=== PATIENT | female | born 1930 | race Caucasian/White ===

== ENCOUNTER 2016-04-01 13:58 | Emergency (ER) | payer MEDICARE, BC ==
--- NOTE | 2016-04-01 15:17 | ER Document Report ---
ED General - General Mode of Arrival: Ambulatory Information source: Patient TRAVEL OUTSIDE OF THE [place] IN LAST 30 DAYS: No - HPI Patient complains to provider of: Possible UTI Onset: Last week Associated symptoms: Other - see above <SHON MALIK - Last Filed: 04/02/16 00:00> <ARTEMIO GARCIA - Last Filed: 04/07/16 14:17> - General Stated Complaint: URINARY ISSUES Notes: 86 year old female with history of UTIs, pneumonia, and dementia presents to the ED via EMS accompanied by family who complain tht the patient has had a UTI for the past week. Family reports that they only have 1 dose of Macrobid left which was prescribed by her primary care provider. Patient is denying any relief from her UTI even after antibiotic use. Patient is still having burning with urination, frequency, dark urine, and dysuria. Patient appears to be "more confused", but family denies any slurred speech or unilateral weakness. Patient has had rhinorrhea and a non-productive cough for the past week. Patient denies fever or chills. Patient was last admitted here with pneumonia. Patient's primary care provider is Dr. George in [place], [place]. (SHON MALIK) - Related Data Allergies/Adverse Reactions: No Known Allergies Allergy (Verified 02/12/14 08:24) Past Medical History - General Information source: Patient - Social History Smoking Status: Unknown if Ever Smoked Family History: None Pulmonary Medical History: Reports: Hx Pneumonia Denies: Hx Tuberculosis Renal/ Medical History: Reports: Other - UTIs. Denies: Hx End Stage Renal Disease, Hx Kidney Stones, Hx Peritoneal Dialysis Musculoskeltal Medical History: Denies Hx Arthritis, Denies Hx Fibromyalgia, Denies Hx Muscular Dystrophy Traumatic Medical History: Denies: Hx Fractures Past Surgical History: Reports: Hx Appendectomy, Hx Hysterectomy. Denies: Hx Bowel Surgery, Hx Section, Hx Cholecystectomy, Hx Coronary Artery Bypass Graft, Hx Gastric Bypass Surgery, Hx Herniorrhaphy, Hx Mastectomy, Hx Pacemaker, Hx Tonsillectomy, Hx Tubal Ligation - Immunizations Hx Diphtheria, Pertussis, Tetanus Vaccination: Yes Hx Pneumococcal Vaccination: 02/08/06 <SHON MALIK - Last Filed: 04/02/16 00:00> Review of Systems - Review of Systems Constitutional: No symptoms reported EENT: See HPI, Nose discharge Cardiovascular: No symptoms reported Respiratory: See HPI, Cough - non-productive Gastrointestinal: No symptoms reported Genitourinary: See HPI, Burning, Dysuria, Frequency, Other - "dark urine" Female Genitourinary: No symptoms reported Musculoskeletal: No symptoms reported Skin: No symptoms reported Hematologic/Lymphatic: No symptoms reported Neurological/Psychological: See HPI, Confusion -: Yes All other systems reviewed and negative <SHON MALIK - Last Filed: 04/02/16 00:00> Physical Exam - General General appearance: Alert In distress: None - HEENT Head: Normocephalic, Atraumatic Eyes: Normal Extraocular movements intact: Yes Pupils: PERRL - Respiratory Respiratory status: No respiratory distress Breath sounds: Normal - Cardiovascular Rhythm: Regular Heart sounds: Normal auscultation - Abdominal Inspection: Normal - Back Back: Normal - Extremities General upper extremity: Normal inspection, Normal ROM General lower extremity: Normal inspection, Normal ROM - Neurological Neuro grossly intact: Yes Cognition: Normal Orientation: AAOx4 Blandon Coma Scale Eye Opening: Spontaneous Blandon Coma Scale Verbal: Oriented Gwen Coma Scale Motor: Obeys Commands Gwen Coma Scale Total: 15 Speech: Normal - Psychological Associated symptoms: Normal affect, Normal mood - Skin Skin Temperature: Warm Skin Moisture: Dry Skin Color: Normal <SHON MALIK - Last Filed: 04/02/16 00:00> <ARTEMIO GARCIA - Last Filed: 04/07/16 14:17> - Vital signs Vitals: Temp Pulse Resp BP Pulse Ox 98.2 F 83 16 132/59 H 92 04/01/16 14:20 04/01/16 14:20 04/01/16 14:20 04/01/16 14:20 04/01/16 14:20 Temp Pulse Resp BP Pulse Ox 98.2 F 83 16 132/59 H 92 04/01/16 14:20 04/01/16 14:20 04/01/16 14:20 04/01/16 14:20 04/01/16 14:20 (SHON MALIK) Course - Laboratory Result Diagrams: 04/01/16 15:50 04/01/16 15:50 <SHON MALIK - Last Filed: 04/02/16 00:00> - Laboratory Result Diagrams: 04/01/16 15:50 04/01/16 15:50 <ARTEMIO GARCIA - Last Filed: 04/07/16 14:17> - Re-evaluation Re-evalutation: 04/01/16 18:15 I personally performed the services described in the documentation, reviewed and edited the documentation which was dictated to my scribe in my presence, and it accurately records my words and actions. Patient presents to the emergency department with her family with a history of dementia recent urinary tract infection. Family states that she's been having intermittent urinary tract infections was placed on antibiotics is on day 2 of her Macrobid. She denies any fevers chills vomiting diarrhea they do notice a darker urine odor that all she really drinks is soda coffee and tea. They've tried to get her to drink other things that she's like the taste of it. On examination she is normotensive not tachycardic no acute confusion or neurological deficits family does not feel there is any been strokelike symptoms. She is well-appearing and nontoxic afebrile. Chest x-ray shows an acute on chronic spot which is not consistent with pneumonia clinically. I discussed this with the family she has always had an abnormal chest x-ray from rheumatoid arthritis. It does not clinically or historically appear to be pneumonia. They agree with that do not want antibiotics for that. Facial Macrobid. She not actively vomiting or belly is soft. At this point she is stable for discharge for primary care physician in 2-3 days and discussed reasons for ED return sooner (ARTEMIO GARCIA) - Vital Signs Vital signs: Temp Pulse Resp BP Pulse Ox 97.6 F 88 16 156/69 H 96 04/01/16 18:45 04/01/16 18:45 04/01/16 18:45 04/01/16 18:45 04/01/16 18:45 - Laboratory Laboratory results interpreted by me: 04/01/16 04/01/16 04/01/16 15:50 15:50 16:51 Lymphocytes % 11.5 L Est GFR (Non-Af Amer) 53 L Urine Ketones TRACE H Urine Urobilinogen 2.0 H Ur Leukocyte Esterase TRACE H Discharge <SHON MALIK - Last Filed: 04/02/16 00:00> <ARTEMIO GARCIA - Last Filed: 04/07/16 14:17> - Discharge Clinical Impression: UTI (urinary tract infection), Weakness Condition: Stable Disposition: HOME, SELF-CARE Additional Instructions: Urinary Tract Infection Your evaluation indicates that you have a urinary tract infection. This is due to germs growing in the bladder. This is a common problem. This infection usually responds quickly to antibiotics. Your antibiotic should be taken exactly as prescribed. Drink plenty of fluids -- three to four quarts a day. Occasionally, a bladder anesthetic will be prescribed to help stop the feeling of urgency until the antibiotic has a chance to clear the infection. This may cause your urine to be dark orange. Certain urine infections require a culture. If the doctor obtained a culture, the results will be back in two days. You should call to see if a change in treatment is needed. A repeat urinalysis after you finish treatment is often recommended. The physician will let you know if further testing is required. Call the doctor if you develop fever, chills, flank pain, inability to urinate, or blood in the urine. Referrals: LUIS GEORGE MD [Primary Care Provider] - Follow up in 3-5 days (2-3 days return for increasing worsening or new symptoms) Scribe Documentation - Scribe Written by Suleiman:: Suleiman Christie, 04/01/2016 1833 acting as scribe for :: Hemant <SHON MALIK - Last Filed: 04/02/16 00:00>
[2016-04-01] MEDS ORDERED: NORMAL SALINE 1000 ML 1,000 ML IV ONE (15:19)
[2016-04-01 16:05] LABS: ABSOLUTE BASOPHILS # (AUTO) 0.1 10^3/uL (0.0-0.2); ABSOLUTE EOSINOPHILS # (AUTO) 0.1 10^3/uL (0.0-0.6); ABSOLUTE LYMPHOCYTES (AUTO) 1.2 10^3/uL (0.5-4.7); BASOPHILS % (AUTO) 0.7 % (0-2); EOSINOPHILS % (AUTO) 1.2 % (0-6); HEMOGLOBIN 13.1 g/dL (12.0-15.5); HGB HCT DIFFERENCE 0.3; LYMPHOCYTES % (AUTO) 11.5 % (13-45); MEAN CORPUSCULAR HEMOGLOBIN 29.6 pg (27.0-33.4); MEAN CORPUSCULAR HGB CONC 33.6 g/dL (32.0-36.0); MEAN CORPUSCULAR VOLUME 88 fl (80-97); MONOCYTES % (AUTO) 9.3 % (3-13); RED BLOOD COUNT 4.42 10^6/uL (3.72-5.28); SEGMENTED NEUTROPHILS % (AUTO) 77.3 % (42-78); WHITE BLOOD COUNT 10.3 10^3/uL (4.0-10.5)
[2016-04-01 16:21] LABS: ANION GAP 12 (5-19); BLOOD UREA NITROGEN 19 mg/dL (7-20); CALCIUM 9.7 mg/dL (8.4-10.2); CARBON DIOXIDE 25 mmol/L (22-30); CHLORIDE 103 mmol/L (98-107); GLUCOSE 87 mg/dL (75-110); POTASSIUM 4.3 mmol/L (3.6-5.0); SODIUM 139.6 mmol/L (137-145)
[2016-04-01 17:27] LABS: APPEARANCE,URINE SLIGHTLY-CLOUDY; BILIRUBIN,URINE NEGATIVE (NEGATIVE); GLUCOSE, URINE NEGATIVE (NEGATIVE); KETONES,URINE TRACE mg/dL (NEGATIVE); LEUKOCYTE ESTERASE,URINE TRACE (NEGATIVE); NITRITE,URINE NEGATIVE (NEGATIVE); PROTEIN,URINE NEGATIVE (NEGATIVE); URINE SPECIFIC GRAVITY 1.021
[2016-04-01 19:25] VITALS: BP 156/69
== END 2016-04-01 18:45 | disposition home or self-care (01) ==
LOC: ER 13:58
DX: N39.0 Urinary tract infection, site not specified (principal); R53.1 Weakness; J34.89 Other specified disorders of nose and nasal sinuses; R05 Cough; F03.90 Unspecified dementia, unspecified severity, without behavioral disturbance, psychotic disturbance, mood disturbance, and anxiety; Z87.440 Personal history of urinary (tract) infections; Z90.49 Acquired absence of other specified parts of digestive tract
CPT/HCPCS: 99284; 96360; 36415; 87086; 85025; 80048; 81001; 87804; 71020; J7030

== ENCOUNTER 2017-04-23 14:13 | Inpatient (IN) | payer MEDICARE, BC ==
[2017-04-23] MEDS ORDERED: 1/2 NORMAL SALINE 1,000 ML IV PRN (17:17)
--- NOTE | 2017-04-23 17:37 | RADIOLOGY REPORT (SQ) ---
EXAM DESCRIPTION: CT CHEST WITHOUT COMPLETED DATE/TIME: 04/23/2017 4:29 pm REASON FOR STUDY: Pneumonia COMPARISON: Radiograph 04/01/2016 TECHNIQUE: CT scan performed of the chest without intravenous contrast. Images reviewed with lung, soft tissue and bone windows. Reconstructed coronal and sagittal MPR images reviewed. All images st ored on PACS. All CT scanners at this facility use dose modulation, iterative reconstruction, and/or weight based d osing when appropriate to reduce radiation dose to as low as reasonably achievable (ALARA). [facility]: Dose Right [facility]: CareDose [facility]: Dose Right [facility]: Teradose 4D [facility]: [employer] RADIATION DOSE: CT Rad equipment meets quality standard of care and radiation dose reduction techniq ues were employed. CTDIvol: 8.7 mGy. DLP: 286 mGy-cm. mGy. LIMITATIONS: No technical limitations. FINDINGS: LUNGS AND PLEURA: There is pleural/parenchymal scarring in the right apex. 2 small pulmon virgilio nodules are seen in the right upper lobe on image 9 series 4. The larger measures about 4 mm. T here is an area of slight haziness or scarring in the right lung on image 17 series 4. This correlat es with the appearance of the chest radiograph from 2017. An ill-defined infiltrate is suggested in the middle lobe on images 33 through 38 HILAR AND MEDIASTINAL STRUCTURES: No hilar or mediastinal masses are present. There is a prominent h iatal hernia. HEART AND VASCULAR STRUCTURES: No aneurysm. No pericardial effusion. UPPER ABDOMEN: No significant findings. Limited exam. THYROID AND OTHER SOFT TISSUES: No masses. No adenopathy. BONES: Osteoporosis with compression changes in multiple thoracolumbar vertebrae. Vertebroplasty roderick nges are present at 2 levels. HARDWARE: None in the chest. OTHER: No other significant findings. IMPRESSION: 1. A limited infiltrate cannot be excluded in the anterior aspect of the right middle l obe. 2. There is scarring in the right upper lobe. 3. There are 2 small nonspecific pulmonary nodules in the right upper lobe. 4. There is osteoporosis with compression changes in the spine. TECHNICAL DOCUMENTATION: JOB ID: [id number] Quality ID # [id number]: Final reports with documentation of one or more dose reduction techniques (e.g., Au tomated exposure control, adjustment of the mA and/or kV according to patient size, use of iterative reconstruction technique) 2010 [employer]- All Rights Reserved Reading location - IP/workstation name: [email or web address]
[2017-04-23 17:46] LABS: HEMOGLOBIN 13.6 g/dL (12.0-15.5); MEAN CORPUSCULAR HEMOGLOBIN 29.7 pg (27.0-33.4); MEAN CORPUSCULAR HGB CONC 33.2 g/dL (32.0-36.0); MEAN CORPUSCULAR VOLUME 89 fl (80-97); PLATELET COUNT 220 10^3/uL (150-450); RED BLOOD COUNT 4.59 10^6/uL (3.72-5.28); RED CELL DISTRIBUTION WIDTH 14.6 % (11.5-14.0); WHITE BLOOD COUNT 4.8 10^3/uL (4.0-10.5)
[2017-04-23] MEDS ORDERED: LEVOFLOXACIN 750 MG/D5W RTU 750 MG/150 ML RTUPB IV ONE (18:00)
[2017-04-23 18:15] LABS: ALANINE AMINOTRANSFERASE 21 U/L (9-52); ALKALINE PHOSPHATASE 101 U/L (38-126); ANION GAP 11 (5-19); ASPARTATE AMINO TRANSFERASE 27 U/L (14-36); BILIRUBIN,DIRECT 0.3 mg/dL (0.0-0.4); BILIRUBIN,TOTAL 0.3 mg/dL (0.2-1.3); BLOOD UREA NITROGEN 30 mg/dL (7-20); CALCIUM 9.8 mg/dL (8.4-10.2); CARBON DIOXIDE 26 mmol/L (22-30); CHLORIDE 105 mmol/L (98-107); GLUCOSE 96 mg/dL (75-110); SODIUM 141.6 mmol/L (137-145); TOTAL PROTEIN 7.6 g/dL (6.3-8.2)
[2017-04-23] MEDS ORDERED: (PENDING PHARMACY ID) (Donepezil Hcl [Aricept] 10 MG) PO SCH (18:15)
[2017-04-23 18:34] LABS: ARTERIAL BLOOD BASE EXCESS -0.5 mmol/L; ARTERIAL BLOOD FIO2 ROOM AIR; ARTERIAL BLOOD H2CO3 1.23 mmol/L (1.05-1.35); ARTERIAL BLOOD HCO3 24.4 mmol/L (20-26); ARTERIAL BLOOD O2 SATURATION 94.6 % (94-98); ARTERIAL BLOOD PCO2 40.7 mmHg (35-45); ARTERIAL BLOOD PO2 72.5 mmHg (80-100); ARTERIAL BLOOD TOTAL CO2 25.6 mmol/L (21-25)
[2017-04-23] MEDS ORDERED: DONEPEZIL HCL 5 MG TABLET PO ONE ×2 (19:00→23:45)
[2017-04-23] MEDS ORDERED: MEMANTINE HCL 10 MG TABLET PO ONE ×2 (19:00→23:45)
[2017-04-23] MEDS ORDERED: NORMAL SALINE 1000 ML 1,000 ML IV PRN (20:10)
--- NOTE | 2017-04-23 20:25 | PDOC H&P ---
History of Present Illness Admission Date/PCP: 04/23/17 14:13 LUIS GUTIERRES MD History of Present Illness: MARLYS TORRES is a 87 year old female, She came to the office today for the first time with family including spouse and daughter who is an RN, she complained of cough, shortness of breath, she has baseline dementia, rheumatoid arthritis, multiple osteoporotic compression fracture of the lumbar vertebre. In the office she was evaluated, on auscultation of her chest she has crackles that suggest pneumonia. 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 Because of concern for pneumonia because she is of advanced age and the fact that the family said she has not been active, she has been laying around the house it was felt that she needed to be admitted to the hospital for further evaluation and management. In the hospital CT chest without contrast was done he showed pleural/parenchymal scarring. Small pulmonary nodules are seen in the right upper lobe. There is area of dizziness in the right lung. Ill-defined infiltrates is suggested in the middle lobe. There is no hilar mass there are multiple osteoporosis with compression changes in multiple thoracolumbar vertebrae there is vertebroplasty changes at 2 levels. Past Medical History Pulmonary Medical History: Reports: Pneumonia Endocrine Medical History: Reports: Other - Osteoporosis Musculoskeltal Medical History: Reports: Arthritis - Rheumatoid arthritis Psychiatric Medical History: Reports: Dementia Past Surgical History Past Surgical History: Reports: Appendectomy, Hysterectomy Social History Information Source: Patient, Relative Lives with: Family Smoking Status: Never Smoker Frequency of Alcohol Use: None Hx Recreational Drug Use: No Drugs: None Hx Prescription Drug Abuse: Yes - 1 tab vicodin daily Family History Family History: None Parental Family History Reviewed: Yes Children Family History Reviewed: Yes Sibling(s) Family History Reviewed.: Yes Medication/Allergy Home Medications: Ciprofloxacin HCl [Cipro 250 mg Tablet] 250 mg PO BID 04/23/17 Donepezil HCl [Aricept] 10 mg PO DAILY 04/23/17 Memantine HCl [Namenda 10 mg Tablet] 10 mg PO BID 04/23/17 Tramadol HCl [Ultram 50 mg Tablet] 50 mg PO TIDP PRN 04/23/17 Allergies/Adverse Reactions: No Known Allergies Allergy (Verified 02/12/14 08:24) Review of Systems Constitutional: PRESENT: chills, other Eyes: ABSENT: visual disturbances Ears: ABSENT: hearing changes Cardiovascular: ABSENT: chest pain, dyspnea on exertion, edema, orthropnea, palpitations Respiratory: PRESENT: cough, dyspnea Gastrointestinal: ABSENT: abdominal pain, constipation, diarrhea, hematemesis, hematochezia, nausea, vomiting Genitourinary: ABSENT: dysuria, hematuria Musculoskeletal: ABSENT: joint swelling Integumentary: ABSENT: rash, wounds Neurological: ABSENT: abnormal gait, abnormal speech, confusion, dizziness, focal weakness, syncope Psychiatric: ABSENT: anxiety, depression, homidical ideation, suicidal ideation Endocrine: ABSENT: cold intolerance, heat intolerance, menstrual abnormalities, polydipsia, polyuria Hematologic/Lymphatic: ABSENT: easy bleeding, easy bruising, lymphadenopathy Physical Exam Vital Signs: Temp Pulse Resp BP Pulse Ox 97.8 F 76 18 141/55 H 97 04/23/17 16:56 04/23/17 16:56 04/23/17 16:56 04/23/17 16:56 04/23/17 16:56 Intake & Output 04/22/17 04/23/17 04/24/17 06:59 06:59 06:59 Intake Total 200 Balance 200 Weight 68.6 kg General appearance: PRESENT: mild distress Head exam: PRESENT: atraumatic, normocephalic Eye exam: PRESENT: conjunctiva pink, EOMI, PERRLA Ear exam: PRESENT: normal external ear exam Mouth exam: PRESENT: moist, tongue midline Neck exam: PRESENT: full ROM Respiratory exam: PRESENT: crackles Cardiovascular exam: PRESENT: RRR, +S1, +S2 Pulses: PRESENT: normal dorsalis pedis pul, +2 pedal pulses bilateral Vascular exam: PRESENT: normal capillary refill GI/Abdominal exam: PRESENT: normal bowel sounds, soft Rectal exam: PRESENT: deferred Neurological exam: PRESENT: alert Skin exam: PRESENT: dry, intact, warm Results Laboratory Results: 04/23/17 17:15 04/23/17 17:15 04/23/17 04/23/17 04/23/17 17:15 17:15 17:52 WBC 4.8 RBC 4.59 Hgb 13.6 Hct 41.0 MCV 89 MCH 29.7 MCHC 33.2 RDW 14.6 H Plt Count 220 Carbonic Acid 1.23 HCO3/H2CO3 Ratio 19:1 ABG pH 7.40 ABG pCO2 40.7 ABG pO2 72.5 L ABG HCO3 24.4 ABG O2 Saturation 94.6 ABG Base Excess -0.5 FiO2 ROOM AIR Sodium 141.6 Potassium 4.0 [place] 105 Carbon Dioxide 26 Anion Gap 11 BUN 30 H Creatinine 1.31 H Est GFR ( Amer) 47 L Est GFR (Non-Af Amer) 39 L Glucose 96 Calcium 9.8 Total Bilirubin 0.3 AST 27 ALT 21 Alkaline Phosphatase 101 Total Protein 7.6 Albumin 4.0 Impressions: Chest CT 04/23/17 15:55 IMPRESSION: 1. A limited infiltrate cannot be excluded in the anterior aspect of the right middle lobe. 2. There is scarring in the right upper lobe. 3. There are 2 small nonspecific pulmonary nodules in the right upper lobe. 4. There is osteoporosis with compression changes in the spine. Assessment & Plan - Diagnosis (1) Pneumonia Qualifiers: Pneumonia type: due to unspecified organism Laterality: right Lung location: middle lobe of lung Qualified Code(s): J18.1 - Lobar pneumonia, unspecified organism Is this a current diagnosis for this admission?: Yes Plan: She will be treated with IV antibiotic to cover community-acquired pathogens (2) Rheumatoid arthritis Qualifiers: Rheumatoid arthritis location: unspecified site Rheumatoid factor presence : unspecified presence Qualified Code(s): M06.9 - Rheumatoid arthritis, unspecified Is this a current diagnosis for this admission?: Yes (3) Dementia Qualifiers: Dementia type: Alzheimer's disease Alzheimer's disease onset: late-onset Dementia behavioral disturbance: without behavioral disturbance Qualified Code (s): G30.1 - Alzheimer's disease with late onset; F02.80 - Dementia in other diseases classified elsewhere without behavioral disturbance; F02.80 - Dementia in other diseases classified elsewhere without behavioral disturbance; F02.80 - Dementia in other diseases classified elsewhere without behavioral disturbance Is this a current diagnosis for this admission?: Yes (4) Osteoporotic compression fracture of spine Qualifiers: Encounter type: initial encounter Qualified Code(s): M80.88XA - Other osteoporosis with current pathological fracture, vertebra(e), initial encounter for fracture Is this a current diagnosis for this admission?: Yes
[2017-04-23 21:46] LABS: HEMATOCRIT 38.6 % (36.0-47.0); HEMOGLOBIN 12.8 g/dL (12.0-15.5); MEAN CORPUSCULAR HEMOGLOBIN 29.7 pg (27.0-33.4); MEAN CORPUSCULAR HGB CONC 33.2 g/dL (32.0-36.0); MEAN CORPUSCULAR VOLUME 90 fl (80-97); PLATELET COUNT 202 10^3/uL (150-450); RED BLOOD COUNT 4.31 10^6/uL (3.72-5.28); RED CELL DISTRIBUTION WIDTH 14.8 % (11.5-14.0); WHITE BLOOD COUNT 5.1 10^3/uL (4.0-10.5)
[2017-04-23 21:58] LABS: INTERNATIONAL RATION (INR) 0.91; PARTIAL THROMBOPLASTIN TIME 29.1 SEC (23.5-35.8); PROTHROMBIN TIME 12.9 SEC (11.4-15.4)
[2017-04-24] MEDS ORDERED: 1/2 NORMAL SALINE 1,000 ML IV PRN (07:11)
[2017-04-24] MEDS: DONEPEZIL HCL 5 MG TABLET PO SCH (09:50)
[2017-04-24] MEDS: TRAMADOL HCL 50 MG TABLET PO PRN ×2 (09:50→17:23)
[2017-04-24] MEDS: MEMANTINE HCL 10 MG TABLET PO SCH ×2 (09:51→17:23)
[2017-04-24] MEDS: LEVOFLOXACIN 750 MG/D5W RTU 750 MG/150 ML RTUPB IV SCH (09:51)
[2017-04-24] MEDS: ENOXAPARIN SODIUM INJ 40 MG/0.4 ML DISP.SYRIN SUBCUT SCH (09:52)
--- NOTE | 2017-04-24 09:54 | EKG REPORT ---
SEVERITY:- ABNORMAL ECG - SINUS RHYTHM PROBABLE LEFT ATRIAL ABNORMALITY LEFT VENTRICULAR HYPERTROPHY : Confirmed by: Manuel Casas MD 24-Apr-2017 09:53:30
--- NOTE | 2017-04-24 14:47 | PDOC PROGRESS REPORT ---
Subjective Progress Note for:: 04/24/17 Subjective:: No chest pain. There is persistent coughing with difficult expectoration. There is nausea but no vomiting or abdominal pain. Family at bedside reported poor appetite and P.O intake. She denied any constipation. No fever or chills. Remain on IV Levofloxacin coverage. Reason For Visit: PNEUMONIA,RHEUMATOID ARTHRITIS,DEMENTIA Physical Exam Vital Signs: Temp Pulse Resp BP Pulse Ox 97.5 F 66 17 158/61 H 98 04/24/17 12:13 04/24/17 12:13 04/24/17 12:13 04/24/17 12:13 04/24/17 12:13 Intake & Output 04/23/17 04/24/17 04/25/17 06:59 06:59 06:59 Intake Total 1140 0 Balance 1140 0 Weight 68.6 kg Results Laboratory Results: 04/23/17 21:40 04/23/17 21:40 04/23/17 04/23/17 04/23/17 17:15 17:15 17:52 WBC 4.8 RBC 4.59 Hgb 13.6 Hct 41.0 MCV 89 MCH 29.7 MCHC 33.2 RDW 14.6 H Plt Count 220 Carbonic Acid 1.23 HCO3/H2CO3 Ratio 19:1 ABG pH 7.40 ABG pCO2 40.7 ABG pO2 72.5 L ABG HCO3 24.4 ABG O2 Saturation 94.6 ABG Base Excess -0.5 FiO2 ROOM AIR Sodium 141.6 Potassium 4.0 [place] 105 Carbon Dioxide 26 Anion Gap 11 BUN 30 H Creatinine 1.31 H Est GFR ( Amer) 47 L Est GFR (Non-Af Amer) 39 L Glucose 96 Calcium 9.8 Total Bilirubin 0.3 AST 27 ALT 21 Alkaline Phosphatase 101 Total Protein 7.6 Albumin 4.0 04/23/17 04/23/17 21:40 21:40 WBC 5.1 RBC 4.31 Hgb 12.8 Hct 38.6 MCV 90 MCH 29.7 MCHC 33.2 RDW 14.8 H Plt Count 202 Carbonic Acid HCO3/H2CO3 Ratio ABG pH ABG pCO2 ABG pO2 ABG HCO3 ABG O2 Saturation ABG Base Excess FiO2 Sodium Potassium [place] Carbon Dioxide Anion Gap BUN Creatinine 1.13 Est GFR ( Amer) 55 L Est GFR (Non-Af Amer) 46 L Glucose Calcium Total Bilirubin AST ALT Alkaline Phosphatase Total Protein Albumin Impressions: Chest CT 04/23/17 15:55 IMPRESSION: 1. A limited infiltrate cannot be excluded in the anterior aspect of the right middle lobe. 2. There is scarring in the right upper lobe. 3. There are 2 small nonspecific pulmonary nodules in the right upper lobe. 4. There is osteoporosis with compression changes in the spine. Assessment & Plan - Diagnosis (1) Right middle lobe pneumonia Qualifiers: Pneumonia type: due to unspecified organism Qualified Code(s): J18.1 - Lobar pneumonia, unspecified organism Is this a current diagnosis for this admission?: Yes Plan: Continue IV Levofloxacin coverage. Follow up on blood culture findings. (2) Adult failure to thrive Is this a current diagnosis for this admission?: Yes Plan: Encourage adequate oral intake. Add oral nourishment supplementation to tray. (3) Nausea alone Plan: Probably due to ongoing acute infection. Manage with Zofran on prn basis. (4) Senile dementia of Alzheimer's type Is this a current diagnosis for this admission?: Yes Plan: Continue current medication management. (5) Osteoporotic compression fracture of spine Qualifiers: Encounter type: initial encounter Qualified Code(s): M80.88XA - Other osteoporosis with current pathological fracture, vertebra(e), initial encounter for fracture Is this a current diagnosis for this admission?: Yes Plan: Continue current management. Monitor for any new onset back pain for possible fragility fracture. (6) Lab findings of hypoxemia Is this a current diagnosis for this admission?: Yes Plan: Monitor oxygenation status on room air and consider starting on supplementation if necessary. - Time Time Spent with patient: 25-34 minutes Medications reviewed and adjusted accordingly: Yes Anticipated discharge: Home with Homehealth Within: Other - Inpatient Certification Based on my medical assessment, after consideration of the patient's comorbidities, presenting symptoms, or acuity I expect that the services needed warrant INPATIENT care.: Yes I certify that my determination is in accordance with my understanding of Medicare's requirements for reasonable and necessary INPATIENT services [42 CFR 412.3e].: Yes Medical Necessity: Need Close Monitoring Due to Risk of Patient Decompensation, Need For IV Fluids, Need For Continuous Telemetry Monitoring, Need for IV Antibiotics, Risk of Complication if Not Cared For in Hospital Post Hospital Care: D/C Kosher Inspector Documentation - Plan Summary Plan Summary: See covering attending physician orders.
[2017-04-24 21:18] LABS: APPEARANCE,URINE CLEAR; BILIRUBIN,URINE NEGATIVE (NEGATIVE); COLOR,URINE STRAW; GLUCOSE, URINE NEGATIVE (NEGATIVE); KETONES,URINE NEGATIVE (NEGATIVE); LEUKOCYTE ESTERASE,URINE NEGATIVE (NEGATIVE); NITRITE,URINE NEGATIVE (NEGATIVE); PROTEIN,URINE NEGATIVE (NEGATIVE); URINE SPECIFIC GRAVITY 1.009; UROBILINOGEN,URINE NEGATIVE mg/dL (<2.0)
[2017-04-25 05:55] LABS: ABSOLUTE MONOCYTES (AUTO) 0.5 10^3/uL (0.1-1.4); ABSOLUTE NEUT (AUTO) 3.3 10^3/uL (1.7-8.2); BASOPHILS % (AUTO) 0.5 % (0-2); EOSINOPHILS % (AUTO) 0.3 % (0-6); HEMATOCRIT 40.7 % (36.0-47.0); HEMOGLOBIN 13.8 g/dL (12.0-15.5); LYMPHOCYTES % (AUTO) 20.5 % (13-45); MEAN CORPUSCULAR HEMOGLOBIN 29.8 pg (27.0-33.4); MEAN CORPUSCULAR HGB CONC 33.9 g/dL (32.0-36.0); MEAN CORPUSCULAR VOLUME 88 fl (80-97); MONOCYTES % (AUTO) 11.3 % (3-13); PLATELET COUNT 208 10^3/uL (150-450); RED BLOOD COUNT 4.62 10^6/uL (3.72-5.28); RED CELL DISTRIBUTION WIDTH 14.6 % (11.5-14.0); SEGMENTED NEUTROPHILS % (AUTO) 67.4 % (42-78); TOTAL CELLS COUNTED % (AUTO) 100 %; WHITE BLOOD COUNT 4.9 10^3/uL (4.0-10.5)
[2017-04-25 06:33] LABS: ALANINE AMINOTRANSFERASE 16 U/L (9-52); ALBUMIN 3.2 g/dL (3.5-5.0); ALKALINE PHOSPHATASE 84 U/L (38-126); ANION GAP 9 (5-19); ASPARTATE AMINO TRANSFERASE 25 U/L (14-36); BILIRUBIN,DIRECT 0.2 mg/dL (0.0-0.4); BILIRUBIN,TOTAL 0.4 mg/dL (0.2-1.3); BLOOD UREA NITROGEN 19 mg/dL (7-20); CALCIUM 9.1 mg/dL (8.4-10.2); CARBON DIOXIDE 24 mmol/L (22-30); CHLORIDE 100 mmol/L (98-107); GLUCOSE 87 mg/dL (75-110); POTASSIUM 4.3 mmol/L (3.6-5.0); TOTAL PROTEIN 6.1 g/dL (6.3-8.2)
[2017-04-25] MEDS: LEVOFLOXACIN 750 MG/D5W RTU 750 MG/150 ML RTUPB IV SCH (11:02)
[2017-04-25] MEDS: DONEPEZIL HCL 5 MG TABLET PO SCH (11:03)
[2017-04-25] MEDS: MEMANTINE HCL 10 MG TABLET PO SCH ×2 (11:03→18:43)
[2017-04-25] MEDS: ENOXAPARIN SODIUM INJ 40 MG/0.4 ML DISP.SYRIN SUBCUT SCH (11:04)
[2017-04-25] MEDS: TRAMADOL HCL 50 MG TABLET PO PRN (12:33)
[2017-04-25] MEDS ORDERED: NORMAL SALINE 1000 ML 1,000 ML IV PRN (12:55)
--- NOTE | 2017-04-25 13:02 | PDOC PROGRESS REPORT ---
Subjective Progress Note for:: 04/25/17 Subjective:: Nursing staff reported low grade fever, episode of tachycardia and lower back pain. No chest pain. Family reported episodes of coughing after swallowing at home and worried about possible aspiration. Expectoration with coughing remain a challenge. There is nausea, vomiting or abdominal pain. Remain on IV fluid support and IV Levofloxacin coverage. Reason For Visit: PNEUMONIA,RHEUMATOID ARTHRITIS,DEMENTIA Physical Exam Vital Signs: Temp Pulse Resp BP Pulse Ox 99.4 F 86 14 142/69 H 96 04/25/17 11:15 04/25/17 11:15 04/25/17 11:15 04/25/17 11:15 04/25/17 11:15 Intake & Output 04/24/17 04/25/17 04/26/17 06:59 06:59 06:59 Intake Total 1140 2079 0 Output Total 675 Balance 1140 1404 0 Weight 68.6 kg 68.9 kg General appearance: PRESENT: no acute distress Head exam: PRESENT: atraumatic, normocephalic Eye exam: PRESENT: conjunctiva pink, EOMI, PERRLA. ABSENT: scleral icterus Mouth exam: PRESENT: moist - fairly Throat exam: PRESENT: other - oropharyngeal reflex intact Respiratory exam: PRESENT: clear to auscultation [place], decreased breath sounds - at lung bases Cardiovascular exam: PRESENT: RRR. ABSENT: diastolic murmur, rubs, systolic murmur GI/Abdominal exam: PRESENT: normal bowel sounds, soft. ABSENT: distended, guarding, mass, organolmegaly, rebound, tenderness Extremities exam: ABSENT: pedal edema Musculoskeletal exam: PRESENT: deformity - related to multiple jpoints involvement with arthritis Neurological exam: PRESENT: alert - and appropriate in simple responses, awake, CN II-XII grossly intact. ABSENT: motor sensory deficit Psychiatric exam: PRESENT: appropriate affect, normal mood. ABSENT: homicidal ideation, suicidal ideation Skin exam: PRESENT: dry, intact, warm. ABSENT: cyanosis, rash Results Laboratory Results: 04/25/17 05:33 04/25/17 05:33 04/24/17 04/25/17 04/25/17 20:40 05:33 05:33 WBC 4.9 RBC 4.62 Hgb 13.8 Hct 40.7 MCV 88 MCH 29.8 MCHC 33.9 RDW 14.6 H Plt Count 208 Seg Neutrophils % 67.4 Lymphocytes % 20.5 Monocytes % 11.3 Eosinophils % 0.3 Basophils % 0.5 Absolute Neutrophils 3.3 Absolute Lymphocytes 1.0 Absolute Monocytes 0.5 Absolute Eosinophils 0.0 Absolute Basophils 0.0 Sodium 133.0 L Potassium 4.3 Chloride 100 Carbon Dioxide 24 Anion Gap 9 BUN 19 Creatinine 0.98 Est GFR ( Amer) > 60 Est GFR (Non-Af Amer) 54 L Glucose 87 Calcium 9.1 Total Bilirubin 0.4 AST 25 ALT 16 Alkaline Phosphatase 84 Total Protein 6.1 L Albumin 3.2 L Urine Color STRAW Urine Appearance CLEAR Urine pH 6.0 Ur Specific [place] 1.009 Urine Protein NEGATIVE Urine Glucose (UA) NEGATIVE Urine Ketones NEGATIVE Urine Blood NEGATIVE Urine Nitrite NEGATIVE Ur Leukocyte Esterase NEGATIVE Urine WBC (Auto) 1 Urine RBC (Auto) 2 Impressions: Chest CT 04/23/17 15:55 IMPRESSION: 1. A limited infiltrate cannot be excluded in the anterior aspect of the right middle lobe. 2. There is scarring in the right upper lobe. 3. There are 2 small nonspecific pulmonary nodules in the right upper lobe. 4. There is osteoporosis with compression changes in the spine. Assessment & Plan - Diagnosis (1) Right middle lobe pneumonia Qualifiers: Pneumonia type: due to unspecified organism Qualified Code(s): J18.1 - Lobar pneumonia, unspecified organism Is this a current diagnosis for this admission?: Yes (2) Adult failure to thrive Is this a current diagnosis for this admission?: Yes (4) Senile dementia of Alzheimer's type Is this a current diagnosis for this admission?: Yes (5) Osteoporotic compression fracture of spine Qualifiers: Encounter type: initial encounter Qualified Code(s): M80.88XA - Other osteoporosis with current pathological fracture, vertebra(e), initial encounter for fracture Is this a current diagnosis for this admission?: Yes (6) Lab findings of hypoxemia Is this a current diagnosis for this admission?: Yes - Time Time Spent with patient: 25-34 minutes Medications reviewed and adjusted accordingly: Yes Anticipated discharge: Home with Homehealth Within: Other - Inpatient Certification Based on my medical assessment, after consideration of the patient's comorbidities, presenting symptoms, or acuity I expect that the services needed warrant INPATIENT care.: Yes I certify that my determination is in accordance with my understanding of Medicare's requirements for reasonable and necessary INPATIENT services [42 CFR 412.3e].: Yes Medical Necessity: Need Close Monitoring Due to Risk of Patient Decompensation, Need For IV Fluids, Need For Continuous Telemetry Monitoring, Need for IV Antibiotics, Risk of Complication if Not Cared For in Hospital Post Hospital Care: D/C Tube Draw Helper Documentation - Plan Summary Plan Summary: Continue IV fluid support at 75mL/hr. Maintain on IV Levofloxacin therapy. Speech pathologist evaluation for possible swallowing difficulty.
--- NOTE | 2017-04-25 15:23 | EKG REPORT ---
SEVERITY:- ABNORMAL ECG - SINUS TACHYCARDIA WITH IRREGULAR RATE 86-130 LEFT AXIS DEVIATION PROBABLE LEFT VENTRICULAR HYPERTROPHY : Confirmed by: Manuel Casas MD 25-Apr-2017 15:23:34
[2017-04-25] MEDS ORDERED: ACETAMINOPHEN 650 MG SUPP.RECT PR ONE (20:32)
[2017-04-25] MEDS ORDERED: ACETAMINOPHEN 650 MG SUPP.RECT PR PRN (20:34)
[2017-04-25] MEDS ORDERED: CEFEPIME 1 GM/D5W RTU 1 GM/50 ML RTUPB IV ONE ×2 (20:45→21:29)
[2017-04-26] MEDS: MEMANTINE HCL 10 MG TABLET PO SCH ×2 (10:50→18:56)
[2017-04-26] MEDS: CEFEPIME 1 GM/D5W RTU 1 GM/50 ML RTUPB IV SCH ×2 (10:53→22:12)
[2017-04-26] MEDS: DONEPEZIL HCL 5 MG TABLET PO SCH (10:53)
[2017-04-26] MEDS: LEVOFLOXACIN 750 MG/D5W RTU 750 MG/150 ML RTUPB IV SCH (10:53)
[2017-04-26] MEDS: ENOXAPARIN SODIUM INJ 40 MG/0.4 ML DISP.SYRIN SUBCUT SCH (10:54)
[2017-04-26] MEDS: ACETAMINOPHEN 325 MG TABLET PO PRN (16:33)
[2017-04-26] MEDS: NORMAL SALINE 1000 ML 1,000 ML IV PRN ×2 (16:45→22:18)
[2017-04-26 18:06] LABS: ABSOLUTE LYMPHOCYTES (AUTO) 1.1 10^3/uL (0.5-4.7); ABSOLUTE MONOCYTES (AUTO) 0.7 10^3/uL (0.1-1.4); ABSOLUTE NEUT (AUTO) 5.7 10^3/uL (1.7-8.2); BASOPHILS % (AUTO) 0.4 % (0-2); EOSINOPHILS % (AUTO) 0.1 % (0-6); HEMATOCRIT 37.8 % (36.0-47.0); HEMOGLOBIN 12.6 g/dL (12.0-15.5); LYMPHOCYTES % (AUTO) 14.2 % (13-45); MEAN CORPUSCULAR HEMOGLOBIN 29.4 pg (27.0-33.4); MEAN CORPUSCULAR HGB CONC 33.4 g/dL (32.0-36.0); MEAN CORPUSCULAR VOLUME 88 fl (80-97); MONOCYTES % (AUTO) 9.8 % (3-13); PLATELET COUNT 163 10^3/uL (150-450); RED BLOOD COUNT 4.29 10^6/uL (3.72-5.28); RED CELL DISTRIBUTION WIDTH 14.4 % (11.5-14.0); SEGMENTED NEUTROPHILS % (AUTO) 75.5 % (42-78); TOTAL CELLS COUNTED % (AUTO) 100 %; WHITE BLOOD COUNT 7.6 10^3/uL (4.0-10.5)
[2017-04-26 18:25] LABS: ALANINE AMINOTRANSFERASE 24 U/L (9-52); ALBUMIN 2.8 g/dL (3.5-5.0); ALKALINE PHOSPHATASE 78 U/L (38-126); ANION GAP 9 (5-19); ASPARTATE AMINO TRANSFERASE 24 U/L (14-36); BILIRUBIN,DIRECT 0.2 mg/dL (0.0-0.4); BILIRUBIN,TOTAL 0.2 mg/dL (0.2-1.3); BLOOD UREA NITROGEN 19 mg/dL (7-20); CALCIUM 8.6 mg/dL (8.4-10.2); CARBON DIOXIDE 23 mmol/L (22-30); CHLORIDE 103 mmol/L (98-107); GLUCOSE 99 mg/dL (75-110); SODIUM 135.1 mmol/L (137-145); TOTAL PROTEIN 5.4 g/dL (6.3-8.2)
--- NOTE | 2017-04-26 18:26 | RADIOLOGY REPORT (SQ) ---
EXAM DESCRIPTION: CHEST SINGLE VIEW COMPLETED DATE/TIME: 04/26/2017 6:16 pm REASON FOR STUDY: pneumonia COMPARISON: CTA of the chest dated 04/23/2017 EXAM PARAMETERS: NUMBER OF VIEWS: One view. TECHNIQUE: Single frontal radiographic view of the chest acquired. RADIATION DOSE: NA LIMITATIONS: The patient has made a shallow inspiration. FINDINGS: LUNGS AND PLEURA: No opacities, masses or pneumothorax. No pleural effusion. Chronic appe aring changes are identified. MEDIASTINUM AND HILAR STRUCTURES: No masses. Contour normal. HEART AND VASCULAR STRUCTURES: Cardiac silhouette is enlarged. BONES: No acute findings. Patient is status post kyphoplasty at the level of the mid thoracic spine. HARDWARE: None in the chest. OTHER: No other significant finding. IMPRESSION: Limited study due to the patient's shallow inspiration. No acute consolidations or pleu ral effusions are identified. Other findings as noted above TECHNICAL DOCUMENTATION: JOB ID: [id number] [employer]- All Rights Reserved Reading location - IP/workstation name: [email or web address]
[2017-04-26 18:41] LABS: ERYTHROCYTE SEDIMENTATION RATE 32 mm/hr (0-30)
--- NOTE | 2017-04-26 20:26 | PDOC PROGRESS REPORT ---
Subjective Progress Note for:: 04/26/17 Subjective:: She was seen by the bedside, she continues to have high fever ranging from 101- 103 temperature, she is a full code presently on empiric antibiotic treatment for pneumonia. Family is concerned about aspiration she is scheduled for cookie swallow tomorrow Reason For Visit: PNEUMONIA,RHEUMATOID ARTHRITIS,DEMENTIA Physical Exam Vital Signs: Temp Pulse Resp BP Pulse Ox 100.4 F 98 20 129/64 H 97 04/26/17 19:37 04/26/17 19:37 04/26/17 19:37 04/26/17 19:37 04/26/17 19:37 Intake & Output 04/25/17 04/26/17 04/27/17 06:59 06:59 06:59 Intake Total 2079 2525 1340 Output Total 675 150 Balance 1404 2525 1190 Weight 68.9 kg 68.7 kg General appearance: PRESENT: mild distress Respiratory exam: PRESENT: rales Cardiovascular exam: PRESENT: +S1, +S2 GI/Abdominal exam: PRESENT: soft Neurological exam: PRESENT: alert Results Laboratory Results: 04/26/17 17:44 04/26/17 17:44 04/26/17 04/26/17 17:44 17:44 WBC 7.6 RBC 4.29 Hgb 12.6 Hct 37.8 MCV 88 MCH 29.4 MCHC 33.4 RDW 14.4 H Plt Count 163 Seg Neutrophils % 75.5 Lymphocytes % 14.2 Monocytes % 9.8 Eosinophils % 0.1 Basophils % 0.4 Absolute Neutrophils 5.7 Absolute Lymphocytes 1.1 Absolute Monocytes 0.7 Absolute Eosinophils 0.0 Absolute Basophils 0.0 Sodium 135.1 L Potassium 4.0 Chloride 103 Carbon Dioxide 23 Anion Gap 9 BUN 19 Creatinine 0.81 Est GFR ( Amer) > 60 Est GFR (Non-Af Amer) > 60 Glucose 99 Calcium 8.6 Total Bilirubin 0.2 AST 24 ALT 24 Alkaline Phosphatase 78 Total Protein 5.4 L Albumin 2.8 L 04/24/17 20:40 Clean Catch Midstream Urine Culture - Final NO GROWTH 2 DAYS Impressions: Chest CT 04/23/17 15:55 IMPRESSION: 1. A limited infiltrate cannot be excluded in the anterior aspect of the right middle lobe. 2. There is scarring in the right upper lobe. 3. There are 2 small nonspecific pulmonary nodules in the right upper lobe. 4. There is osteoporosis with compression changes in the spine. Chest X-Ray 04/26/17 00:00 IMPRESSION: Limited study due to the patient's shallow inspiration. No acute consolidations or pleural effusions are identified. Other findings as noted above Assessment & Plan - Diagnosis (1) Pneumonia Qualifiers: Pneumonia type: due to unspecified organism Laterality: right Lung location: middle lobe of lung Qualified Code(s): J18.1 - Lobar pneumonia, unspecified organism Is this a current diagnosis for this admission?: Yes (2) Rheumatoid arthritis Qualifiers: Rheumatoid arthritis location: unspecified site Rheumatoid factor presence : unspecified presence Qualified Code(s): M06.9 - Rheumatoid arthritis, unspecified Is this a current diagnosis for this admission?: Yes (3) Dementia Qualifiers: Dementia type: Alzheimer's disease Alzheimer's disease onset: late-onset Dementia behavioral disturbance: without behavioral disturbance Qualified Code (s): G30.1 - Alzheimer's disease with late onset; F02.80 - Dementia in other diseases classified elsewhere without behavioral disturbance; F02.80 - Dementia in other diseases classified elsewhere without behavioral disturbance; F02.80 - Dementia in other diseases classified elsewhere without behavioral disturbance Is this a current diagnosis for this admission?: Yes (4) Osteoporotic compression fracture of spine Qualifiers: Encounter type: initial encounter Qualified Code(s): M80.88XA - Other osteoporosis with current pathological fracture, vertebra(e), initial encounter for fracture Is this a current diagnosis for this admission?: Yes (5) Fever Qualifiers: Fever type: unspecified Qualified Code(s): R50.9 - Fever, unspecified Is this a current diagnosis for this admission?: Yes Plan: She will continue empiric treatment with antibiotic
[2017-04-27 05:34] LABS: ABSOLUTE LYMPHOCYTES (AUTO) 1.1 10^3/uL (0.5-4.7); ABSOLUTE MONOCYTES (AUTO) 0.7 10^3/uL (0.1-1.4); ABSOLUTE NEUT (AUTO) 6.1 10^3/uL (1.7-8.2); BASOPHILS % (AUTO) 0.2 % (0-2); EOSINOPHILS % (AUTO) 0.1 % (0-6); HEMATOCRIT 39.6 % (36.0-47.0); HEMOGLOBIN 13.6 g/dL (12.0-15.5); LYMPHOCYTES % (AUTO) 13.4 % (13-45); MEAN CORPUSCULAR HEMOGLOBIN 29.9 pg (27.0-33.4); MEAN CORPUSCULAR HGB CONC 34.3 g/dL (32.0-36.0); MEAN CORPUSCULAR VOLUME 87 fl (80-97); MONOCYTES % (AUTO) 8.8 % (3-13); PLATELET COUNT 142 10^3/uL (150-450); RED BLOOD COUNT 4.55 10^6/uL (3.72-5.28); RED CELL DISTRIBUTION WIDTH 14.3 % (11.5-14.0); SEGMENTED NEUTROPHILS % (AUTO) 77.5 % (42-78); TOTAL CELLS COUNTED % (AUTO) 100 %; WHITE BLOOD COUNT 7.8 10^3/uL (4.0-10.5)
[2017-04-27 05:59] LABS: ALANINE AMINOTRANSFERASE 26 U/L (9-52); ALBUMIN 2.9 g/dL (3.5-5.0); ALKALINE PHOSPHATASE 81 U/L (38-126); ANION GAP 10 (5-19); ASPARTATE AMINO TRANSFERASE 26 U/L (14-36); BILIRUBIN,DIRECT 0.5 mg/dL (0.0-0.4); BILIRUBIN,TOTAL 0.5 mg/dL (0.2-1.3); BLOOD UREA NITROGEN 16 mg/dL (7-20); CALCIUM 8.5 mg/dL (8.4-10.2); CARBON DIOXIDE 21 mmol/L (22-30); CHLORIDE 107 mmol/L (98-107); GLUCOSE 99 mg/dL (75-110); POTASSIUM 3.5 mmol/L (3.6-5.0); SODIUM 137.6 mmol/L (137-145)
[2017-04-27] MEDS: NORMAL SALINE 1000 ML 1,000 ML IV PRN (08:52)
[2017-04-27] MEDS: DONEPEZIL HCL 5 MG TABLET PO SCH (10:21)
[2017-04-27] MEDS: MEMANTINE HCL 10 MG TABLET PO SCH ×2 (10:21→17:55)
[2017-04-27] MEDS: ENOXAPARIN SODIUM INJ 40 MG/0.4 ML DISP.SYRIN SUBCUT SCH (10:22)
[2017-04-27] MEDS: CEFEPIME 1 GM/D5W RTU 1 GM/50 ML RTUPB IV SCH ×2 (10:25→22:54)
--- NOTE | 2017-04-27 11:57 | RADIOLOGY REPORT (SQ) ---
EXAM DESCRIPTION: SHADE SWALLOW COMPLETED DATE/TIME: 04/27/2017 11:34 am REASON FOR STUDY: ? aspiration COMPARISON: None. TECHNIQUE: Videofluoroscopic swallowing examination was performed in conjunction with speech patholo gy. Videofluoroscopic imaging was obtained and reviewed and these are the findings: RADIATION DOSE: Fluoro time 2.26 minutes 1 images saved to PACS. LIMITATIONS: None FINDINGS: The patient was brought into the fluoro room and placed upright on a modified barium swall ow chair. The patient was then given multiple consistencies mixed with barium to swallow under live fluoroscopic video guidance. According to the Speech Pathologist there was no penetration or aspirat ion. Please refer to the speech pathology report for further details. IMPRESSION: NO EVIDENCE OF PENETRATION OR ASPIRATION.PLEASE SEE SPEECH PATHOLOGIST REPORT FOR OTHER FINDINGS AND RECOMMENDATIONS. COMMENT: None Quality ID [id number]: Final reports for procedures using fluoroscopy that document radiation exposure beryl aj, or exposure time and number of fluorographic images (if radiation exposure indices are not avail able) TECHNICAL DOCUMENTATION: JOB ID: [id number] [employer]- All Rights Reserved Reading location - IP/workstation name: [email or web address]
--- NOTE | 2017-04-27 13:58 | ST Inp Modified Barium Swallow ---
Medical Diagnosis - Medical Diagnoses Medical Diagnosis Description & ICD-10 Code(s): pneumonia, right middle lobe ST Inpatient MBS - General Date: 04/27/17 - History History Obtained From: Other - EMR -: Medical - Per EMR: paatient admitted 04/23/17 with cough and shortness of breath. History includes dementia, RA, multiple osteoporotic compression frature of lumbar vertebre. Family reports coughing after swallowing at home. Patient seen at bedside by speech pathology yesterday, no overt signs or symptoms of dysphagia. Physician ordered MBSS to be performed this day. Medications: Medications Reviewed Allergies: No known allergies - Subjective Current Nutritional Means: PO Current PO Diet: Regular Pain: Patient reports, 0/5 - Objective Assessment: Upright, Left Lateral - Food Trials Food Trials Used: Thin liquids, Pureed, Regular The Patient: fed by ST - Assessment Labial Function: Within Normal Limits Lingual Function: Within Normal Limits Mandibular Function: Within Normal Limits Dentition: Partial Velo-Pharyngeal Function: Unremarkable Laryngeal Function: Volitional Cough - weak, Volitional Swallow - wnl - Pharyngeal Stage Initiation of Pharyngeal Stage: Normal Decreased Laryngeal Elevation: No Reduced Velo-Pharyngeal Closure: no Reduced Pressure Generation: No Reduced Tongue Base Retraction: No Pre-Swallowing Pooling in Valleculae: Mild - with liquid trials Pre-Swallowing Pooling in Pyriforms: None Reduced Thyro-Hyiod Approximation: No Reduced Epiglottic Excursion: No Reduced Pharyngeal Peristalsis: No Multiple Swallows With: Cleared w/ Liquid Assist Post Swallow Residuals in Valleculae: Mild - with solid trials Post Swallow Residuals in Pyriforms: None - Esophageal Stage Esophageal Stage Comments: Possible signs of reduced bolus movement through upper esophagus, could not fully assess during this procedure. - Impression/Summary Laryngeal Penetration: No Tracheal Aspiration: no Compensatory Strategies: small bites/sips, alternating bites and sips. Patient Presents With: Pharyngeal stage dysph., Mild-Moderate Risk of Aspiration: Minimal Risk of Nutritional Compromise: WNL - Recommendations Solid Diet Recommendations: Chopped Meat, Regular Liquid Diet Recommendations: Thin Strict Aspitarion Precautions: Yes Dysphagia Therapy with BEAUTICIAN APPRENTICE: No Recommended Techniques: Fully Upright During Meal, Alternate Bites/Sips Supervision: requires assistance - Time Total Time: 20 Total Timed Minutes: 20
[2017-04-27] MEDS: ACETAMINOPHEN 325 MG TABLET PO PRN (17:58)
--- NOTE | 2017-04-27 20:26 | PDOC PROGRESS REPORT ---
Subjective Progress Note for:: 04/27/17 Subjective:: Patient was seen by the bedside, she had modified barium swallow done today, there was no objective evidence of aspiration demonstrated from the study, though, family continues to believe she is aspirating Reason For Visit: PNEUMONIA,RHEUMATOID ARTHRITIS,DEMENTIA Physical Exam Vital Signs: Temp Pulse Resp BP Pulse Ox 98.0 F 83 14 157/73 H 98 04/27/17 15:41 04/27/17 15:41 04/27/17 15:41 04/27/17 15:41 04/27/17 15:41 Intake & Output 04/26/17 04/27/17 04/28/17 06:59 06:59 06:59 Intake Total 2525 1621 995 Output Total 1100 170 Balance 2525 521 825 Weight 68.7 kg 70.6 kg General appearance: PRESENT: no acute distress Eye exam: PRESENT: PERRLA Respiratory exam: PRESENT: decreased breath sounds Cardiovascular exam: PRESENT: +S1, +S2 GI/Abdominal exam: PRESENT: soft Neurological exam: PRESENT: alert Results Laboratory Results: 04/27/17 04:44 04/27/17 04:44 04/27/17 04/27/17 04:44 04:44 WBC 7.8 RBC 4.55 Hgb 13.6 Hct 39.6 MCV 87 MCH 29.9 MCHC 34.3 RDW 14.3 H Plt Count 142 L Seg Neutrophils % 77.5 Lymphocytes % 13.4 Monocytes % 8.8 Eosinophils % 0.1 Basophils % 0.2 Absolute Neutrophils 6.1 Absolute Lymphocytes 1.1 Absolute Monocytes 0.7 Absolute Eosinophils 0.0 Absolute Basophils 0.0 Sodium 137.6 Potassium 3.5 L Chloride 107 Carbon Dioxide 21 L Anion Gap 10 BUN 16 Creatinine 0.74 Est GFR ( Amer) > 60 Est GFR (Non-Af Amer) > 60 Glucose 99 Calcium 8.5 Total Bilirubin 0.5 AST 26 ALT 26 Alkaline Phosphatase 81 Total Protein 6.0 L Albumin 2.9 L Impressions: Chest CT 04/23/17 15:55 IMPRESSION: 1. A limited infiltrate cannot be excluded in the anterior aspect of the right middle lobe. 2. There is scarring in the right upper lobe. 3. There are 2 small nonspecific pulmonary nodules in the right upper lobe. 4. There is osteoporosis with compression changes in the spine. Chest X-Ray 04/26/17 00:00 IMPRESSION: Limited study due to the patient's shallow inspiration. No acute consolidations or pleural effusions are identified. Other findings as noted above Modified Barium Swallow 04/27/17 00:00 IMPRESSION: NO EVIDENCE OF PENETRATION OR ASPIRATION.PLEASE SEE SPEECH PATHOLOGIST REPORT FOR OTHER FINDINGS AND RECOMMENDATIONS. Assessment & Plan - Diagnosis (1) Pneumonia Qualifiers: Pneumonia type: due to unspecified organism Laterality: right Lung location: middle lobe of lung Qualified Code(s): J18.1 - Lobar pneumonia, unspecified organism Is this a current diagnosis for this admission?: Yes (2) Rheumatoid arthritis Qualifiers: Rheumatoid arthritis location: unspecified site Rheumatoid factor presence : unspecified presence Qualified Code(s): M06.9 - Rheumatoid arthritis, unspecified Is this a current diagnosis for this admission?: Yes (3) Dementia Qualifiers: Dementia type: Alzheimer's disease Alzheimer's disease onset: late-onset Dementia behavioral disturbance: without behavioral disturbance Qualified Code (s): G30.1 - Alzheimer's disease with late onset; F02.80 - Dementia in other diseases classified elsewhere without behavioral disturbance; F02.80 - Dementia in other diseases classified elsewhere without behavioral disturbance; F02.80 - Dementia in other diseases classified elsewhere without behavioral disturbance Is this a current diagnosis for this admission?: Yes (4) Osteoporotic compression fracture of spine Qualifiers: Encounter type: initial encounter Qualified Code(s): M80.88XA - Other osteoporosis with current pathological fracture, vertebra(e), initial encounter for fracture Is this a current diagnosis for this admission?: Yes (5) Fever Qualifiers: Fever type: unspecified Qualified Code(s): R50.9 - Fever, unspecified Is this a current diagnosis for this admission?: Yes
[2017-04-28] MEDS ORDERED: LEVOFLOXACIN 750 MG/D5W RTU 750 MG/150 ML RTUPB IV SCH (10:00)
[2017-04-28] MEDS: CEFEPIME 1 GM/D5W RTU 1 GM/50 ML RTUPB IV SCH (10:19)
[2017-04-28] MEDS: ENOXAPARIN SODIUM INJ 40 MG/0.4 ML DISP.SYRIN SUBCUT SCH (10:20)
[2017-04-28] MEDS: MEMANTINE HCL 10 MG TABLET PO SCH ×2 (10:20→17:18)
[2017-04-28] MEDS: DONEPEZIL HCL 5 MG TABLET PO SCH (10:35)
[2017-04-28 15:12] LABS: ABSOLUTE LYMPHOCYTES (AUTO) 1.3 10^3/uL (0.5-4.7); ABSOLUTE MONOCYTES (AUTO) 0.8 10^3/uL (0.1-1.4); ABSOLUTE NEUT (AUTO) 4.4 10^3/uL (1.7-8.2); BASOPHILS % (AUTO) 0.4 % (0-2); EOSINOPHILS % (AUTO) 0.7 % (0-6); HEMATOCRIT 38.5 % (36.0-47.0); HEMOGLOBIN 12.9 g/dL (12.0-15.5); LYMPHOCYTES % (AUTO) 19.7 % (13-45); MEAN CORPUSCULAR HEMOGLOBIN 29.2 pg (27.0-33.4); MEAN CORPUSCULAR HGB CONC 33.5 g/dL (32.0-36.0); MEAN CORPUSCULAR VOLUME 87 fl (80-97); MONOCYTES % (AUTO) 11.8 % (3-13); PLATELET COUNT 150 10^3/uL (150-450); RED BLOOD COUNT 4.43 10^6/uL (3.72-5.28); RED CELL DISTRIBUTION WIDTH 14.2 % (11.5-14.0); SEGMENTED NEUTROPHILS % (AUTO) 67.4 % (42-78); TOTAL CELLS COUNTED % (AUTO) 100 %; WHITE BLOOD COUNT 6.6 10^3/uL (4.0-10.5)
[2017-04-28 15:34] LABS: ALANINE AMINOTRANSFERASE 24 U/L (9-52); ALBUMIN 2.7 g/dL (3.5-5.0); ALKALINE PHOSPHATASE 79 U/L (38-126); ANION GAP 6 (5-19); ASPARTATE AMINO TRANSFERASE 25 U/L (14-36); BILIRUBIN,DIRECT 0.5 mg/dL (0.0-0.4); BILIRUBIN,TOTAL 0.5 mg/dL (0.2-1.3); BLOOD UREA NITROGEN 16 mg/dL (7-20); CALCIUM 8.4 mg/dL (8.4-10.2); CARBON DIOXIDE 23 mmol/L (22-30); CHLORIDE 109 mmol/L (98-107); GLUCOSE 78 mg/dL (75-110); POTASSIUM 3.6 mmol/L (3.6-5.0); TOTAL PROTEIN 5.8 g/dL (6.3-8.2)
--- NOTE | 2017-04-28 20:20 | PDOC PROGRESS REPORT ---
Subjective Progress Note for:: 04/28/17 Subjective:: Patient seen by the bedside, she seems to be doing well Reason For Visit: PNEUMONIA,RHEUMATOID ARTHRITIS,DEMENTIA Physical Exam Vital Signs: Temp Pulse Resp BP Pulse Ox 98.3 F 115 H 16 149/82 H 99 04/28/17 15:41 04/28/17 15:41 04/28/17 15:41 04/28/17 15:41 04/28/17 15:41 Intake & Output 04/27/17 04/28/17 04/29/17 06:59 06:59 06:59 Intake Total 1621 2990 1740 Output Total 1100 170 Balance 521 2820 1740 Weight 70.6 kg 71.1 kg General appearance: PRESENT: no acute distress Respiratory exam: PRESENT: decreased breath sounds Cardiovascular exam: PRESENT: +S1, +S2 GI/Abdominal exam: PRESENT: soft Neurological exam: PRESENT: alert Results Laboratory Results: 04/28/17 14:59 04/28/17 14:59 04/28/17 04/28/17 14:59 14:59 WBC 6.6 RBC 4.43 Hgb 12.9 Hct 38.5 MCV 87 MCH 29.2 MCHC 33.5 RDW 14.2 H Plt Count 150 Seg Neutrophils % 67.4 Lymphocytes % 19.7 Monocytes % 11.8 Eosinophils % 0.7 Basophils % 0.4 Absolute Neutrophils 4.4 Absolute Lymphocytes 1.3 Absolute Monocytes 0.8 Absolute Eosinophils 0.0 Absolute Basophils 0.0 Sodium 138.0 Potassium 3.6 Chloride 109 H Carbon Dioxide 23 Anion Gap 6 BUN 16 Creatinine 0.64 Est GFR ( Amer) > 60 Est GFR (Non-Af Amer) > 60 Glucose 78 Calcium 8.4 Total Bilirubin 0.5 AST 25 ALT 24 Alkaline Phosphatase 79 Total Protein 5.8 L Albumin 2.7 L 04/23/17 19:38 Blood Blood Culture - Final NO GROWTH IN 5 DAYS 04/23/17 17:15 Blood Blood Culture - Final NO GROWTH IN 5 DAYS Impressions: Chest CT 04/23/17 15:55 IMPRESSION: 1. A limited infiltrate cannot be excluded in the anterior aspect of the right middle lobe. 2. There is scarring in the right upper lobe. 3. There are 2 small nonspecific pulmonary nodules in the right upper lobe. 4. There is osteoporosis with compression changes in the spine. Chest X-Ray 04/26/17 00:00 IMPRESSION: Limited study due to the patient's shallow inspiration. No acute consolidations or pleural effusions are identified. Other findings as noted above Modified Barium Swallow 04/27/17 00:00 IMPRESSION: NO EVIDENCE OF PENETRATION OR ASPIRATION.PLEASE SEE SPEECH PATHOLOGIST REPORT FOR OTHER FINDINGS AND RECOMMENDATIONS. Assessment & Plan - Diagnosis (1) Pneumonia Qualifiers: Pneumonia type: due to unspecified organism Laterality: right Lung location: middle lobe of lung Qualified Code(s): J18.1 - Lobar pneumonia, unspecified organism Is this a current diagnosis for this admission?: Yes (2) Rheumatoid arthritis Qualifiers: Rheumatoid arthritis location: unspecified site Rheumatoid factor presence : unspecified presence Qualified Code(s): M06.9 - Rheumatoid arthritis, unspecified Is this a current diagnosis for this admission?: Yes (3) Dementia Qualifiers: Dementia type: Alzheimer's disease Alzheimer's disease onset: late-onset Dementia behavioral disturbance: without behavioral disturbance Qualified Code (s): G30.1 - Alzheimer's disease with late onset; F02.80 - Dementia in other diseases classified elsewhere without behavioral disturbance; F02.80 - Dementia in other diseases classified elsewhere without behavioral disturbance; F02.80 - Dementia in other diseases classified elsewhere without behavioral disturbance Is this a current diagnosis for this admission?: Yes (4) Osteoporotic compression fracture of spine Qualifiers: Encounter type: initial encounter Qualified Code(s): M80.88XA - Other osteoporosis with current pathological fracture, vertebra(e), initial encounter for fracture Is this a current diagnosis for this admission?: Yes (5) Fever Qualifiers: Fever type: unspecified Qualified Code(s): R50.9 - Fever, unspecified Is this a current diagnosis for this admission?: Yes
[2017-04-28] MEDS: LORAZEPAM 0.5 MG TABLET PO PRN (22:58)
[2017-04-29 05:46] LABS: ABSOLUTE LYMPHOCYTES (AUTO) 1.1 10^3/uL (0.5-4.7); ABSOLUTE MONOCYTES (AUTO) 0.9 10^3/uL (0.1-1.4); ABSOLUTE NEUT (AUTO) 4.2 10^3/uL (1.7-8.2); BASOPHILS % (AUTO) 0.5 % (0-2); EOSINOPHILS % (AUTO) 0.8 % (0-6); HEMATOCRIT 36.6 % (36.0-47.0); HEMOGLOBIN 12.4 g/dL (12.0-15.5); MEAN CORPUSCULAR HEMOGLOBIN 29.5 pg (27.0-33.4); MEAN CORPUSCULAR HGB CONC 33.8 g/dL (32.0-36.0); MEAN CORPUSCULAR VOLUME 87 fl (80-97); PLATELET COUNT 165 10^3/uL (150-450); RED BLOOD COUNT 4.19 10^6/uL (3.72-5.28); RED CELL DISTRIBUTION WIDTH 14.6 % (11.5-14.0); SEGMENTED NEUTROPHILS % (AUTO) 67.7 % (42-78); TOTAL CELLS COUNTED % (AUTO) 100 %; WHITE BLOOD COUNT 6.2 10^3/uL (4.0-10.5)
[2017-04-29 05:59] LABS: BLOOD UREA NITROGEN 16 mg/dL (7-20); CALCIUM 8.5 mg/dL (8.4-10.2); GLUCOSE 95 mg/dL (75-110)
[2017-04-29 06:00] LABS: ALANINE AMINOTRANSFERASE 24 U/L (9-52); ALBUMIN 2.6 g/dL (3.5-5.0); ALKALINE PHOSPHATASE 75 U/L (38-126); ANION GAP 10 (5-19); ASPARTATE AMINO TRANSFERASE 22 U/L (14-36); BILIRUBIN,DIRECT 0.2 mg/dL (0.0-0.4); BILIRUBIN,TOTAL 0.6 mg/dL (0.2-1.3); CARBON DIOXIDE 24 mmol/L (22-30); CHLORIDE 106 mmol/L (98-107); POTASSIUM 3.2 mmol/L (3.6-5.0); SODIUM 139.5 mmol/L (137-145); TOTAL PROTEIN 5.4 g/dL (6.3-8.2)
[2017-04-29] MEDS: MEMANTINE HCL 10 MG TABLET PO SCH ×2 (10:48→18:06)
[2017-04-29] MEDS: ENOXAPARIN SODIUM INJ 40 MG/0.4 ML DISP.SYRIN SUBCUT SCH (10:48)
[2017-04-29] MEDS: DONEPEZIL HCL 5 MG TABLET PO SCH (10:48)
--- NOTE | 2017-04-29 20:52 | PDOC PROGRESS REPORT ---
Subjective Progress Note for:: 04/29/17 Subjective:: She was seen by the bedside, family in the room, she continues to have fever intermittently with temperature as high as 101 Reason For Visit: PNEUMONIA,RHEUMATOID ARTHRITIS,DEMENTIA Physical Exam Vital Signs: Temp Pulse Resp BP Pulse Ox 97.8 F 83 16 153/66 H 100 04/29/17 20:09 04/29/17 20:09 04/29/17 20:09 04/29/17 20:09 04/29/17 20:09 Intake & Output 04/28/17 04/29/17 04/30/17 06:59 06:59 06:59 Intake Total 2990 1976 240 Output Total 170 Balance 2820 1976 240 Weight 71.1 kg 72 kg General appearance: PRESENT: no acute distress Eye exam: PRESENT: PERRLA Respiratory exam: PRESENT: decreased breath sounds Cardiovascular exam: PRESENT: +S1, +S2 GI/Abdominal exam: PRESENT: soft Results Laboratory Results: 04/29/17 04:52 04/29/17 04:52 04/29/17 04/29/17 04:52 04:52 WBC 6.2 RBC 4.19 Hgb 12.4 Hct 36.6 MCV 87 MCH 29.5 MCHC 33.8 RDW 14.6 H Plt Count 165 Seg Neutrophils % 67.7 Lymphocytes % 17.0 Monocytes % 14.0 H Eosinophils % 0.8 Basophils % 0.5 Absolute Neutrophils 4.2 Absolute Lymphocytes 1.1 Absolute Monocytes 0.9 Absolute Eosinophils 0.0 Absolute Basophils 0.0 Sodium 139.5 Potassium 3.2 L Chloride 106 Carbon Dioxide 24 Anion Gap 10 BUN 16 Creatinine 0.68 Est GFR ( Amer) > 60 Est GFR (Non-Af Amer) > 60 Glucose 95 Calcium 8.5 Total Bilirubin 0.6 AST 22 ALT 24 Alkaline Phosphatase 75 Total Protein 5.4 L Albumin 2.6 L 04/23/17 19:38 Blood Blood Culture - Final NO GROWTH IN 5 DAYS 04/23/17 17:15 Blood Blood Culture - Final NO GROWTH IN 5 DAYS Impressions: Chest CT 04/23/17 15:55 IMPRESSION: 1. A limited infiltrate cannot be excluded in the anterior aspect of the right middle lobe. 2. There is scarring in the right upper lobe. 3. There are 2 small nonspecific pulmonary nodules in the right upper lobe. 4. There is osteoporosis with compression changes in the spine. Chest X-Ray 04/26/17 00:00 IMPRESSION: Limited study due to the patient's shallow inspiration. No acute consolidations or pleural effusions are identified. Other findings as noted above Modified Barium Swallow 04/27/17 00:00 IMPRESSION: NO EVIDENCE OF PENETRATION OR ASPIRATION.PLEASE SEE SPEECH PATHOLOGIST REPORT FOR OTHER FINDINGS AND RECOMMENDATIONS. Assessment & Plan - Diagnosis (1) Pneumonia Qualifiers: Pneumonia type: due to unspecified organism Laterality: right Lung location: middle lobe of lung Qualified Code(s): J18.1 - Lobar pneumonia, unspecified organism Is this a current diagnosis for this admission?: Yes (2) Rheumatoid arthritis Qualifiers: Rheumatoid arthritis location: unspecified site Rheumatoid factor presence : unspecified presence Qualified Code(s): M06.9 - Rheumatoid arthritis, unspecified Is this a current diagnosis for this admission?: Yes (3) Dementia Qualifiers: Dementia type: Alzheimer's disease Alzheimer's disease onset: late-onset Dementia behavioral disturbance: without behavioral disturbance Qualified Code (s): G30.1 - Alzheimer's disease with late onset; F02.80 - Dementia in other diseases classified elsewhere without behavioral disturbance; F02.80 - Dementia in other diseases classified elsewhere without behavioral disturbance; F02.80 - Dementia in other diseases classified elsewhere without behavioral disturbance Is this a current diagnosis for this admission?: Yes (4) Osteoporotic compression fracture of spine Qualifiers: Encounter type: initial encounter Qualified Code(s): M80.88XA - Other osteoporosis with current pathological fracture, vertebra(e), initial encounter for fracture Is this a current diagnosis for this admission?: Yes (5) Fever Qualifiers: Fever type: unspecified Qualified Code(s): R50.9 - Fever, unspecified Is this a current diagnosis for this admission?: Yes - Plan Summary Plan Summary: Patient not ready for discharge, yesterday she was taken off intravenous cefepime, maintained on Levaquin, because she continues to have fever the cefepime is restarted intravenously, her p.o. intake is reduced, IV fluid is restarted. Patient remains a full code despite advanced age and dementia
[2017-04-29] MEDS ORDERED: POTASSIUM CHLORIDE 20 MEQ/15 ML UDCUP PO ONE (22:00)
[2017-04-29] MEDS: LORAZEPAM 0.5 MG TABLET PO PRN (23:00)
[2017-04-29] MEDS: CEFEPIME 1 GM/D5W RTU 1 GM/50 ML RTUPB IV SCH (23:01)
[2017-04-30] MEDS: ENOXAPARIN SODIUM INJ 40 MG/0.4 ML DISP.SYRIN SUBCUT SCH (09:36)
[2017-04-30] MEDS: LEVOFLOXACIN 750 MG TABLET PO SCH (09:36)
[2017-04-30] MEDS: DONEPEZIL HCL 5 MG TABLET PO SCH (09:37)
[2017-04-30] MEDS: CEFEPIME 1 GM/D5W RTU 1 GM/50 ML RTUPB IV SCH ×2 (09:37→21:46)
[2017-04-30] MEDS: MEMANTINE HCL 10 MG TABLET PO SCH ×2 (09:37→17:44)
[2017-04-30] MEDS: 1/2 NORMAL SALINE 1,000 ML IV PRN (16:33)
--- NOTE | 2017-04-30 20:45 | PDOC PROGRESS REPORT ---
Subjective Progress Note for:: 04/30/17 Subjective:: Patient seen by the bedside, she seems to be doing well Reason For Visit: PNEUMONIA,RHEUMATOID ARTHRITIS,DEMENTIA Physical Exam Vital Signs: Temp Pulse Resp BP Pulse Ox 98.5 F 86 20 151/76 H 96 04/30/17 16:35 04/30/17 19:00 04/30/17 16:35 04/30/17 16:35 04/30/17 16:35 Intake & Output 04/29/17 04/30/17 05/01/17 06:59 06:59 06:59 Intake Total 1976 985 808 Balance 1976 985 808 Weight 72 kg General appearance: PRESENT: no acute distress Eye exam: PRESENT: PERRLA Respiratory exam: PRESENT: clear to auscultation [place] Cardiovascular exam: PRESENT: +S1, +S2 GI/Abdominal exam: PRESENT: soft Neurological exam: PRESENT: alert Results Laboratory Results: 04/29/17 04:52 04/29/17 04:52 Impressions: Chest CT 04/23/17 15:55 IMPRESSION: 1. A limited infiltrate cannot be excluded in the anterior aspect of the right middle lobe. 2. There is scarring in the right upper lobe. 3. There are 2 small nonspecific pulmonary nodules in the right upper lobe. 4. There is osteoporosis with compression changes in the spine. Chest X-Ray 04/26/17 00:00 IMPRESSION: Limited study due to the patient's shallow inspiration. No acute consolidations or pleural effusions are identified. Other findings as noted above Modified Barium Swallow 04/27/17 00:00 IMPRESSION: NO EVIDENCE OF PENETRATION OR ASPIRATION.PLEASE SEE SPEECH PATHOLOGIST REPORT FOR OTHER FINDINGS AND RECOMMENDATIONS. Assessment & Plan - Diagnosis (1) Pneumonia Qualifiers: Pneumonia type: due to unspecified organism Laterality: right Lung location: middle lobe of lung Qualified Code(s): J18.1 - Lobar pneumonia, unspecified organism Is this a current diagnosis for this admission?: Yes (2) Rheumatoid arthritis Qualifiers: Rheumatoid arthritis location: unspecified site Rheumatoid factor presence : unspecified presence Qualified Code(s): M06.9 - Rheumatoid arthritis, unspecified Is this a current diagnosis for this admission?: Yes (3) Dementia Qualifiers: Dementia type: Alzheimer's disease Alzheimer's disease onset: late-onset Dementia behavioral disturbance: without behavioral disturbance Qualified Code (s): G30.1 - Alzheimer's disease with late onset; F02.80 - Dementia in other diseases classified elsewhere without behavioral disturbance; F02.80 - Dementia in other diseases classified elsewhere without behavioral disturbance; F02.80 - Dementia in other diseases classified elsewhere without behavioral disturbance Is this a current diagnosis for this admission?: Yes (4) Osteoporotic compression fracture of spine Qualifiers: Encounter type: initial encounter Qualified Code(s): M80.88XA - Other osteoporosis with current pathological fracture, vertebra(e), initial encounter for fracture Is this a current diagnosis for this admission?: Yes (5) Fever Qualifiers: Fever type: unspecified Qualified Code(s): R50.9 - Fever, unspecified Is this a current diagnosis for this admission?: Yes
[2017-04-30] MEDS: LORAZEPAM 0.5 MG TABLET PO PRN (20:55)
[2017-05-01] MEDS: DONEPEZIL HCL 5 MG TABLET PO SCH (09:26)
[2017-05-01] MEDS: CEFEPIME 1 GM/D5W RTU 1 GM/50 ML RTUPB IV SCH ×2 (09:26→21:32)
[2017-05-01] MEDS: MEMANTINE HCL 10 MG TABLET PO SCH ×2 (09:26→17:14)
[2017-05-01] MEDS: ENOXAPARIN SODIUM INJ 40 MG/0.4 ML DISP.SYRIN SUBCUT SCH (09:27)
--- NOTE | 2017-05-01 12:20 | PDOC PROGRESS REPORT ---
Subjective Progress Note for:: 05/01/17 Subjective:: Patient is currently doing fair Appetite is still poor She is otherwise denied any chest pain denied any shortness of the breath Since daughter is on the bedside no other concern Reason For Visit: PNEUMONIA,RHEUMATOID ARTHRITIS,DEMENTIA Physical Exam Vital Signs: Temp Pulse Resp BP Pulse Ox 97.7 F 76 16 151/74 H 96 05/01/17 08:28 05/01/17 08:28 05/01/17 08:28 05/01/17 08:28 05/01/17 08:28 Intake & Output 04/30/17 05/01/17 05/02/17 06:59 06:59 06:59 Intake Total 985 1676 Balance 985 1676 Weight 72.5 kg General appearance: PRESENT: no acute distress, well-developed, well-nourished Head exam: PRESENT: atraumatic, normocephalic Eye exam: PRESENT: conjunctiva pink, EOMI, PERRLA. ABSENT: scleral icterus Ear exam: PRESENT: normal external ear exam Mouth exam: PRESENT: moist, tongue midline Neck exam: PRESENT: full ROM. ABSENT: carotid bruit, JVD, lymphadenopathy, thyromegaly Respiratory exam: PRESENT: clear to auscultation [place] Cardiovascular exam: PRESENT: RRR. ABSENT: diastolic murmur, rubs, systolic murmur Pulses: PRESENT: normal dorsalis pedis pul, +2 pedal pulses bilateral Vascular exam: PRESENT: normal capillary refill GI/Abdominal exam: PRESENT: normal bowel sounds, soft. ABSENT: distended, guarding, mass, organolmegaly, rebound, tenderness Rectal exam: PRESENT: deferred Extremities exam: ABSENT: pedal edema Neurological exam: PRESENT: alert, awake, oriented to person, oriented to place , oriented to time, oriented to situation, CN II-XII grossly intact. ABSENT: motor sensory deficit Psychiatric exam: PRESENT: appropriate affect, normal mood. ABSENT: homicidal ideation, suicidal ideation Skin exam: PRESENT: dry, intact, warm. ABSENT: cyanosis, rash Results Laboratory Results: 04/29/17 04:52 04/29/17 04:52 Impressions: Chest CT 04/23/17 15:55 IMPRESSION: 1. A limited infiltrate cannot be excluded in the anterior aspect of the right middle lobe. 2. There is scarring in the right upper lobe. 3. There are 2 small nonspecific pulmonary nodules in the right upper lobe. 4. There is osteoporosis with compression changes in the spine. Chest X-Ray 04/26/17 00:00 IMPRESSION: Limited study due to the patient's shallow inspiration. No acute consolidations or pleural effusions are identified. Other findings as noted above Modified Barium Swallow 04/27/17 00:00 IMPRESSION: NO EVIDENCE OF PENETRATION OR ASPIRATION.PLEASE SEE SPEECH PATHOLOGIST REPORT FOR OTHER FINDINGS AND RECOMMENDATIONS. Assessment & Plan - Diagnosis (1) Adult failure to thrive Is this a current diagnosis for this admission?: Yes (2) Dementia Qualifiers: Dementia type: Alzheimer's disease Alzheimer's disease onset: late-onset Dementia behavioral disturbance: without behavioral disturbance Qualified Code (s): G30.1 - Alzheimer's disease with late onset; F02.80 - Dementia in other diseases classified elsewhere without behavioral disturbance; F02.80 - Dementia in other diseases classified elsewhere without behavioral disturbance; F02.80 - Dementia in other diseases classified elsewhere without behavioral disturbance Is this a current diagnosis for this admission?: Yes (3) Pneumonia Qualifiers: Pneumonia type: due to unspecified organism Laterality: right Lung location: middle lobe of lung Qualified Code(s): J18.1 - Lobar pneumonia, unspecified organism Is this a current diagnosis for this admission?: Yes (4) Rheumatoid arthritis Qualifiers: Rheumatoid arthritis location: unspecified site Rheumatoid factor presence : unspecified presence Qualified Code(s): M06.9 - Rheumatoid arthritis, unspecified Is this a current diagnosis for this admission?: Yes - Time Time Spent with patient: 15-24 minutes Medications reviewed and adjusted accordingly: Yes Anticipated discharge: Other Within: Other - Inpatient Certification Medical Necessity: Need Close Monitoring Due to Risk of Patient Decompensation, Need for IV Antibiotics Post Hospital 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
[2017-05-01] MEDS ORDERED: PANTOPRAZOLE SODIUM 40 MG VIAL IV ONE (14:00)
[2017-05-01] MEDS: LORAZEPAM 0.5 MG TABLET PO PRN (17:15)
[2017-05-02] MEDS: PANTOPRAZOLE SODIUM 40 MG VIAL IV SCH (05:30)
[2017-05-02 06:18] LABS: ABSOLUTE EOSINOPHILS # (AUTO) 0.1 10^3/uL (0.0-0.6); ABSOLUTE LYMPHOCYTES (AUTO) 1.2 10^3/uL (0.5-4.7); ABSOLUTE MONOCYTES (AUTO) 0.8 10^3/uL (0.1-1.4); ABSOLUTE NEUT (AUTO) 5.2 10^3/uL (1.7-8.2); BASOPHILS % (AUTO) 0.6 % (0-2); EOSINOPHILS % (AUTO) 1.7 % (0-6); HEMATOCRIT 38.6 % (36.0-47.0); HEMOGLOBIN 12.9 g/dL (12.0-15.5); LYMPHOCYTES % (AUTO) 16.5 % (13-45); MEAN CORPUSCULAR HEMOGLOBIN 29.1 pg (27.0-33.4); MEAN CORPUSCULAR HGB CONC 33.4 g/dL (32.0-36.0); MEAN CORPUSCULAR VOLUME 87 fl (80-97); MONOCYTES % (AUTO) 11.2 % (3-13); PLATELET COUNT 230 10^3/uL (150-450); RED BLOOD COUNT 4.43 10^6/uL (3.72-5.28); RED CELL DISTRIBUTION WIDTH 14.1 % (11.5-14.0); TOTAL CELLS COUNTED % (AUTO) 100 %; WHITE BLOOD COUNT 7.5 10^3/uL (4.0-10.5)
--- NOTE | 2017-05-02 06:27 | PDOC PROGRESS REPORT ---
Subjective Progress Note for:: 05/02/17 Subjective:: Patient is currently doing fair Appetite is still poor She is otherwise denied any chest pain denied any shortness of the breath Since daughter is on the bedside no other concern Reason For Visit: PNEUMONIA,RHEUMATOID ARTHRITIS,DEMENTIA Physical Exam Vital Signs: Temp Pulse Resp BP Pulse Ox 98.0 F 82 18 156/78 H 96 05/02/17 04:31 05/02/17 04:31 05/02/17 04:31 05/02/17 04:31 05/02/17 04:31 Intake & Output 04/30/17 05/01/17 05/02/17 06:59 06:59 06:59 Intake Total 985 1676 220 Balance 985 1676 220 Weight 72.5 kg General appearance: PRESENT: no acute distress, well-developed, well-nourished Head exam: PRESENT: atraumatic, normocephalic Eye exam: PRESENT: conjunctiva pink, EOMI, PERRLA. ABSENT: scleral icterus Ear exam: PRESENT: normal external ear exam Mouth exam: PRESENT: moist, tongue midline Neck exam: PRESENT: full ROM. ABSENT: carotid bruit, JVD, lymphadenopathy, thyromegaly Respiratory exam: PRESENT: clear to auscultation [place] Cardiovascular exam: PRESENT: RRR. ABSENT: diastolic murmur, rubs, systolic murmur Pulses: PRESENT: normal dorsalis pedis pul, +2 pedal pulses bilateral Vascular exam: PRESENT: normal capillary refill GI/Abdominal exam: PRESENT: normal bowel sounds, soft. ABSENT: distended, guarding, mass, organolmegaly, rebound, tenderness Rectal exam: PRESENT: deferred Extremities exam: ABSENT: pedal edema Neurological exam: PRESENT: alert, awake, oriented to person. ABSENT: motor sensory deficit Psychiatric exam: PRESENT: appropriate affect, normal mood. ABSENT: homicidal ideation, suicidal ideation Skin exam: PRESENT: dry, intact, warm. ABSENT: cyanosis, rash Results Laboratory Results: 05/02/17 05:37 05/02/17 05:37 WBC 7.5 RBC 4.43 Hgb 12.9 Hct 38.6 MCV 87 MCH 29.1 MCHC 33.4 RDW 14.1 H Plt Count 230 Seg Neutrophils % 70.0 Lymphocytes % 16.5 Monocytes % 11.2 Eosinophils % 1.7 Basophils % 0.6 Absolute Neutrophils 5.2 Absolute Lymphocytes 1.2 Absolute Monocytes 0.8 Absolute Eosinophils 0.1 Absolute Basophils 0.0 04/26/17 17:56 Blood Blood Culture - Final NO GROWTH IN 5 DAYS 04/26/17 17:44 Blood Blood Culture - Final NO GROWTH IN 5 DAYS Impressions: Chest CT 04/23/17 15:55 IMPRESSION: 1. A limited infiltrate cannot be excluded in the anterior aspect of the right middle lobe. 2. There is scarring in the right upper lobe. 3. There are 2 small nonspecific pulmonary nodules in the right upper lobe. 4. There is osteoporosis with compression changes in the spine. Chest X-Ray 04/26/17 00:00 IMPRESSION: Limited study due to the patient's shallow inspiration. No acute consolidations or pleural effusions are identified. Other findings as noted above Modified Barium Swallow 04/27/17 00:00 IMPRESSION: NO EVIDENCE OF PENETRATION OR ASPIRATION.PLEASE SEE SPEECH PATHOLOGIST REPORT FOR OTHER FINDINGS AND RECOMMENDATIONS. Assessment & Plan - Diagnosis (1) Adult failure to thrive Is this a current diagnosis for this admission?: Yes (2) Dementia Qualifiers: Dementia type: Alzheimer's disease Alzheimer's disease onset: late-onset Dementia behavioral disturbance: without behavioral disturbance Qualified Code (s): G30.1 - Alzheimer's disease with late onset; F02.80 - Dementia in other diseases classified elsewhere without behavioral disturbance; F02.80 - Dementia in other diseases classified elsewhere without behavioral disturbance; F02.80 - Dementia in other diseases classified elsewhere without behavioral disturbance Is this a current diagnosis for this admission?: Yes (3) Pneumonia Qualifiers: Pneumonia type: due to unspecified organism Laterality: right Lung location: middle lobe of lung Qualified Code(s): J18.1 - Lobar pneumonia, unspecified organism Is this a current diagnosis for this admission?: Yes (4) Rheumatoid arthritis Qualifiers: Rheumatoid arthritis location: unspecified site Rheumatoid factor presence : unspecified presence Qualified Code(s): M06.9 - Rheumatoid arthritis, unspecified Is this a current diagnosis for this admission?: Yes - Time Time Spent with patient: 15-24 minutes Medications reviewed and adjusted accordingly: Yes Anticipated discharge: Other Within: Other - Inpatient Certification Medical Necessity: Need Close Monitoring Due to Risk of Patient Decompensation 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
[2017-05-02 06:44] LABS: ANION GAP 6 (5-19); BLOOD UREA NITROGEN 14 mg/dL (7-20); CALCIUM 9.1 mg/dL (8.4-10.2); CARBON DIOXIDE 27 mmol/L (22-30); CHLORIDE 107 mmol/L (98-107); GLUCOSE 85 mg/dL (75-110); POTASSIUM 3.7 mmol/L (3.6-5.0); SODIUM 139.6 mmol/L (137-145)
[2017-05-02] MEDS: LEVOFLOXACIN 750 MG TABLET PO SCH (10:04)
[2017-05-02] MEDS: MEMANTINE HCL 10 MG TABLET PO SCH ×2 (10:04→17:13)
[2017-05-02] MEDS: DONEPEZIL HCL 5 MG TABLET PO SCH (10:04)
[2017-05-02] MEDS: CEFEPIME 1 GM/D5W RTU 1 GM/50 ML RTUPB IV SCH ×2 (10:05→21:26)
[2017-05-02] MEDS: ENOXAPARIN SODIUM INJ 40 MG/0.4 ML DISP.SYRIN SUBCUT SCH (10:05)
[2017-05-02] MEDS: ACETAMINOPHEN 325 MG TABLET PO PRN (17:13)
[2017-05-02] MEDS: LORAZEPAM 0.5 MG TABLET PO PRN (17:13)
[2017-05-03] MEDS: PANTOPRAZOLE SODIUM 40 MG VIAL IV SCH (05:09)
[2017-05-03 07:04] LABS: BLOOD UREA NITROGEN 16 mg/dL (7-20); CALCIUM 8.8 mg/dL (8.4-10.2); CARBON DIOXIDE 25 mmol/L (22-30); GLUCOSE 81 mg/dL (75-110); POTASSIUM 3.8 mmol/L (3.6-5.0)
[2017-05-03 07:10] LABS: CHLORIDE 110 mmol/L (98-107); SODIUM 139.1 mmol/L (137-145)
[2017-05-03 07:12] LABS: ANION GAP 4 (5-19)
[2017-05-03] MEDS: ENOXAPARIN SODIUM INJ 40 MG/0.4 ML DISP.SYRIN SUBCUT SCH (09:04)
[2017-05-03] MEDS: CEFEPIME 1 GM/D5W RTU 1 GM/50 ML RTUPB IV SCH ×2 (09:05→21:57)
[2017-05-03] MEDS: DONEPEZIL HCL 5 MG TABLET PO SCH (09:05)
[2017-05-03] MEDS: MEMANTINE HCL 10 MG TABLET PO SCH ×2 (09:06→17:23)
[2017-05-03] MEDS: 1/2 NORMAL SALINE 1,000 ML IV PRN (12:41)
[2017-05-03] MEDS: LORAZEPAM 0.5 MG TABLET PO PRN (18:40)
--- NOTE | 2017-05-03 18:40 | RADIOLOGY REPORT (SQ) ---
EXAM DESCRIPTION: CHEST SINGLE VIEW COMPLETED DATE/TIME: 05/03/2017 6:27 pm REASON FOR STUDY: follow up pneumonia COMPARISON: 04/26/2017 EXAM PARAMETERS: NUMBER OF VIEWS: One view. TECHNIQUE: Single frontal radiographic view of the chest acquired. RADIATION DOSE: NA LIMITATIONS: None. FINDINGS: LUNGS AND PLEURA: No acute pulmonary infiltrate is appreciated there is no interval change . MEDIASTINUM AND HILAR STRUCTURES: No masses. Contour normal. HEART AND VASCULAR STRUCTURES: Heart normal in size. Normal vasculature. BONES: Kyphoplasty changes are present in the dorsal spine. HARDWARE: None in the chest. OTHER: No other significant finding. IMPRESSION: There is no interval change from the prior study. TECHNICAL DOCUMENTATION: JOB ID: [id number] [employer]- All Rights Reserved Reading location - IP/workstation name: [email or web address]
[2017-05-03] MEDS: ACETAMINOPHEN 325 MG TABLET PO PRN (19:28)
--- NOTE | 2017-05-03 20:44 | PDOC PROGRESS REPORT ---
Subjective Progress Note for:: 05/03/17 Subjective:: She was seen by the bedside, family said whenever patient eats she coughs, there was a concern that she may be aspirating, she underwent video fluoroscopy and it was negative but family is very concerned because the symptoms persisted. GI consultation will be obtained for upper endoscopy to rule out esophageal dysphagia tough she does not complain of any dysphagia or odynophagia the likelihood of esophageal dysphagia is low but because she coughs every time she eats this raises the possibility of choking/aspiration. She was admitted for the management of pneumonia with the setting of rheumatoid lung disease, baseline dementia Reason For Visit: PNEUMONIA,RHEUMATOID ARTHRITIS,DEMENTIA Physical Exam Vital Signs: Temp Pulse Resp BP Pulse Ox 98.6 F 90 18 157/83 H 95 05/03/17 19:57 05/03/17 19:57 05/03/17 19:57 05/03/17 19:57 05/03/17 19:57 Intake & Output 05/02/17 05/03/17 05/04/17 06:59 06:59 06:59 Intake Total 820 1180 1050 Balance 820 1180 1050 General appearance: PRESENT: no acute distress Eye exam: PRESENT: PERRLA Respiratory exam: PRESENT: rhonchi Cardiovascular exam: PRESENT: +S1, +S2 GI/Abdominal exam: PRESENT: soft Neurological exam: PRESENT: alert Results Laboratory Results: 05/02/17 05:37 05/03/17 05:29 05/03/17 05:29 Sodium 139.1 Potassium 3.8 Chloride 110 H Carbon Dioxide 25 Anion Gap 4 L BUN 16 Creatinine 0.72 Est GFR ( Amer) > 60 Est GFR (Non-Af Amer) > 60 Glucose 81 Calcium 8.8 Impressions: Chest CT 04/23/17 15:55 IMPRESSION: 1. A limited infiltrate cannot be excluded in the anterior aspect of the right middle lobe. 2. There is scarring in the right upper lobe. 3. There are 2 small nonspecific pulmonary nodules in the right upper lobe. 4. There is osteoporosis with compression changes in the spine. Modified Barium Swallow 04/27/17 00:00 IMPRESSION: NO EVIDENCE OF PENETRATION OR ASPIRATION.PLEASE SEE SPEECH PATHOLOGIST REPORT FOR OTHER FINDINGS AND RECOMMENDATIONS. Chest X-Ray 05/03/17 00:00 IMPRESSION: There is no interval change from the prior study. Assessment & Plan - Diagnosis (1) Pneumonia Qualifiers: Pneumonia type: due to unspecified organism Laterality: right Lung location: middle lobe of lung Qualified Code(s): J18.1 - Lobar pneumonia, unspecified organism Is this a current diagnosis for this admission?: Yes (2) Rheumatoid arthritis Qualifiers: Rheumatoid arthritis location: unspecified site Rheumatoid factor presence : unspecified presence Qualified Code(s): M06.9 - Rheumatoid arthritis, unspecified Is this a current diagnosis for this admission?: Yes (3) Dementia Qualifiers: Dementia type: Alzheimer's disease Alzheimer's disease onset: late-onset Dementia behavioral disturbance: without behavioral disturbance Qualified Code (s): G30.1 - Alzheimer's disease with late onset; F02.80 - Dementia in other diseases classified elsewhere without behavioral disturbance; F02.80 - Dementia in other diseases classified elsewhere without behavioral disturbance; F02.80 - Dementia in other diseases classified elsewhere without behavioral disturbance Is this a current diagnosis for this admission?: Yes (4) Osteoporotic compression fracture of spine Qualifiers: Encounter type: initial encounter Qualified Code(s): M80.88XA - Other osteoporosis with current pathological fracture, vertebra(e), initial encounter for fracture Is this a current diagnosis for this admission?: Yes (5) Fever Qualifiers: Fever type: unspecified Qualified Code(s): R50.9 - Fever, unspecified Is this a current diagnosis for this admission?: Yes - Plan Summary Plan Summary: Get GI consultation 2 physical therapy consultation
[2017-05-04] MEDS: ACETAMINOPHEN 325 MG TABLET PO PRN (05:07)
[2017-05-04] MEDS: PANTOPRAZOLE SODIUM 40 MG VIAL IV SCH (05:08)
[2017-05-04 07:13] LABS: ANION GAP 5 (5-19); BLOOD UREA NITROGEN 14 mg/dL (7-20); CALCIUM 8.9 mg/dL (8.4-10.2); CARBON DIOXIDE 27 mmol/L (22-30); CHLORIDE 107 mmol/L (98-107); GLUCOSE 89 mg/dL (75-110); POTASSIUM 3.8 mmol/L (3.6-5.0); SODIUM 138.8 mmol/L (137-145)
[2017-05-04] MEDS: 1/2 NORMAL SALINE 1,000 ML IV PRN (08:38)
[2017-05-04] MEDS: CEFEPIME 1 GM/D5W RTU 1 GM/50 ML RTUPB IV SCH (09:51)
[2017-05-04] MEDS: ENOXAPARIN SODIUM INJ 40 MG/0.4 ML DISP.SYRIN SUBCUT SCH (09:53)
[2017-05-04] MEDS: MEMANTINE HCL 10 MG TABLET PO SCH ×2 (11:35→17:23)
[2017-05-04] MEDS: DONEPEZIL HCL 5 MG TABLET PO SCH (11:35)
[2017-05-04] MEDS: LEVOFLOXACIN 750 MG TABLET PO SCH (11:35)
[2017-05-04] MEDS ORDERED: ONDANSETRON HCL INJ/PF 4 MG/2 ML SDV ONE (11:56)
[2017-05-04] MEDS ORDERED: DIPHENHYDRAMINE HCL 50 MG/ML VIAL ONE (11:56)
[2017-05-04] MEDS ORDERED: MIDAZOLAM 2 MG/2 ML INJ ONE ×2 (11:56→11:57)
[2017-05-04] MEDS ORDERED: NALOXONE HCL INJ/PF 0.4 MG/1 ML SDV ONE (11:56)
[2017-05-04] MEDS ORDERED: EPINEPHRINE INJ 1 MG/10 ML DISP.SYRIN ONE (11:57)
[2017-05-04] MEDS ORDERED: FENTANYL CITRATE INJ/PF 100 MCG/2 ML AMPUL ONE (11:57)
[2017-05-04] MEDS ORDERED: GLUCAGON,HUMAN RECOMB 1 MG INJ ONE (11:57)
[2017-05-04] MEDS ORDERED: FLUMAZENIL INJ 0.5 MG/5 ML VIAL ONE (11:57)
--- NOTE | 2017-05-04 13:34 | Operative Report ---
Operative Report DATE OF SURGERY: 05/04/17 Operative Report: The risks benefits and alternatives of the procedure explained to the patient in detail and informed consent is obtained.A GIF Olympus video scope was inserted into the patient's mouth and hypopharynx, the esophagus is identified intubated and insufflated, the scope was then advanced through the esophagus stomach and duodenum, retroflexion maneuver is done, the esophagus stomach and first and second portions of the duodenum examined PREOPERATIVE DIAGNOSIS: Possible aspiration POSTOPERATIVE DIAGNOSIS: Normal upper esophageal sphincter. Hiatal hernia. Gastritis. Gastroesophageal reflux disease OPERATION: EGD with biopsy SURGEON: CAT AVENDANO ANESTHESIA: Moderate Sedation - 2 mg of Versed. Conscious sedation monitoring time 30 minutes. TISSUE REMOVED OR ALTERED: As noted above. COMPLICATIONS: None. ESTIMATED BLOOD LOSS: None. INTRAOPERATIVE FINDINGS: As noted above. PROCEDURE: Patient tolerated procedure well. No immediate postprocedure complications are noted. Patient discharged to her room in good condition. Resume regular diet Resume regular activity level Chronic coughing following meals due to gastroesophageal reflux disease, extra esophageal symptoms Low-dose PPI We will wait on biopsies She passed a swallowing study
--- NOTE | 2017-05-04 13:46 | PDOC CONSULTATION ---
Consultation Consult Date: 05/03/17 Attending physician:: CAT AVENDANO Consult reason:: ? aspiration. Main symptoms is coughing following meals History of Present Illness Admission Date/PCP: 04/23/17 14:13 LUIS GUTIERRES MD History of Present Illness: asked to see patient has been having coughing after her meals patient has GERD had swallowing study, normal results patient does have GERD denies any odynophagia there is no nausea or vomiting there is no melena Attending physician requesting EGD to be done Past Medical History Pulmonary Medical History: Reports: Pneumonia Endocrine Medical History: Reports: Other - Osteoporosis Musculoskeltal Medical History: Reports: Arthritis - Rheumatoid arthritis Denies: Fibromyalgia Psychiatric Medical History: Reports: Dementia Past Surgical History Past Surgical History: Reports: Appendectomy, Hysterectomy Denies: Amputation, Section, Cholecystectomy, Coronary Artery Bypass Graft, Gastric Bypass Surgery, Herniorrhaphy, Mastectomy, Pacemaker, Tonsillectomy, Tubal Ligation Social History Lives with: Family Smoking Status: Former Smoker Number of Years Smokin Frequency of Alcohol Use: None Hx Recreational Drug Use: No Drugs: None Hx Prescription Drug Abuse: No Family History Family History: None Parental Family History Reviewed: Yes Children Family History Reviewed: Unknown Sibling(s) Family History Reviewed.: Unknown Medication/Allergy Home Medications: Ciprofloxacin HCl [Cipro 250 mg Tablet] 250 mg PO BID 04/23/17 Donepezil HCl [Aricept] 10 mg PO DAILY 04/23/17 Memantine HCl [Namenda 10 mg Tablet] 10 mg PO BID 04/23/17 Tramadol HCl [Ultram 50 mg Tablet] 50 mg PO TIDP PRN 04/23/17 Allergies/Adverse Reactions: No Known Allergies Allergy (Verified 02/12/14 08:24) Review of Systems Constitutional: PRESENT: weakness. ABSENT: fever(s), headache(s), night sweats Eyes: ABSENT: visual disturbances Ears: ABSENT: hearing changes Nose, Mouth, and Throat: ABSENT: sore throat Cardiovascular: ABSENT: chest pain, edema, orthropnea Respiratory: ABSENT: dyspnea, hemoptysis Gastrointestinal: ABSENT: diarrhea, hematochezia, melena Genitourinary: ABSENT: dysuria, hematuria Musculoskeletal: ABSENT: deformity Integumentary: ABSENT: lesions Neurological: ABSENT: syncope, tingling, tremor(s), vertigo Endocrine: ABSENT: polydipsia, polyphagia, polyuria Hematologic/Lymphatic: ABSENT: easy bruising Physical Exam Vital Signs: Temp Pulse Resp BP Pulse Ox 98.4 F 88 22 H 146/60 H 94 05/04/17 12:39 05/04/17 13:20 05/04/17 13:20 05/04/17 13:20 05/04/17 13:20 Intake & Output 05/03/17 05/04/17 05/05/17 06:59 06:59 06:59 Intake Total 1180 1865 100 Balance 1180 1865 100 Weight 70.8 kg General appearance: PRESENT: no acute distress Head exam: PRESENT: atraumatic, normocephalic Eye exam: PRESENT: EOMI, PERRLA. ABSENT: periorbital swelling, scleral icterus Mouth exam: PRESENT: moist, neck supple Throat exam: ABSENT: tonsillar exudate, tonsillogmegaly Neck exam: ABSENT: meningismus, tenderness, thyromegaly Respiratory exam: PRESENT: symmetrical, unlabored. ABSENT: tachypnea, wheezes Cardiovascular exam: PRESENT: RRR, +S1, +S2 GI/Abdominal exam: PRESENT: soft. ABSENT: rebound, rigid, tenderness Extremities exam: ABSENT: joint swelling Musculoskeletal exam: PRESENT: full ROM Neurological exam: PRESENT: oriented to time, CN II-XII grossly intact Focused psych exam: ABSENT: restlessness Skin exam: PRESENT: normal color. ABSENT: mottled, pallor, petechiae, urticaria , vesicles Results Laboratory Results: 05/02/17 05:37 05/04/17 05:55 05/04/17 05:55 Sodium 138.8 Potassium 3.8 Chloride 107 Carbon Dioxide 27 Anion Gap 5 BUN 14 Creatinine 0.66 Est GFR ( Amer) > 60 Est GFR (Non-Af Amer) > 60 Glucose 89 Calcium 8.9 Impressions: Chest CT 04/23/17 15:55 IMPRESSION: 1. A limited infiltrate cannot be excluded in the anterior aspect of the right middle lobe. 2. There is scarring in the right upper lobe. 3. There are 2 small nonspecific pulmonary nodules in the right upper lobe. 4. There is osteoporosis with compression changes in the spine. Modified Barium Swallow 04/27/17 00:00 IMPRESSION: NO EVIDENCE OF PENETRATION OR ASPIRATION.PLEASE SEE SPEECH PATHOLOGIST REPORT FOR OTHER FINDINGS AND RECOMMENDATIONS. Chest X-Ray 05/03/17 00:00 IMPRESSION: There is no interval change from the prior study. Assessment & Plan - Diagnosis (1) GERD (gastroesophageal reflux disease) Plan: she passed a swallowing study patient likely has extraesophageal symptoms of GERD which is known to present as a chronic cough as well as pneumonia at times will need EGD to exclude any potential esophageal obstruction Risks, benefits and alternatives are discussed with the patient in detail family appears to want it done more than the patient start PPI/ H2 steve recommendations to be made following the EGD tomorrow
--- NOTE | 2017-05-04 14:57 | Progress Note ---
Provider Note Provider Note: ID Consult Note Asked by Pharmacy to review Ms Madden's chart. Per chart review, she is an 87 year old woman with pmh including RA, rheumatoid interstitial lung disease, and dementia. The patient's family was concerned about aspiration. She presented on 04/23 with SOB and cough. She had crackles on exam. Her CT chest showed small pulmonary nodules in the RUL and could not exclude an ill-defined infiltrate in the RML. She has some pulmonary scarring. Her BCx are negative x 5 days. Last fever was on 04/27. She has been treated with antibiotics since admission on 04/23- on Levaquin and cefepime. Impression/Recommendations Chronic pulmonary changes/scarring Reviewed CT scan images. Does not appear to be clearly consistent with pneumonia. She was treated for presumptive pneumonia with Levaquin and cefepime for 10 days now, which would be a sufficient duration for pneumonia. Recommend discontinuing Levaquin and cefepime. Vladimir Multani MD, pager [phone]
[2017-05-04] MEDS ORDERED: CETIRIZINE 10 MG TABLET PO PRN (17:52)
--- NOTE | 2017-05-04 20:58 | PDOC PROGRESS REPORT ---
Subjective Progress Note for:: 05/04/17 Subjective:: She was seen by the bedside, she had upper endoscopy today, there was no luminal disease.. She still have cough, probably from upper respiratory airway/ sinusitis, she will treated with antihistamine Reason For Visit: PNEUMONIA,RHEUMATOID ARTHRITIS,DEMENTIA Physical Exam Vital Signs: Temp Pulse Resp BP Pulse Ox 98.8 F 101 H 18 160/81 H 91 L 05/04/17 20:34 05/04/17 20:34 05/04/17 20:34 05/04/17 20:34 05/04/17 20:34 Intake & Output 05/03/17 05/04/17 05/05/17 06:59 06:59 06:59 Intake Total 1180 1865 850 Balance 1180 1865 850 Weight 70.8 kg General appearance: PRESENT: no acute distress Eye exam: PRESENT: PERRLA Respiratory exam: PRESENT: clear to auscultation [place]avan Cardiovascular exam: PRESENT: +S1, +S2 GI/Abdominal exam: PRESENT: soft Neurological exam: PRESENT: alert Results Laboratory Results: 05/02/17 05:37 05/04/17 05:55 05/04/17 05:55 Sodium 138.8 Potassium 3.8 Chloride 107 Carbon Dioxide 27 Anion Gap 5 BUN 14 Creatinine 0.66 Est GFR ( Amer) > 60 Est GFR (Non-Af Amer) > 60 Glucose 89 Calcium 8.9 Impressions: Chest CT 04/23/17 15:55 IMPRESSION: 1. A limited infiltrate cannot be excluded in the anterior aspect of the right middle lobe. 2. There is scarring in the right upper lobe. 3. There are 2 small nonspecific pulmonary nodules in the right upper lobe. 4. There is osteoporosis with compression changes in the spine. Modified Barium Swallow 04/27/17 00:00 IMPRESSION: NO EVIDENCE OF PENETRATION OR ASPIRATION.PLEASE SEE SPEECH PATHOLOGIST REPORT FOR OTHER FINDINGS AND RECOMMENDATIONS. Chest X-Ray 05/03/17 00:00 IMPRESSION: There is no interval change from the prior study. Assessment & Plan - Diagnosis (1) Pneumonia Qualifiers: Pneumonia type: due to unspecified organism Laterality: right Lung location: middle lobe of lung Qualified Code(s): J18.1 - Lobar pneumonia, unspecified organism Is this a current diagnosis for this admission?: Yes (2) Rheumatoid arthritis Qualifiers: Rheumatoid arthritis location: unspecified site Rheumatoid factor presence : unspecified presence Qualified Code(s): M06.9 - Rheumatoid arthritis, unspecified Is this a current diagnosis for this admission?: Yes (3) Dementia Qualifiers: Dementia type: Alzheimer's disease Alzheimer's disease onset: late-onset Dementia behavioral disturbance: without behavioral disturbance Qualified Code (s): G30.1 - Alzheimer's disease with late onset; F02.80 - Dementia in other diseases classified elsewhere without behavioral disturbance; F02.80 - Dementia in other diseases classified elsewhere without behavioral disturbance; F02.80 - Dementia in other diseases classified elsewhere without behavioral disturbance Is this a current diagnosis for this admission?: Yes (4) Osteoporotic compression fracture of spine Qualifiers: Encounter type: initial encounter Qualified Code(s): M80.88XA - Other osteoporosis with current pathological fracture, vertebra(e), initial encounter for fracture Is this a current diagnosis for this admission?: Yes (5) Fever Qualifiers: Fever type: unspecified Qualified Code(s): R50.9 - Fever, unspecified Is this a current diagnosis for this admission?: Yes
[2017-05-05] MEDS: LANSOPRAZOLE 30 MG TAB.RAP.DR PO SCH (05:09)
--- NOTE | 2017-05-05 07:52 | PDOC PROGRESS REPORT ---
Subjective Progress Note for:: 05/05/17 Subjective:: patient had EGD yesterday, negative ID has recommended stopping antibiotics patient has chronic cough likely extraesophageal symptoms of GERD her upper esophageal symptoms is competent no post procedure complications family has been updated Reason For Visit: PNEUMONIA,RHEUMATOID ARTHRITIS,DEMENTIA Physical Exam Vital Signs: Temp Pulse Resp BP Pulse Ox 98.1 F 94 16 140/61 H 93 05/05/17 03:26 05/05/17 03:26 05/05/17 03:26 05/05/17 03:26 05/05/17 03:26 Intake & Output 05/04/17 05/05/17 05/06/17 06:59 06:59 06:59 Intake Total 1865 2700 Balance 1865 2700 Weight 70.8 kg General appearance: PRESENT: no acute distress, well-developed, well-nourished Head exam: PRESENT: atraumatic, normocephalic Eye exam: PRESENT: EOMI, PERRLA. ABSENT: nystagmus, periorbital swelling, scleral icterus Mouth exam: PRESENT: neck supple Throat exam: ABSENT: post pharyngeal erythema, tonsillar exudate Neck exam: ABSENT: JVD, meningismus, thyromegaly Respiratory exam: PRESENT: symmetrical, unlabored. ABSENT: tachypnea, wheezes Cardiovascular exam: PRESENT: RRR, +S1, +S2 GI/Abdominal exam: PRESENT: soft. ABSENT: rebound, rigid, tenderness Extremities exam: ABSENT: joint swelling Neurological exam: PRESENT: CN II-XII grossly intact Psychiatric exam: PRESENT: flat affect. ABSENT: appropriate affect Focused psych exam: ABSENT: restlessness Skin exam: PRESENT: normal color. ABSENT: mottled, urticaria, vesicles Results Laboratory Results: 05/02/17 05:37 05/04/17 05:55 Impressions: Chest CT 04/23/17 15:55 IMPRESSION: 1. A limited infiltrate cannot be excluded in the anterior aspect of the right middle lobe. 2. There is scarring in the right upper lobe. 3. There are 2 small nonspecific pulmonary nodules in the right upper lobe. 4. There is osteoporosis with compression changes in the spine. Modified Barium Swallow 04/27/17 00:00 IMPRESSION: NO EVIDENCE OF PENETRATION OR ASPIRATION.PLEASE SEE SPEECH PATHOLOGIST REPORT FOR OTHER FINDINGS AND RECOMMENDATIONS. Chest X-Ray 05/03/17 00:00 IMPRESSION: There is no interval change from the prior study. Assessment & Plan - Diagnosis (1) GERD (gastroesophageal reflux disease) Plan: she has passed a swallowing study patient has chronic cough following meals likely extraesophageal symptoms of GERD can be discharged if no other problems follow up as outpatient as needed - Time Time Spent with patient: 15-24 minutes
[2017-05-05] MEDS: ENOXAPARIN SODIUM INJ 40 MG/0.4 ML DISP.SYRIN SUBCUT SCH (09:28)
[2017-05-05] MEDS: DONEPEZIL HCL 5 MG TABLET PO SCH (09:32)
[2017-05-05] MEDS: MEMANTINE HCL 10 MG TABLET PO SCH ×2 (09:32→17:14)
[2017-05-05] MEDS: 1/2 NORMAL SALINE 1,000 ML IV PRN (09:33)
--- NOTE | 2017-05-05 20:09 | PDOC PROGRESS REPORT ---
Subjective Progress Note for:: 05/05/17 Subjective:: Patient was seen by the bedside Reason For Visit: PNEUMONIA,RHEUMATOID ARTHRITIS,DEMENTIA Physical Exam Vital Signs: Temp Pulse Resp BP Pulse Ox 98.5 F 88 16 141/60 H 93 05/05/17 15:58 05/05/17 15:58 05/05/17 15:58 05/05/17 15:58 05/05/17 15:58 Intake & Output 05/04/17 05/05/17 05/06/17 06:59 06:59 06:59 Intake Total 1865 2700 800 Balance 1865 2700 800 Weight 70.8 kg General appearance: PRESENT: no acute distress, well-developed, well-nourished Head exam: PRESENT: atraumatic, normocephalic Eye exam: PRESENT: conjunctiva pink, EOMI, PERRLA Ear exam: PRESENT: normal external ear exam Mouth exam: PRESENT: moist, tongue midline Neck exam: PRESENT: full ROM Respiratory exam: PRESENT: clear to auscultation [place] Cardiovascular exam: PRESENT: RRR, +S1, +S2 Pulses: PRESENT: normal dorsalis pedis pul, +2 pedal pulses bilateral Vascular exam: PRESENT: normal capillary refill GI/Abdominal exam: PRESENT: normal bowel sounds, soft. ABSENT: distended, guarding, mass, organolmegaly, rebound, tenderness Rectal exam: PRESENT: deferred Neurological exam: PRESENT: alert, awake, oriented to person, oriented to place , oriented to time, oriented to situation, CN II-XII grossly intact Psychiatric exam: PRESENT: appropriate affect, normal mood Skin exam: PRESENT: dry, intact, warm. ABSENT: cyanosis, rash Results Laboratory Results: 05/02/17 05:37 05/04/17 05:55 Impressions: Chest CT 04/23/17 15:55 IMPRESSION: 1. A limited infiltrate cannot be excluded in the anterior aspect of the right middle lobe. 2. There is scarring in the right upper lobe. 3. There are 2 small nonspecific pulmonary nodules in the right upper lobe. 4. There is osteoporosis with compression changes in the spine. Modified Barium Swallow 04/27/17 00:00 IMPRESSION: NO EVIDENCE OF PENETRATION OR ASPIRATION.PLEASE SEE SPEECH PATHOLOGIST REPORT FOR OTHER FINDINGS AND RECOMMENDATIONS. Chest X-Ray 05/03/17 00:00 IMPRESSION: There is no interval change from the prior study. Assessment & Plan - Diagnosis (1) Pneumonia Qualifiers: Pneumonia type: due to unspecified organism Laterality: right Lung location: middle lobe of lung Qualified Code(s): J18.1 - Lobar pneumonia, unspecified organism Is this a current diagnosis for this admission?: Yes (2) Rheumatoid arthritis Qualifiers: Rheumatoid arthritis location: unspecified site Rheumatoid factor presence : unspecified presence Qualified Code(s): M06.9 - Rheumatoid arthritis, unspecified Is this a current diagnosis for this admission?: Yes (3) Dementia Qualifiers: Dementia type: Alzheimer's disease Alzheimer's disease onset: late-onset Dementia behavioral disturbance: without behavioral disturbance Qualified Code (s): G30.1 - Alzheimer's disease with late onset; F02.80 - Dementia in other diseases classified elsewhere without behavioral disturbance; F02.80 - Dementia in other diseases classified elsewhere without behavioral disturbance; F02.80 - Dementia in other diseases classified elsewhere without behavioral disturbance Is this a current diagnosis for this admission?: Yes (4) Osteoporotic compression fracture of spine Qualifiers: Encounter type: initial encounter Qualified Code(s): M80.88XA - Other osteoporosis with current pathological fracture, vertebra(e), initial encounter for fracture Is this a current diagnosis for this admission?: Yes (5) Fever Qualifiers: Fever type: unspecified Qualified Code(s): R50.9 - Fever, unspecified Is this a current diagnosis for this admission?: Yes
[2017-05-05] MEDS: ACETAMINOPHEN 325 MG TABLET PO PRN (22:38)
[2017-05-06] MEDS: LANSOPRAZOLE 30 MG TAB.RAP.DR PO SCH (06:11)
[2017-05-06] MEDS: ENOXAPARIN SODIUM INJ 40 MG/0.4 ML DISP.SYRIN SUBCUT SCH (10:19)
[2017-05-06] MEDS: MEMANTINE HCL 10 MG TABLET PO SCH ×2 (10:20→17:53)
[2017-05-06] MEDS: LORATADINE 10 MG TABLET PO SCH (10:20)
[2017-05-06] MEDS: DONEPEZIL HCL 5 MG TABLET PO SCH (10:20)
[2017-05-06 12:29] LABS: ABSOLUTE BASOPHILS # (AUTO) 0.1 10^3/uL (0.0-0.2); ABSOLUTE EOSINOPHILS # (AUTO) 0.1 10^3/uL (0.0-0.6); ABSOLUTE LYMPHOCYTES (AUTO) 1.2 10^3/uL (0.5-4.7); ABSOLUTE MONOCYTES (AUTO) 0.8 10^3/uL (0.1-1.4); ABSOLUTE NEUT (AUTO) 8.1 10^3/uL (1.7-8.2); BASOPHILS % (AUTO) 0.9 % (0-2); EOSINOPHILS % (AUTO) 0.9 % (0-6); HEMATOCRIT 39.2 % (36.0-47.0); HEMOGLOBIN 13.1 g/dL (12.0-15.5); LYMPHOCYTES % (AUTO) 11.4 % (13-45); MEAN CORPUSCULAR HEMOGLOBIN 29.1 pg (27.0-33.4); MEAN CORPUSCULAR HGB CONC 33.4 g/dL (32.0-36.0); MEAN CORPUSCULAR VOLUME 87 fl (80-97); PLATELET COUNT 296 10^3/uL (150-450); RED CELL DISTRIBUTION WIDTH 14.5 % (11.5-14.0); SEGMENTED NEUTROPHILS % (AUTO) 78.8 % (42-78); TOTAL CELLS COUNTED % (AUTO) 100 %; WHITE BLOOD COUNT 10.2 10^3/uL (4.0-10.5)
[2017-05-06 12:55] LABS: ALANINE AMINOTRANSFERASE 15 U/L (9-52); ALBUMIN 3.2 g/dL (3.5-5.0); ALKALINE PHOSPHATASE 88 U/L (38-126); ANION GAP 7 (5-19); ASPARTATE AMINO TRANSFERASE 17 U/L (14-36); BILIRUBIN,DIRECT 0.3 mg/dL (0.0-0.4); BILIRUBIN,TOTAL 0.6 mg/dL (0.2-1.3); BLOOD UREA NITROGEN 15 mg/dL (7-20); CALCIUM 9.4 mg/dL (8.4-10.2); CARBON DIOXIDE 29 mmol/L (22-30); CHLORIDE 105 mmol/L (98-107); GLUCOSE 101 mg/dL (75-110); POTASSIUM 4.2 mmol/L (3.6-5.0); SODIUM 141.4 mmol/L (137-145); TOTAL PROTEIN 6.5 g/dL (6.3-8.2)
[2017-05-06] MEDS: 1/2 NORMAL SALINE 1,000 ML IV PRN (17:59)
[2017-05-06] MEDS: ACETAMINOPHEN 325 MG TABLET PO PRN (19:31)
--- NOTE | 2017-05-06 21:22 | PDOC PROGRESS REPORT ---
Subjective Progress Note for:: 05/06/17 Subjective:: There is no new complaints Reason For Visit: PNEUMONIA,RHEUMATOID ARTHRITIS,DEMENTIA Physical Exam Vital Signs: Temp Pulse Resp BP Pulse Ox 97.1 F 91 15 152/66 H 93 05/06/17 15:31 05/06/17 19:00 05/06/17 15:31 05/06/17 15:31 05/06/17 15:31 Intake & Output 05/05/17 05/06/17 05/07/17 06:59 06:59 06:59 Intake Total 2700 1585 900 Balance 2700 1585 900 General appearance: PRESENT: no acute distress Eye exam: PRESENT: PERRLA Respiratory exam: PRESENT: clear to auscultation [place] Cardiovascular exam: PRESENT: +S1, +S2 GI/Abdominal exam: PRESENT: soft Neurological exam: PRESENT: alert Results Laboratory Results: 05/06/17 12:06 05/06/17 12:06 05/06/17 05/06/17 12:06 12:06 WBC 10.2 RBC 4.50 Hgb 13.1 Hct 39.2 MCV 87 MCH 29.1 MCHC 33.4 RDW 14.5 H Plt Count 296 Seg Neutrophils % 78.8 H Lymphocytes % 11.4 L Monocytes % 8.0 Eosinophils % 0.9 Basophils % 0.9 Absolute Neutrophils 8.1 Absolute Lymphocytes 1.2 Absolute Monocytes 0.8 Absolute Eosinophils 0.1 Absolute Basophils 0.1 Sodium 141.4 Potassium 4.2 Chloride 105 Carbon Dioxide 29 Anion Gap 7 BUN 15 Creatinine 0.65 Est GFR ( Amer) > 60 Est GFR (Non-Af Amer) > 60 Glucose 101 Calcium 9.4 Total Bilirubin 0.6 AST 17 ALT 15 Alkaline Phosphatase 88 Total Protein 6.5 Albumin 3.2 L Impressions: Chest CT 04/23/17 15:55 IMPRESSION: 1. A limited infiltrate cannot be excluded in the anterior aspect of the right middle lobe. 2. There is scarring in the right upper lobe. 3. There are 2 small nonspecific pulmonary nodules in the right upper lobe. 4. There is osteoporosis with compression changes in the spine. Modified Barium Swallow 04/27/17 00:00 IMPRESSION: NO EVIDENCE OF PENETRATION OR ASPIRATION.PLEASE SEE SPEECH PATHOLOGIST REPORT FOR OTHER FINDINGS AND RECOMMENDATIONS. Chest X-Ray 05/03/17 00:00 IMPRESSION: There is no interval change from the prior study. Assessment & Plan - Diagnosis (1) Pneumonia Qualifiers: Pneumonia type: due to unspecified organism Laterality: right Lung location: middle lobe of lung Qualified Code(s): J18.1 - Lobar pneumonia, unspecified organism Is this a current diagnosis for this admission?: Yes (2) Rheumatoid arthritis Qualifiers: Rheumatoid arthritis location: unspecified site Rheumatoid factor presence : unspecified presence Qualified Code(s): M06.9 - Rheumatoid arthritis, unspecified Is this a current diagnosis for this admission?: Yes (3) Dementia Qualifiers: Dementia type: Alzheimer's disease Alzheimer's disease onset: late-onset Dementia behavioral disturbance: without behavioral disturbance Qualified Code (s): G30.1 - Alzheimer's disease with late onset; F02.80 - Dementia in other diseases classified elsewhere without behavioral disturbance; F02.80 - Dementia in other diseases classified elsewhere without behavioral disturbance; F02.80 - Dementia in other diseases classified elsewhere without behavioral disturbance Is this a current diagnosis for this admission?: Yes (4) Osteoporotic compression fracture of spine Qualifiers: Encounter type: initial encounter Qualified Code(s): M80.88XA - Other osteoporosis with current pathological fracture, vertebra(e), initial encounter for fracture Is this a current diagnosis for this admission?: Yes (5) Fever Qualifiers: Fever type: unspecified Qualified Code(s): R50.9 - Fever, unspecified Is this a current diagnosis for this admission?: Yes
[2017-05-07] MEDS: LANSOPRAZOLE 30 MG TAB.RAP.DR PO SCH (05:57)
[2017-05-07] MEDS: ENOXAPARIN SODIUM INJ 40 MG/0.4 ML DISP.SYRIN SUBCUT SCH (10:07)
[2017-05-07] MEDS: DONEPEZIL HCL 5 MG TABLET PO SCH (10:07)
[2017-05-07] MEDS: LORATADINE 10 MG TABLET PO SCH (10:07)
[2017-05-07] MEDS: MEMANTINE HCL 10 MG TABLET PO SCH ×2 (10:08→17:18)
--- NOTE | 2017-05-07 20:14 | PDOC PROGRESS REPORT ---
Subjective Progress Note for:: 05/07/17 Subjective:: Patient is seen by the bedside, there is the issue of poor intake, on IV fluid therapy Reason For Visit: PNEUMONIA,RHEUMATOID ARTHRITIS,DEMENTIA Physical Exam Vital Signs: Temp Pulse Resp BP Pulse Ox 97.2 F 103 H 19 176/76 H 94 05/07/17 16:07 05/07/17 19:00 05/07/17 16:07 05/07/17 16:07 05/07/17 16:07 Intake & Output 05/06/17 05/07/17 05/08/17 06:59 06:59 06:59 Intake Total 1585 1255 0 Balance 1585 1255 0 General appearance: PRESENT: no acute distress Eye exam: PRESENT: PERRLA Respiratory exam: PRESENT: clear to auscultation [place] Cardiovascular exam: PRESENT: +S1, +S2 GI/Abdominal exam: PRESENT: soft Neurological exam: PRESENT: alert Results Laboratory Results: 05/06/17 12:06 05/06/17 12:06 Impressions: Chest CT 04/23/17 15:55 IMPRESSION: 1. A limited infiltrate cannot be excluded in the anterior aspect of the right middle lobe. 2. There is scarring in the right upper lobe. 3. There are 2 small nonspecific pulmonary nodules in the right upper lobe. 4. There is osteoporosis with compression changes in the spine. Modified Barium Swallow 04/27/17 00:00 IMPRESSION: NO EVIDENCE OF PENETRATION OR ASPIRATION.PLEASE SEE SPEECH PATHOLOGIST REPORT FOR OTHER FINDINGS AND RECOMMENDATIONS. Chest X-Ray 05/03/17 00:00 IMPRESSION: There is no interval change from the prior study. Assessment & Plan - Diagnosis (1) Pneumonia Qualifiers: Pneumonia type: due to unspecified organism Laterality: right Lung location: middle lobe of lung Qualified Code(s): J18.1 - Lobar pneumonia, unspecified organism Is this a current diagnosis for this admission?: Yes (2) Rheumatoid arthritis Qualifiers: Rheumatoid arthritis location: unspecified site Rheumatoid factor presence : unspecified presence Qualified Code(s): M06.9 - Rheumatoid arthritis, unspecified Is this a current diagnosis for this admission?: Yes (3) Dementia Qualifiers: Dementia type: Alzheimer's disease Alzheimer's disease onset: late-onset Dementia behavioral disturbance: without behavioral disturbance Qualified Code (s): G30.1 - Alzheimer's disease with late onset; F02.80 - Dementia in other diseases classified elsewhere without behavioral disturbance; F02.80 - Dementia in other diseases classified elsewhere without behavioral disturbance; F02.80 - Dementia in other diseases classified elsewhere without behavioral disturbance Is this a current diagnosis for this admission?: Yes (4) Osteoporotic compression fracture of spine Qualifiers: Encounter type: initial encounter Qualified Code(s): M80.88XA - Other osteoporosis with current pathological fracture, vertebra(e), initial encounter for fracture Is this a current diagnosis for this admission?: Yes (5) Fever Qualifiers: Fever type: unspecified Qualified Code(s): R50.9 - Fever, unspecified Is this a current diagnosis for this admission?: Yes (6) Adult failure to thrive Is this a current diagnosis for this admission?: Yes Plan: [facility] care was discussed with family, they prefer patient be discharged home with family, family is making arrangement to set up home for discharge
[2017-05-08] MEDS: 1/2 NORMAL SALINE 1,000 ML IV PRN (05:33)
[2017-05-08] MEDS: LANSOPRAZOLE 30 MG TAB.RAP.DR PO SCH (05:33)
[2017-05-08] MEDS: ENOXAPARIN SODIUM INJ 40 MG/0.4 ML DISP.SYRIN SUBCUT SCH (09:12)
[2017-05-08] MEDS: LORATADINE 10 MG TABLET PO SCH (09:12)
[2017-05-08] MEDS: DONEPEZIL HCL 5 MG TABLET PO SCH (09:12)
[2017-05-08] MEDS: MEMANTINE HCL 10 MG TABLET PO SCH ×2 (09:12→17:43)
--- NOTE | 2017-05-08 17:37 | PDOC PROGRESS REPORT ---
Subjective Progress Note for:: 05/08/17 Subjective:: Patient is seen by the bedside, there is the issue of poor intake, on IV fluid therapy Reason For Visit: PNEUMONIA,RHEUMATOID ARTHRITIS,DEMENTIA Physical Exam Vital Signs: Temp Pulse Resp BP Pulse Ox 97.2 F 87 20 136/58 H 96 05/08/17 15:05 05/08/17 15:05 05/08/17 15:05 05/08/17 15:05 05/08/17 15:05 Intake & Output 05/07/17 05/08/17 05/09/17 06:59 06:59 06:59 Intake Total 1255 1804 118 Balance 1255 1804 118 Weight 71.4 kg General appearance: PRESENT: no acute distress Eye exam: PRESENT: PERRLA Respiratory exam: PRESENT: clear to auscultation [place] Cardiovascular exam: PRESENT: +S1, +S2 GI/Abdominal exam: PRESENT: soft Neurological exam: PRESENT: alert Results Laboratory Results: 05/06/17 12:06 05/06/17 12:06 Impressions: Chest CT 04/23/17 15:55 IMPRESSION: 1. A limited infiltrate cannot be excluded in the anterior aspect of the right middle lobe. 2. There is scarring in the right upper lobe. 3. There are 2 small nonspecific pulmonary nodules in the right upper lobe. 4. There is osteoporosis with compression changes in the spine. Modified Barium Swallow 04/27/17 00:00 IMPRESSION: NO EVIDENCE OF PENETRATION OR ASPIRATION.PLEASE SEE SPEECH PATHOLOGIST REPORT FOR OTHER FINDINGS AND RECOMMENDATIONS. Chest X-Ray 05/03/17 00:00 IMPRESSION: There is no interval change from the prior study. Assessment & Plan - Diagnosis (1) Pneumonia Qualifiers: Pneumonia type: due to unspecified organism Laterality: right Lung location: middle lobe of lung Qualified Code(s): J18.1 - Lobar pneumonia, unspecified organism Is this a current diagnosis for this admission?: Yes (2) Rheumatoid arthritis Qualifiers: Rheumatoid arthritis location: unspecified site Rheumatoid factor presence : unspecified presence Qualified Code(s): M06.9 - Rheumatoid arthritis, unspecified Is this a current diagnosis for this admission?: Yes (3) Dementia Qualifiers: Dementia type: Alzheimer's disease Alzheimer's disease onset: late-onset Dementia behavioral disturbance: without behavioral disturbance Qualified Code (s): G30.1 - Alzheimer's disease with late onset; F02.80 - Dementia in other diseases classified elsewhere without behavioral disturbance; F02.80 - Dementia in other diseases classified elsewhere without behavioral disturbance; F02.80 - Dementia in other diseases classified elsewhere without behavioral disturbance Is this a current diagnosis for this admission?: Yes (4) Osteoporotic compression fracture of spine Qualifiers: Encounter type: initial encounter Qualified Code(s): M80.88XA - Other osteoporosis with current pathological fracture, vertebra(e), initial encounter for fracture Is this a current diagnosis for this admission?: Yes (5) Fever Qualifiers: Fever type: unspecified Qualified Code(s): R50.9 - Fever, unspecified Is this a current diagnosis for this admission?: Yes (6) Adult failure to thrive Is this a current diagnosis for this admission?: Yes
[2017-05-09] MEDS: LANSOPRAZOLE 30 MG TAB.RAP.DR PO SCH (06:19)
[2017-05-09] MEDS: LORATADINE 10 MG TABLET PO SCH (10:59)
[2017-05-09] MEDS: ENOXAPARIN SODIUM INJ 40 MG/0.4 ML DISP.SYRIN SUBCUT SCH (11:00)
[2017-05-09] MEDS: MEMANTINE HCL 10 MG TABLET PO SCH ×2 (11:00→18:31)
[2017-05-09] MEDS: DONEPEZIL HCL 5 MG TABLET PO SCH (11:00)
--- NOTE | 2017-05-09 15:10 | PDOC PROGRESS REPORT ---
Subjective Progress Note for:: 05/09/17 Subjective:: Patient is seen by the bedside, there is the issue of poor intake, on IV fluid therapy Reason For Visit: PNEUMONIA,RHEUMATOID ARTHRITIS,DEMENTIA Physical Exam Vital Signs: Temp Pulse Resp BP Pulse Ox 97.3 F 98 18 149/81 H 93 05/09/17 11:54 05/09/17 14:00 05/09/17 11:54 05/09/17 11:54 05/09/17 11:54 Intake & Output 05/08/17 05/09/17 05/10/17 06:59 06:59 06:59 Intake Total 1804 905 200 Balance 1804 905 200 Weight 71.4 kg General appearance: PRESENT: no acute distress Eye exam: PRESENT: PERRLA Respiratory exam: PRESENT: clear to auscultation [place] Cardiovascular exam: PRESENT: +S1, +S2 Neurological exam: PRESENT: alert Results Laboratory Results: 05/06/17 12:06 05/06/17 12:06 Impressions: Chest CT 04/23/17 15:55 IMPRESSION: 1. A limited infiltrate cannot be excluded in the anterior aspect of the right middle lobe. 2. There is scarring in the right upper lobe. 3. There are 2 small nonspecific pulmonary nodules in the right upper lobe. 4. There is osteoporosis with compression changes in the spine. Modified Barium Swallow 04/27/17 00:00 IMPRESSION: NO EVIDENCE OF PENETRATION OR ASPIRATION.PLEASE SEE SPEECH PATHOLOGIST REPORT FOR OTHER FINDINGS AND RECOMMENDATIONS. Chest X-Ray 05/03/17 00:00 IMPRESSION: There is no interval change from the prior study. Assessment & Plan - Diagnosis (1) Pneumonia Qualifiers: Pneumonia type: due to unspecified organism Laterality: right Lung location: middle lobe of lung Qualified Code(s): J18.1 - Lobar pneumonia, unspecified organism Is this a current diagnosis for this admission?: Yes (2) Rheumatoid arthritis Qualifiers: Rheumatoid arthritis location: unspecified site Rheumatoid factor presence : unspecified presence Qualified Code(s): M06.9 - Rheumatoid arthritis, unspecified Is this a current diagnosis for this admission?: Yes (3) Dementia Qualifiers: Dementia type: Alzheimer's disease Alzheimer's disease onset: late-onset Dementia behavioral disturbance: without behavioral disturbance Qualified Code (s): G30.1 - Alzheimer's disease with late onset; F02.80 - Dementia in other diseases classified elsewhere without behavioral disturbance; F02.80 - Dementia in other diseases classified elsewhere without behavioral disturbance; F02.80 - Dementia in other diseases classified elsewhere without behavioral disturbance Is this a current diagnosis for this admission?: Yes (4) Osteoporotic compression fracture of spine Qualifiers: Encounter type: initial encounter Qualified Code(s): M80.88XA - Other osteoporosis with current pathological fracture, vertebra(e), initial encounter for fracture Is this a current diagnosis for this admission?: Yes (5) Fever Qualifiers: Fever type: unspecified Qualified Code(s): R50.9 - Fever, unspecified Is this a current diagnosis for this admission?: Yes (6) Adult failure to thrive Is this a current diagnosis for this admission?: Yes
--- NOTE | 2017-05-09 15:14 | PDOC DISCHARGE SUMMARY ---
General - Admit/Disc Date/PCP Admission Date/Primary Care Provider: 04/23/17 14:13 LUIS GUTIERRES MD Discharge Date: 05/10/17 - Discharge Diagnosis (1) Pneumonia Is this a current diagnosis for this admission?: Yes (2) Rheumatoid arthritis Is this a current diagnosis for this admission?: Yes (3) Dementia Is this a current diagnosis for this admission?: Yes (4) Osteoporotic compression fracture of spine Is this a current diagnosis for this admission?: Yes (5) Fever Is this a current diagnosis for this admission?: Yes (6) Adult failure to thrive Is this a current diagnosis for this admission?: Yes - Additional Information Resuscitation Status: Full Code Discharge Diet: Regular Home Medications: Donepezil HCl [Aricept] 10 mg PO DAILY 04/23/17 Memantine HCl [Namenda 10 mg Tablet] 10 mg PO BID 04/23/17 Tramadol HCl [Ultram 50 mg Tablet] 50 mg PO TIDP PRN 04/23/17 History of Present Illness History of Present Illness: MARLYS TORRES is a 87 year old female, She came to the office today for the first time with family including spouse and daughter who is an RN, she complained of cough, shortness of breath, she has baseline dementia, rheumatoid arthritis, multiple osteoporotic compression fracture of the lumbar vertebre. In the office she was evaluated, on auscultation of her chest she has crackles that suggest pneumonia. 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 Because of concern for pneumonia because she is of advanced age and the fact that the family said she has not been active, she has been laying around the house it was felt that she needed to be admitted to the hospital for further evaluation and management. In the hospital CT chest without contrast was done he showed pleural/parenchymal scarring. Small pulmonary nodules are seen in the right upper lobe. There is area of dizziness in the right lung. Ill-defined infiltrates is suggested in the middle lobe. There is no hilar mass there are multiple osteoporosis with compression changes in multiple thoracolumbar vertebrae there is vertebroplasty changes at 2 levels. Hospital Course Hospital Course: Patient was admitted for the management of pneumonia, she has underlining dementia, rheumatoid arthritis, she was empirically treated with IV antibiotic, cefepime and Levaquin. Because of concern for aspiration, a video fluoroscopy was done it was negative for any active aspiration she also underwent upper endoscopy of the esophagus because of continued concern by the family that she was aspirating and esophageal dysphagia was consider as a potential etiology though unlikely from symptoms and signs. The EGD was negative for any mucosa pathology. She has poor intake consistent with adult failure to thrive, family does not want her placed in a prison the plan is to discharge home with family Physical Exam Vital Signs: Temp Pulse Resp BP Pulse Ox 97.3 F 98 18 149/81 H 93 05/09/17 11:54 05/09/17 14:00 05/09/17 11:54 05/09/17 11:54 05/09/17 11:54 Intake & Output 05/08/17 05/09/17 05/10/17 06:59 06:59 06:59 Intake Total 1804 905 200 Balance 1804 905 200 Weight 71.4 kg General appearance: PRESENT: no acute distress Eye exam: PRESENT: PERRLA Respiratory exam: PRESENT: clear to auscultation [place] Cardiovascular exam: PRESENT: +S1, +S2 GI/Abdominal exam: PRESENT: soft Neurological exam: PRESENT: alert Results Laboratory Results: 05/06/17 12:06 05/06/17 12:06 Impressions: Chest CT 04/23/17 15:55 IMPRESSION: 1. A limited infiltrate cannot be excluded in the anterior aspect of the right middle lobe. 2. There is scarring in the right upper lobe. 3. There are 2 small nonspecific pulmonary nodules in the right upper lobe. 4. There is osteoporosis with compression changes in the spine. Modified Barium Swallow 04/27/17 00:00 IMPRESSION: NO EVIDENCE OF PENETRATION OR ASPIRATION.PLEASE SEE SPEECH PATHOLOGIST REPORT FOR OTHER FINDINGS AND RECOMMENDATIONS. Chest X-Ray 05/03/17 00:00 IMPRESSION: There is no interval change from the prior study. Qualifiers - * PATEINT BEING DISCHARGED WITH ANY OF THE FOLLOWING DIAGNOSIS?: No
[2017-05-10] MEDS: 1/2 NORMAL SALINE 1,000 ML IV PRN (05:06)
[2017-05-10] MEDS: LANSOPRAZOLE 30 MG TAB.RAP.DR PO SCH (05:06)
[2017-05-10] MEDS: DONEPEZIL HCL 5 MG TABLET PO SCH (09:24)
[2017-05-10] MEDS: MEMANTINE HCL 10 MG TABLET PO SCH (09:25)
[2017-05-10] MEDS: LORATADINE 10 MG TABLET PO SCH (09:25)
[2017-05-10] MEDS: ENOXAPARIN SODIUM INJ 40 MG/0.4 ML DISP.SYRIN SUBCUT SCH (09:27)
[2017-05-10 13:49] VITALS: BP 152/80
== END 2017-05-10 15:20 | disposition home health service (06) | DRG 194 ==
LOC: EH 14:13 → 3W 16:14
PROVIDERS: ADMIT Internal Medicine; ATTEND Internal Medicine
PROC: 0DB68ZX Excision of Stomach, Via Natural or Artificial Opening Endoscopic, Diagnostic (ICD-10-PCS; principal; 2017-05-04 12:30)
DX: J18.1 Lobar pneumonia, unspecified organism (principal); M80.88XA Other osteoporosis with current pathological fracture, vertebra(e), initial encounter for fracture; M06.9 Rheumatoid arthritis, unspecified; F02.80 Dementia in other diseases classified elsewhere, unspecified severity, without behavioral disturbance, psychotic disturbance, mood disturbance, and anxiety; G30.1 Alzheimer's disease with late onset; R62.7 Adult failure to thrive; R91.8 Other nonspecific abnormal finding of lung field; K21.9 Gastro-esophageal reflux disease without esophagitis; K29.70 Gastritis, unspecified, without bleeding; K44.9 Diaphragmatic hernia without obstruction or gangrene; R11.0 Nausea; R09.02 Hypoxemia; J84.89 Other specified interstitial pulmonary diseases; Z79.899 Other long term (current) drug therapy; Z90.710 Acquired absence of both cervix and uterus; Z87.891 Personal history of nicotine dependence
CPT/HCPCS: 36415; 43239; 71045; 71250; 74230; 80048; 80053; 80076; 81001; 82565; 82803; 85025; 85027; 85610; 85652; 85730; 87040; 87086; 88305; 88342; 93005; 93010; G8978-GP; G8979-GP; G8996-GN; G8997-GN; G8998-GN; J0171; J0692; J1200; J1610; J1650; J1956; J2250; J2310; J2405; J3010; J3490; J7030; S0164

== ENCOUNTER 2017-05-25 15:57 | Inpatient (IN) | payer MEDICARE, BC ==
[2017-05-25 17:13] LABS: ABSOLUTE EOSINOPHILS # (AUTO) 0.1 10^3/uL (0.0-0.6); ABSOLUTE LYMPHOCYTES (AUTO) 0.9 10^3/uL (0.5-4.7); ABSOLUTE MONOCYTES (AUTO) 0.5 10^3/uL (0.1-1.4); ABSOLUTE NEUT (AUTO) 6.4 10^3/uL (1.7-8.2); BASOPHILS % (AUTO) 0.6 % (0-2); EOSINOPHILS % (AUTO) 1.3 % (0-6); HEMOGLOBIN 17.8 g/dL (12.0-15.5); LYMPHOCYTES % (AUTO) 11.4 % (13-45); MEAN CORPUSCULAR HEMOGLOBIN 29.4 pg (27.0-33.4); MEAN CORPUSCULAR HGB CONC 32.9 g/dL (32.0-36.0); MEAN CORPUSCULAR VOLUME 90 fl (80-97); MONOCYTES % (AUTO) 5.9 % (3-13); PLATELET COUNT 199 10^3/uL (150-450); RED BLOOD COUNT 6.03 10^6/uL (3.72-5.28); RED CELL DISTRIBUTION WIDTH 16.2 % (11.5-14.0); SEGMENTED NEUTROPHILS % (AUTO) 80.8 % (42-78); TOTAL CELLS COUNTED % (AUTO) 100 %
[2017-05-25 17:29] LABS: ALANINE AMINOTRANSFERASE 15 U/L (9-52); ALBUMIN 3.8 g/dL (3.5-5.0); ALKALINE PHOSPHATASE 105 U/L (38-126); ANION GAP 12 (5-19); ASPARTATE AMINO TRANSFERASE 20 U/L (14-36); BILIRUBIN,DIRECT 0.4 mg/dL (0.0-0.4); BILIRUBIN,TOTAL 0.4 mg/dL (0.2-1.3); BLOOD UREA NITROGEN 26 mg/dL (7-20); CALCIUM 10.1 mg/dL (8.4-10.2); CARBON DIOXIDE 25 mmol/L (22-30); CHLORIDE 107 mmol/L (98-107); GLUCOSE 124 mg/dL (75-110); POTASSIUM 4.8 mmol/L (3.6-5.0); SODIUM 144.3 mmol/L (137-145); TOTAL PROTEIN 7.4 g/dL (6.3-8.2)
--- NOTE | 2017-05-25 18:28 | RADIOLOGY REPORT (SQ) ---
EXAM DESCRIPTION: CHEST 2 VIEWS COMPLETED DATE/TIME: 05/25/2017 6:17 pm REASON FOR STUDY: sob COMPARISON: 05/03/2017. EXAM PARAMETERS: NUMBER OF VIEWS: two views TECHNIQUE: Digital Frontal and Lateral radiographic views of the chest acquired. RADIATION DOSE: NA LIMITATIONS: none FINDINGS: LUNGS AND PLEURA: Chronic pleural and parenchymal scarring. No focal infiltrates, masses or pneumothorax. No pleural effusion. MEDIASTINUM AND HILAR STRUCTURES: No masses or contour abnormalities. HEART AND VASCULAR STRUCTURES: Heart normal size. No evidence for failure. BONES: Chronic changes in the spine with old compression deformities and prior kyphoplasty. HARDWARE: None in the chest. OTHER: Large hiatal hernia. IMPRESSION: CHRONIC PLEURAL AND PARENCHYMAL SCARRING. OTHER CHRONIC FINDINGS ABOVE. NO DEFINITE ACUTE FINDINGS. TECHNICAL DOCUMENTATION: JOB ID: [id number] [employer]- All Rights Reserved Reading location - IP/workstation name: [email or web address]
[2017-05-25 22:11] LABS: FREE T4 (FREE THYROXINE) 1.35 ng/dL (0.78-2.19)
[2017-05-25 22:25] LABS: THYROID STIMULATING HORMONE 4.26 uIU/mL (0.47-4.68)
[2017-05-26] MEDS ORDERED: AMLODIPINE BESYLATE 5 MG TABLET PO STA (01:23)
[2017-05-26] MEDS: DEXTROSE 5%-NORMAL SALINE 1,000 ML IV PRN ×2 (06:18→21:13)
[2017-05-26 09:52] LABS: ABSOLUTE LYMPHOCYTES (AUTO) 0.9 10^3/uL (0.5-4.7); ABSOLUTE MONOCYTES (AUTO) 1.1 10^3/uL (0.1-1.4); ABSOLUTE NEUT (AUTO) 11.8 10^3/uL (1.7-8.2); BASOPHILS % (AUTO) 0.3 % (0-2); EOSINOPHILS % (AUTO) 0.2 % (0-6); HEMATOCRIT 37.1 % (36.0-47.0); LYMPHOCYTES % (AUTO) 6.5 % (13-45); MEAN CORPUSCULAR HEMOGLOBIN 30.1 pg (27.0-33.4); MEAN CORPUSCULAR HGB CONC 32.8 g/dL (32.0-36.0); MEAN CORPUSCULAR VOLUME 92 fl (80-97); MONOCYTES % (AUTO) 7.8 % (3-13); PLATELET COUNT 263 10^3/uL (150-450); RED BLOOD COUNT 4.05 10^6/uL (3.72-5.28); RED CELL DISTRIBUTION WIDTH 15.8 % (11.5-14.0); SEGMENTED NEUTROPHILS % (AUTO) 85.2 % (42-78); TOTAL CELLS COUNTED % (AUTO) 100 %; WHITE BLOOD COUNT 13.8 10^3/uL (4.0-10.5)
[2017-05-26 09:53] LABS: ALANINE AMINOTRANSFERASE 21 U/L (9-52); ALBUMIN 3.3 g/dL (3.5-5.0); ALKALINE PHOSPHATASE 88 U/L (38-126); ANION GAP 11 (5-19); ASPARTATE AMINO TRANSFERASE 16 U/L (14-36); BILIRUBIN,DIRECT 0.4 mg/dL (0.0-0.4); BILIRUBIN,TOTAL 0.5 mg/dL (0.2-1.3); BLOOD UREA NITROGEN 21 mg/dL (7-20); CALCIUM 9.3 mg/dL (8.4-10.2); CARBON DIOXIDE 24 mmol/L (22-30); CHLORIDE 109 mmol/L (98-107); GLUCOSE 126 mg/dL (75-110); HEMOGLOBIN 12.2 g/dL (12.0-15.5); POTASSIUM 4.3 mmol/L (3.6-5.0); SODIUM 143.5 mmol/L (137-145); TOTAL PROTEIN 7.1 g/dL (6.3-8.2)
[2017-05-26] MEDS: ACETAMINOPHEN 325 MG TABLET PO PRN ×2 (13:07→21:46)
[2017-05-26] MEDS ORDERED: LEVOFLOXACIN 750 MG/D5W RTU 750 MG/150 ML RTUPB IV ONE (14:00)
--- NOTE | 2017-05-26 16:07 | PDOC H&P ---
History of Present Illness Admission Date/PCP: 05/25/17 15:57 LUIS GUTIERRES MD History of Present Illness: MARLYS TORRES is a 87 year old female she has a history of dementia, Rheumatoid arthritis family brought her to the office for evaluation of anorexia , poor intake, low blood pressure, cough. She was recently admitted in this hospital on 04/23/2017 when she was diagnosed with pneumonia, , fever, adult failure to thrive. She was admitted for further evaluation of her low blood pressure and the other multiple symptoms.Family said she has weakness of the right side of her body history taking is quite challenging from this patient because of her dementia, she developed fever when she arrived in the hospital, the last time she was admitted she has had a fever but the last time it was associated with pneumonia, the chest x-ray that was done today did not show any pneumonia process urinalysis is abnormal suggesting the potential source for his sepsis/fever..She has a history of rheumatoid lung disease, family including the daughter who is an RN stated that she is not eating nor drinking, 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 They are concerned that she is not eating nor drinking. She has baseline dementia the poor intake is probably from the dementia.She was prescribed appetite stimulant the last time she was admitted into the hospital, despite taking the appetite stimulant patient's intake is very poor. Family is not particularly interested in feeding tube like a PEG tube or J-tube, the initial blood work suggest acute kidney injury most likely prerenal due to dehydration Past Medical History Pulmonary Medical History: Reports: Pneumonia, Other - Rheumatoid lung disease Musculoskeltal Medical History: Reports: Arthritis - Rheumatoid arthritis, Other - Rheumatoid arthritis,Osteoporotic compression fracture of the spine Psychiatric Medical History: Reports: Dementia Past Surgical History Past Surgical History: Reports: Appendectomy, Hysterectomy Social History Smoking Status: Never Smoker Frequency of Alcohol Use: None Hx Recreational Drug Use: No Drugs: None Hx Prescription Drug Abuse: No Family History Family History: None Parental Family History Reviewed: Yes Children Family History Reviewed: Yes Sibling(s) Family History Reviewed.: Yes Medication/Allergy Home Medications: Donepezil HCl [Aricept] 10 mg PO DAILY 04/23/17 Memantine HCl [Namenda 10 mg Tablet] 10 mg PO BID 04/23/17 Tramadol HCl [Ultram 50 mg Tablet] 50 mg PO TIDP PRN 04/23/17 Megestrol Acetate 1 ml PO DAILY 05/25/17 Nystatin [Mycostatin Cream 15 gm] 1 applic TOP BID 05/25/17 Allergies/Adverse Reactions: No Known Allergies Allergy (Verified 02/12/14 08:24) Review of Systems Constitutional: PRESENT: fever(s) Eyes: ABSENT: visual disturbances Ears: ABSENT: hearing changes Cardiovascular: ABSENT: chest pain, dyspnea on exertion, edema, orthropnea, palpitations Respiratory: PRESENT: cough Gastrointestinal: PRESENT: other - Anorexia Genitourinary: PRESENT: other - Frequency of micturition Musculoskeletal: ABSENT: joint swelling Integumentary: ABSENT: rash, wounds Neurological: PRESENT: memory loss Psychiatric: ABSENT: anxiety, depression, homidical ideation, suicidal ideation Endocrine: ABSENT: cold intolerance, heat intolerance, menstrual abnormalities, polydipsia, polyuria Hematologic/Lymphatic: ABSENT: easy bleeding, easy bruising, lymphadenopathy Physical Exam Vital Signs: Temp Pulse Resp BP Pulse Ox 102.8 F H 98 18 130/60 H 94 05/26/17 14:39 05/26/17 11:39 05/26/17 11:39 05/26/17 11:39 05/26/17 11:39 Intake & Output 05/25/17 05/26/17 05/27/17 06:59 06:59 06:59 Weight 62.777 kg General appearance: PRESENT: no acute distress Head exam: PRESENT: atraumatic, normocephalic Eye exam: PRESENT: PERRLA Ear exam: PRESENT: normal external ear exam Mouth exam: PRESENT: moist, tongue midline Neck exam: PRESENT: full ROM. ABSENT: carotid bruit, JVD, lymphadenopathy, thyromegaly Respiratory exam: PRESENT: clear to auscultation [place] Cardiovascular exam: PRESENT: +S1, +S2 Pulses: PRESENT: normal dorsalis pedis pul, +2 pedal pulses bilateral Vascular exam: PRESENT: normal capillary refill GI/Abdominal exam: PRESENT: soft Rectal exam: PRESENT: deferred Neurological exam: PRESENT: alert, CN II-XII grossly intact Psychiatric exam: PRESENT: appropriate affect, normal mood. ABSENT: homicidal ideation, suicidal ideation Skin exam: PRESENT: dry, intact, warm. ABSENT: cyanosis, rash Results Laboratory Results: 05/26/17 09:19 04/18/18 09:19 05/25/17 05/25/17 05/25/17 16:50 16:50 16:50 WBC 8.0 RBC 6.03 H Hgb 17.8 H Hct 54.0 H MCV 90 MCH 29.4 MCHC 32.9 RDW 16.2 H Plt Count 199 Seg Neutrophils % 80.8 H Lymphocytes % 11.4 L Monocytes % 5.9 Eosinophils % 1.3 Basophils % 0.6 Absolute Neutrophils 6.4 Absolute Lymphocytes 0.9 Absolute Monocytes 0.5 Absolute Eosinophils 0.1 Absolute Basophils 0.0 Sodium 144.3 Potassium 4.8 Chloride 107 Carbon Dioxide 25 Anion Gap 12 BUN 26 H Creatinine 1.63 H Est GFR ( Amer) 36 L Est GFR (Non-Af Amer) 30 L Glucose 124 H Calcium 10.1 Total Bilirubin 0.4 AST 20 ALT 15 Alkaline Phosphatase 105 Total Protein 7.4 Albumin 3.8 TSH 4.26 Free T4 1.35 05/26/17 05/26/17 05/26/17 07:39 07:39 09:19 WBC Cancelled 13.8 H RBC Cancelled 4.05 Hgb Cancelled 12.2 D Hct Cancelled 37.1 MCV Cancelled 92 MCH Cancelled 30.1 MCHC Cancelled 32.8 RDW Cancelled 15.8 H Plt Count Cancelled 263 Seg Neutrophils % Cancelled 85.2 H Lymphocytes % Cancelled 6.5 L Monocytes % Cancelled 7.8 Eosinophils % Cancelled 0.2 Basophils % Cancelled 0.3 Absolute Neutrophils Cancelled 11.8 H Absolute Lymphocytes Cancelled 0.9 Absolute Monocytes Cancelled 1.1 Absolute Eosinophils Cancelled 0.0 Absolute Basophils Cancelled 0.0 Sodium Cancelled Potassium Cancelled Chloride Cancelled Carbon Dioxide Cancelled Anion Gap Cancelled BUN Cancelled Creatinine Cancelled Est GFR ( Amer) Cancelled Est GFR (Non-Af Amer) Cancelled Glucose Cancelled Calcium Cancelled Total Bilirubin Cancelled AST Cancelled ALT Cancelled Alkaline Phosphatase Cancelled Total Protein Cancelled Albumin Cancelled TSH Free T4 05/26/17 09:19 WBC RBC Hgb Hct MCV MCH MCHC RDW Plt Count Seg Neutrophils % Lymphocytes % Monocytes % Eosinophils % Basophils % Absolute Neutrophils Absolute Lymphocytes Absolute Monocytes Absolute Eosinophils Absolute Basophils Sodium 143.5 Potassium 4.3 Chloride 109 H Carbon Dioxide 24 Anion Gap 11 BUN 21 H Creatinine 0.96 Est GFR ( Amer) > 60 Est GFR (Non-Af Amer) 55 L Glucose 126 H Calcium 9.3 Total Bilirubin 0.5 AST 16 ALT 21 Alkaline Phosphatase 88 Total Protein 7.1 Albumin 3.3 L TSH Free T4 Impressions: Chest X-Ray 05/25/17 00:00 IMPRESSION: CHRONIC PLEURAL AND PARENCHYMAL SCARRING. OTHER CHRONIC FINDINGS ABOVE. NO DEFINITE ACUTE FINDINGS. Assessment & Plan - Diagnosis (1) Acute kidney injury Is this a current diagnosis for this admission?: Yes Plan: This is most likely prerenal acute kidney injury (2) Dehydration Is this a current diagnosis for this admission?: Yes (3) Dementia Qualifiers: Dementia type: Alzheimer's disease Is this a current diagnosis for this admission?: Yes (4) Fever Qualifiers: Fever type: unspecified Qualified Code(s): R50.9 - Fever, unspecified Is this a current diagnosis for this admission?: Yes Plan: The differential diagnosis is long including UTI, pneumonia, non-infectious causes
--- NOTE | 2017-05-26 20:46 | PDOC PROGRESS REPORT ---
Subjective Progress Note for:: 05/26/17 Subjective:: Patient was seen by the bedside, the blood culture grew gram positive cocci, she was empirically started on Levaquin Reason For Visit: HYPOTENSION,DEHYDRATION, SHORTNESS OF BREATH, Physical Exam Vital Signs: Temp Pulse Resp BP Pulse Ox 97.6 F 88 16 125/58 L 96 05/26/17 16:11 05/26/17 16:11 05/26/17 16:11 05/26/17 16:11 05/26/17 16:11 Intake & Output 05/25/17 05/26/17 05/27/17 06:59 06:59 06:59 Intake Total 720 Balance 720 Weight 62.777 kg General appearance: PRESENT: no acute distress Eye exam: PRESENT: PERRLA Respiratory exam: PRESENT: crackles Cardiovascular exam: PRESENT: +S1, +S2 GI/Abdominal exam: PRESENT: soft Neurological exam: PRESENT: alert Results Laboratory Results: 05/26/17 09:19 05/26/17 09:19 05/25/17 05/26/17 05/26/17 16:50 07:39 07:39 WBC Cancelled RBC Cancelled Hgb Cancelled Hct Cancelled MCV Cancelled MCH Cancelled MCHC Cancelled RDW Cancelled Plt Count Cancelled Seg Neutrophils % Cancelled Lymphocytes % Cancelled Monocytes % Cancelled Eosinophils % Cancelled Basophils % Cancelled Absolute Neutrophils Cancelled Absolute Lymphocytes Cancelled Absolute Monocytes Cancelled Absolute Eosinophils Cancelled Absolute Basophils Cancelled Sodium Cancelled Potassium Cancelled Chloride Cancelled Carbon Dioxide Cancelled Anion Gap Cancelled BUN Cancelled Creatinine Cancelled Est GFR ( Amer) Cancelled Est GFR (Non-Af Amer) Cancelled Glucose Cancelled Calcium Cancelled Total Bilirubin Cancelled AST Cancelled ALT Cancelled Alkaline Phosphatase Cancelled Total Protein Cancelled Albumin Cancelled TSH 4.26 Free T4 1.35 05/26/17 05/26/17 09:19 09:19 WBC 13.8 H RBC 4.05 Hgb 12.2 D Hct 37.1 MCV 92 MCH 30.1 MCHC 32.8 RDW 15.8 H Plt Count 263 Seg Neutrophils % 85.2 H Lymphocytes % 6.5 L Monocytes % 7.8 Eosinophils % 0.2 Basophils % 0.3 Absolute Neutrophils 11.8 H Absolute Lymphocytes 0.9 Absolute Monocytes 1.1 Absolute Eosinophils 0.0 Absolute Basophils 0.0 Sodium 143.5 Potassium 4.3 Chloride 109 H Carbon Dioxide 24 Anion Gap 11 BUN 21 H Creatinine 0.96 Est GFR ( Amer) > 60 Est GFR (Non-Af Amer) 55 L Glucose 126 H Calcium 9.3 Total Bilirubin 0.5 AST 16 ALT 21 Alkaline Phosphatase 88 Total Protein 7.1 Albumin 3.3 L TSH Free T4 Impressions: Chest X-Ray 05/25/17 00:00 IMPRESSION: CHRONIC PLEURAL AND PARENCHYMAL SCARRING. OTHER CHRONIC FINDINGS ABOVE. NO DEFINITE ACUTE FINDINGS. Assessment & Plan - Diagnosis (1) Acute kidney injury Is this a current diagnosis for this admission?: Yes Plan: The acute kidney injury improve suggesting that this is most likely dehydration (2) Dehydration Is this a current diagnosis for this admission?: Yes (3) Dementia Qualifiers: Dementia type: Alzheimer's disease Is this a current diagnosis for this admission?: Yes (4) Fever Qualifiers: Fever type: unspecified Qualified Code(s): R50.9 - Fever, unspecified Is this a current diagnosis for this admission?: Yes
[2017-05-26] MEDS ORDERED: AMLODIPINE BESYLATE 10 MG TABLET PO ONE (23:00)
--- NOTE | 2017-05-26 23:33 | RADIOLOGY REPORT (SQ) ---
EXAM DESCRIPTION: MRI HEAD WITHOUT COMPLETED DATE/TIME: 05/26/2017 11:09 pm REASON FOR STUDY: suspect CVA COMPARISON: 08/19/2015 TECHNIQUE: Multiplanar imaging includes non-contrasted T1, T2, FLAIR, and diffusion with ADC map seq uences. Images stored on PACS. LIMITATIONS: Moderate motion artifact. FINDINGS: ANATOMY: No anomalies. Normal vascular flow voids. Pituitary fossa normal. CSF SPACES: Atrophy induced prominence of ventricles and CSF spaces. CEREBRUM: High signal intensity lesions scattered throughout the white matter on FLAIR imaging with d istribution suggesting micro-vascular ischemic changes. No evidence of hemorrhage, mass, or extraaxi al fluid collection. POSTERIOR FOSSA: No signal alteration. No hemorrhage. No edema, masses or mass effect. Internal danna tory canals, cerebello-pontine angles, mastoids normal. DIFFUSION IMAGING: No evidence for acute or sub-acute infarction. ORBITS: No masses. Globes normal. PARANASAL SINUSES: No fluid levels. Mucosa normal. OTHER: No other significant finding. IMPRESSION: No evidence for acute or sub-acute infarction. EVIDENCE OF ACUTE STROKE: NO. TECHNICAL DOCUMENTATION: JOB ID: [id number] 2010 [employer]- All Rights Reserved Reading location - IP/workstation name: [facility]
--- NOTE | 2017-05-27 02:35 | Physician Advisory Note ---
Physician Advisor ProgressNote .: [facility], I have reviewed the medical record for this patient. Physician Advisor Statement: Please consider documenting, if you agree: 1. "fever due to ____", with "possible sepsis, developing on admission, ruled out" OR: "possible sepsis, developing on admission, due to , [UTI?], evidenced by (+)BC, leukocytosis, fever, tachycardia, relative hypotension ..." - & state if there is any organ dysfunction that may be "due to sepsis " Thanks! CK
[2017-05-27] MEDS: ACETAMINOPHEN 325 MG TABLET PO PRN ×2 (03:01→09:46)
[2017-05-27] MEDS ORDERED: HEPARIN SOD (PORCINE) 1,000 UNIT/ML 1 ML VIAL ONE (07:10)
[2017-05-27] MEDS: AMLODIPINE BESYLATE 10 MG TABLET PO SCH (09:47)
[2017-05-27] MEDS: LEVOFLOXACIN 750 MG/D5W RTU 750 MG/150 ML RTUPB IV SCH (09:48)
[2017-05-27] MEDS: DEXTROSE 5%-NORMAL SALINE 1,000 ML IV PRN (16:06)
--- NOTE | 2017-05-27 16:26 | RADIOLOGY REPORT (SQ) ---
EXAM DESCRIPTION: NM TAGGED WBC WHOLE BODY COMPLETED DATE/TIME: 05/27/2017 4:06 pm REASON FOR STUDY: PERSISTENT FEVER COMPARISON: None. RADIONUCLIDE AND DOSE: 24.3 mCi technetium 99 Ceretec tagged white cells intravenous. ADDITIONAL DRUGS AND DOSES: None. TECHNIQUE: Whole-body planar images 3 hours after the administration of radiopharmaceutical. Images saved to PACs. LIMITATIONS: None. FINDINGS: There is normal distribution of radiotracer. IMPRESSION: Negative tagged white cell study. TECHNICAL DOCUMENTATION: JOB ID: [id number] [employer]- All Rights Reserved Reading location - IP/workstation name: [email or web address]
[2017-05-27] MEDS ORDERED: (PENDING PHARMACY ID) (Donepezil Hcl [Aricept] 10 MG) PO SCH (21:00)
[2017-05-27] MEDS ORDERED: MEGESTROL ACETATE PO SCH (21:00)
[2017-05-27] MEDS ORDERED: TRAMADOL HCL 50 MG TABLET PO PRN (21:15)
--- NOTE | 2017-05-27 21:59 | PDOC PROGRESS REPORT ---
Subjective Progress Note for:: 05/27/17 Subjective:: Urine culture grew E faecalis sensitive to Levaquin, MRI of the brain negative for any acute pathology Reason For Visit: HYPOTENSION,DEHYDRATION, SHORTNESS OF BREATH, Physical Exam Vital Signs: Temp Pulse Resp BP Pulse Ox 97.9 F 102 H 16 151/60 H 96 05/27/17 19:54 05/27/17 19:54 05/27/17 19:54 05/27/17 19:54 05/27/17 19:54 Intake & Output 05/26/17 05/27/17 05/28/17 06:59 06:59 06:59 Intake Total 720 1380 Output Total 300 Balance 720 1080 Weight 62.777 kg General appearance: PRESENT: no acute distress Eye exam: PRESENT: PERRLA Respiratory exam: PRESENT: clear to auscultation donavan Cardiovascular exam: PRESENT: +S1, +S2 GI/Abdominal exam: PRESENT: soft Neurological exam: PRESENT: alert Results Laboratory Results: 05/26/17 09:19 05/26/17 09:19 05/25/17 19:00 Clean Catch Midstream Urine Culture - Final Enterococcus Faecalis(Group D) Impressions: Chest X-Ray 05/25/17 00:00 IMPRESSION: CHRONIC PLEURAL AND PARENCHYMAL SCARRING. OTHER CHRONIC FINDINGS ABOVE. NO DEFINITE ACUTE FINDINGS. Head MRI 05/26/17 00:00 IMPRESSION: No evidence for acute or sub-acute infarction. EVIDENCE OF ACUTE STROKE: NO. WBC Scan Nuclear Medicine 05/27/17 00:00 IMPRESSION: Negative tagged white cell study. Assessment & Plan - Diagnosis (1) Acute kidney injury Is this a current diagnosis for this admission?: Yes (2) Dehydration Is this a current diagnosis for this admission?: Yes (3) Dementia Qualifiers: Dementia type: Alzheimer's disease Is this a current diagnosis for this admission?: Yes (4) Fever Qualifiers: Fever type: unspecified Qualified Code(s): R50.9 - Fever, unspecified Is this a current diagnosis for this admission?: Yes (5) Enterococcus UTI Is this a current diagnosis for this admission?: Yes Plan: Continue IV antibiotic)
[2017-05-27] MEDS ORDERED: NYSTATIN CREAM 15 GM TOP ONE (22:00)
[2017-05-27] MEDS ORDERED: MEMANTINE HCL 10 MG TABLET PO ONE (22:00)
[2017-05-27] MEDS ORDERED: MEGESTROL ACETATE SUSP 400 MG/10 ML UDCUP PO ONE (22:00)
[2017-05-28] MEDS: DEXTROSE 5%-NORMAL SALINE 1,000 ML IV PRN ×2 (05:27→19:49)
[2017-05-28] MEDS: NYSTATIN CREAM 15 GM TOP SCH ×2 (11:04→18:12)
[2017-05-28] MEDS: DONEPEZIL HCL 5 MG TABLET PO SCH (11:04)
[2017-05-28] MEDS: MEMANTINE HCL 10 MG TABLET PO SCH ×2 (11:04→18:11)
[2017-05-28] MEDS: AMLODIPINE BESYLATE 10 MG TABLET PO SCH (11:04)
[2017-05-28] MEDS: MEGESTROL ACETATE SUSP 400 MG/10 ML UDCUP PO SCH (11:04)
[2017-05-28] MEDS: LEVOFLOXACIN 750 MG/D5W RTU 750 MG/150 ML RTUPB IV SCH (11:05)
--- NOTE | 2017-05-28 20:48 | PDOC PROGRESS REPORT ---
Subjective Progress Note for:: 05/28/17 Subjective:: I had a long discussion with patient's family including the spouse and the children she is not eating at all, family does not want a PEG tube, the patient spouse is requesting if it is possible to have her transfer to a tertiary care for a second opinion ,if they could explain why she is not eating and why she is always congested. I explained to them that I am not customer relationship specialist this weekend but I will be glad to [facility] Wednesday when I returned back to the hospital. Regarding the poor intake and diminished fluid intake she will temporarily be treated with TPN over the weekend Reason For Visit: HYPOTENSION,DEHYDRATION, SHORTNESS OF BREATH, Physical Exam Vital Signs: Temp Pulse Resp BP Pulse Ox 97.5 F 84 20 136/61 H 97 05/28/17 15:45 05/28/17 15:45 05/28/17 15:45 05/28/17 15:45 05/28/17 15:45 Intake & Output 05/27/17 05/28/17 05/29/17 06:59 06:59 06:59 Intake Total 720 1480 375 Output Total 300 500 Balance 720 1180 -125 General appearance: PRESENT: no acute distress Eye exam: PRESENT: PERRLA Respiratory exam: PRESENT: clear to auscultation donavan Cardiovascular exam: PRESENT: +S1, +S2 GI/Abdominal exam: PRESENT: soft Neurological exam: PRESENT: alert Results Laboratory Results: 05/26/17 09:19 05/26/17 09:19 05/25/17 16:50 Blood Blood Culture - Final Staphylococcus Epidermidis Impressions: Chest X-Ray 05/25/17 00:00 IMPRESSION: CHRONIC PLEURAL AND PARENCHYMAL SCARRING. OTHER CHRONIC FINDINGS ABOVE. NO DEFINITE ACUTE FINDINGS. Head MRI 05/26/17 00:00 IMPRESSION: No evidence for acute or sub-acute infarction. EVIDENCE OF ACUTE STROKE: NO. WBC Scan Nuclear Medicine 05/27/17 00:00 IMPRESSION: Negative tagged white cell study. Assessment & Plan - Diagnosis (1) Acute kidney injury Is this a current diagnosis for this admission?: Yes (2) Dehydration Is this a current diagnosis for this admission?: Yes (3) Dementia Qualifiers: Dementia type: Alzheimer's disease Is this a current diagnosis for this admission?: Yes (4) Fever Qualifiers: Fever type: unspecified Qualified Code(s): R50.9 - Fever, unspecified Is this a current diagnosis for this admission?: Yes (5) Enterococcus UTI Is this a current diagnosis for this admission?: Yes (6) Adult failure to thrive Is this a current diagnosis for this admission?: Yes (7) Poor fluid intake Is this a current diagnosis for this admission?: Yes Plan: Start TPN temporarily
[2017-05-28 21:49] LABS: ABSOLUTE BASOPHILS # (AUTO) 0.1 10^3/uL (0.0-0.2); ABSOLUTE EOSINOPHILS # (AUTO) 0.2 10^3/uL (0.0-0.6); ABSOLUTE LYMPHOCYTES (AUTO) 1.6 10^3/uL (0.5-4.7); ABSOLUTE MONOCYTES (AUTO) 1.1 10^3/uL (0.1-1.4); ABSOLUTE NEUT (AUTO) 8.8 10^3/uL (1.7-8.2); BASOPHILS % (AUTO) 0.6 % (0-2); EOSINOPHILS % (AUTO) 1.8 % (0-6); HEMATOCRIT 33.7 % (36.0-47.0); HEMOGLOBIN 11.2 g/dL (12.0-15.5); LYMPHOCYTES % (AUTO) 13.8 % (13-45); MEAN CORPUSCULAR HEMOGLOBIN 29.4 pg (27.0-33.4); MEAN CORPUSCULAR HGB CONC 33.1 g/dL (32.0-36.0); MEAN CORPUSCULAR VOLUME 89 fl (80-97); MONOCYTES % (AUTO) 9.2 % (3-13); RED CELL DISTRIBUTION WIDTH 15.9 % (11.5-14.0); SEGMENTED NEUTROPHILS % (AUTO) 74.6 % (42-78); TOTAL CELLS COUNTED % (AUTO) 100 %; WHITE BLOOD COUNT 11.8 10^3/uL (4.0-10.5)
[2017-05-28 22:00] LABS: ALANINE AMINOTRANSFERASE 37 U/L (9-52); ALBUMIN 2.9 g/dL (3.5-5.0); ALKALINE PHOSPHATASE 82 U/L (38-126); ANION GAP 9 (5-19); ASPARTATE AMINO TRANSFERASE 40 U/L (14-36); BILIRUBIN,DIRECT 0.3 mg/dL (0.0-0.4); BILIRUBIN,TOTAL 0.3 mg/dL (0.2-1.3); BLOOD UREA NITROGEN 13 mg/dL (7-20); CALCIUM 9.2 mg/dL (8.4-10.2); CARBON DIOXIDE 22 mmol/L (22-30); CHLORIDE 111 mmol/L (98-107); GLUCOSE 104 mg/dL (75-110); POTASSIUM 3.5 mmol/L (3.6-5.0); TOTAL PROTEIN 6.1 g/dL (6.3-8.2)
[2017-05-28 22:17] LABS: PLATELET COUNT 224 10^3/uL (150-450)
[2017-05-29 07:13] LABS: ABSOLUTE EOSINOPHILS # (AUTO) 0.2 10^3/uL (0.0-0.6); ABSOLUTE LYMPHOCYTES (AUTO) 1.2 10^3/uL (0.5-4.7); ABSOLUTE MONOCYTES (AUTO) 0.9 10^3/uL (0.1-1.4); ABSOLUTE NEUT (AUTO) 7.3 10^3/uL (1.7-8.2); BASOPHILS % (AUTO) 0.5 % (0-2); EOSINOPHILS % (AUTO) 2.1 % (0-6); HEMATOCRIT 33.9 % (36.0-47.0); HEMOGLOBIN 11.3 g/dL (12.0-15.5); LYMPHOCYTES % (AUTO) 12.7 % (13-45); MEAN CORPUSCULAR HEMOGLOBIN 29.4 pg (27.0-33.4); MEAN CORPUSCULAR HGB CONC 33.4 g/dL (32.0-36.0); MEAN CORPUSCULAR VOLUME 88 fl (80-97); MONOCYTES % (AUTO) 9.5 % (3-13); PLATELET COUNT 231 10^3/uL (150-450); RED BLOOD COUNT 3.86 10^6/uL (3.72-5.28); RED CELL DISTRIBUTION WIDTH 15.5 % (11.5-14.0); SEGMENTED NEUTROPHILS % (AUTO) 75.2 % (42-78); TOTAL CELLS COUNTED % (AUTO) 100 %; WHITE BLOOD COUNT 9.7 10^3/uL (4.0-10.5)
[2017-05-29 07:29] LABS: ALANINE AMINOTRANSFERASE 34 U/L (9-52); ALBUMIN 2.8 g/dL (3.5-5.0); ALKALINE PHOSPHATASE 84 U/L (38-126); ANION GAP 11 (5-19); ASPARTATE AMINO TRANSFERASE 32 U/L (14-36); BILIRUBIN,DIRECT 0.3 mg/dL (0.0-0.4); BILIRUBIN,TOTAL 0.3 mg/dL (0.2-1.3); BLOOD UREA NITROGEN 10 mg/dL (7-20); CARBON DIOXIDE 21 mmol/L (22-30); CHLORIDE 112 mmol/L (98-107); GLUCOSE 101 mg/dL (75-110); PHOSPHORUS 2.7 mg/dL (2.5-4.5); POTASSIUM 3.5 mmol/L (3.6-5.0); TOTAL PROTEIN 6.1 g/dL (6.3-8.2)
[2017-05-29 07:37] LABS: PREALBUMIN 6.5 mg/dL (17.6-36.0)
[2017-05-29] MEDS: MEGESTROL ACETATE SUSP 400 MG/10 ML UDCUP PO SCH (09:11)
[2017-05-29] MEDS: AMLODIPINE BESYLATE 10 MG TABLET PO SCH (09:11)
[2017-05-29] MEDS: DONEPEZIL HCL 5 MG TABLET PO SCH (09:11)
[2017-05-29] MEDS: MEMANTINE HCL 10 MG TABLET PO SCH ×2 (09:11→18:09)
[2017-05-29] MEDS: NYSTATIN CREAM 15 GM TOP SCH ×2 (09:11→18:10)
[2017-05-29] MEDS: DEXTROSE 5%-NORMAL SALINE 1,000 ML IV PRN ×2 (09:12→23:36)
--- NOTE | 2017-05-29 10:52 | PDOC PROGRESS REPORT ---
Subjective Progress Note for:: 05/29/17 Subjective:: Patient is currently doing same Patient still have a very poor appetite Patient have underlying significant dementia and currently admitted for enterococcus urinary tract infections As per discussed with the patient's and the daughter currently hold the TPN because required a central line and family not willing to put the central line at this point will increase the Megace and discuss on a Wednesday by Dr. Barroso about option of the feeding Reason For Visit: HYPOTENSION,DEHYDRATION, SHORTNESS OF BREATH, Physical Exam Vital Signs: Temp Pulse Resp BP Pulse Ox 97.4 F 86 16 150/68 H 100 05/29/17 07:38 05/29/17 07:38 05/29/17 07:38 05/29/17 07:38 05/29/17 07:38 Intake & Output 05/28/17 05/29/17 05/30/17 06:59 06:59 06:59 Intake Total 1480 465 Output Total 300 1450 Balance 1180 -985 Weight 62.5 kg General appearance: PRESENT: no acute distress Eye exam: PRESENT: PERRLA Mouth exam: PRESENT: neck supple Respiratory exam: PRESENT: clear to auscultation donavan Cardiovascular exam: PRESENT: +S1, +S2 GI/Abdominal exam: PRESENT: normal bowel sounds, soft Extremities exam: ABSENT: pedal edema Neurological exam: PRESENT: alert, awake Skin exam: PRESENT: dry Results Laboratory Results: 05/29/17 06:28 05/29/17 06:28 05/28/17 05/28/17 05/28/17 20:52 20:52 21:34 WBC Cancelled RBC Cancelled Hgb Cancelled Hct Cancelled MCV Cancelled MCH Cancelled MCHC Cancelled RDW Cancelled Plt Count Cancelled Seg Neutrophils % Cancelled Lymphocytes % Cancelled Monocytes % Cancelled Eosinophils % Cancelled Basophils % Cancelled Absolute Neutrophils Cancelled Absolute Lymphocytes Cancelled Absolute Monocytes Cancelled Absolute Eosinophils Cancelled Absolute Basophils Cancelled Sodium Cancelled 142.0 Potassium Cancelled 3.5 L Chloride Cancelled 111 H Carbon Dioxide Cancelled 22 Anion Gap Cancelled 9 BUN Cancelled 13 Creatinine Cancelled 0.73 Est GFR ( Amer) Cancelled > 60 Est GFR (Non-Af Amer) Cancelled > 60 Glucose Cancelled 104 Calcium Cancelled 9.2 Phosphorus Total Bilirubin Cancelled 0.3 AST Cancelled 40 H ALT Cancelled 37 Alkaline Phosphatase Cancelled 82 Total Protein Cancelled 6.1 L Albumin Cancelled 2.9 L Prealbumin 05/28/17 05/29/17 05/29/17 21:34 06:28 06:28 WBC 11.8 H 9.7 RBC 3.80 3.86 Hgb 11.2 L 11.3 L Hct 33.7 L 33.9 L MCV 89 88 MCH 29.4 29.4 MCHC 33.1 33.4 RDW 15.9 H 15.5 H Plt Count 224 231 Seg Neutrophils % 74.6 75.2 Lymphocytes % 13.8 12.7 L Monocytes % 9.2 9.5 Eosinophils % 1.8 2.1 Basophils % 0.6 0.5 Absolute Neutrophils 8.8 H 7.3 Absolute Lymphocytes 1.6 1.2 Absolute Monocytes 1.1 0.9 Absolute Eosinophils 0.2 0.2 Absolute Basophils 0.1 0.0 Sodium 144.0 Potassium 3.5 L Chloride 112 H Carbon Dioxide 21 L Anion Gap 11 BUN 10 Creatinine 0.68 Est GFR ( Amer) > 60 Est GFR (Non-Af Amer) > 60 Glucose 101 Calcium 9.0 Phosphorus 2.7 Total Bilirubin 0.3 AST 32 ALT 34 Alkaline Phosphatase 84 Total Protein 6.1 L Albumin 2.8 L Prealbumin 6.5 L 05/25/17 16:50 Blood Blood Culture - Final Staphylococcus Epidermidis Impressions: Chest X-Ray 05/25/17 00:00 IMPRESSION: CHRONIC PLEURAL AND PARENCHYMAL SCARRING. OTHER CHRONIC FINDINGS ABOVE. NO DEFINITE ACUTE FINDINGS. Head MRI 05/26/17 00:00 IMPRESSION: No evidence for acute or sub-acute infarction. EVIDENCE OF ACUTE STROKE: NO. WBC Scan Nuclear Medicine 05/27/17 00:00 IMPRESSION: Negative tagged white cell study. Assessment & Plan - Diagnosis (1) Adult failure to thrive Is this a current diagnosis for this admission?: Yes Plan: Continues to D5 one half normal saline and increase the Megace increase the p.o. intake and aspirations precautions and discussed on a Wednesday about the other options as per the family will discuss each other (2) Dehydration Is this a current diagnosis for this admission?: Yes Plan: continu IV fluid (3) Dementia Qualifiers: Dementia type: Alzheimer's disease Is this a current diagnosis for this admission?: Yes (4) Enterococcus UTI Is this a current diagnosis for this admission?: Yes Plan: Continues to IV antibiotic - Time Time Spent with patient: 15-24 minutes Medications reviewed and adjusted accordingly: Yes Anticipated discharge: Other Within: Other - Inpatient Certification Medical Necessity: Need Close Monitoring Due to Risk of Patient Decompensation, Need For IV Fluids, Need for IV Antibiotics Post Hospital Care: D/C Developer Advisor Documentation - Plan Summary Plan Summary: The extensive discussions with the patient and the daughter with all options about the TPN versus p.o. intake versus the tube feeding and all the test reports
[2017-05-29] MEDS ORDERED: MEGESTROL ACETATE SUSP 400 MG/10 ML UDCUP PO ONE (11:00)
[2017-05-29] MEDS ORDERED: IPRATROPIUM/ALBUTEROL 0.5-2.5 MG/3 ML AMPUL NEB PRN (17:15)
--- NOTE | 2017-05-29 17:58 | RADIOLOGY REPORT (SQ) ---
EXAM DESCRIPTION: CHEST SINGLE VIEW COMPLETED DATE/TIME: 05/29/2017 5:47 pm REASON FOR STUDY: cough COMPARISON: 05/25/2017 EXAM PARAMETERS: NUMBER OF VIEWS: One view. TECHNIQUE: Single frontal radiographic view of the chest acquired. RADIATION DOSE: NA LIMITATIONS: Portable technique and patient positioning FINDINGS: LUNGS AND PLEURA: The pleural and parenchymal scarring, unchanged from prior exam. No new airspace consolidation. MEDIASTINUM AND HILAR STRUCTURES: Unchanged from prior exam HEART AND VASCULAR STRUCTURES: Heart is normal in size. The aorta is markedly tortuous, not signific antly changed when compared to prior studies. BONES: Stable chronic findings. HARDWARE: None in the chest. OTHER: No other significant finding. IMPRESSION: Chronic changes in the lungs. No evidence of an acute process. TECHNICAL DOCUMENTATION: JOB ID: [id number] [employer]- All Rights Reserved Reading location - IP/workstation name: [email or web address]
[2017-05-29] MEDS: ACETAMINOPHEN 325 MG TABLET PO PRN (19:40)
[2017-05-29] MEDS ORDERED: LORAZEPAM INJ 2 MG/1 ML VIAL IV PRN (20:56)
[2017-05-29] MEDS: GUAIFENESIN 600 MG TABLET.SA PO SCH (21:20)
[2017-05-30 06:04] LABS: ABSOLUTE BASOPHILS # (AUTO) 0.1 10^3/uL (0.0-0.2); ABSOLUTE EOSINOPHILS # (AUTO) 0.2 10^3/uL (0.0-0.6); ABSOLUTE LYMPHOCYTES (AUTO) 1.5 10^3/uL (0.5-4.7); ABSOLUTE MONOCYTES (AUTO) 0.7 10^3/uL (0.1-1.4); ABSOLUTE NEUT (AUTO) 7.2 10^3/uL (1.7-8.2); BASOPHILS % (AUTO) 0.7 % (0-2); EOSINOPHILS % (AUTO) 2.3 % (0-6); HEMATOCRIT 38.4 % (36.0-47.0); HEMOGLOBIN 12.9 g/dL (12.0-15.5); LYMPHOCYTES % (AUTO) 15.7 % (13-45); MEAN CORPUSCULAR HEMOGLOBIN 29.6 pg (27.0-33.4); MEAN CORPUSCULAR HGB CONC 33.7 g/dL (32.0-36.0); MEAN CORPUSCULAR VOLUME 88 fl (80-97); MONOCYTES % (AUTO) 7.5 % (3-13); PLATELET COUNT 249 10^3/uL (150-450); RED BLOOD COUNT 4.36 10^6/uL (3.72-5.28); RED CELL DISTRIBUTION WIDTH 15.9 % (11.5-14.0); SEGMENTED NEUTROPHILS % (AUTO) 73.8 % (42-78); TOTAL CELLS COUNTED % (AUTO) 100 %; WHITE BLOOD COUNT 9.7 10^3/uL (4.0-10.5)
[2017-05-30 06:13] LABS: ANION GAP 10 (5-19); BLOOD UREA NITROGEN 11 mg/dL (7-20); CALCIUM 9.4 mg/dL (8.4-10.2); CARBON DIOXIDE 24 mmol/L (22-30); CHLORIDE 114 mmol/L (98-107); GLUCOSE 105 mg/dL (75-110); POTASSIUM 3.5 mmol/L (3.6-5.0); SODIUM 147.5 mmol/L (137-145)
[2017-05-30] MEDS: DONEPEZIL HCL 5 MG TABLET PO SCH (09:24)
[2017-05-30] MEDS: AMLODIPINE BESYLATE 10 MG TABLET PO SCH (09:24)
[2017-05-30] MEDS: NYSTATIN CREAM 15 GM TOP SCH ×2 (09:25→17:07)
[2017-05-30] MEDS: MEMANTINE HCL 10 MG TABLET PO SCH ×2 (09:25→17:11)
[2017-05-30] MEDS: LEVOFLOXACIN 750 MG/D5W RTU 750 MG/150 ML RTUPB IV SCH (09:25)
[2017-05-30] MEDS: GUAIFENESIN 600 MG TABLET.SA PO SCH ×2 (09:25→21:28)
--- NOTE | 2017-05-30 10:30 | PDOC PROGRESS REPORT ---
Subjective Progress Note for:: 05/30/17 Subjective:: She is more alert awake and answering the questions but still underlying dementia No other events happens overnight Since appetite is still challenge Reason For Visit: HYPOTENSION,DEHYDRATION, SHORTNESS OF BREATH, Physical Exam Vital Signs: Temp Pulse Resp BP Pulse Ox 97.4 F 75 16 143/60 H 96 05/30/17 07:55 05/30/17 07:55 05/30/17 07:55 05/30/17 07:55 05/30/17 07:55 Intake & Output 05/29/17 05/30/17 05/31/17 06:59 06:59 06:59 Intake Total 465 760 Output Total 1450 0 Balance -985 760 Weight 62.5 kg 63.9 kg General appearance: PRESENT: no acute distress, thin Head exam: PRESENT: atraumatic, normocephalic Eye exam: PRESENT: conjunctiva pink, EOMI, PERRLA. ABSENT: scleral icterus Ear exam: PRESENT: normal external ear exam Mouth exam: PRESENT: moist, tongue midline Neck exam: PRESENT: full ROM. ABSENT: carotid bruit, JVD, lymphadenopathy, thyromegaly Respiratory exam: PRESENT: clear to auscultation donavan Cardiovascular exam: PRESENT: RRR. ABSENT: diastolic murmur, rubs, systolic murmur Pulses: PRESENT: normal dorsalis pedis pul, +2 pedal pulses bilateral Vascular exam: PRESENT: normal capillary refill GI/Abdominal exam: PRESENT: normal bowel sounds, soft. ABSENT: distended, guarding, mass, organolmegaly, rebound, tenderness Rectal exam: PRESENT: deferred Extremities exam: ABSENT: pedal edema Neurological exam: PRESENT: alert, awake. ABSENT: motor sensory deficit Psychiatric exam: PRESENT: appropriate affect, normal mood. ABSENT: homicidal ideation, suicidal ideation Skin exam: PRESENT: dry, intact, warm. ABSENT: cyanosis, rash Results Laboratory Results: 05/30/17 05:24 05/30/17 05:24 05/30/17 05/30/17 05:24 05:24 WBC 9.7 RBC 4.36 Hgb 12.9 Hct 38.4 MCV 88 MCH 29.6 MCHC 33.7 RDW 15.9 H Plt Count 249 Seg Neutrophils % 73.8 Lymphocytes % 15.7 Monocytes % 7.5 Eosinophils % 2.3 Basophils % 0.7 Absolute Neutrophils 7.2 Absolute Lymphocytes 1.5 Absolute Monocytes 0.7 Absolute Eosinophils 0.2 Absolute Basophils 0.1 Sodium 147.5 H Potassium 3.5 L Chloride 114 H Carbon Dioxide 24 Anion Gap 10 BUN 11 Creatinine 0.70 Est GFR ( Amer) > 60 Est GFR (Non-Af Amer) > 60 Glucose 105 Calcium 9.4 Impressions: Head MRI 05/26/17 00:00 IMPRESSION: No evidence for acute or sub-acute infarction. EVIDENCE OF ACUTE STROKE: NO. WBC Scan Nuclear Medicine 05/27/17 00:00 IMPRESSION: Negative tagged white cell study. Chest X-Ray 05/29/17 00:00 IMPRESSION: Chronic changes in the lungs. No evidence of an acute process. Assessment & Plan - Diagnosis (1) Adult failure to thrive Is this a current diagnosis for this admission?: Yes Plan: Continues to IV fluid increase the Megace solutions (2) Dehydration Is this a current diagnosis for this admission?: Yes Plan: continu IV fluid (3) Dementia Qualifiers: Dementia type: Alzheimer's disease Is this a current diagnosis for this admission?: Yes (4) Enterococcus UTI Is this a current diagnosis for this admission?: Yes Plan: Continues to IV antibiotic - Time Time Spent with patient: 15-24 minutes Medications reviewed and adjusted accordingly: Yes Anticipated discharge: Other Within: Other - Inpatient Certification Medical Necessity: Need Close Monitoring Due to Risk of Patient Decompensation, Need For IV Fluids, Need for IV Antibiotics Post Hospital Care: D/C Tenant Coordinator Documentation - Plan Summary Plan Summary: Continues to current medication
[2017-05-30] MEDS: MEGESTROL ACETATE SUSP 400 MG/10 ML UDCUP PO SCH (11:33)
[2017-05-30] MEDS: DEXTROSE 5%-NORMAL SALINE 1,000 ML IV PRN (17:10)
[2017-05-31 07:16] LABS: ABSOLUTE BASOPHILS # (AUTO) 0.1 10^3/uL (0.0-0.2); ABSOLUTE EOSINOPHILS # (AUTO) 0.1 10^3/uL (0.0-0.6); ABSOLUTE LYMPHOCYTES (AUTO) 1.5 10^3/uL (0.5-4.7); ABSOLUTE MONOCYTES (AUTO) 0.8 10^3/uL (0.1-1.4); ABSOLUTE NEUT (AUTO) 8.4 10^3/uL (1.7-8.2); BASOPHILS % (AUTO) 1.2 % (0-2); EOSINOPHILS % (AUTO) 1.3 % (0-6); HEMATOCRIT 34.2 % (36.0-47.0); HEMOGLOBIN 11.5 g/dL (12.0-15.5); LYMPHOCYTES % (AUTO) 13.5 % (13-45); MEAN CORPUSCULAR HEMOGLOBIN 29.3 pg (27.0-33.4); MEAN CORPUSCULAR HGB CONC 33.7 g/dL (32.0-36.0); MEAN CORPUSCULAR VOLUME 87 fl (80-97); MONOCYTES % (AUTO) 7.5 % (3-13); PLATELET COUNT 226 10^3/uL (150-450); RED BLOOD COUNT 3.94 10^6/uL (3.72-5.28); RED CELL DISTRIBUTION WIDTH 15.7 % (11.5-14.0); SEGMENTED NEUTROPHILS % (AUTO) 76.5 % (42-78); TOTAL CELLS COUNTED % (AUTO) 100 %
[2017-05-31 07:51] LABS: ANION GAP 14 (5-19); BLOOD UREA NITROGEN 14 mg/dL (7-20); CARBON DIOXIDE 21 mmol/L (22-30); CHLORIDE 112 mmol/L (98-107); GLUCOSE 98 mg/dL (75-110); POTASSIUM 3.8 mmol/L (3.6-5.0); SODIUM 146.8 mmol/L (137-145)
[2017-05-31] MEDS: DEXTROSE 5%-NORMAL SALINE 1,000 ML IV PRN ×2 (08:23→22:48)
[2017-05-31] MEDS: GUAIFENESIN 600 MG TABLET.SA PO SCH ×2 (10:11→21:03)
[2017-05-31] MEDS: AMLODIPINE BESYLATE 10 MG TABLET PO SCH (10:11)
[2017-05-31] MEDS: DONEPEZIL HCL 5 MG TABLET PO SCH (10:11)
[2017-05-31] MEDS: MEMANTINE HCL 10 MG TABLET PO SCH ×2 (10:12→17:56)
[2017-05-31] MEDS: MEGESTROL ACETATE SUSP 400 MG/10 ML UDCUP PO SCH (10:13)
[2017-05-31] MEDS: NYSTATIN CREAM 15 GM TOP SCH ×2 (10:19→17:57)
[2017-05-31] MEDS: ACETAMINOPHEN 325 MG TABLET PO PRN (16:09)
--- NOTE | 2017-05-31 21:43 | PDOC PROGRESS REPORT ---
Subjective Progress Note for:: 05/31/17 Subjective:: On Wednesday patient's family requested for a transfer to tertiary care for a second opinion regarding her care I was off this weekend return back to the hospital today and I called [facility], they was kind enough to accept in transfer and she was given a bed but family change their mind. She has progressive dementia I explained to patient has daughter that her condition is going worse and they have to prepare for this Reason For Visit: HYPOTENSION,DEHYDRATION, SHORTNESS OF BREATH, Physical Exam Vital Signs: Temp Pulse Resp BP Pulse Ox 98.7 F 86 24 H 121/55 L 98 05/31/17 19:51 05/31/17 19:51 05/31/17 19:51 05/31/17 19:51 05/31/17 19:51 Intake & Output 05/30/17 05/31/17 06/01/17 06:59 06:59 06:59 Intake Total 760 1976 840 Output Total 0 Balance 760 1976 840 Weight 63.9 kg 64.7 kg General appearance: PRESENT: no acute distress Eye exam: PRESENT: PERRLA Respiratory exam: PRESENT: clear to auscultation donavan Cardiovascular exam: PRESENT: +S1, +S2 GI/Abdominal exam: PRESENT: soft Neurological exam: PRESENT: alert Results Laboratory Results: 05/31/17 06:30 05/31/17 06:30 05/31/17 05/31/17 06:30 06:30 WBC 11.0 H RBC 3.94 Hgb 11.5 L Hct 34.2 L MCV 87 MCH 29.3 MCHC 33.7 RDW 15.7 H Plt Count 226 Seg Neutrophils % 76.5 Lymphocytes % 13.5 Monocytes % 7.5 Eosinophils % 1.3 Basophils % 1.2 Absolute Neutrophils 8.4 H Absolute Lymphocytes 1.5 Absolute Monocytes 0.8 Absolute Eosinophils 0.1 Absolute Basophils 0.1 Sodium 146.8 H Potassium 3.8 Chloride 112 H Carbon Dioxide 21 L Anion Gap 14 BUN 14 Creatinine 0.71 Est GFR ( Amer) > 60 Est GFR (Non-Af Amer) > 60 Glucose 98 Calcium 9.0 05/26/17 14:07 Blood Blood Culture - Final NO GROWTH IN 5 DAYS 05/26/17 14:00 Blood Blood Culture - Final NO GROWTH IN 5 DAYS 05/25/17 17:43 Blood Blood Culture - Final NO GROWTH IN 5 DAYS Impressions: Head MRI 05/26/17 00:00 IMPRESSION: No evidence for acute or sub-acute infarction. EVIDENCE OF ACUTE STROKE: NO. WBC Scan Nuclear Medicine 05/27/17 00:00 IMPRESSION: Negative tagged white cell study. Chest X-Ray 05/29/17 00:00 IMPRESSION: Chronic changes in the lungs. No evidence of an acute process. Assessment & Plan - Diagnosis (1) Acute kidney injury Is this a current diagnosis for this admission?: Yes (2) Dehydration Is this a current diagnosis for this admission?: Yes (3) Dementia Qualifiers: Dementia type: Alzheimer's disease Is this a current diagnosis for this admission?: Yes Plan: She has progressive dementia (4) Fever Qualifiers: Fever type: unspecified Qualified Code(s): R50.9 - Fever, unspecified Is this a current diagnosis for this admission?: Yes (5) Enterococcus UTI Is this a current diagnosis for this admission?: Yes (6) Adult failure to thrive Is this a current diagnosis for this admission?: Yes (7) Poor fluid intake Is this a current diagnosis for this admission?: Yes
[2017-06-01 06:32] LABS: ANION GAP 11 (5-19); BLOOD UREA NITROGEN 19 mg/dL (7-20); CALCIUM 8.7 mg/dL (8.4-10.2); CARBON DIOXIDE 22 mmol/L (22-30); CHLORIDE 116 mmol/L (98-107); GLUCOSE 99 mg/dL (75-110); POTASSIUM 3.7 mmol/L (3.6-5.0); SODIUM 148.6 mmol/L (137-145)
[2017-06-01 10:07] LABS: ABSOLUTE BASOPHILS # (AUTO) 0.1 10^3/uL (0.0-0.2); ABSOLUTE EOSINOPHILS # (AUTO) 0.2 10^3/uL (0.0-0.6); ABSOLUTE LYMPHOCYTES (AUTO) 1.9 10^3/uL (0.5-4.7); ABSOLUTE MONOCYTES (AUTO) 0.7 10^3/uL (0.1-1.4); ABSOLUTE NEUT (AUTO) 7.7 10^3/uL (1.7-8.2); BASOPHILS % (AUTO) 0.6 % (0-2); EOSINOPHILS % (AUTO) 1.7 % (0-6); HEMATOCRIT 33.4 % (36.0-47.0); HEMOGLOBIN 10.9 g/dL (12.0-15.5); LYMPHOCYTES % (AUTO) 17.8 % (13-45); MEAN CORPUSCULAR HEMOGLOBIN 29.1 pg (27.0-33.4); MEAN CORPUSCULAR HGB CONC 32.8 g/dL (32.0-36.0); MEAN CORPUSCULAR VOLUME 89 fl (80-97); MONOCYTES % (AUTO) 6.6 % (3-13); PLATELET COUNT 295 10^3/uL (150-450); RED BLOOD COUNT 3.76 10^6/uL (3.72-5.28); RED CELL DISTRIBUTION WIDTH 16.1 % (11.5-14.0); SEGMENTED NEUTROPHILS % (AUTO) 73.3 % (42-78); TOTAL CELLS COUNTED % (AUTO) 100 %; WHITE BLOOD COUNT 10.5 10^3/uL (4.0-10.5)
[2017-06-01 10:32] LABS: ALANINE AMINOTRANSFERASE 23 U/L (9-52); ALBUMIN 2.7 g/dL (3.5-5.0); ALKALINE PHOSPHATASE 92 U/L (38-126); ANION GAP 11 (5-19); ASPARTATE AMINO TRANSFERASE 17 U/L (14-36); BILIRUBIN,DIRECT 0.2 mg/dL (0.0-0.4); BILIRUBIN,TOTAL 0.2 mg/dL (0.2-1.3); BLOOD UREA NITROGEN 17 mg/dL (7-20); CALCIUM 8.7 mg/dL (8.4-10.2); CARBON DIOXIDE 23 mmol/L (22-30); CHLORIDE 114 mmol/L (98-107); GLUCOSE 90 mg/dL (75-110); POTASSIUM 3.5 mmol/L (3.6-5.0); SODIUM 147.7 mmol/L (137-145)
[2017-06-01] MEDS: GUAIFENESIN 600 MG TABLET.SA PO SCH ×2 (10:51→21:03)
[2017-06-01] MEDS: DONEPEZIL HCL 5 MG TABLET PO SCH (10:51)
[2017-06-01] MEDS: LEVOFLOXACIN 750 MG/D5W RTU 750 MG/150 ML RTUPB IV SCH (10:52)
[2017-06-01] MEDS: AMLODIPINE BESYLATE 10 MG TABLET PO SCH (10:52)
[2017-06-01] MEDS: MEMANTINE HCL 10 MG TABLET PO SCH ×2 (10:54→17:28)
[2017-06-01] MEDS: DEXTROSE 5%-NORMAL SALINE 1,000 ML IV PRN ×2 (10:54→17:27)
[2017-06-01] MEDS: MEGESTROL ACETATE SUSP 400 MG/10 ML UDCUP PO SCH (10:54)
[2017-06-01] MEDS: NYSTATIN CREAM 15 GM TOP SCH ×2 (10:55→17:57)
[2017-06-01] MEDS: ACETAMINOPHEN 325 MG TABLET PO PRN (14:29)
[2017-06-01] MEDS ORDERED: POTASSIUM CHLORIDE 10 MEQ TABLET.SA PO ONE (19:00)
--- NOTE | 2017-06-01 20:48 | PDOC PROGRESS REPORT ---
Subjective Progress Note for:: 06/01/17 Subjective:: She was seen by the bedsideThe biggest challenge for this patient still remains nutrition, she continues to have inadequate intake Reason For Visit: HYPOTENSION,DEHYDRATION, SHORTNESS OF BREATH, Physical Exam Vital Signs: Temp Pulse Resp BP Pulse Ox 97.8 F 99 16 132/55 H 100 06/01/17 19:48 06/01/17 19:48 06/01/17 19:48 06/01/17 19:48 06/01/17 19:48 Intake & Output 05/31/17 06/01/17 06/02/17 06:59 06:59 06:59 Intake Total 1976 1680 940 Output Total 0 Balance 1976 1680 940 Weight 64.7 kg 67.9 kg General appearance: PRESENT: no acute distress Eye exam: PRESENT: PERRLA Respiratory exam: PRESENT: clear to auscultation donavan Cardiovascular exam: PRESENT: +S1, +S2 GI/Abdominal exam: PRESENT: soft Neurological exam: PRESENT: alert Results Laboratory Results: 06/01/17 09:28 06/01/17 09:28 06/01/17 06/01/17 06/01/17 05:52 09:28 09:28 WBC 10.5 RBC 3.76 Hgb 10.9 L Hct 33.4 L MCV 89 MCH 29.1 MCHC 32.8 RDW 16.1 H Plt Count 295 Seg Neutrophils % 73.3 Lymphocytes % 17.8 Monocytes % 6.6 Eosinophils % 1.7 Basophils % 0.6 Absolute Neutrophils 7.7 Absolute Lymphocytes 1.9 Absolute Monocytes 0.7 Absolute Eosinophils 0.2 Absolute Basophils 0.1 Sodium 148.6 H 147.7 H Potassium 3.7 3.5 L Chloride 116 H 114 H Carbon Dioxide 22 23 Anion Gap 11 11 BUN 19 17 Creatinine 0.74 0.68 Est GFR ( Amer) > 60 > 60 Est GFR (Non-Af Amer) > 60 > 60 Glucose 99 90 Calcium 8.7 8.7 Total Bilirubin 0.2 AST 17 ALT 23 Alkaline Phosphatase 92 Total Protein 6.0 L Albumin 2.7 L Impressions: Head MRI 05/26/17 00:00 IMPRESSION: No evidence for acute or sub-acute infarction. EVIDENCE OF ACUTE STROKE: NO. WBC Scan Nuclear Medicine 05/27/17 00:00 IMPRESSION: Negative tagged white cell study. Chest X-Ray 05/29/17 00:00 IMPRESSION: Chronic changes in the lungs. No evidence of an acute process. Assessment & Plan - Diagnosis (1) Acute kidney injury Is this a current diagnosis for this admission?: Yes (2) Dehydration Is this a current diagnosis for this admission?: Yes (3) Dementia Qualifiers: Dementia type: Alzheimer's disease Is this a current diagnosis for this admission?: Yes (4) Fever Qualifiers: Fever type: unspecified Qualified Code(s): R50.9 - Fever, unspecified Is this a current diagnosis for this admission?: Yes (5) Enterococcus UTI Is this a current diagnosis for this admission?: Yes (6) Adult failure to thrive Is this a current diagnosis for this admission?: Yes (7) Poor fluid intake Is this a current diagnosis for this admission?: Yes
[2017-06-02] MEDS: GUAIFENESIN 600 MG TABLET.SA PO SCH ×2 (10:11→21:02)
[2017-06-02] MEDS: MEMANTINE HCL 10 MG TABLET PO SCH ×2 (10:11→17:18)
[2017-06-02] MEDS: MEGESTROL ACETATE SUSP 400 MG/10 ML UDCUP PO SCH (10:11)
[2017-06-02] MEDS: AMLODIPINE BESYLATE 10 MG TABLET PO SCH (10:11)
[2017-06-02] MEDS: POTASSIUM CHLORIDE 10 MEQ TABLET.SA PO SCH (10:13)
[2017-06-02] MEDS: DONEPEZIL HCL 5 MG TABLET PO SCH (10:13)
[2017-06-02] MEDS: NYSTATIN CREAM 15 GM TOP SCH ×2 (10:14→17:19)
--- NOTE | 2017-06-02 18:19 | PDOC PROGRESS REPORT ---
Subjective Progress Note for:: 06/02/17 Subjective:: Patient was seen by the bedside, I had a long discussion with the family regarding her condition I suggested a PICC line to be inserted because it seems that she will be required intercurrent IV fluid therapy this could be administered also by home health because she has minimal fluid intake and also food intake this increases risk of dehydration. There is likelihood of recurrent hospital admission but we can reduce this likelihood if on discharge she goes home with home health that have the capacity to administer IV fluids at home Reason For Visit: HYPOTENSION,DEHYDRATION, SHORTNESS OF BREATH, Physical Exam Vital Signs: Temp Pulse Resp BP Pulse Ox 97.7 F 95 18 127/63 H 98 06/02/17 15:52 06/02/17 15:52 06/02/17 15:52 06/02/17 15:52 06/02/17 15:52 Intake & Output 06/01/17 06/02/17 06/03/17 06:59 06:59 06:59 Intake Total 1680 1979 100 Output Total 0 Balance 1680 1979 100 Weight 67.9 kg 67 kg General appearance: PRESENT: no acute distress Eye exam: PRESENT: PERRLA Respiratory exam: PRESENT: clear to auscultation donavan Cardiovascular exam: PRESENT: +S1, +S2 Neurological exam: PRESENT: alert Results Laboratory Results: 06/01/17 09:28 06/01/17 09:28 Impressions: Head MRI 05/26/17 00:00 IMPRESSION: No evidence for acute or sub-acute infarction. EVIDENCE OF ACUTE STROKE: NO. WBC Scan Nuclear Medicine 05/27/17 00:00 IMPRESSION: Negative tagged white cell study. Chest X-Ray 05/29/17 00:00 IMPRESSION: Chronic changes in the lungs. No evidence of an acute process. Assessment & Plan - Diagnosis (1) Acute kidney injury Is this a current diagnosis for this admission?: Yes (2) Dehydration Is this a current diagnosis for this admission?: Yes (3) Dementia Qualifiers: Dementia type: Alzheimer's disease Is this a current diagnosis for this admission?: Yes (4) Fever Qualifiers: Fever type: unspecified Qualified Code(s): R50.9 - Fever, unspecified Is this a current diagnosis for this admission?: Yes (5) Enterococcus UTI Is this a current diagnosis for this admission?: Yes (6) Adult failure to thrive Is this a current diagnosis for this admission?: Yes (7) Poor fluid intake Is this a current diagnosis for this admission?: Yes - Plan Summary Plan Summary: Consultation for PICC line, consultation for discharge planning to arrange home meds with capacity to administer home IV
[2017-06-02 18:41] LABS: ABSOLUTE BASOPHILS # (AUTO) 0.1 10^3/uL (0.0-0.2); ABSOLUTE EOSINOPHILS # (AUTO) 0.3 10^3/uL (0.0-0.6); ABSOLUTE LYMPHOCYTES (AUTO) 1.5 10^3/uL (0.5-4.7); ABSOLUTE MONOCYTES (AUTO) 0.6 10^3/uL (0.1-1.4); ABSOLUTE NEUT (AUTO) 9.4 10^3/uL (1.7-8.2); EOSINOPHILS % (AUTO) 2.1 % (0-6); HEMOGLOBIN 10.9 g/dL (12.0-15.5); LYMPHOCYTES % (AUTO) 12.7 % (13-45); MEAN CORPUSCULAR HEMOGLOBIN 28.8 pg (27.0-33.4); MEAN CORPUSCULAR HGB CONC 32.9 g/dL (32.0-36.0); MEAN CORPUSCULAR VOLUME 88 fl (80-97); MONOCYTES % (AUTO) 5.2 % (3-13); PLATELET COUNT 337 10^3/uL (150-450); RED BLOOD COUNT 3.77 10^6/uL (3.72-5.28); RED CELL DISTRIBUTION WIDTH 16.1 % (11.5-14.0); TOTAL CELLS COUNTED % (AUTO) 100 %; WHITE BLOOD COUNT 11.9 10^3/uL (4.0-10.5)
[2017-06-02 18:51] LABS: INTERNATIONAL RATION (INR) 1.01; PROTHROMBIN TIME 13.8 SEC (11.4-15.4)
[2017-06-02 18:52] LABS: PARTIAL THROMBOPLASTIN TIME 22.1 SEC (23.5-35.8)
[2017-06-02 19:00] LABS: ALANINE AMINOTRANSFERASE 27 U/L (9-52); ALBUMIN 2.9 g/dL (3.5-5.0); ALKALINE PHOSPHATASE 93 U/L (38-126); ANION GAP 10 (5-19); ASPARTATE AMINO TRANSFERASE 21 U/L (14-36); BILIRUBIN,DIRECT 0.2 mg/dL (0.0-0.4); BILIRUBIN,TOTAL 0.2 mg/dL (0.2-1.3); BLOOD UREA NITROGEN 14 mg/dL (7-20); CALCIUM 8.8 mg/dL (8.4-10.2); CARBON DIOXIDE 23 mmol/L (22-30); CHLORIDE 109 mmol/L (98-107); GLUCOSE 113 mg/dL (75-110); POTASSIUM 4.6 mmol/L (3.6-5.0); SODIUM 142.3 mmol/L (137-145)
[2017-06-02] MEDS: DEXTROSE 5%-NORMAL SALINE 1,000 ML IV PRN (21:16)
[2017-06-03] MEDS: POTASSIUM CHLORIDE 10 MEQ TABLET.SA PO SCH (11:24)
[2017-06-03] MEDS: AMLODIPINE BESYLATE 10 MG TABLET PO SCH (11:25)
[2017-06-03] MEDS: ACETAMINOPHEN 325 MG TABLET PO PRN (11:25)
[2017-06-03] MEDS: MEMANTINE HCL 10 MG TABLET PO SCH ×2 (11:25→18:05)
[2017-06-03] MEDS: DONEPEZIL HCL 5 MG TABLET PO SCH (11:26)
[2017-06-03] MEDS: GUAIFENESIN 600 MG TABLET.SA PO SCH (11:26)
[2017-06-03] MEDS: NYSTATIN CREAM 15 GM TOP SCH (11:27)
[2017-06-03] MEDS: MEGESTROL ACETATE SUSP 400 MG/10 ML UDCUP PO SCH (11:28)
--- NOTE | 2017-06-03 14:07 | RADIOLOGY REPORT (SQ) ---
EXAM DESCRIPTION: PICC INSERTION; FLUORO/CV PLACEMENT; U/S GUIDE FOR VASCULAR ACCESS COMPLETED DATE/TIME: 06/03/2017 1:47 pm REASON FOR STUDY: for IV access; IV ACCESS COMPARISON: None. FLUOROSCOPY TIME: 47 seconds. 1 images saved to PACS. TECHNIQUE: Fluoroscopic and ultrasound guided PICC placement. LIMITATIONS: None. PROCEDURE: After written consent and assessment were obtained, the patient was brought into the fluo roscopy room and place supine on the table. Ultrasound was used on the patient's left arm for PICC a ccess. The left arm was prepped and draped in a sterile fashion along with the ultrasound probe. The entry site was anesthetized with 1% lidocaine. A 21 gauge 7 cm needle was advanced through the skin a nd into the basilic vein under live ultrasound guidance. An ultrasound image was saved to PACS confi ing access site. A .018 guide wire was then inserted through the needle and into the venous system . The needle was the removed and an 11 blade scalpel was used to make a 1cm skin incision. A 5 fr pe el-away sheath was advanced over the wire and into the venous system. A measurement was then made usi ng the existing wire and live fluoroscopic guidance. The wire was then removed and the trimmed. The P ICC was advanced through the peel-away sheath and into the venous system. The peel-away sheath was re moved and the catheter was adhered to the patients arm with a stat lock. The catheter was then aspira greta and flushed and a sterile bandage was placed over the access site. A fluoroscopic spot image was saved to PACS confirming the catheter tip within the superior vena cava. IMPRESSION: SUCCESSFUL PLACEMENT OF A 5 FR DUAL LUMEN 47 CM PICC IN THE LEFT BASILIC VEIN. COMMENT: Patient medication list reviewed: Yes- Quality ID# [id number]:Eligible professional attests to doc umenting in the medical record they obtained, updated, or reviewed the patient's current medications. . Quality ID 145: Final reports for procedures using fluoroscopy that document radiation exposure beryl aj, or exposure time and number of fluorographic images (if radiation exposure indices are not avail able) Quality ID #76: The patient was prepped and draped using maximum sterile barrier technique including cap, mask, sterile gown, sterile gloves, a large sterile sheet, hand hygiene, and 2% Chlorhexidine fo r cutaneous antisepsis. When ultrasound is used, sterile ultrasound techniques are followed requiring sterile gel and sterile probes. TECHNICAL DOCUMENTATION: JOB ID: [id number] [employer]- All Rights Reserved Reading location - IP/workstation name: [facility]
[2017-06-03 18:32] VITALS: BP 135/53
--- NOTE | 2017-06-03 20:31 | PDOC DISCHARGE SUMMARY ---
General - Admit/Disc Date/PCP Admission Date/Primary Care Provider: 05/25/17 15:57 LUIS GUTIERRES MD Discharge Date: 06/03/17 - Discharge Diagnosis (1) Enterococcus UTI Is this a current diagnosis for this admission?: Yes (2) Acute kidney injury Is this a current diagnosis for this admission?: Yes (3) Dehydration Is this a current diagnosis for this admission?: Yes (4) Dementia Is this a current diagnosis for this admission?: Yes (5) Fever Is this a current diagnosis for this admission?: Yes (6) Adult failure to thrive Is this a current diagnosis for this admission?: Yes (7) Poor fluid intake Is this a current diagnosis for this admission?: Yes - Additional Information Resuscitation Status: Full Code Discharge Diet: As Tolerated Home Medications: Donepezil HCl [Aricept] 10 mg PO DAILY 04/23/17 Memantine HCl [Namenda 10 mg Tablet] 10 mg PO BID 04/23/17 Tramadol HCl [Ultram 50 mg Tablet] 50 mg PO Q8HP PRN 04/23/17 Megestrol Acetate 1 ml PO DAILY 05/25/17 Nystatin [Mycostatin Cream 15 gm] 1 applic TOP BID 05/25/17 History of Present Illness History of Present Illness: MARLYS TORRES is a 87 year old female she has a history of dementia, Rheumatoid arthritis family brought her to the office for evaluation of anorexia , poor intake, low blood pressure, cough. She was recently admitted in this hospital on 04/23/2017 when she was diagnosed with pneumonia, , fever, adult failure to thrive. She was admitted for further evaluation of her low blood pressure and the other multiple symptoms.Family said she has weakness of the right side of her body history taking is quite challenging from this patient because of her dementia, she developed fever when she arrived in the hospital, the last time she was admitted she has had a fever but the last time it was associated with pneumonia, the chest x-ray that was done today did not show any pneumonia process urinalysis is abnormal suggesting the potential source for his sepsis/fever..She has a history of rheumatoid lung disease, family including the daughter who is an RN stated that she is not eating nor drinking, 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 They are concerned that she is not eating nor drinking. She has baseline dementia the poor intake is probably from the dementia.She was prescribed appetite stimulant the last time she was admitted into the hospital, despite taking the appetite stimulant patient's intake is very poor. Family is not particularly interested in feeding tube like a PEG tube or J-tube, the initial blood work suggest acute kidney injury most likely prerenal due to dehydration Hospital Course Hospital Course: She has underlining dementia, she was admitted for the management of acute kidney injury, dehydration, Enterococcus faecalis UTI. Fluid intake was a challenge, she has anorexia most likely due to dementia process. Patient would not eat or drink, it takes a lot of effort to make her eat, family does not want a feeding tube.The family contemplated at one point to initiate TPN but they changed their mind because to have a TPN a central line is needed, family does not want central line inserted. The acute kidney injury is most likely prerenal with IV fluid therapy there was normalization of the kidney function. During the course of hospital stay patient spouse felt that patient needed to be referred to a tertiary care for a second opinion regarding the poor intake, I explained to the family that the poor intake is from the dementia, the intake improved and family decided not to follow through with the transfer, actually I called [facility] regarding the case and she was accepted in transfer.The consensus is for her to have a PICC line because we anticipate that she will develop dehydration from poor intake , she may need IV fluid outpatient at home on a as needed basis to be administered by the home health nurse Physical Exam Vital Signs: Temp Pulse Resp BP Pulse Ox 97.8 F 92 18 135/53 H 98 06/03/17 18:30 06/03/17 18:30 06/03/17 18:30 06/03/17 18:30 06/03/17 18:30 Intake & Output 06/02/17 06/03/17 06/04/17 06:59 06:59 06:59 Intake Total 1979 2380 350 Output Total 0 Balance 19790 350 Weight 67 kg 67.9 kg General appearance: PRESENT: no acute distress, well-developed, well-nourished Head exam: PRESENT: atraumatic, normocephalic Eye exam: PRESENT: conjunctiva pink, EOMI, PERRLA Ear exam: PRESENT: normal external ear exam Mouth exam: PRESENT: moist, tongue midline Neck exam: PRESENT: full ROM Respiratory exam: PRESENT: clear to auscultation [place] Cardiovascular exam: PRESENT: RRR, +S1, +S2 Pulses: PRESENT: normal dorsalis pedis pul, +2 pedal pulses bilateral Vascular exam: PRESENT: normal capillary refill GI/Abdominal exam: PRESENT: normal bowel sounds, soft Rectal exam: PRESENT: deferred Neurological exam: PRESENT: alert, CN II-XII grossly intact Psychiatric exam: PRESENT: appropriate affect, normal mood Skin exam: PRESENT: dry, intact, warm Results Laboratory Results: 06/02/17 18:30 06/02/17 18:30 Impressions: Head MRI 05/26/17 00:00 IMPRESSION: No evidence for acute or sub-acute infarction. EVIDENCE OF ACUTE STROKE: NO. WBC Scan Nuclear Medicine 05/27/17 00:00 IMPRESSION: Negative tagged white cell study. Chest X-Ray 05/29/17 00:00 IMPRESSION: Chronic changes in the lungs. No evidence of an acute process. Guidance Fluoroscopy 06/03/17 00:00 IMPRESSION: SUCCESSFUL PLACEMENT OF A 5 FR DUAL LUMEN 47 CM PICC IN THE LEFT BASILIC VEIN. Interventional Vascular Procedure 06/03/17 00:00 IMPRESSION: SUCCESSFUL PLACEMENT OF A 5 FR DUAL LUMEN 47 CM PICC IN THE LEFT BASILIC VEIN. PICC Line Insertion 06/03/17 00:00 IMPRESSION: SUCCESSFUL PLACEMENT OF A 5 FR DUAL LUMEN 47 CM PICC IN THE LEFT BASILIC VEIN. Qualifiers - * PATIENT BEING DISCHARGED WITH ANY OF THE FOLLOWING DIAGNOSIS: No
== END 2017-06-03 18:56 | disposition home or self-care (01) | DRG 690 ==
LOC: 2N 15:57 → UNDOADMIN 15:57 → 2S 18:15 → 3S 05-29 19:50
PROVIDERS: ADMIT Internal Medicine; ATTEND Internal Medicine
PROC: 02HV33Z Insertion of Infusion Device into Superior Vena Cava, Percutaneous Approach (ICD-10-PCS; principal; 2017-06-03)
PROC: B518ZZA Fluoroscopy of Superior Vena Cava, Guidance (ICD-10-PCS; 2017-06-03)
PROC: B548ZZA Ultrasonography of Superior Vena Cava, Guidance (ICD-10-PCS; 2017-06-03)
DX: N39.0 Urinary tract infection, site not specified (principal); N17.9 Acute kidney failure, unspecified; B95.2 Enterococcus as the cause of diseases classified elsewhere; E86.0 Dehydration; R62.7 Adult failure to thrive; M05.10 Rheumatoid lung disease with rheumatoid arthritis of unspecified site; G30.9 Alzheimer's disease, unspecified; F02.80 Dementia in other diseases classified elsewhere, unspecified severity, without behavioral disturbance, psychotic disturbance, mood disturbance, and anxiety
CPT/HCPCS: 36415; 36569; 70551; 71045; 71046; 76937; 77001; 78806; 80048; 80053; 80076; 82962; 84100; 84134; 84439; 84443; 85025; 85610; 85730; 87040; 87077; 87086; 87088; 87186; A9521; G8978-GP; G8979-GP; G8996-GN; G8997-GN; G8998-GN; J1642; J1644; J1956; J2060; J3490

== ENCOUNTER 2017-06-09 12:43 | Observation (INO) | payer MEDICARE, BC ==
[2017-06-09 15:54] LABS: ABSOLUTE BASOPHILS # (AUTO) 0.1 10^3/uL (0.0-0.2); ABSOLUTE EOSINOPHILS # (AUTO) 0.2 10^3/uL (0.0-0.6); ABSOLUTE LYMPHOCYTES (AUTO) 1.8 10^3/uL (0.5-4.7); ABSOLUTE NEUT (AUTO) 10.7 10^3/uL (1.7-8.2); BASOPHILS % (AUTO) 0.9 % (0-2); EOSINOPHILS % (AUTO) 1.2 % (0-6); LYMPHOCYTES % (AUTO) 13.2 % (13-45); MEAN CORPUSCULAR HEMOGLOBIN 29.1 pg (27.0-33.4); MEAN CORPUSCULAR HGB CONC 33.2 g/dL (32.0-36.0); MEAN CORPUSCULAR VOLUME 87 fl (80-97); PLATELET COUNT 312 10^3/uL (150-450); RED BLOOD COUNT 4.12 10^6/uL (3.72-5.28); RED CELL DISTRIBUTION WIDTH 16.6 % (11.5-14.0); SEGMENTED NEUTROPHILS % (AUTO) 77.7 % (42-78); TOTAL CELLS COUNTED % (AUTO) 100 %; WHITE BLOOD COUNT 13.8 10^3/uL (4.0-10.5)
[2017-06-09 16:15] LABS: ALANINE AMINOTRANSFERASE 19 U/L (9-52); ALBUMIN 3.4 g/dL (3.5-5.0); ALKALINE PHOSPHATASE 88 U/L (38-126); ANION GAP 15 (5-19); ASPARTATE AMINO TRANSFERASE 18 U/L (14-36); BILIRUBIN,DIRECT 0.2 mg/dL (0.0-0.4); BILIRUBIN,TOTAL 0.2 mg/dL (0.2-1.3); BLOOD UREA NITROGEN 33 mg/dL (7-20); CALCIUM 9.5 mg/dL (8.4-10.2); CARBON DIOXIDE 23 mmol/L (22-30); CHLORIDE 107 mmol/L (98-107); GLUCOSE 96 mg/dL (75-110); POTASSIUM 4.9 mmol/L (3.6-5.0)
[2017-06-09] MEDS ORDERED: TRAMADOL HCL 50 MG TABLET PO PRN (17:50)
[2017-06-09] MEDS ORDERED: (PENDING PHARMACY ID) (Megestrol Acetate [Megestrol Acetate] 40 MG) PO SCH (18:00)
[2017-06-09] MEDS ORDERED: ALTEPLASE INJ 2 MG VIAL (CATH CLEARANCE) IV ONE (18:00)
[2017-06-09] MEDS ORDERED: (PENDING PHARMACY ID) (Donepezil Hcl [Aricept] 10 MG) PO SCH (18:00)
[2017-06-09] MEDS ORDERED: DONEPEZIL HCL 5 MG TABLET PO ONE (18:45)
[2017-06-09] MEDS: MEMANTINE HCL 10 MG TABLET PO SCH (18:55)
[2017-06-09] MEDS ORDERED: MEGESTROL ACETATE 20 MG TABLET PO ONE (19:30)
[2017-06-09] MEDS: NYSTATIN CREAM 15 GM TP SCH (20:46)
[2017-06-10] MEDS: 1/2 NORMAL SALINE 1,000 ML IV PRN ×2 (05:42→23:17)
[2017-06-10] MEDS: NORMAL SALINE 10 ML SDV (AFTER EACH USE) IV PRN (05:42)
[2017-06-10] MEDS: DONEPEZIL HCL 5 MG TABLET PO SCH (11:02)
[2017-06-10] MEDS: MEGESTROL ACETATE 20 MG TABLET PO SCH (11:03)
[2017-06-10] MEDS: NYSTATIN CREAM 15 GM TP SCH ×2 (11:04→17:34)
[2017-06-10] MEDS: NORMAL SALINE 10 ML SDV (SCHEDULED) IV SCH ×2 (11:04→23:20)
[2017-06-10] MEDS: MEMANTINE HCL 10 MG TABLET PO SCH ×2 (11:04→17:34)
[2017-06-10 17:54] LABS: ABSOLUTE BASOPHILS # (AUTO) 0.1 10^3/uL (0.0-0.2); ABSOLUTE EOSINOPHILS # (AUTO) 0.2 10^3/uL (0.0-0.6); ABSOLUTE LYMPHOCYTES (AUTO) 2.2 10^3/uL (0.5-4.7); ABSOLUTE MONOCYTES (AUTO) 0.9 10^3/uL (0.1-1.4); ABSOLUTE NEUT (AUTO) 8.7 10^3/uL (1.7-8.2); EOSINOPHILS % (AUTO) 1.4 % (0-6); HEMATOCRIT 35.2 % (36.0-47.0); HEMOGLOBIN 11.7 g/dL (12.0-15.5); LYMPHOCYTES % (AUTO) 18.1 % (13-45); MEAN CORPUSCULAR HEMOGLOBIN 28.9 pg (27.0-33.4); MEAN CORPUSCULAR HGB CONC 33.1 g/dL (32.0-36.0); MEAN CORPUSCULAR VOLUME 87 fl (80-97); MONOCYTES % (AUTO) 7.6 % (3-13); PLATELET COUNT 326 10^3/uL (150-450); RED BLOOD COUNT 4.04 10^6/uL (3.72-5.28); RED CELL DISTRIBUTION WIDTH 16.6 % (11.5-14.0); SEGMENTED NEUTROPHILS % (AUTO) 71.9 % (42-78); TOTAL CELLS COUNTED % (AUTO) 100 %; WHITE BLOOD COUNT 12.2 10^3/uL (4.0-10.5)
[2017-06-10 18:13] LABS: ALANINE AMINOTRANSFERASE 19 U/L (9-52); ALBUMIN 3.4 g/dL (3.5-5.0); ALKALINE PHOSPHATASE 99 U/L (38-126); ANION GAP 14 (5-19); ASPARTATE AMINO TRANSFERASE 18 U/L (14-36); BILIRUBIN,DIRECT 0.2 mg/dL (0.0-0.4); BILIRUBIN,TOTAL 0.2 mg/dL (0.2-1.3); BLOOD UREA NITROGEN 25 mg/dL (7-20); CALCIUM 9.5 mg/dL (8.4-10.2); CARBON DIOXIDE 23 mmol/L (22-30); CHLORIDE 108 mmol/L (98-107); GLUCOSE 83 mg/dL (75-110); POTASSIUM 4.6 mmol/L (3.6-5.0); SODIUM 144.6 mmol/L (137-145); TOTAL PROTEIN 7.1 g/dL (6.3-8.2)
--- NOTE | 2017-06-10 20:47 | XCELERA REPORT ---
[address] [address] Transthoracic Echocardiogram Report Name: MARLYS TORRES Age: 87 yrs Gender: Female : 1930 Patient Status: Inpatient Patient Location: [address] [place] [address] Study Date: 06/10/2017 09:39 AM Height: 66 in Weight: 139 lb BSA: 1.7 m2 Procedure: A complete two-dimensional transthoracic echocardiogram was performed (2D, M-mode, spectral and color flow Doppler). The study was technically adequate with some images being suboptimal in quality. Reason For Study: PULMONARY HTN Ordering Physician: MALIK RAYMUNDO Performed By: Rylie Reddy Interpretation Summary Left ventricular systolic function is low normal. There is borderline concentric left ventricular hypertrophy. The left ventricle is grossly normal size. Doppler measurements suggest pseudonormalized left ventricular relaxation, which is associated with grade II/IV or mild to moderate diastolic dysfunction Wall motion cannot be accurately commented on, but no definite regional wall motion abnormalities noted. The right ventricular systolic function is normal. The left atrial size is normal. The right atrium is normal in size There is a trace amount of mitral regurgitation There is no mitral valve stenosis. There is a mild amount of aortic regurgitation There is no aortic valve stenosis There is a trace to mild amount of tricuspid regurgitation There is mild pulmonary hypertension by echo Right ventricular systolic pressure is estimated to be elevated at 30- 40mmHg. The aortic root is not well visualized but is probably normal size. The inferior vena cava was not well visualized There is no pericardial effusion. MMode/2D Measurements & Calculations RVDd: 2.6 cm LVIDd: 3.3 cm FS: 27.7 % Ao root diam: 2.4 cm IVSd: 0.98 cm LVIDs: 2.4 cm EDV(Teich): 45.4 ml LVPWd: 0.99 cm ESV(Teich): 20.4 ml Ao root area: 4.4 cm2 EF(Teich): 55.0 % LA dimension: 2.4 cm Doppler Measurements & Calculations MV E max zayra: MV P1/2t max zayra: Ao V2 max: AI max zayra: 64.7 cm/sec 63.7 cm/sec 149.3 cm/sec 338.8 cm/sec MV A max zayra: MV P1/2t: 76.5 msec Ao max PG: AI max P.6 cm/sec 8.9 mmHg 45.9 mmHg MV E/A: 0.62 MVA(P1/2t): 2.9 cm2 AI dec slope: MV dec slope: 243.9 cm/sec2 155.4 cm/sec2 MV dec time: AI P1/2t: 0.26 sec 638.4 msec LV V1 max PG: PA V2 max: PI end-d zayra: TR max zayra: 4.3 mmHg 73.5 cm/sec 116.2 cm/sec 272.6 cm/sec LV V1 max: PA max P.2 mmHg TR max P.7 cm/sec 29.7 mmHg Left Ventricle The left ventricle is grossly normal size. There is borderline concentric left ventricular hypertrophy. Left ventricular systolic function is low normal. Doppler measurements suggest pseudonormalized left ventricular relaxation, which is associated with grade II/IV or mild to moderate diastolic dysfunction. Wall motion cannot be accurately commented on, but no definite regional wall motion abnormalities noted. Right Ventricle The right ventricle is grossly normal size. There is normal right ventricular wall thickness. The right ventricular systolic function is normal. Atria The right atrium is normal in size. The left atrial size is normal. Interarterial septum not well visualized and not well dopplered. Cannot comment on ASD/PFO presence. Mitral Valve The mitral valve is not well visualized. There is no mitral valve stenosis. There is a trace amount of mitral regurgitation. Aortic Valve The aortic valve is grossly normal. There is no aortic valve stenosis. There is a mild amount of aortic regurgitation. Tricuspid Valve The tricuspid valve is not well visualized secondary to technical limitations. There is no tricuspid stenosis. There is a trace to mild amount of tricuspid regurgitation. There is mild pulmonary hypertension by echo. Right ventricular systolic pressure is estimated to be elevated at 30-40mmHg. Pulmonic Valve The pulmonic valve is not well visualized. Great Vessels The aortic root is not well visualized but is probably normal size. The inferior vena cava was not well visualized. Effusions There is no pericardial effusion. : MALIK RAYMUNDO > Albino Herrmann
[2017-06-10] MEDS ORDERED: DOCUSATE SODIUM 100 MG CAPSULE PO PRN (21:12)
[2017-06-10] MEDS ORDERED: ALTEPLASE INJ 2 MG VIAL (CATH CLEARANCE) IV ONE (21:30)
--- NOTE | 2017-06-10 22:17 | PDOC H&P ---
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 There was a concern she may have pulmonary hypertension ,a 2D echo was done, it confirmed increased pulmonary pressure secondary to interstitial lung disease she has a low normal ejection fraction of left ventricle. She has dementia,The poor intake and dehydration is partly from dementia Past Medical History Cardiac Medical History: Reports: Hypertension Pulmonary Medical History: Reports: Chronic Obstructive Pulmonary Disease (COPD) , Pneumonia GI Medical History: Reports: Gastroesophageal Reflux Disease Musculoskeltal Medical History: Reports: Arthritis - Rheumatoid arthritis Psychiatric Medical History: Reports: Dementia Past Surgical History Past Surgical History: Reports: Appendectomy, Hysterectomy Social History Smoking Status: Former Smoker Frequency of Alcohol Use: None Hx Recreational Drug Use: No Drugs: None Hx Prescription Drug Abuse: No Family History Family History: None Parental Family History Reviewed: Yes Children Family History Reviewed: Yes Sibling(s) Family History Reviewed.: Yes Medication/Allergy Home Medications: Donepezil HCl [Aricept] 10 mg PO DAILY 06/09/17 Megestrol Acetate 40 mg PO DAILY 06/09/17 Memantine HCl [Namenda] 10 mg PO BID 06/09/17 Nystatin [Mycostatin Cream 15 gm] 1 applic TP BID 06/09/17 Tramadol HCl [Ultram] 50 mg PO TIDP PRN 06/09/17 Allergies/Adverse Reactions: No Known Allergies Allergy (Verified 02/12/14 08:24) Review of Systems Constitutional: ABSENT: chills, fever(s), headache(s), weight gain, weight loss Eyes: ABSENT: visual disturbances Ears: ABSENT: hearing changes Cardiovascular: ABSENT: chest pain, dyspnea on exertion, edema, orthropnea, palpitations Respiratory: PRESENT: cough, dyspnea. ABSENT: hemoptysis Gastrointestinal: ABSENT: abdominal pain, constipation, diarrhea, hematemesis, hematochezia, nausea, vomiting Genitourinary: ABSENT: dysuria, hematuria Musculoskeletal: ABSENT: joint swelling Integumentary: ABSENT: rash, wounds Neurological: ABSENT: abnormal gait, abnormal speech, confusion, dizziness, focal weakness, syncope Psychiatric: ABSENT: anxiety, depression, homidical ideation, suicidal ideation Endocrine: ABSENT: cold intolerance, heat intolerance, menstrual abnormalities, polydipsia, polyuria Hematologic/Lymphatic: ABSENT: easy bleeding, easy bruising, lymphadenopathy Physical Exam Vital Signs: Temp Pulse Resp BP Pulse Ox 97.7 F 90 16 146/80 H 99 06/10/17 19:56 06/10/17 19:56 06/10/17 19:56 06/10/17 19:56 06/10/17 19:56 Intake & Output 06/09/17 06/10/17 06/11/17 06:59 06:59 06:59 Intake Total 200 1091 Balance 200 1091 Weight 63.8 kg General appearance: PRESENT: mild distress Head exam: PRESENT: atraumatic, normocephalic Eye exam: PRESENT: conjunctiva pink, EOMI, PERRLA Ear exam: PRESENT: normal external ear exam Mouth exam: PRESENT: moist, tongue midline Neck exam: PRESENT: full ROM Respiratory exam: PRESENT: decreased breath sounds Cardiovascular exam: PRESENT: RRR, +S1, +S2 Pulses: PRESENT: normal dorsalis pedis pul, +2 pedal pulses bilateral Vascular exam: PRESENT: normal capillary refill GI/Abdominal exam: PRESENT: normal bowel sounds, soft Rectal exam: PRESENT: deferred Neurological exam: PRESENT: alert. ABSENT: motor sensory deficit Psychiatric exam: PRESENT: appropriate affect, normal mood. ABSENT: homicidal ideation, suicidal ideation Skin exam: PRESENT: dry, intact, warm. ABSENT: cyanosis, rash Results Laboratory Results: 06/10/17 17:45 06/10/17 17:45 06/10/17 06/10/17 17:45 17:45 WBC 12.2 H RBC 4.04 Hgb 11.7 L Hct 35.2 L MCV 87 MCH 28.9 MCHC 33.1 RDW 16.6 H Plt Count 326 Seg Neutrophils % 71.9 Lymphocytes % 18.1 Monocytes % 7.6 Eosinophils % 1.4 Basophils % 1.0 Absolute Neutrophils 8.7 H Absolute Lymphocytes 2.2 Absolute Monocytes 0.9 Absolute Eosinophils 0.2 Absolute Basophils 0.1 Sodium 144.6 Potassium 4.6 Chloride 108 H Carbon Dioxide 23 Anion Gap 14 BUN 25 H Creatinine 1.10 Est GFR ( Amer) 57 L Est GFR (Non-Af Amer) 47 L Glucose 83 Calcium 9.5 Total Bilirubin 0.2 AST 18 ALT 19 Alkaline Phosphatase 99 Total Protein 7.1 Albumin 3.4 L Assessment & Plan - Diagnosis (1) Dehydration Is this a current diagnosis for this admission?: Yes Plan: She was admitted for intra-venous fluid hydration (2) Acute kidney injury Is this a current diagnosis for this admission?: Yes (3) Dementia Qualifiers: Dementia type: Alzheimer's disease Alzheimer's disease onset: late-onset Dementia behavioral disturbance: without behavioral disturbance Qualified Code (s): G30.1 - Alzheimer's disease with late onset; F02.80 - Dementia in other diseases classified elsewhere without behavioral disturbance; F02.80 - Dementia in other diseases classified elsewhere without behavioral disturbance; F02.80 - Dementia in other diseases classified elsewhere without behavioral disturbance Is this a current diagnosis for this admission?: Yes
[2017-06-10 23:32] LABS: AMORPHOUS SEDIMENT,URINE TRACE /HPF; APPEARANCE,URINE CLEAR; BILIRUBIN,URINE NEGATIVE (NEGATIVE); COLOR,URINE STRAW; GLUCOSE, URINE NEGATIVE (NEGATIVE); KETONES,URINE NEGATIVE (NEGATIVE); LEUKOCYTE ESTERASE,URINE MODERATE (NEGATIVE); NITRITE,URINE NEGATIVE (NEGATIVE); PROTEIN,URINE NEGATIVE (NEGATIVE); URINE SPECIFIC GRAVITY 1.008; UROBILINOGEN,URINE NEGATIVE mg/dL (<2.0)
[2017-06-11] MEDS: NORMAL SALINE 10 ML SDV (AFTER EACH USE) IV PRN (06:32)
[2017-06-11] MEDS: MEGESTROL ACETATE 20 MG TABLET PO SCH (10:30)
[2017-06-11] MEDS: DONEPEZIL HCL 5 MG TABLET PO SCH (10:31)
[2017-06-11] MEDS: MEMANTINE HCL 10 MG TABLET PO SCH ×2 (10:31→17:35)
[2017-06-11] MEDS: NORMAL SALINE 10 ML SDV (SCHEDULED) IV SCH (10:32)
[2017-06-11] MEDS: NYSTATIN CREAM 15 GM TP SCH ×2 (10:33→17:35)
[2017-06-11 17:40] VITALS: BP 112/70
--- NOTE | 2017-06-11 20:37 | PDOC DISCHARGE SUMMARY ---
General - Admit/Disc Date/PCP Admission Date/Primary Care Provider: 06/09/17 13:00 MALIK RAYMUNDO MD Discharge Date: 06/11/17 - Discharge Diagnosis (1) Dehydration Is this a current diagnosis for this admission?: Yes (2) Acute kidney injury Is this a current diagnosis for this admission?: Yes (3) Dementia Is this a current diagnosis for this admission?: Yes (4) Pulmonary hypertension Is this a current diagnosis for this admission?: Yes (5) Osteoporotic compression fracture of spine Is this a current diagnosis for this admission?: Yes - Additional Information Discharge Diet: Regular Discharge Activity: Activity As Tolerated Home Medications: Donepezil HCl [Aricept] 10 mg PO DAILY 06/09/17 Megestrol Acetate 40 mg PO DAILY 06/09/17 Memantine HCl [Namenda] 10 mg PO BID 06/09/17 Nystatin [Mycostatin Cream 15 gm] 1 applic TP BID 06/09/17 Tramadol HCl [Ultram] 50 mg PO TIDP PRN 06/09/17 History of Present Illness History of Present Illness: MARLYS TORRES is a 87 year old female.She has a history of baseline dementia 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 There was a concern she may have pulmonary hypertension ,a 2D echo was done, it confirmed increased pulmonary pressure secondary to interstitial lung disease she has a low normal ejection fraction of left ventricle. She has dementia,The poor intake and dehydration is partly from dementia Hospital Course Hospital Course: Patient was admitted for the management of dehydration, arrangement was made for outpatient intra-venous therapy with fluid twice a week.Patient improved with IV fluid therapy, a 2D echo was done, showed preserved ejection fraction of left ventricle there was mild pulmonary hypertension Physical Exam Vital Signs: Temp Pulse Resp BP Pulse Ox 97.2 F 95 22 H 112/70 100 06/11/17 17:27 06/11/17 17:27 06/11/17 17:27 06/11/17 17:27 06/11/17 17:27 Intake & Output 06/10/17 06/11/17 06/12/17 06:59 06:59 06:59 Intake Total 200 1653 70 Balance 200 1653 70 Weight 63.8 kg 63 kg General appearance: PRESENT: no acute distress, well-developed, well-nourished Head exam: PRESENT: atraumatic, normocephalic Eye exam: PRESENT: conjunctiva pink, EOMI, PERRLA Ear exam: PRESENT: normal external ear exam Mouth exam: PRESENT: moist, tongue midline Neck exam: PRESENT: full ROM Cardiovascular exam: PRESENT: RRR, +S1, +S2 Pulses: PRESENT: normal dorsalis pedis pul, +2 pedal pulses bilateral Vascular exam: PRESENT: normal capillary refill GI/Abdominal exam: PRESENT: normal bowel sounds, soft. ABSENT: distended, guarding, mass, organolmegaly, rebound, tenderness Rectal exam: PRESENT: deferred Neurological exam: PRESENT: alert Psychiatric exam: PRESENT: appropriate affect, normal mood Skin exam: PRESENT: dry, intact, warm Results Laboratory Results: 06/10/17 17:45 06/10/17 17:45 06/10/17 22:45 Urine Color STRAW Urine Appearance CLEAR Urine pH 6.0 Ur Specific [place] 1.008 Urine Protein NEGATIVE Urine Glucose (UA) NEGATIVE Urine Ketones NEGATIVE Urine Blood NEGATIVE Urine Nitrite NEGATIVE Ur Leukocyte Esterase MODERATE H Urine WBC (Auto) 24 Urine RBC (Auto) 1 Qualifiers - * PATIENT BEING DISCHARGED WITH ANY OF THE FOLLOWING DIAGNOSIS: No
== END 2017-06-11 18:22 | disposition home health service (06) ==
LOC: ER 12:43 → EH 13:00 → 5 14:23
PROVIDERS: ADMIT Internal Medicine; ATTEND Internal Medicine
DX: E86.0 Dehydration (principal); N17.9 Acute kidney failure, unspecified; G30.1 Alzheimer's disease with late onset; F02.80 Dementia in other diseases classified elsewhere, unspecified severity, without behavioral disturbance, psychotic disturbance, mood disturbance, and anxiety; M05.1 Rheumatoid lung disease with rheumatoid arthritis; I27.23 Pulmonary hypertension due to lung diseases and hypoxia; J84.9 Interstitial pulmonary disease, unspecified; M80.88XA Other osteoporosis with current pathological fracture, vertebra(e), initial encounter for fracture; R63.0 Anorexia; Z79.899 Other long term (current) drug therapy; Z90.49 Acquired absence of other specified parts of digestive tract; Z87.891 Personal history of nicotine dependence; Z90.710 Acquired absence of both cervix and uterus; Z87.01 Personal history of pneumonia (recurrent); Z79.818 Long term (current) use of other agents affecting estrogen receptors and estrogen levels; Z87.440 Personal history of urinary (tract) infections; Z68.22 Body mass index [BMI] 22.0-22.9, adult
CPT/HCPCS: 36415 ×2; 87086; 85025 ×2; 87088; 80076; 80048; 80053; 81001; 93306; 97116; 97163; J2997 ×2; A9270 ×9; J3490 ×3; J1642 ×2; G8978; G8979; G0378; G0379

== ENCOUNTER 2017-06-22 17:24 | Inpatient (IN) | payer MEDICARE, BC ==
[2017-06-22 21:03] LABS: ARTERIAL BLOOD BASE EXCESS -1.3 mmol/L; ARTERIAL BLOOD H2CO3 0.85 mmol/L (1.05-1.35); ARTERIAL BLOOD HCO3 21.1 mmol/L (20-26); ARTERIAL BLOOD O2 SATURATION 96.2 % (94-98); ARTERIAL BLOOD PCO2 28.1 mmHg (35-45); ARTERIAL BLOOD PH 7.49 (7.35-7.45); ARTERIAL BLOOD PO2 74.8 mmHg (80-100)
[2017-06-22 21:14] LABS: ARTERIAL BLOOD FIO2 ROOM AIR
--- NOTE | 2017-06-22 21:16 | EKG REPORT ---
SEVERITY:- ABNORMAL ECG - SINUS TACHYCARDIA PROBABLE LEFT ATRIAL ABNORMALITY LEFT VENTRICULAR HYPERTROPHY : Confirmed by: Albino Herrmann 22-Jun-2017 21:15:30
[2017-06-22] MEDS: NORMAL SALINE 1000 ML 1,000 ML IV PRN (21:30)
[2017-06-22] MEDS: LEVOFLOXACIN 750 MG/D5W RTU 750 MG/150 ML RTUPB IV SCH (21:30)
--- NOTE | 2017-06-22 21:33 | RADIOLOGY REPORT (SQ) ---
EXAM DESCRIPTION: CT CHEST WITHOUT COMPLETED DATE/TIME: 06/22/2017 8:01 pm REASON FOR STUDY: possible PNA COMPARISON: 04/23/2017 TECHNIQUE: CT scan performed of the chest without intravenous contrast. Images reviewed with lung, soft tissue and bone windows. Reconstructed coronal and sagittal MPR images reviewed. All images st ored on PACS. All CT scanners at this facility use dose modulation, iterative reconstruction, and/or weight based d osing when appropriate to reduce radiation dose to as low as reasonably achievable (ALARA). [facility]: Dose Right [facility]: CareDose [facility]: Dose Right [facility]: Teradose 4D [facility]: [employer] RADIATION DOSE: mGy. LIMITATIONS: No technical limitations. FINDINGS: LUNGS AND PLEURA: Small area of patchy airspace disease is present in the posterior aspect of the left lower lobe. Otherwise similar scattered nodules and parenchymal scarring -atelectasis. HILAR AND MEDIASTINAL STRUCTURES: Stable large hiatus hernia. HEART AND VASCULAR STRUCTURES: No aneurysm. No pericardial effusion. UPPER ABDOMEN: No significant findings. Limited exam. THYROID AND OTHER SOFT TISSUES: No masses. No adenopathy. BONES: No acute finding. HARDWARE: None in the chest. OTHER: No other significant findings. IMPRESSION: Small area of patchy airspace disease is present in the posterior aspect of the left low er lobe. TECHNICAL DOCUMENTATION: JOB ID: [id number] [place]-72 Quality ID # [id number]: Final reports with documentation of one or more dose reduction techniques (e.g., Au tomated exposure control, adjustment of the mA and/or kV according to patient size, use of iterative reconstruction technique) 2010 [employer]- All Rights Reserved Reading location - IP/workstation name: [email or web address]
[2017-06-22] MEDS ORDERED: TRAMADOL HCL 50 MG TABLET PO PRN (22:01)
[2017-06-22 22:07] LABS: HEMATOCRIT 32.8 % (36.0-47.0); HEMOGLOBIN 10.6 g/dL (12.0-15.5); MEAN CORPUSCULAR HEMOGLOBIN 28.5 pg (27.0-33.4); MEAN CORPUSCULAR HGB CONC 32.3 g/dL (32.0-36.0); MEAN CORPUSCULAR VOLUME 88 fl (80-97); PLATELET COUNT 361 10^3/uL (150-450); RED BLOOD COUNT 3.73 10^6/uL (3.72-5.28); RED CELL DISTRIBUTION WIDTH 17.1 % (11.5-14.0); WHITE BLOOD COUNT 21.5 10^3/uL (4.0-10.5)
[2017-06-22] MEDS ORDERED: DONEPEZIL HCL 5 MG TABLET PO ONE (22:15)
[2017-06-22] MEDS ORDERED: MEMANTINE HCL 10 MG TABLET PO ONE (22:15)
[2017-06-22] MEDS ORDERED: MEGESTROL ACETATE SUSP 400 MG/10 ML UDCUP PO ONE (22:15)
[2017-06-22 22:26] LABS: ABSOLUTE LYMPHOCYTES# (MANUAL) 2.2 10^3/uL (0.5-4.7); ABSOLUTE MONOCYTES # (MANUAL) 2.4 10^3/uL (0.1-1.4); ANISOCYTOSIS 1+; BASOPHILS % (MANUAL) 0 % (0-2); EOSINOPHILS % (MANUAL) 0 % (0-6); LYMPHOCYTES % (MANUAL) 10 % (13-45); MONOCYTES % (MANUAL) 11 % (3-13); SEGMENTED NEUTROPHILS % (MAN) 79 % (42-78); TOTAL CELLS COUNTED 100; TOXIC GRANULATION SLIGHT
[2017-06-22 22:27] LABS: PLATELET COMMENT ADEQUATE; POIKILOCYTOSIS SLIGHT
[2017-06-22 22:30] LABS: ALANINE AMINOTRANSFERASE 23 U/L (9-52); ALBUMIN 3.2 g/dL (3.5-5.0); ALKALINE PHOSPHATASE 114 U/L (38-126); ANION GAP 14 (5-19); ASPARTATE AMINO TRANSFERASE 20 U/L (14-36); BILIRUBIN,DIRECT 0.2 mg/dL (0.0-0.4); BILIRUBIN,TOTAL 0.2 mg/dL (0.2-1.3); BLOOD UREA NITROGEN 29 mg/dL (7-20); CALCIUM 9.8 mg/dL (8.4-10.2); CARBON DIOXIDE 23 mmol/L (22-30); CHLORIDE 107 mmol/L (98-107); GLUCOSE 124 mg/dL (75-110); POTASSIUM 5.3 mmol/L (3.6-5.0); SODIUM 143.8 mmol/L (137-145); TOTAL PROTEIN 6.9 g/dL (6.3-8.2)
[2017-06-22] MEDS ORDERED: DOCUSATE SODIUM 100 MG CAPSULE PO ONE (23:00)
[2017-06-22] MEDS ORDERED: MEGESTROL ACETATE SUSP 400 MG/10 ML UDCUP ONE (23:17)
[2017-06-23 09:43] LABS: ABSOLUTE BASOPHILS # (AUTO) 0.1 10^3/uL (0.0-0.2); ABSOLUTE EOSINOPHILS # (AUTO) 0.2 10^3/uL (0.0-0.6); ABSOLUTE LYMPHOCYTES (AUTO) 1.7 10^3/uL (0.5-4.7); ABSOLUTE MONOCYTES (AUTO) 1.4 10^3/uL (0.1-1.4); ABSOLUTE NEUT (AUTO) 15.8 10^3/uL (1.7-8.2); BASOPHILS % (AUTO) 0.3 % (0-2); EOSINOPHILS % (AUTO) 1.1 % (0-6); HEMATOCRIT 30.7 % (36.0-47.0); LYMPHOCYTES % (AUTO) 8.9 % (13-45); MEAN CORPUSCULAR HEMOGLOBIN 28.5 pg (27.0-33.4); MEAN CORPUSCULAR HGB CONC 32.6 g/dL (32.0-36.0); MEAN CORPUSCULAR VOLUME 87 fl (80-97); MONOCYTES % (AUTO) 7.2 % (3-13); PLATELET COUNT 343 10^3/uL (150-450); RED BLOOD COUNT 3.52 10^6/uL (3.72-5.28); RED CELL DISTRIBUTION WIDTH 17.4 % (11.5-14.0); SEGMENTED NEUTROPHILS % (AUTO) 82.5 % (42-78); TOTAL CELLS COUNTED % (AUTO) 100 %; WHITE BLOOD COUNT 19.1 10^3/uL (4.0-10.5)
[2017-06-23 09:51] LABS: ANION GAP 10 (5-19); BLOOD UREA NITROGEN 23 mg/dL (7-20); CALCIUM 9.5 mg/dL (8.4-10.2); CARBON DIOXIDE 24 mmol/L (22-30); CHLORIDE 108 mmol/L (98-107); GLUCOSE 96 mg/dL (75-110); POTASSIUM 4.9 mmol/L (3.6-5.0); SODIUM 141.8 mmol/L (137-145)
[2017-06-23 10:20] LABS: ARTERIAL BLOOD H2CO3 0.95 mmol/L (1.05-1.35); ARTERIAL BLOOD PCO2 31.4 mmHg (35-45); ARTERIAL BLOOD PH 7.46 (7.35-7.45); ARTERIAL BLOOD PO2 75.5 mmHg (80-100); ARTERIAL BLOOD TOTAL CO2 22.9 mmol/L (21-25)
--- NOTE | 2017-06-23 10:21 | PDOC CONSULTATION ---
Consultation Consult Date: 06/23/17 Attending physician:: MALIK RAYMUNDO Consult reason:: Pneumonia History of Present Illness Admission Date/PCP: 06/22/17 17:24 MALIK RAYMUNDO MD History of Present Illness: MARLYS TORRES is a 87 year old female,Presented with fever and shortness of breath was found to have a leukocytosis and a multifocal pneumonia she is very confused and answers questions inappropriately I think this is her baseline Past Medical History Cardiac Medical History: Reports: Hypertension Pulmonary Medical History: Reports: Chronic Obstructive Pulmonary Disease (COPD) , Pneumonia Denies: Tuberculosis Neurological Medical History: Denies: Seizures Renal/ Medical History: Denies: End Stage Renal Disease GI Medical History: Reports: Gastroesophageal Reflux Disease Musculoskeltal Medical History: Reports: Arthritis - Rheumatoid arthritis Denies: Fibromyalgia Psychiatric Medical History: Reports: Dementia Past Surgical History Past Surgical History: Reports: Appendectomy, Hysterectomy Denies: Amputation, Section, Cholecystectomy, Coronary Artery Bypass Graft, Gastric Bypass Surgery, Herniorrhaphy, Mastectomy, Pacemaker, Tonsillectomy, Tubal Ligation Social History Information Source: [facility] Records Smoking Status: Former Smoker Frequency of Alcohol Use: None Hx Recreational Drug Use: No Drugs: None Hx Prescription Drug Abuse: No Family History Parental Family History Reviewed: No Children Family History Reviewed: No Sibling(s) Family History Reviewed.: No Medication/Allergy Home Medications: Docusate Sodium [Colace 100 mg Capsule] 100 mg PO DAILY 06/22/17 Donepezil HCl [Aricept] 10 mg PO DAILY 06/22/17 Megestrol Acetate 400 mg PO BID 06/22/17 Memantine HCl [Namenda 10 mg Tablet] 10 mg PO BID 06/22/17 Tramadol HCl [Ultram 50 mg Tablet] 50 mg PO TIDP PRN 06/22/17 Allergies/Adverse Reactions: No Known Allergies Allergy (Verified 02/12/14 08:24) Review of Systems ROS unobtainable: Due to mental status Physical Exam Vital Signs: Temp Pulse Resp BP Pulse Ox 98.9 F 83 16 135/54 H 95 06/23/17 07:41 06/23/17 07:41 06/23/17 07:41 06/23/17 07:41 06/23/17 07:41 Intake & Output 06/22/17 06/23/17 06/24/17 06:59 06:59 06:59 Intake Total 0 Balance 0 Weight 66.8 kg General appearance: PRESENT: no acute distress, cooperative, disheveled, well- developed Head exam: PRESENT: atraumatic, normocephalic Eye exam: PRESENT: conjunctiva pale, EOMI. ABSENT: nystagmus, periorbital swelling Mouth exam: PRESENT: dry mucosa, neck supple, tongue midline Neck exam: ABSENT: carotid bruit, JVD, lymphadenopathy, thyromegaly, tracheal deviation, tracheostomy Respiratory exam: PRESENT: decreased breath sounds, prolonged expiratory phas, rales, rhonchi, unlabored. ABSENT: retraction, stridor, tachypnea Cardiovascular exam: PRESENT: RRR, +S1, +S2 Pulses: PRESENT: normal radial pulses GI/Abdominal exam: PRESENT: normal bowel sounds, soft Extremities exam: ABSENT: calf tenderness, clubbing, joint swelling Musculoskeletal exam: ABSENT: deformity Neurological exam: PRESENT: altered, awake Psychiatric exam: PRESENT: normal mood Skin exam: PRESENT: dry, warm Results Laboratory Results: 06/23/17 09:14 06/23/17 09:14 06/22/17 06/22/17 06/22/17 20:50 21:25 21:25 WBC 21.5 H RBC 3.73 Hgb 10.6 L Hct 32.8 L MCV 88 MCH 28.5 MCHC 32.3 RDW 17.1 H Plt Count 361 Seg Neutrophils % Not Reportable Lymphocytes % Not Reportable Monocytes % Not Reportable Eosinophils % Not Reportable Basophils % Not Reportable Absolute Neutrophils Not Reportable Absolute Lymphocytes Not Reportable Absolute Monocytes Not Reportable Absolute Eosinophils Not Reportable Absolute Basophils Not Reportable Carbonic Acid 0.85 L HCO3/H2CO3 Ratio 24:1 ABG pH 7.49 H ABG pCO2 28.1 L ABG pO2 74.8 L ABG HCO3 21.1 ABG O2 Saturation 96.2 ABG Base Excess -1.3 FiO2 ROOM AIR Sodium 143.8 Potassium 5.3 H Chloride 107 Carbon Dioxide 23 Anion Gap 14 BUN 29 H Creatinine 1.32 H Est GFR ( Amer) 46 L Est GFR (Non-Af Amer) 38 L Glucose 124 H Calcium 9.8 Magnesium Total Bilirubin 0.2 AST 20 ALT 23 Alkaline Phosphatase 114 Total Protein 6.9 Albumin 3.2 L 06/23/17 06/23/17 09:14 09:14 WBC 19.1 H RBC 3.52 L Hgb 10.0 L Hct 30.7 L MCV 87 MCH 28.5 MCHC 32.6 RDW 17.4 H Plt Count 343 Seg Neutrophils % 82.5 H Lymphocytes % 8.9 L Monocytes % 7.2 Eosinophils % 1.1 Basophils % 0.3 Absolute Neutrophils 15.8 H Absolute Lymphocytes 1.7 Absolute Monocytes 1.4 Absolute Eosinophils 0.2 Absolute Basophils 0.1 Carbonic Acid HCO3/H2CO3 Ratio ABG pH ABG pCO2 ABG pO2 ABG HCO3 ABG O2 Saturation ABG Base Excess FiO2 Sodium 141.8 Potassium 4.9 Chloride 108 H Carbon Dioxide 24 Anion Gap 10 BUN 23 H Creatinine 1.06 Est GFR ( Amer) > 60 Est GFR (Non-Af Amer) 49 L Glucose 96 Calcium 9.5 Magnesium 2.1 Total Bilirubin AST ALT Alkaline Phosphatase Total Protein Albumin Impressions: Chest CT 06/22/17 00:00 IMPRESSION: Small area of patchy airspace disease is present in the posterior aspect of the left lower lobe. Assessment & Plan - Diagnosis (1) GERD (gastroesophageal reflux disease) Is this a current diagnosis for this admission?: Yes Plan: Massive hiatal hernia seen on CT scan suggest keeping 60 or higher to the diminished risk of aspiration (2) Pneumonia Qualifiers: Is this a current diagnosis for this admission?: Yes Plan: Diffuse patchy infiltrates, leukocytosis (3) Dementia Qualifiers: Dementia type: Alzheimer's disease Alzheimer's disease onset: late-onset Dementia behavioral disturbance: without behavioral disturbance Qualified Code (s): G30.1 - Alzheimer's disease with late onset; F02.80 - Dementia in other diseases classified elsewhere without behavioral disturbance; F02.80 - Dementia in other diseases classified elsewhere without behavioral disturbance; F02.80 - Dementia in other diseases classified elsewhere without behavioral disturbance Is this a current diagnosis for this admission?: Yes Plan: Not well oriented to place time or event
[2017-06-23 10:24] LABS: ARTERIAL BLOOD FIO2 ROOM AIR
[2017-06-23] MEDS: DONEPEZIL HCL 5 MG TABLET PO SCH (10:49)
[2017-06-23] MEDS: DOCUSATE SODIUM 100 MG CAPSULE PO SCH (10:49)
[2017-06-23] MEDS: MEMANTINE HCL 10 MG TABLET PO SCH ×2 (10:49→17:25)
[2017-06-23] MEDS: MEGESTROL ACETATE SUSP 400 MG/10 ML UDCUP PO SCH ×2 (10:49→17:25)
[2017-06-23] MEDS: NORMAL SALINE 1000 ML 1,000 ML IV PRN (10:50)
--- NOTE | 2017-06-23 18:11 | PDOC H&P ---
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 She has a history of pneumonia, she was admitted directly from the office to the hospital for further management and evaluation.The CT chest that was done showed new pneumonia process, she has multiple hospitalization for infection related condition including pneumonia, UTI. The last time she was in the office, she had cognitive evaluation with Mini-Mental state examination protocol, she scored 9 out of 30 consistent with moderate to severe dementia. She has a very loving family, the daughter knows that this is a progressive disease and most likely she would not get better patient's spouse is yet to be convinced but hopefully I will discuss with him again to make him understand that she probably will from infection related condition, pneumonia, UTI sepsis Past Medical History Cardiac Medical History: Reports: Hypertension Pulmonary Medical History: Reports: Chronic Obstructive Pulmonary Disease (COPD) , Pneumonia GI Medical History: Reports: Gastroesophageal Reflux Disease Musculoskeltal Medical History: Reports: Arthritis - Rheumatoid arthritis, Other - Rheumatoid arthritis Psychiatric Medical History: Reports: Dementia Past Surgical History Past Surgical History: Reports: Appendectomy, Hysterectomy Social History Smoking Status: Former Smoker Frequency of Alcohol Use: None Hx Recreational Drug Use: No Drugs: None Hx Prescription Drug Abuse: No Family History Parental Family History Reviewed: Yes Children Family History Reviewed: Yes Sibling(s) Family History Reviewed.: Yes Medication/Allergy Home Medications: Docusate Sodium [Colace 100 mg Capsule] 100 mg PO DAILY 06/22/17 Donepezil HCl [Aricept] 10 mg PO DAILY 06/22/17 Megestrol Acetate 400 mg PO BID 06/22/17 Memantine HCl [Namenda 10 mg Tablet] 10 mg PO BID 06/22/17 Tramadol HCl [Ultram 50 mg Tablet] 50 mg PO TIDP PRN 06/22/17 Allergies/Adverse Reactions: No Known Allergies Allergy (Verified 02/12/14 08:24) Review of Systems ROS unobtainable: Due to mental status Ears: ABSENT: hearing changes Cardiovascular: ABSENT: as per HPI, chest pain, dyspnea on exertion, edema, orthropnea, palpitations, other Respiratory: ABSENT: cough, hemoptysis Gastrointestinal: ABSENT: abdominal pain, constipation, diarrhea, hematemesis, hematochezia, nausea, vomiting Genitourinary: ABSENT: dysuria, hematuria Musculoskeletal: ABSENT: joint swelling Integumentary: ABSENT: rash, wounds Neurological: ABSENT: abnormal gait, abnormal speech, confusion, dizziness, focal weakness, syncope Psychiatric: ABSENT: anxiety, depression, homidical ideation, suicidal ideation Endocrine: ABSENT: cold intolerance, heat intolerance, menstrual abnormalities, polydipsia, polyuria Hematologic/Lymphatic: ABSENT: easy bleeding, easy bruising, lymphadenopathy Physical Exam Vital Signs: Temp Pulse Resp BP Pulse Ox 97.6 F 101 H 17 145/66 H 99 06/23/17 15:29 06/23/17 15:29 06/23/17 15:29 06/23/17 15:29 06/23/17 15:29 Intake & Output 06/22/17 06/23/17 06/24/17 06:59 06:59 06:59 Intake Total 0 Balance 0 Weight 66.8 kg General appearance: PRESENT: severe distress Head exam: PRESENT: atraumatic, normocephalic Ear exam: PRESENT: normal external ear exam Neck exam: PRESENT: full ROM Respiratory exam: PRESENT: crackles, rhonchi Cardiovascular exam: PRESENT: RRR, +S1, +S2 Vascular exam: PRESENT: normal capillary refill GI/Abdominal exam: PRESENT: normal bowel sounds, soft Rectal exam: PRESENT: deferred Neurological exam: PRESENT: alert Skin exam: PRESENT: dry, intact, warm Results Laboratory Results: 06/23/17 09:14 06/23/17 09:14 06/22/17 06/22/17 06/22/17 20:50 21:25 21:25 WBC 21.5 H RBC 3.73 Hgb 10.6 L Hct 32.8 L MCV 88 MCH 28.5 MCHC 32.3 RDW 17.1 H Plt Count 361 Seg Neutrophils % Not Reportable Lymphocytes % Not Reportable Monocytes % Not Reportable Eosinophils % Not Reportable Basophils % Not Reportable Absolute Neutrophils Not Reportable Absolute Lymphocytes Not Reportable Absolute Monocytes Not Reportable Absolute Eosinophils Not Reportable Absolute Basophils Not Reportable Carbonic Acid 0.85 L HCO3/H2CO3 Ratio 24:1 ABG pH 7.49 H ABG pCO2 28.1 L ABG pO2 74.8 L ABG HCO3 21.1 ABG O2 Saturation 96.2 ABG Base Excess -1.3 FiO2 ROOM AIR Sodium 143.8 Potassium 5.3 H Chloride 107 Carbon Dioxide 23 Anion Gap 14 BUN 29 H Creatinine 1.32 H Est GFR ( Amer) 46 L Est GFR (Non-Af Amer) 38 L Glucose 124 H Calcium 9.8 Magnesium Total Bilirubin 0.2 AST 20 ALT 23 Alkaline Phosphatase 114 Total Protein 6.9 Albumin 3.2 L 06/23/17 06/23/17 06/23/17 09:14 09:14 09:52 WBC 19.1 H RBC 3.52 L Hgb 10.0 L Hct 30.7 L MCV 87 MCH 28.5 MCHC 32.6 RDW 17.4 H Plt Count 343 Seg Neutrophils % 82.5 H Lymphocytes % 8.9 L Monocytes % 7.2 Eosinophils % 1.1 Basophils % 0.3 Absolute Neutrophils 15.8 H Absolute Lymphocytes 1.7 Absolute Monocytes 1.4 Absolute Eosinophils 0.2 Absolute Basophils 0.1 Carbonic Acid 0.95 L HCO3/H2CO3 Ratio 23:1 ABG pH 7.46 H ABG pCO2 31.4 L ABG pO2 75.5 L ABG HCO3 22.0 ABG O2 Saturation 96.0 ABG Base Excess -1.0 FiO2 ROOM AIR Sodium 141.8 Potassium 4.9 Chloride 108 H Carbon Dioxide 24 Anion Gap 10 BUN 23 H Creatinine 1.06 Est GFR ( Amer) > 60 Est GFR (Non-Af Amer) 49 L Glucose 96 Calcium 9.5 Magnesium 2.1 Total Bilirubin AST ALT Alkaline Phosphatase Total Protein Albumin Impressions: Chest CT 06/22/17 00:00 IMPRESSION: Small area of patchy airspace disease is present in the posterior aspect of the left lower lobe. Assessment & Plan - Diagnosis (1) Pneumonia Qualifiers: Pneumonia type: due to unspecified organism Laterality: unspecified laterality Lung location: unspecified part of lung Qualified Code(s): J18.9 - Pneumonia, unspecified organism Is this a current diagnosis for this admission?: Yes Plan: Start IV antibiotic and hydration (2) Acute kidney injury Is this a current diagnosis for this admission?: Yes (3) Adult failure to thrive Is this a current diagnosis for this admission?: Yes (4) Dehydration Is this a current diagnosis for this admission?: Yes (5) Dementia Qualifiers: Dementia type: Alzheimer's disease Alzheimer's disease onset: late-onset Dementia behavioral disturbance: without behavioral disturbance Qualified Code (s): G30.1 - Alzheimer's disease with late onset; F02.80 - Dementia in other diseases classified elsewhere without behavioral disturbance; F02.80 - Dementia in other diseases classified elsewhere without behavioral disturbance; F02.80 - Dementia in other diseases classified elsewhere without behavioral disturbance Is this a current diagnosis for this admission?: Yes (6) Pulmonary hypertension Is this a current diagnosis for this admission?: Yes (7) Rheumatoid arthritis Qualifiers: Rheumatoid arthritis location: unspecified site Rheumatoid factor presence : unspecified presence Qualified Code(s): M06.9 - Rheumatoid arthritis, unspecified Is this a current diagnosis for this admission?: Yes (8) Senile dementia of Alzheimer's type Is this a current diagnosis for this admission?: Yes
[2017-06-23] MEDS ORDERED: CEFTRIAXONE 1 GM/D5W RTU 50 ML IV SCH (19:00)
[2017-06-23] MEDS ORDERED: CEFTRIAXONE SODIUM 1,000 MG in DEXTROSE 5%-WATER 50 ML IV ONE (19:00)
--- NOTE | 2017-06-23 22:47 | Progress Note ---
Provider Note Provider Note: Palliative Care Consult visit 06/23/17 2:20 pm Mrs. Madden is an 87 year old woman with advanced dementia who is admitted with pneumonia at present. SHe lives at home with her who is very protective of her and directs her care very closely. Attempted Palliative Care consult visit but nurse said daughter wanted to talk with me first. SHe came into hallway and said ehr father did not want her mother to "have palliative care", that she is not that bad yet. I explained that my role in palliaitve care is only to address symptoms, provide support for patients with life limiting illnesses, and discuss advance directives and other options for care as needed. I did speak with patients daughter for some time about hospice care at home , home health care and the difference between the two, transition time for home health to hospice as they have [facility] home [facility] and this company also offers hospice services. We discussed at length the options of CPR, intubation for ventilation, artificial feedings, IV fluids and aggressive IV antibiotics, agressive oxygen administration etc, vs. comfort care and gentle treatment of infections etc in the home setting without repeated hospitalizations. I did review the MOST form with daughter but she did not want me to discuss it with her father. I met Mr. Madden but did not discuss my role, we talked about patietns care and need and I allowed time for him to become acquainted with me so we can further discuss care options and advance directives at another time. This pleased the daughter who said she would review the MOST form with siblings and her father. Will follow during course of admission. I gave daughter my cell phone number in case of questions or concerns.
[2017-06-24] MEDS: NORMAL SALINE 1000 ML 1,000 ML IV PRN ×2 (01:21→16:14)
[2017-06-24] MEDS: DONEPEZIL HCL 5 MG TABLET PO SCH (10:17)
[2017-06-24] MEDS: MEGESTROL ACETATE SUSP 400 MG/10 ML UDCUP PO SCH ×2 (10:17→18:06)
[2017-06-24] MEDS: DOCUSATE SODIUM 100 MG CAPSULE PO SCH (10:17)
[2017-06-24] MEDS: MEMANTINE HCL 10 MG TABLET PO SCH ×2 (10:17→18:06)
--- NOTE | 2017-06-24 11:25 | PDOC PROGRESS REPORT ---
Subjective Progress Note for:: 06/24/17 Subjective:: Confused but without complaints Reason For Visit: ACUTE HYPOXEMIA, RESPIRATORY FAILURE Physical Exam Vital Signs: Temp Pulse Resp BP Pulse Ox 98.1 F 83 16 147/58 H 94 06/24/17 07:29 06/24/17 07:29 06/24/17 07:29 06/24/17 07:29 06/24/17 07:29 Intake & Output 06/23/17 06/24/17 06/25/17 06:59 06:59 06:59 Intake Total 0 1250 Balance 0 1250 Weight 66.8 kg 58.2 kg General appearance: PRESENT: no acute distress, cooperative, disheveled, thin Head exam: PRESENT: atraumatic, normocephalic Eye exam: PRESENT: conjunctiva pale, EOMI. ABSENT: nystagmus, periorbital swelling, scleral icterus Mouth exam: PRESENT: dry mucosa, neck supple, tongue midline Neck exam: ABSENT: carotid bruit, JVD, lymphadenopathy, thyromegaly, tracheal deviation, tracheostomy Respiratory exam: PRESENT: decreased breath sounds, prolonged expiratory phas, rales, rhonchi, unlabored. ABSENT: retraction, stridor, tachypnea Cardiovascular exam: PRESENT: RRR, +S1, +S2. ABSENT: tachycardia Pulses: PRESENT: normal radial pulses GI/Abdominal exam: PRESENT: normal bowel sounds, soft Extremities exam: ABSENT: calf tenderness, clubbing, joint swelling Musculoskeletal exam: ABSENT: deformity, dislocation Neurological exam: PRESENT: awake, oriented to person, oriented to place. ABSENT: oriented to time, oriented to situation Psychiatric exam: PRESENT: normal mood Skin exam: PRESENT: dry, warm Results Laboratory Results: 06/23/17 09:14 06/23/17 09:14 06/23/17 06/23/17 06/23/17 09:14 09:14 09:52 WBC 19.1 H RBC 3.52 L Hgb 10.0 L Hct 30.7 L MCV 87 MCH 28.5 MCHC 32.6 RDW 17.4 H Plt Count 343 Seg Neutrophils % 82.5 H Lymphocytes % 8.9 L Monocytes % 7.2 Eosinophils % 1.1 Basophils % 0.3 Absolute Neutrophils 15.8 H Absolute Lymphocytes 1.7 Absolute Monocytes 1.4 Absolute Eosinophils 0.2 Absolute Basophils 0.1 Carbonic Acid 0.95 L HCO3/H2CO3 Ratio 23:1 ABG pH 7.46 H ABG pCO2 31.4 L ABG pO2 75.5 L ABG HCO3 22.0 ABG O2 Saturation 96.0 ABG Base Excess -1.0 FiO2 ROOM AIR Sodium 141.8 Potassium 4.9 Chloride 108 H Carbon Dioxide 24 Anion Gap 10 BUN 23 H Creatinine 1.06 Est GFR ( Amer) > 60 Est GFR (Non-Af Amer) 49 L Glucose 96 Calcium 9.5 Magnesium 2.1 Impressions: Chest CT 06/22/17 00:00 IMPRESSION: Small area of patchy airspace disease is present in the posterior aspect of the left lower lobe. Assessment & Plan - Diagnosis (1) GERD (gastroesophageal reflux disease) Is this a current diagnosis for this admission?: Yes Plan: Massive hiatal hernia seen on CT scan suggest keeping 60 or higher to the diminished risk of aspiration (2) Pneumonia Qualifiers: Is this a current diagnosis for this admission?: Yes Plan: Diffuse patchy infiltrates, leukocytosis (3) Dementia Qualifiers: Dementia type: Alzheimer's disease Alzheimer's disease onset: late-onset Dementia behavioral disturbance: without behavioral disturbance Qualified Code (s): G30.1 - Alzheimer's disease with late onset; F02.80 - Dementia in other diseases classified elsewhere without behavioral disturbance; F02.80 - Dementia in other diseases classified elsewhere without behavioral disturbance; F02.80 - Dementia in other diseases classified elsewhere without behavioral disturbance Is this a current diagnosis for this admission?: Yes Plan: Not well oriented to place time or event
[2017-06-24 12:46] LABS: APPEARANCE,URINE CLEAR; BILIRUBIN,URINE NEGATIVE (NEGATIVE); COLOR,URINE STRAW; GLUCOSE, URINE NEGATIVE (NEGATIVE); KETONES,URINE NEGATIVE (NEGATIVE); LEUKOCYTE ESTERASE,URINE NEGATIVE (NEGATIVE); NITRITE,URINE NEGATIVE (NEGATIVE); PROTEIN,URINE NEGATIVE (NEGATIVE); URINE SPECIFIC GRAVITY 1.008; UROBILINOGEN,URINE NEGATIVE mg/dL (<2.0)
[2017-06-24] MEDS: CEFTRIAXONE SODIUM 1,000 MG in DEXTROSE 5%-WATER 50 ML IV SCH (18:06)
--- NOTE | 2017-06-24 21:02 | PDOC PROGRESS REPORT ---
Subjective Progress Note for:: 06/24/17 Subjective:: She was seen by the bedside family questions answered Reason For Visit: ACUTE HYPOXEMIA, RESPIRATORY FAILURE Physical Exam Vital Signs: Temp Pulse Resp BP Pulse Ox 99.2 F 94 18 149/58 H 99 06/24/17 15:40 06/24/17 19:00 06/24/17 15:40 06/24/17 15:40 06/24/17 15:40 Intake & Output 06/23/17 06/24/17 06/25/17 06:59 06:59 06:59 Intake Total 0 1250 1350 Balance 0 1250 1350 Weight 66.8 kg 58.2 kg General appearance: PRESENT: no acute distress Eye exam: PRESENT: PERRLA Respiratory exam: PRESENT: rhonchi Cardiovascular exam: PRESENT: +S1, +S2 GI/Abdominal exam: PRESENT: soft Neurological exam: PRESENT: alert Results Laboratory Results: 06/23/17 09:14 06/23/17 09:14 06/24/17 12:27 Urine Color STRAW Urine Appearance CLEAR Urine pH 7.0 Ur Specific [place] 1.008 Urine Protein NEGATIVE Urine Glucose (UA) NEGATIVE Urine Ketones NEGATIVE Urine Blood NEGATIVE Urine Nitrite NEGATIVE Ur Leukocyte Esterase NEGATIVE Urine WBC (Auto) 1 Urine RBC (Auto) 0 Impressions: Chest CT 06/22/17 00:00 IMPRESSION: Small area of patchy airspace disease is present in the posterior aspect of the left lower lobe. Assessment & Plan - Diagnosis (1) Pneumonia Qualifiers: Pneumonia type: due to unspecified organism Laterality: unspecified laterality Lung location: unspecified part of lung Qualified Code(s): J18.9 - Pneumonia, unspecified organism Is this a current diagnosis for this admission?: Yes (2) Acute kidney injury Is this a current diagnosis for this admission?: Yes (3) Adult failure to thrive Is this a current diagnosis for this admission?: Yes (4) Dehydration Is this a current diagnosis for this admission?: Yes (5) Dementia Qualifiers: Dementia type: Alzheimer's disease Alzheimer's disease onset: late-onset Dementia behavioral disturbance: without behavioral disturbance Qualified Code (s): G30.1 - Alzheimer's disease with late onset; F02.80 - Dementia in other diseases classified elsewhere without behavioral disturbance; F02.80 - Dementia in other diseases classified elsewhere without behavioral disturbance; F02.80 - Dementia in other diseases classified elsewhere without behavioral disturbance Is this a current diagnosis for this admission?: Yes (6) Pulmonary hypertension Is this a current diagnosis for this admission?: Yes (7) Rheumatoid arthritis Qualifiers: Rheumatoid arthritis location: unspecified site Rheumatoid factor presence : unspecified presence Qualified Code(s): M06.9 - Rheumatoid arthritis, unspecified Is this a current diagnosis for this admission?: Yes (8) Senile dementia of Alzheimer's type Is this a current diagnosis for this admission?: Yes
[2017-06-24] MEDS: LEVOFLOXACIN 750 MG/D5W RTU 750 MG/150 ML RTUPB IV SCH (21:14)
[2017-06-25] MEDS: MEMANTINE HCL 10 MG TABLET PO SCH ×2 (10:57→17:29)
[2017-06-25] MEDS: DONEPEZIL HCL 5 MG TABLET PO SCH (10:58)
[2017-06-25] MEDS: DOCUSATE SODIUM 100 MG CAPSULE PO SCH (10:58)
[2017-06-25] MEDS: MEGESTROL ACETATE SUSP 400 MG/10 ML UDCUP PO SCH ×2 (11:00→17:30)
[2017-06-25] MEDS: CEFTRIAXONE SODIUM 1,000 MG in DEXTROSE 5%-WATER 50 ML IV SCH (17:30)
--- NOTE | 2017-06-25 21:06 | PDOC PROGRESS REPORT ---
Subjective Progress Note for:: 06/25/17 Subjective:: Patient seen by the bedside, admitted for pneumonia Reason For Visit: ACUTE HYPOXEMIA, RESPIRATORY FAILURE Physical Exam Vital Signs: Temp Pulse Resp BP Pulse Ox 97.8 F 98 18 143/46 H 99 06/25/17 15:51 06/25/17 15:51 06/25/17 15:51 06/25/17 15:51 06/25/17 15:51 Intake & Output 06/24/17 06/25/17 06/26/17 06:59 06:59 06:59 Intake Total 1250 1700 1470 Balance 1250 1700 1470 Weight 58.2 kg 65.7 kg General appearance: PRESENT: no acute distress Eye exam: PRESENT: PERRLA Respiratory exam: PRESENT: clear to auscultation [place] Cardiovascular exam: PRESENT: +S1, +S2 GI/Abdominal exam: PRESENT: soft Neurological exam: PRESENT: alert Results Laboratory Results: 06/23/17 09:14 06/23/17 09:14 Impressions: Chest CT 06/22/17 00:00 IMPRESSION: Small area of patchy airspace disease is present in the posterior aspect of the left lower lobe. Assessment & Plan - Diagnosis (1) Pneumonia Qualifiers: Pneumonia type: due to unspecified organism Laterality: unspecified laterality Lung location: unspecified part of lung Qualified Code(s): J18.9 - Pneumonia, unspecified organism Is this a current diagnosis for this admission?: Yes (2) Acute kidney injury Is this a current diagnosis for this admission?: Yes (3) Adult failure to thrive Is this a current diagnosis for this admission?: Yes (4) Dehydration Is this a current diagnosis for this admission?: Yes (5) Dementia Qualifiers: Dementia type: Alzheimer's disease Alzheimer's disease onset: late-onset Dementia behavioral disturbance: without behavioral disturbance Qualified Code (s): G30.1 - Alzheimer's disease with late onset; F02.80 - Dementia in other diseases classified elsewhere without behavioral disturbance; F02.80 - Dementia in other diseases classified elsewhere without behavioral disturbance; F02.80 - Dementia in other diseases classified elsewhere without behavioral disturbance Is this a current diagnosis for this admission?: Yes (6) Pulmonary hypertension Is this a current diagnosis for this admission?: Yes (7) Rheumatoid arthritis Qualifiers: Rheumatoid arthritis location: unspecified site Rheumatoid factor presence : unspecified presence Qualified Code(s): M06.9 - Rheumatoid arthritis, unspecified Is this a current diagnosis for this admission?: Yes (8) Senile dementia of Alzheimer's type Is this a current diagnosis for this admission?: Yes
[2017-06-25] MEDS: NORMAL SALINE 1000 ML 1,000 ML IV PRN (21:46)
--- NOTE | 2017-06-26 10:50 | PDOC PROGRESS REPORT ---
Subjective Progress Note for:: 06/26/17 Subjective:: Patient is currently doing well Patient was admitted because of the pneumonia Daughter is on a bedside Patient's p.o. intake is fair Patient was last night was agitated and daughter was asking to give her some medications tonight for agitations Patient's was tried the Ativan in the past but the making the worse and daughter wants to try something different medications Reason For Visit: ACUTE HYPOXEMIA, RESPIRATORY FAILURE Physical Exam Vital Signs: Temp Pulse Resp BP Pulse Ox 98.4 F 78 14 157/70 H 99 06/26/17 07:41 06/26/17 07:41 06/26/17 07:41 06/26/17 07:41 06/26/17 07:41 Intake & Output 06/25/17 06/26/17 06/27/17 06:59 06:59 06:59 Intake Total 1700 1822 Balance 1700 1822 Weight 65.7 kg 65.7 kg General appearance: PRESENT: no acute distress, well-developed, well-nourished Head exam: PRESENT: atraumatic, normocephalic Eye exam: PRESENT: conjunctiva pink, EOMI, PERRLA. ABSENT: scleral icterus Ear exam: PRESENT: normal external ear exam Mouth exam: PRESENT: moist, tongue midline Neck exam: PRESENT: full ROM. ABSENT: carotid bruit, JVD, lymphadenopathy, thyromegaly Cardiovascular exam: PRESENT: RRR. ABSENT: diastolic murmur, rubs, systolic murmur Pulses: PRESENT: normal dorsalis pedis pul, +2 pedal pulses bilateral Vascular exam: PRESENT: normal capillary refill GI/Abdominal exam: PRESENT: normal bowel sounds, soft. ABSENT: distended, guarding, mass, organolmegaly, rebound, tenderness Rectal exam: PRESENT: deferred Neurological exam: PRESENT: alert, awake, oriented to person, oriented to place. ABSENT: motor sensory deficit Psychiatric exam: PRESENT: appropriate affect, normal mood. ABSENT: homicidal ideation, suicidal ideation Skin exam: PRESENT: dry, intact, warm. ABSENT: cyanosis, rash Results Laboratory Results: 06/23/17 09:14 06/23/17 09:14 Impressions: Chest CT 06/22/17 00:00 IMPRESSION: Small area of patchy airspace disease is present in the posterior aspect of the left lower lobe. Assessment & Plan - Diagnosis (1) Pneumonia Qualifiers: Pneumonia type: due to unspecified organism Laterality: unspecified laterality Lung location: unspecified part of lung Qualified Code(s): J18.9 - Pneumonia, unspecified organism Is this a current diagnosis for this admission?: Yes (2) Adult failure to thrive Is this a current diagnosis for this admission?: Yes (3) Dementia Qualifiers: Dementia type: Alzheimer's disease Is this a current diagnosis for this admission?: Yes (4) GERD (gastroesophageal reflux disease) Is this a current diagnosis for this admission?: Yes - Time Time Spent with patient: 15-24 minutes Medications reviewed and adjusted accordingly: Yes Anticipated discharge: Other Within: Other - Inpatient Certification Medical Necessity: Need For IV Fluids, Need for IV Antibiotics - Plan Summary Plan Summary: Continues to IV antibiotic Discussed with the daughter will try the Haldol as needed for agitation and daughter agree
[2017-06-26] MEDS: DONEPEZIL HCL 5 MG TABLET PO SCH (11:36)
[2017-06-26] MEDS: MEMANTINE HCL 10 MG TABLET PO SCH ×2 (11:36→18:25)
[2017-06-26] MEDS: DOCUSATE SODIUM 100 MG CAPSULE PO SCH (11:36)
[2017-06-26] MEDS: MEGESTROL ACETATE SUSP 400 MG/10 ML UDCUP PO SCH ×2 (11:36→18:25)
[2017-06-26] MEDS: CEFTRIAXONE SODIUM 1,000 MG in DEXTROSE 5%-WATER 50 ML IV SCH (18:25)
[2017-06-26] MEDS: LEVOFLOXACIN 750 MG TABLET PO SCH (21:38)
[2017-06-26] MEDS: HALOPERIDOL LACTATE INJ 5 MG/1 ML VIAL IV PRN (21:38)
[2017-06-27] MEDS: NORMAL SALINE 1000 ML 1,000 ML IV PRN ×2 (10:11→21:01)
[2017-06-27] MEDS: DONEPEZIL HCL 5 MG TABLET PO SCH (10:15)
[2017-06-27] MEDS: MEMANTINE HCL 10 MG TABLET PO SCH ×2 (10:15→17:54)
[2017-06-27] MEDS: DOCUSATE SODIUM 100 MG CAPSULE PO SCH (10:16)
[2017-06-27] MEDS: MEGESTROL ACETATE SUSP 400 MG/10 ML UDCUP PO SCH ×2 (10:16→17:55)
--- NOTE | 2017-06-27 10:30 | PDOC PROGRESS REPORT ---
Subjective Progress Note for:: 06/27/17 Subjective:: Patient is currently doing well Since receiving the Haldol and according to the nursing staff patient slept very well and no agitations Family conern patients did not eat pretty good this morningOther than that no other complaints Still have a some mild cough and congestion's Reason For Visit: ACUTE HYPOXEMIA, RESPIRATORY FAILURE Physical Exam Vital Signs: Temp Pulse Resp BP Pulse Ox 98.0 F 77 16 157/81 H 98 06/27/17 03:41 06/27/17 07:00 06/27/17 03:41 06/27/17 03:41 06/27/17 03:41 Intake & Output 06/26/17 06/27/17 06/28/17 06:59 06:59 06:59 Intake Total 1822 2875 Balance 1822 2875 Weight 65.7 kg 65.3 kg General appearance: PRESENT: no acute distress, well-developed, well-nourished Head exam: PRESENT: atraumatic, normocephalic Eye exam: PRESENT: conjunctiva pink, EOMI, PERRLA. ABSENT: scleral icterus Ear exam: PRESENT: normal external ear exam Mouth exam: PRESENT: moist, tongue midline Neck exam: PRESENT: full ROM. ABSENT: carotid bruit, JVD, lymphadenopathy, thyromegaly Respiratory exam: PRESENT: clear to auscultation [place] Cardiovascular exam: PRESENT: RRR. ABSENT: diastolic murmur, rubs, systolic murmur Pulses: PRESENT: normal dorsalis pedis pul, +2 pedal pulses bilateral Vascular exam: PRESENT: normal capillary refill GI/Abdominal exam: PRESENT: normal bowel sounds, soft. ABSENT: distended, guarding, mass, organolmegaly, rebound, tenderness Rectal exam: PRESENT: deferred Extremities exam: ABSENT: pedal edema Neurological exam: PRESENT: alert, awake, oriented to person, oriented to place. ABSENT: motor sensory deficit Psychiatric exam: PRESENT: appropriate affect, normal mood. ABSENT: homicidal ideation, suicidal ideation Skin exam: PRESENT: dry, intact, warm. ABSENT: cyanosis, rash Results Laboratory Results: 06/23/17 09:14 06/23/17 09:14 Impressions: Chest CT 06/22/17 00:00 IMPRESSION: Small area of patchy airspace disease is present in the posterior aspect of the left lower lobe. Assessment & Plan - Diagnosis (1) Pneumonia Qualifiers: Pneumonia type: due to unspecified organism Laterality: unspecified laterality Lung location: unspecified part of lung Qualified Code(s): J18.9 - Pneumonia, unspecified organism Is this a current diagnosis for this admission?: Yes (2) Adult failure to thrive Is this a current diagnosis for this admission?: Yes (3) Dementia Qualifiers: Dementia type: Alzheimer's disease Is this a current diagnosis for this admission?: Yes (4) GERD (gastroesophageal reflux disease) Is this a current diagnosis for this admission?: Yes - Time Time Spent with patient: 15-24 minutes Medications reviewed and adjusted accordingly: Yes Anticipated discharge: Other Within: Other - Inpatient Certification Medical Necessity: Need Close Monitoring Due to Risk of Patient Decompensation, Need for IV Antibiotics Post Hospital Care: D/C [employer] Technician Documentation - Plan Summary Plan Summary: Discussed with the patient's family about the Haldol patient's had a super no side effect except patients did not eat in the morning and discussed with the patient's family if any concern may not use it Discussed with the patient's family and nurses to add a dietary consult Add the Mucinex twice a day
[2017-06-27] MEDS ORDERED: GUAIFENESIN 600 MG TABLET.SA PO ONE (11:00)
[2017-06-27] MEDS: CEFTRIAXONE SODIUM 1,000 MG in DEXTROSE 5%-WATER 50 ML IV SCH (17:53)
[2017-06-27] MEDS: GUAIFENESIN 600 MG TABLET.SA PO SCH (17:54)
[2017-06-27] MEDS: HALOPERIDOL LACTATE INJ 5 MG/1 ML VIAL IV PRN (21:01)
[2017-06-28 06:39] LABS: HEMOGLOBIN 10.4 g/dL (12.0-15.5); MEAN CORPUSCULAR HEMOGLOBIN 28.7 pg (27.0-33.4); MEAN CORPUSCULAR HGB CONC 33.4 g/dL (32.0-36.0); MEAN CORPUSCULAR VOLUME 86 fl (80-97); PLATELET COUNT 396 10^3/uL (150-450); RED BLOOD COUNT 3.61 10^6/uL (3.72-5.28); RED CELL DISTRIBUTION WIDTH 17.5 % (11.5-14.0); WHITE BLOOD COUNT 15.1 10^3/uL (4.0-10.5)
[2017-06-28 06:57] LABS: ANION GAP 13 (5-19); BLOOD UREA NITROGEN 20 mg/dL (7-20); CALCIUM 9.5 mg/dL (8.4-10.2); CARBON DIOXIDE 19 mmol/L (22-30); CHLORIDE 111 mmol/L (98-107); GLUCOSE 94 mg/dL (75-110); POTASSIUM 4.9 mmol/L (3.6-5.0); SODIUM 142.6 mmol/L (137-145)
[2017-06-28 07:37] LABS: ABSOLUTE LYMPHOCYTES# (MANUAL) 1.7 10^3/uL (0.5-4.7); ABSOLUTE MONOCYTES # (MANUAL) 0.9 10^3/uL (0.1-1.4); ABSOLUTE NEUTROPHILS# (MANUAL) 11.9 10^3/uL (1.7-8.2); BAND NEUTROPHILS % (MANUAL) 2 % (3-5); BASOPHILS % (MANUAL) 3 % (0-2); EOSINOPHILS % (MANUAL) 1 % (0-6); LYMPHOCYTES % (MANUAL) 11 % (13-45); METAMYELOCYTES % (MANUAL) 2 % (0); MONOCYTES % (MANUAL) 6 % (3-13); SEGMENTED NEUTROPHILS % (MAN) 75 % (42-78); TOTAL CELLS COUNTED 100
[2017-06-28 07:39] LABS: ANISOCYTOSIS 1+; OVALOCYTES SLIGHT; PLATELET COMMENT ADEQUATE; POIKILOCYTOSIS SLIGHT
[2017-06-28] MEDS: DONEPEZIL HCL 5 MG TABLET PO SCH (09:26)
[2017-06-28] MEDS: MEGESTROL ACETATE SUSP 400 MG/10 ML UDCUP PO SCH ×2 (09:26→17:54)
[2017-06-28] MEDS: GUAIFENESIN 600 MG TABLET.SA PO SCH ×2 (09:26→17:53)
[2017-06-28] MEDS: DOCUSATE SODIUM 100 MG CAPSULE PO SCH (09:26)
[2017-06-28] MEDS: MEMANTINE HCL 10 MG TABLET PO SCH ×2 (09:26→17:53)
--- NOTE | 2017-06-28 10:05 | Physician Advisory Note ---
Physician Advisor ProgressNote .: Pursuant to the plan for [facility], I have reviewed the medical record for this patient. Physician Advisor Statement: Nice documentation by primary attending of pulmonary HTN, WILLOW, ILD, type dementia. Please consider documentin. most likely type of PNA: "PNA, suspect gram-____ type" Thanks! cK
--- NOTE | 2017-06-28 11:51 | PDOC PROGRESS REPORT ---
Subjective Progress Note for:: 06/28/17 Subjective:: Confused Reason For Visit: ACUTE HYPOXEMIA, RESPIRATORY FAILURE Physical Exam Vital Signs: Temp Pulse Resp BP Pulse Ox 98.6 F 78 15 158/68 H 98 06/28/17 07:31 06/28/17 07:31 06/28/17 07:31 06/28/17 07:31 06/28/17 07:31 Intake & Output 06/27/17 06/28/17 06/29/17 06:59 06:59 06:59 Intake Total 2875 1690 Balance 2875 1690 Weight 65.3 kg 65.3 kg General appearance: PRESENT: no acute distress, cooperative, disheveled, thin Head exam: PRESENT: atraumatic, normocephalic Eye exam: PRESENT: conjunctiva pale, EOMI, PERRLA. ABSENT: nystagmus, periorbital swelling, scleral icterus Mouth exam: PRESENT: moist, neck supple, tongue midline Neck exam: ABSENT: carotid bruit, JVD, lymphadenopathy, thyromegaly, tracheal deviation, tracheostomy Respiratory exam: PRESENT: decreased breath sounds, prolonged expiratory phas, rales, rhonchi, unlabored. ABSENT: retraction, stridor, tachypnea Cardiovascular exam: PRESENT: RRR, +S1, +S2 Pulses: PRESENT: normal radial pulses GI/Abdominal exam: PRESENT: normal bowel sounds, soft Extremities exam: ABSENT: calf tenderness, clubbing, joint swelling Musculoskeletal exam: ABSENT: deformity, dislocation Psychiatric exam: PRESENT: flat affect Skin exam: PRESENT: dry, warm Results Laboratory Results: 06/28/17 05:32 06/28/17 05:36 06/28/17 06/28/17 05:32 05:36 WBC 15.1 H RBC 3.61 L Hgb 10.4 L Hct 31.0 L MCV 86 MCH 28.7 MCHC 33.4 RDW 17.5 H Plt Count 396 Seg Neutrophils % Not Reportable Lymphocytes % Not Reportable Monocytes % Not Reportable Eosinophils % Not Reportable Basophils % Not Reportable Absolute Neutrophils Not Reportable Absolute Lymphocytes Not Reportable Absolute Monocytes Not Reportable Absolute Eosinophils Not Reportable Absolute Basophils Not Reportable Sodium 142.6 Potassium 4.9 Chloride 111 H Carbon Dioxide 19 L Anion Gap 13 BUN 20 Creatinine 0.87 Est GFR ( Amer) > 60 Est GFR (Non-Af Amer) > 60 Glucose 94 Calcium 9.5 Impressions: Chest CT 06/22/17 00:00 IMPRESSION: Small area of patchy airspace disease is present in the posterior aspect of the left lower lobe. Assessment & Plan - Diagnosis (1) GERD (gastroesophageal reflux disease) Is this a current diagnosis for this admission?: Yes Plan: Massive hiatal hernia seen on CT scan suggest keeping 60 or higher to the diminished risk of aspiration (2) Pneumonia Qualifiers: Is this a current diagnosis for this admission?: Yes Plan: Diffuse patchy infiltrates, leukocytosis (3) Dementia Qualifiers: Dementia type: Alzheimer's disease Alzheimer's disease onset: late-onset Dementia behavioral disturbance: without behavioral disturbance Qualified Code (s): G30.1 - Alzheimer's disease with late onset; F02.80 - Dementia in other diseases classified elsewhere without behavioral disturbance; F02.80 - Dementia in other diseases classified elsewhere without behavioral disturbance; F02.80 - Dementia in other diseases classified elsewhere without behavioral disturbance Is this a current diagnosis for this admission?: Yes Plan: Not well oriented to place time or event
--- NOTE | 2017-06-28 16:44 | RADIOLOGY REPORT (SQ) ---
EXAM DESCRIPTION: CHEST 2 VIEWS COMPLETED DATE/TIME: 06/28/2017 4:24 pm REASON FOR STUDY: SOB COMPARISON: 06/22/2017 NUMBER OF VIEWS: Two view TECHNIQUE: Frontal and lateral radiographic images of the chest acquired. LIMITATIONS: Positioning. FINDINGS: LUNGS AND PLEURA: COPD. Perihilar airspace opacity. MEDIASTINUM AND HILAR STRUCTURES: Stable. HEART AND VASCULAR STRUCTURES: Stable appearance. SUPPORT DEVICES: Left-sided PICC line with tip overlying SVC. BONES: No acute findings. OTHER: No other significant finding. IMPRESSION: COPD. Question developing CHF. TECHNICAL DOCUMENTATION: JOB ID: [id number] [employer]- All Rights Reserved Reading location - IP/workstation name: [email or web address]
[2017-06-28] MEDS: CEFTRIAXONE SODIUM 1,000 MG in DEXTROSE 5%-WATER 50 ML IV SCH (17:51)
--- NOTE | 2017-06-28 19:34 | PDOC PROGRESS REPORT ---
Subjective Progress Note for:: 06/28/17 Subjective:: Patient sensorium is depressed, new, minimal response, MRI brain ordered, rule out stroke, increased shortness of breath, chest x-ray showed too much volume, DC IV fluid Reason For Visit: ACUTE HYPOXEMIA, RESPIRATORY FAILURE Physical Exam Vital Signs: Temp Pulse Resp BP Pulse Ox 98.3 F 94 16 134/57 H 98 06/28/17 16:40 06/28/17 16:40 06/28/17 16:40 06/28/17 16:40 06/28/17 16:40 Intake & Output 06/27/17 06/28/17 06/29/17 06:59 06:59 06:59 Intake Total 2875 1690 1760 Balance 2875 1690 1760 Weight 65.3 kg 65.3 kg General appearance: PRESENT: mild distress Eye exam: PRESENT: PERRLA Respiratory exam: PRESENT: rales Cardiovascular exam: PRESENT: +S1, +S2 GI/Abdominal exam: PRESENT: soft Neurological exam: PRESENT: altered Results Laboratory Results: 06/28/17 05:32 06/28/17 05:36 06/28/17 06/28/17 05:32 05:36 WBC 15.1 H RBC 3.61 L Hgb 10.4 L Hct 31.0 L MCV 86 MCH 28.7 MCHC 33.4 RDW 17.5 H Plt Count 396 Seg Neutrophils % Not Reportable Lymphocytes % Not Reportable Monocytes % Not Reportable Eosinophils % Not Reportable Basophils % Not Reportable Absolute Neutrophils Not Reportable Absolute Lymphocytes Not Reportable Absolute Monocytes Not Reportable Absolute Eosinophils Not Reportable Absolute Basophils Not Reportable Sodium 142.6 Potassium 4.9 Chloride 111 H Carbon Dioxide 19 L Anion Gap 13 BUN 20 Creatinine 0.87 Est GFR ( Amer) > 60 Est GFR (Non-Af Amer) > 60 Glucose 94 Calcium 9.5 Impressions: Chest CT 06/22/17 00:00 IMPRESSION: Small area of patchy airspace disease is present in the posterior aspect of the left lower lobe. Chest X-Ray 06/28/17 00:00 IMPRESSION: COPD. Question developing CHF. Assessment & Plan - Diagnosis (1) Pneumonia Qualifiers: Pneumonia type: due to unspecified organism Laterality: unspecified laterality Lung location: unspecified part of lung Qualified Code(s): J18.9 - Pneumonia, unspecified organism Is this a current diagnosis for this admission?: Yes (2) Acute kidney injury Is this a current diagnosis for this admission?: Yes (3) Adult failure to thrive Is this a current diagnosis for this admission?: Yes (4) Dehydration Is this a current diagnosis for this admission?: Yes (5) Dementia Qualifiers: Dementia type: Alzheimer's disease Alzheimer's disease onset: late-onset Dementia behavioral disturbance: without behavioral disturbance Qualified Code (s): G30.1 - Alzheimer's disease with late onset; F02.80 - Dementia in other diseases classified elsewhere without behavioral disturbance; F02.80 - Dementia in other diseases classified elsewhere without behavioral disturbance; F02.80 - Dementia in other diseases classified elsewhere without behavioral disturbance Is this a current diagnosis for this admission?: Yes (6) Pulmonary hypertension Is this a current diagnosis for this admission?: Yes (7) Rheumatoid arthritis Qualifiers: Rheumatoid arthritis location: unspecified site Rheumatoid factor presence : unspecified presence Qualified Code(s): M06.9 - Rheumatoid arthritis, unspecified Is this a current diagnosis for this admission?: Yes (8) Senile dementia of Alzheimer's type Is this a current diagnosis for this admission?: Yes - Plan Summary Plan Summary: Patient difficult to arouse, MRI brain showed no acute pathology, atrophy, dementia, progressive disease. chest x-ray showed volume overload, DC IV fluid , poor prognosis
--- NOTE | 2017-06-28 22:07 | RADIOLOGY REPORT (SQ) ---
EXAM DESCRIPTION: MRI HEAD WITHOUT COMPLETED DATE/TIME: 06/28/2017 9:15 pm REASON FOR STUDY: altered mental status COMPARISON: 05/26/2017 TECHNIQUE: Multiplanar imaging includes non-contrasted T1, T2, FLAIR, and diffusion with ADC map seq uences. Images stored on PACS. LIMITATIONS: None. FINDINGS: ANATOMY: No anomalies. Normal vascular flow voids. Pituitary fossa normal. CSF SPACES: Atrophy induced prominence of ventricles and CSF spaces. CEREBRUM: High signal intensity lesions scattered throughout the white matter on FLAIR imaging with d istribution suggesting micro-vascular ischemic changes. No evidence of hemorrhage, mass, or extraaxi al fluid collection. POSTERIOR FOSSA: No signal alteration. No hemorrhage. No edema, masses or mass effect. Internal danna tory canals, cerebello-pontine angles, mastoids normal. DIFFUSION IMAGING: Negative for acute or sub-acute infarction. ORBITS: No masses. Globes normal. PARANASAL SINUSES: No fluid levels. Mucosa normal. OTHER: No other significant finding. IMPRESSION: Negative for acute or sub-acute infarction. EVIDENCE OF ACUTE STROKE: NO. TECHNICAL DOCUMENTATION: JOB ID: [id number] [place]-[id number] 2010 [employer]- All Rights Reserved Reading location - IP/workstation name: [employer]
[2017-06-28] MEDS: LEVOFLOXACIN 750 MG TABLET PO SCH (22:18)
[2017-06-29 01:12] LABS: HEMATOCRIT 32.2 % (36.0-47.0); HEMOGLOBIN 10.5 g/dL (12.0-15.5); MEAN CORPUSCULAR HEMOGLOBIN 28.3 pg (27.0-33.4); MEAN CORPUSCULAR HGB CONC 32.8 g/dL (32.0-36.0); MEAN CORPUSCULAR VOLUME 86 fl (80-97); PLATELET COUNT 400 10^3/uL (150-450); RED BLOOD COUNT 3.73 10^6/uL (3.72-5.28); RED CELL DISTRIBUTION WIDTH 17.8 % (11.5-14.0); WHITE BLOOD COUNT 17.3 10^3/uL (4.0-10.5)
[2017-06-29 01:24] LABS: ALANINE AMINOTRANSFERASE 42 U/L (9-52); ALBUMIN 2.8 g/dL (3.5-5.0); ALKALINE PHOSPHATASE 133 U/L (38-126); ANION GAP 12 (5-19); ASPARTATE AMINO TRANSFERASE 27 U/L (14-36); BILIRUBIN,DIRECT 0.1 mg/dL (0.0-0.4); BILIRUBIN,TOTAL 0.1 mg/dL (0.2-1.3); BLOOD UREA NITROGEN 24 mg/dL (7-20); CALCIUM 9.2 mg/dL (8.4-10.2); CARBON DIOXIDE 21 mmol/L (22-30); CHLORIDE 112 mmol/L (98-107); GLUCOSE 110 mg/dL (75-110); POTASSIUM 4.8 mmol/L (3.6-5.0); SODIUM 145.4 mmol/L (137-145); TOTAL PROTEIN 6.4 g/dL (6.3-8.2)
[2017-06-29 01:40] LABS: ABSOLUTE LYMPHOCYTES# (MANUAL) 4.2 10^3/uL (0.5-4.7); ABSOLUTE MONOCYTES # (MANUAL) 0.5 10^3/uL (0.1-1.4); ABSOLUTE NEUTROPHILS# (MANUAL) 12.6 10^3/uL (1.7-8.2); BASOPHILS % (MANUAL) 0 % (0-2); EOSINOPHILS % (MANUAL) 0 % (0-6); LYMPHOCYTES % (MANUAL) 24 % (13-45); METAMYELOCYTES % (MANUAL) 1 % (0); MONOCYTES % (MANUAL) 3 % (3-13); SEGMENTED NEUTROPHILS % (MAN) 72 % (42-78); TOTAL CELLS COUNTED 100
[2017-06-29 01:42] LABS: ANISOCYTOSIS 1+; PLATELET COMMENT ADEQUATE; POLYCHROMASIA SLIGHT; TOXIC GRANULATION 1+
[2017-06-29 07:32] LABS: ANION GAP 14 (5-19); BLOOD UREA NITROGEN 23 mg/dL (7-20); CALCIUM 9.8 mg/dL (8.4-10.2); CARBON DIOXIDE 22 mmol/L (22-30); CHLORIDE 110 mmol/L (98-107); GLUCOSE 87 mg/dL (75-110); POTASSIUM 4.8 mmol/L (3.6-5.0); SODIUM 145.8 mmol/L (137-145)
[2017-06-29] MEDS: GUAIFENESIN 600 MG TABLET.SA PO SCH ×2 (09:48→18:19)
[2017-06-29] MEDS: DOCUSATE SODIUM 100 MG CAPSULE PO SCH (09:48)
[2017-06-29] MEDS: MEMANTINE HCL 10 MG TABLET PO SCH ×2 (09:48→18:19)
[2017-06-29] MEDS: DONEPEZIL HCL 5 MG TABLET PO SCH (09:48)
[2017-06-29] MEDS: MEGESTROL ACETATE SUSP 400 MG/10 ML UDCUP PO SCH ×2 (09:48→18:19)
--- NOTE | 2017-06-29 14:42 | PDOC PROGRESS REPORT ---
Subjective Progress Note for:: 06/25/17 Subjective:: Confused Reason For Visit: ACUTE HYPOXEMIA, RESPIRATORY FAILURE Physical Exam Vital Signs: Temp Pulse Resp BP Pulse Ox 98.7 F 99 13 152/87 H 100 06/27/17 16:00 06/27/17 16:00 06/27/17 16:00 06/27/17 16:00 06/27/17 16:00 Intake & Output 06/26/17 06/27/17 06/28/17 06:59 06:59 06:59 Intake Total 1822 2875 1335 Balance 1822 2875 1335 Weight 65.7 kg 65.3 kg General appearance: PRESENT: no acute distress, disheveled Head exam: PRESENT: atraumatic, normocephalic Eye exam: PRESENT: conjunctiva pale. ABSENT: nystagmus, periorbital swelling, scleral icterus Mouth exam: PRESENT: dry mucosa, neck supple, tongue midline Neck exam: ABSENT: carotid bruit, JVD, lymphadenopathy, thyromegaly, tracheal deviation, tracheostomy Respiratory exam: PRESENT: decreased breath sounds, prolonged expiratory phas, rales, rhonchi, unlabored. ABSENT: retraction, stridor Cardiovascular exam: PRESENT: RRR, +S1, +S2 Pulses: PRESENT: normal radial pulses GI/Abdominal exam: PRESENT: hypoactive bowel sounds, soft Extremities exam: ABSENT: calf tenderness, clubbing, joint swelling Musculoskeletal exam: ABSENT: deformity, dislocation Neurological exam: PRESENT: awake Skin exam: PRESENT: dry, warm Results Laboratory Results: 06/23/17 09:14 06/23/17 09:14 Impressions: Chest CT 06/22/17 00:00 IMPRESSION: Small area of patchy airspace disease is present in the posterior aspect of the left lower lobe. Assessment & Plan - Diagnosis (1) GERD (gastroesophageal reflux disease) Is this a current diagnosis for this admission?: Yes Plan: Massive hiatal hernia seen on CT scan suggest keeping 60 or higher to the diminished risk of aspiration (2) Pneumonia Qualifiers: Is this a current diagnosis for this admission?: Yes Plan: Diffuse patchy infiltrates, leukocytosis (3) Dementia Qualifiers: Dementia type: Alzheimer's disease Alzheimer's disease onset: late-onset Dementia behavioral disturbance: without behavioral disturbance Qualified Code (s): G30.1 - Alzheimer's disease with late onset; F02.80 - Dementia in other diseases classified elsewhere without behavioral disturbance; F02.80 - Dementia in other diseases classified elsewhere without behavioral disturbance; F02.80 - Dementia in other diseases classified elsewhere without behavioral disturbance Is this a current diagnosis for this admission?: Yes Plan: Not well oriented to place time or event
[2017-06-29] MEDS: CEFTRIAXONE SODIUM 1,000 MG in DEXTROSE 5%-WATER 50 ML IV SCH (18:19)
[2017-06-30 07:59] LABS: ANION GAP 12 (5-19); BLOOD UREA NITROGEN 30 mg/dL (7-20); CALCIUM 9.3 mg/dL (8.4-10.2); CARBON DIOXIDE 22 mmol/L (22-30); CHLORIDE 111 mmol/L (98-107); GLUCOSE 90 mg/dL (75-110); SODIUM 144.5 mmol/L (137-145)
[2017-06-30 08:02] LABS: POTASSIUM 4.8 mmol/L (3.6-5.0)
[2017-06-30] MEDS: DONEPEZIL HCL 5 MG TABLET PO SCH (11:38)
[2017-06-30] MEDS: DOCUSATE SODIUM 100 MG CAPSULE PO SCH (11:38)
[2017-06-30] MEDS: MEMANTINE HCL 10 MG TABLET PO SCH ×2 (11:39→18:22)
[2017-06-30] MEDS: GUAIFENESIN 600 MG TABLET.SA PO SCH ×2 (11:39→18:22)
[2017-06-30] MEDS: MEGESTROL ACETATE SUSP 400 MG/10 ML UDCUP PO SCH ×2 (11:40→18:23)
[2017-06-30] MEDS ORDERED: ACETAMINOPHEN 325 MG TABLET PO PRN (12:38)
--- NOTE | 2017-06-30 13:10 | PDOC PROGRESS REPORT ---
Subjective Progress Note for:: 06/29/17 Subjective:: Confused Reason For Visit: ACUTE HYPOXEMIA, RESPIRATORY FAILURE Physical Exam Vital Signs: Temp Pulse Resp BP Pulse Ox 98.7 F 75 13 151/68 H 97 06/30/17 08:06 06/30/17 08:06 06/30/17 08:06 06/30/17 08:06 06/30/17 08:06 Intake & Output 06/29/17 06/30/17 07/01/17 06:59 06:59 06:59 Intake Total 2522 591 Output Total 30 Balance 2522 561 Weight 71.9 kg 63.9 kg General appearance: PRESENT: no acute distress, cooperative, disheveled Head exam: PRESENT: atraumatic, normocephalic Eye exam: PRESENT: conjunctiva pale, EOMI, PERRLA. ABSENT: nystagmus, periorbital swelling, scleral icterus Mouth exam: PRESENT: dry mucosa, neck supple, tongue midline Neck exam: ABSENT: carotid bruit, JVD, lymphadenopathy, thyromegaly, tracheal deviation, tracheostomy Respiratory exam: PRESENT: decreased breath sounds, prolonged expiratory phas, rales, rhonchi, unlabored, wheezes. ABSENT: retraction, stridor Cardiovascular exam: PRESENT: RRR, +S1, +S2 Pulses: PRESENT: normal radial pulses GI/Abdominal exam: PRESENT: normal bowel sounds, soft Extremities exam: ABSENT: calf tenderness, clubbing, joint swelling Musculoskeletal exam: ABSENT: deformity, dislocation Neurological exam: PRESENT: alert, awake Psychiatric exam: PRESENT: flat affect Skin exam: PRESENT: dry, warm Results Laboratory Results: 06/29/17 00:57 06/30/17 05:54 06/30/17 05:54 Sodium 144.5 Potassium 4.8 Chloride 111 H Carbon Dioxide 22 Anion Gap 12 BUN 30 H Creatinine 1.00 Est GFR ( Amer) > 60 Est GFR (Non-Af Amer) 53 L Glucose 90 Calcium 9.3 Impressions: Chest CT 06/22/17 00:00 IMPRESSION: Small area of patchy airspace disease is present in the posterior aspect of the left lower lobe. Chest X-Ray 06/28/17 00:00 IMPRESSION: COPD. Question developing CHF. Head MRI 06/28/17 00:00 IMPRESSION: Negative for acute or sub-acute infarction. EVIDENCE OF ACUTE STROKE: NO. Assessment & Plan - Diagnosis (1) GERD (gastroesophageal reflux disease) Is this a current diagnosis for this admission?: Yes Plan: Massive hiatal hernia seen on CT scan suggest keeping 60 or higher to the diminished risk of aspiration (2) Pneumonia Qualifiers: Is this a current diagnosis for this admission?: Yes Plan: Diffuse patchy infiltrates, leukocytosis (3) Dementia Qualifiers: Dementia type: Alzheimer's disease Alzheimer's disease onset: late-onset Dementia behavioral disturbance: without behavioral disturbance Qualified Code (s): G30.1 - Alzheimer's disease with late onset; F02.80 - Dementia in other diseases classified elsewhere without behavioral disturbance; F02.80 - Dementia in other diseases classified elsewhere without behavioral disturbance; F02.80 - Dementia in other diseases classified elsewhere without behavioral disturbance Is this a current diagnosis for this admission?: Yes Plan: Wax and wanes
--- NOTE | 2017-06-30 13:11 | PDOC PROGRESS REPORT ---
Subjective Progress Note for:: 06/30/17 Subjective:: Slightly improved Reason For Visit: ACUTE HYPOXEMIA, RESPIRATORY FAILURE Physical Exam Vital Signs: Temp Pulse Resp BP Pulse Ox 98.7 F 75 13 151/68 H 97 06/30/17 08:06 06/30/17 08:06 06/30/17 08:06 06/30/17 08:06 06/30/17 08:06 Intake & Output 06/29/17 06/30/17 07/01/17 06:59 06:59 06:59 Intake Total 2522 591 Output Total 30 Balance 2522 561 Weight 71.9 kg 63.9 kg General appearance: PRESENT: no acute distress, cooperative, disheveled Eye exam: PRESENT: conjunctiva pale, EOMI, PERRLA. ABSENT: nystagmus, periorbital swelling, scleral icterus Mouth exam: PRESENT: dry mucosa, neck supple, tongue midline Neck exam: ABSENT: carotid bruit, JVD, lymphadenopathy, thyromegaly, tracheal deviation, tracheostomy Respiratory exam: PRESENT: decreased breath sounds, prolonged expiratory phas, rhonchi, unlabored, wheezes. ABSENT: rales, retraction, stridor Cardiovascular exam: PRESENT: RRR, +S1, +S2 Pulses: PRESENT: normal radial pulses GI/Abdominal exam: PRESENT: normal bowel sounds, soft Extremities exam: ABSENT: calf tenderness, clubbing, joint swelling Musculoskeletal exam: ABSENT: deformity, dislocation Neurological exam: PRESENT: awake Psychiatric exam: PRESENT: flat affect Skin exam: PRESENT: dry, warm Results Laboratory Results: 06/29/17 00:57 06/30/17 05:54 06/30/17 05:54 Sodium 144.5 Potassium 4.8 Chloride 111 H Carbon Dioxide 22 Anion Gap 12 BUN 30 H Creatinine 1.00 Est GFR ( Amer) > 60 Est GFR (Non-Af Amer) 53 L Glucose 90 Calcium 9.3 Impressions: Chest CT 06/22/17 00:00 IMPRESSION: Small area of patchy airspace disease is present in the posterior aspect of the left lower lobe. Chest X-Ray 06/28/17 00:00 IMPRESSION: COPD. Question developing CHF. Head MRI 06/28/17 00:00 IMPRESSION: Negative for acute or sub-acute infarction. EVIDENCE OF ACUTE STROKE: NO. Assessment & Plan - Diagnosis (1) GERD (gastroesophageal reflux disease) Is this a current diagnosis for this admission?: Yes Plan: Massive hiatal hernia seen on CT scan suggest keeping 60 or higher to the diminished risk of aspiration (2) Pneumonia Qualifiers: Is this a current diagnosis for this admission?: Yes Plan: Slightly better today (3) Dementia Qualifiers: Dementia type: Alzheimer's disease Alzheimer's disease onset: late-onset Dementia behavioral disturbance: without behavioral disturbance Qualified Code (s): G30.1 - Alzheimer's disease with late onset; F02.80 - Dementia in other diseases classified elsewhere without behavioral disturbance; F02.80 - Dementia in other diseases classified elsewhere without behavioral disturbance; F02.80 - Dementia in other diseases classified elsewhere without behavioral disturbance Is this a current diagnosis for this admission?: Yes Plan: Wax and wanes
[2017-06-30 16:26] LABS: HEMATOCRIT 35.4 % (36.0-47.0); HEMOGLOBIN 11.3 g/dL (12.0-15.5); MEAN CORPUSCULAR VOLUME 88 fl (80-97); PLATELET COUNT 436 10^3/uL (150-450); RED BLOOD COUNT 4.04 10^6/uL (3.72-5.28); RED CELL DISTRIBUTION WIDTH 17.9 % (11.5-14.0); WHITE BLOOD COUNT 20.5 10^3/uL (4.0-10.5)
[2017-06-30] MEDS ORDERED: DEXTROSE 5%-WATER 1000 ML 1,000 ML IV PRN (16:34)
[2017-06-30 16:47] LABS: ALANINE AMINOTRANSFERASE 27 U/L (9-52); ALBUMIN 3.3 g/dL (3.5-5.0); ALKALINE PHOSPHATASE 124 U/L (38-126); ANION GAP 16 (5-19); ASPARTATE AMINO TRANSFERASE 19 U/L (14-36); BILIRUBIN,DIRECT 0.2 mg/dL (0.0-0.4); BILIRUBIN,TOTAL 0.2 mg/dL (0.2-1.3); BLOOD UREA NITROGEN 27 mg/dL (7-20); CALCIUM 9.8 mg/dL (8.4-10.2); CARBON DIOXIDE 20 mmol/L (22-30); CHLORIDE 108 mmol/L (98-107); GLUCOSE 144 mg/dL (75-110); POTASSIUM 4.3 mmol/L (3.6-5.0); SODIUM 143.6 mmol/L (137-145); TOTAL PROTEIN 7.1 g/dL (6.3-8.2)
[2017-06-30 16:53] LABS: ABSOLUTE LYMPHOCYTES# (MANUAL) 2.7 10^3/uL (0.5-4.7); ABSOLUTE NEUTROPHILS# (MANUAL) 16.8 10^3/uL (1.7-8.2); BAND NEUTROPHILS % (MANUAL) 2 % (3-5); BASOPHILS % (MANUAL) 0 % (0-2); EOSINOPHILS % (MANUAL) 0 % (0-6); LYMPHOCYTES % (MANUAL) 13 % (13-45); MONOCYTES % (MANUAL) 5 % (3-13); SEGMENTED NEUTROPHILS % (MAN) 80 % (42-78); TOTAL CELLS COUNTED 100
[2017-06-30 16:54] LABS: ANISOCYTOSIS 1+; PLATELET COMMENT ADEQUATE; POIKILOCYTOSIS SLIGHT; TOXIC GRANULATION SLIGHT
--- NOTE | 2017-06-30 17:32 | PDOC PROGRESS REPORT ---
Subjective Progress Note for:: 06/30/17 Subjective:: Patient is more responsive today, reduced intake, drinking minimally, family concern about aspiration, , no mobility Reason For Visit: ACUTE HYPOXEMIA, RESPIRATORY FAILURE Physical Exam Vital Signs: Temp Pulse Resp BP Pulse Ox 98.2 F 100 12 138/76 H 97 06/30/17 12:26 06/30/17 12:26 06/30/17 12:26 06/30/17 12:26 06/30/17 12:26 Intake & Output 06/29/17 06/30/17 07/01/17 06:59 06:59 06:59 Intake Total 2522 591 Output Total 30 Balance 2522 561 Weight 71.9 kg 63.9 kg General appearance: PRESENT: no acute distress Eye exam: PRESENT: PERRLA Respiratory exam: PRESENT: rhonchi Cardiovascular exam: PRESENT: +S1, +S2 GI/Abdominal exam: PRESENT: soft Neurological exam: PRESENT: alert Results Laboratory Results: 06/30/17 16:18 06/30/17 16:18 06/30/17 06/30/17 06/30/17 05:54 16:18 16:18 WBC 20.5 H RBC 4.04 Hgb 11.3 L Hct 35.4 L MCV 88 MCH 28.0 MCHC 32.0 RDW 17.9 H Plt Count 436 Seg Neutrophils % Not Reportable Lymphocytes % Not Reportable Monocytes % Not Reportable Eosinophils % Not Reportable Basophils % Not Reportable Absolute Neutrophils Not Reportable Absolute Lymphocytes Not Reportable Absolute Monocytes Not Reportable Absolute Eosinophils Not Reportable Absolute Basophils Not Reportable Sodium 144.5 143.6 Potassium 4.8 4.3 Chloride 111 H 108 H Carbon Dioxide 22 20 L Anion Gap 12 16 BUN 30 H 27 H Creatinine 1.00 1.25 Est GFR ( Amer) > 60 49 L Est GFR (Non-Af Amer) 53 L 41 L Glucose 90 144 H Calcium 9.3 9.8 Total Bilirubin 0.2 AST 19 ALT 27 Alkaline Phosphatase 124 Total Protein 7.1 Albumin 3.3 L Impressions: Chest CT 06/22/17 00:00 IMPRESSION: Small area of patchy airspace disease is present in the posterior aspect of the left lower lobe. Chest X-Ray 06/28/17 00:00 IMPRESSION: COPD. Question developing CHF. Head MRI 06/28/17 00:00 IMPRESSION: Negative for acute or sub-acute infarction. EVIDENCE OF ACUTE STROKE: NO. Assessment & Plan - Diagnosis (1) Pneumonia Qualifiers: Pneumonia type: due to unspecified organism Laterality: unspecified laterality Lung location: unspecified part of lung Qualified Code(s): J18.9 - Pneumonia, unspecified organism Is this a current diagnosis for this admission?: Yes (2) Acute kidney injury Is this a current diagnosis for this admission?: Yes (3) Adult failure to thrive Is this a current diagnosis for this admission?: Yes (4) Dehydration Is this a current diagnosis for this admission?: Yes (5) Dementia Qualifiers: Dementia type: Alzheimer's disease Alzheimer's disease onset: late-onset Dementia behavioral disturbance: without behavioral disturbance Qualified Code (s): G30.1 - Alzheimer's disease with late onset; F02.80 - Dementia in other diseases classified elsewhere without behavioral disturbance; F02.80 - Dementia in other diseases classified elsewhere without behavioral disturbance; F02.80 - Dementia in other diseases classified elsewhere without behavioral disturbance Is this a current diagnosis for this admission?: Yes (6) Pulmonary hypertension Is this a current diagnosis for this admission?: Yes (7) Rheumatoid arthritis Qualifiers: Rheumatoid arthritis location: unspecified site Rheumatoid factor presence : unspecified presence Qualified Code(s): M06.9 - Rheumatoid arthritis, unspecified Is this a current diagnosis for this admission?: Yes (8) Senile dementia of Alzheimer's type Is this a current diagnosis for this admission?: Yes
[2017-06-30] MEDS: CEFTRIAXONE SODIUM 1,000 MG in DEXTROSE 5%-WATER 50 ML IV SCH (18:23)
[2017-07-01 07:19] LABS: HEMOGLOBIN 10.3 g/dL (12.0-15.5); MEAN CORPUSCULAR HEMOGLOBIN 28.2 pg (27.0-33.4); MEAN CORPUSCULAR HGB CONC 32.1 g/dL (32.0-36.0); MEAN CORPUSCULAR VOLUME 88 fl (80-97); PLATELET COUNT 395 10^3/uL (150-450); RED BLOOD COUNT 3.64 10^6/uL (3.72-5.28); WHITE BLOOD COUNT 19.5 10^3/uL (4.0-10.5)
[2017-07-01 07:22] LABS: ALANINE AMINOTRANSFERASE 27 U/L (9-52); ALBUMIN 2.9 g/dL (3.5-5.0); ALKALINE PHOSPHATASE 117 U/L (38-126); ANION GAP 10 (5-19); ASPARTATE AMINO TRANSFERASE 18 U/L (14-36); BILIRUBIN,DIRECT 0.1 mg/dL (0.0-0.4); BILIRUBIN,TOTAL 0.1 mg/dL (0.2-1.3); BLOOD UREA NITROGEN 26 mg/dL (7-20); CALCIUM 9.3 mg/dL (8.4-10.2); CARBON DIOXIDE 20 mmol/L (22-30); CHLORIDE 109 mmol/L (98-107); GLUCOSE 96 mg/dL (75-110); POTASSIUM 4.5 mmol/L (3.6-5.0); SODIUM 139.1 mmol/L (137-145); TOTAL PROTEIN 6.4 g/dL (6.3-8.2)
[2017-07-01 08:44] LABS: ABSOLUTE LYMPHOCYTES# (MANUAL) 1.6 10^3/uL (0.5-4.7); ABSOLUTE MONOCYTES # (MANUAL) 1.6 10^3/uL (0.1-1.4); ABSOLUTE NEUTROPHILS# (MANUAL) 16.4 10^3/uL (1.7-8.2); BASOPHILS % (MANUAL) 0 % (0-2); EOSINOPHILS % (MANUAL) 0 % (0-6); LYMPHOCYTES % (MANUAL) 8 % (13-45); METAMYELOCYTES % (MANUAL) 1 % (0); MONOCYTES % (MANUAL) 8 % (3-13); SEGMENTED NEUTROPHILS % (MAN) 83 % (42-78); TOTAL CELLS COUNTED 100
[2017-07-01 08:45] LABS: ANISOCYTOSIS 2+; HYPOCHROMASIA SLIGHT; PLATELET COMMENT ADEQUATE; POLYCHROMASIA 1+; ROULEAUX SLIGHT; TOXIC GRANULATION SLIGHT; TOXIC VACUOLATION PRESENT
[2017-07-01] MEDS: MEGESTROL ACETATE SUSP 400 MG/10 ML UDCUP PO SCH ×2 (09:42→18:03)
[2017-07-01] MEDS: DONEPEZIL HCL 5 MG TABLET PO SCH (09:42)
[2017-07-01] MEDS: GUAIFENESIN 600 MG TABLET.SA PO SCH ×2 (09:42→18:03)
[2017-07-01] MEDS: MEMANTINE HCL 10 MG TABLET PO SCH ×2 (09:42→18:02)
[2017-07-01] MEDS: DOCUSATE SODIUM 100 MG CAPSULE PO SCH (09:42)
--- NOTE | 2017-07-01 13:32 | PDOC PROGRESS REPORT ---
Subjective Progress Note for:: 07/01/17 Subjective:: Slightly improved Reason For Visit: ACUTE HYPOXEMIA, RESPIRATORY FAILURE Physical Exam Vital Signs: Temp Pulse Resp BP Pulse Ox 98.8 F 85 16 141/60 H 99 07/01/17 11:53 07/01/17 11:53 07/01/17 11:53 07/01/17 11:53 07/01/17 11:53 Intake & Output 06/30/17 07/01/17 07/02/17 06:59 06:59 06:59 Intake Total 591 791 Output Total 30 Balance 561 791 Weight 63.9 kg 63.9 kg General appearance: PRESENT: no acute distress, cooperative, disheveled, thin Head exam: PRESENT: atraumatic, normocephalic Eye exam: PRESENT: conjunctiva pale, EOMI. ABSENT: nystagmus, periorbital swelling, scleral icterus Mouth exam: PRESENT: dry mucosa, neck supple, tongue midline Neck exam: ABSENT: carotid bruit, JVD, lymphadenopathy, thyromegaly, tracheal deviation, tracheostomy Respiratory exam: PRESENT: decreased breath sounds, prolonged expiratory phas, rales, rhonchi, unlabored. ABSENT: retraction, stridor Cardiovascular exam: PRESENT: RRR, +S1, +S2 Pulses: PRESENT: normal radial pulses GI/Abdominal exam: PRESENT: normal bowel sounds, soft Extremities exam: ABSENT: calf tenderness, clubbing, joint swelling Musculoskeletal exam: ABSENT: deformity, dislocation Neurological exam: PRESENT: awake, oriented to person, oriented to place Skin exam: PRESENT: dry, warm Results Laboratory Results: 07/01/17 06:10 07/01/17 06:10 06/30/17 06/30/17 07/01/17 16:18 16:18 06:10 WBC 20.5 H 19.5 H RBC 4.04 3.64 L Hgb 11.3 L 10.3 L Hct 35.4 L 32.0 L MCV 88 88 MCH 28.0 28.2 MCHC 32.0 32.1 RDW 17.9 H 18.0 H Plt Count 436 395 Seg Neutrophils % Not Reportable Not Reportable Lymphocytes % Not Reportable Not Reportable Monocytes % Not Reportable Not Reportable Eosinophils % Not Reportable Not Reportable Basophils % Not Reportable Not Reportable Absolute Neutrophils Not Reportable Not Reportable Absolute Lymphocytes Not Reportable Not Reportable Absolute Monocytes Not Reportable Not Reportable Absolute Eosinophils Not Reportable Not Reportable Absolute Basophils Not Reportable Not Reportable Sodium 143.6 Potassium 4.3 Chloride 108 H Carbon Dioxide 20 L Anion Gap 16 BUN 27 H Creatinine 1.25 Est GFR ( Amer) 49 L Est GFR (Non-Af Amer) 41 L Glucose 144 H Calcium 9.8 Total Bilirubin 0.2 AST 19 ALT 27 Alkaline Phosphatase 124 Total Protein 7.1 Albumin 3.3 L 07/01/17 06:10 WBC RBC Hgb Hct MCV MCH MCHC RDW Plt Count Seg Neutrophils % Lymphocytes % Monocytes % Eosinophils % Basophils % Absolute Neutrophils Absolute Lymphocytes Absolute Monocytes Absolute Eosinophils Absolute Basophils Sodium 139.1 Potassium 4.5 Chloride 109 H Carbon Dioxide 20 L Anion Gap 10 BUN 26 H Creatinine 0.98 Est GFR ( Amer) > 60 Est GFR (Non-Af Amer) 54 L Glucose 96 Calcium 9.3 Total Bilirubin 0.1 L AST 18 ALT 27 Alkaline Phosphatase 117 Total Protein 6.4 Albumin 2.9 L Impressions: Chest CT 06/22/17 00:00 IMPRESSION: Small area of patchy airspace disease is present in the posterior aspect of the left lower lobe. Chest X-Ray 06/28/17 00:00 IMPRESSION: COPD. Question developing CHF. Head MRI 06/28/17 00:00 IMPRESSION: Negative for acute or sub-acute infarction. EVIDENCE OF ACUTE STROKE: NO. Assessment & Plan - Diagnosis (1) GERD (gastroesophageal reflux disease) Is this a current diagnosis for this admission?: Yes Plan: Massive hiatal hernia seen on CT scan suggest keeping 60 or higher to the diminished risk of aspiration (2) Pneumonia Qualifiers: Is this a current diagnosis for this admission?: Yes Plan: Slightly better today (3) Dementia Qualifiers: Dementia type: Alzheimer's disease Alzheimer's disease onset: late-onset Dementia behavioral disturbance: without behavioral disturbance Qualified Code (s): G30.1 - Alzheimer's disease with late onset; F02.80 - Dementia in other diseases classified elsewhere without behavioral disturbance; F02.80 - Dementia in other diseases classified elsewhere without behavioral disturbance; F02.80 - Dementia in other diseases classified elsewhere without behavioral disturbance Is this a current diagnosis for this admission?: Yes Plan: Wax and wanes
[2017-07-01] MEDS: LEVOFLOXACIN 750 MG/D5W RTU 750 MG/150 ML RTUPB IV SCH (18:03)
--- NOTE | 2017-07-01 18:19 | PDOC PROGRESS REPORT ---
Subjective Progress Note for:: 07/01/17 Subjective:: She was seen by the bedside, she has persistent leukocytosis Reason For Visit: ACUTE HYPOXEMIA, RESPIRATORY FAILURE Physical Exam Vital Signs: Temp Pulse Resp BP Pulse Ox 97.3 F 88 16 142/64 H 99 07/01/17 16:05 07/01/17 16:05 07/01/17 16:05 07/01/17 16:05 07/01/17 16:05 Intake & Output 06/30/17 07/01/17 07/02/17 06:59 06:59 06:59 Intake Total 591 791 620 Output Total 30 Balance 561 791 620 Weight 63.9 kg 63.9 kg General appearance: PRESENT: no acute distress Eye exam: PRESENT: PERRLA Respiratory exam: PRESENT: rhonchi Cardiovascular exam: PRESENT: +S1, +S2 GI/Abdominal exam: PRESENT: soft Neurological exam: PRESENT: alert Results Laboratory Results: 07/01/17 06:10 07/01/17 06:10 07/01/17 07/01/17 06:10 06:10 WBC 19.5 H RBC 3.64 L Hgb 10.3 L Hct 32.0 L MCV 88 MCH 28.2 MCHC 32.1 RDW 18.0 H Plt Count 395 Seg Neutrophils % Not Reportable Lymphocytes % Not Reportable Monocytes % Not Reportable Eosinophils % Not Reportable Basophils % Not Reportable Absolute Neutrophils Not Reportable Absolute Lymphocytes Not Reportable Absolute Monocytes Not Reportable Absolute Eosinophils Not Reportable Absolute Basophils Not Reportable Sodium 139.1 Potassium 4.5 Chloride 109 H Carbon Dioxide 20 L Anion Gap 10 BUN 26 H Creatinine 0.98 Est GFR ( Amer) > 60 Est GFR (Non-Af Amer) 54 L Glucose 96 Calcium 9.3 Total Bilirubin 0.1 L AST 18 ALT 27 Alkaline Phosphatase 117 Total Protein 6.4 Albumin 2.9 L Impressions: Chest CT 06/22/17 00:00 IMPRESSION: Small area of patchy airspace disease is present in the posterior aspect of the left lower lobe. Chest X-Ray 06/28/17 00:00 IMPRESSION: COPD. Question developing CHF. Head MRI 06/28/17 00:00 IMPRESSION: Negative for acute or sub-acute infarction. EVIDENCE OF ACUTE STROKE: NO. Assessment & Plan - Diagnosis (1) Pneumonia Qualifiers: Pneumonia type: due to unspecified organism Laterality: unspecified laterality Lung location: unspecified part of lung Qualified Code(s): J18.9 - Pneumonia, unspecified organism Is this a current diagnosis for this admission?: Yes (2) Acute kidney injury Is this a current diagnosis for this admission?: Yes (3) Adult failure to thrive Is this a current diagnosis for this admission?: Yes (4) Dehydration Is this a current diagnosis for this admission?: Yes (5) Dementia Qualifiers: Dementia type: Alzheimer's disease Alzheimer's disease onset: late-onset Dementia behavioral disturbance: without behavioral disturbance Qualified Code (s): G30.1 - Alzheimer's disease with late onset; F02.80 - Dementia in other diseases classified elsewhere without behavioral disturbance; F02.80 - Dementia in other diseases classified elsewhere without behavioral disturbance; F02.80 - Dementia in other diseases classified elsewhere without behavioral disturbance Is this a current diagnosis for this admission?: Yes (6) Pulmonary hypertension Is this a current diagnosis for this admission?: Yes (7) Rheumatoid arthritis Qualifiers: Rheumatoid arthritis location: unspecified site Rheumatoid factor presence : unspecified presence Qualified Code(s): M06.9 - Rheumatoid arthritis, unspecified Is this a current diagnosis for this admission?: Yes (8) Senile dementia of Alzheimer's type Is this a current diagnosis for this admission?: Yes
[2017-07-02 09:41] LABS: ALANINE AMINOTRANSFERASE 20 U/L (9-52); ALBUMIN 3.4 g/dL (3.5-5.0); ALKALINE PHOSPHATASE 107 U/L (38-126); ANION GAP 10 (5-19); ASPARTATE AMINO TRANSFERASE 21 U/L (14-36); BILIRUBIN,DIRECT 0.4 mg/dL (0.0-0.4); BILIRUBIN,TOTAL 0.4 mg/dL (0.2-1.3); BLOOD UREA NITROGEN 25 mg/dL (7-20); CALCIUM 9.9 mg/dL (8.4-10.2); CARBON DIOXIDE 26 mmol/L (22-30); CHLORIDE 107 mmol/L (98-107); GLUCOSE 91 mg/dL (75-110); POTASSIUM 5.1 mmol/L (3.6-5.0); TOTAL PROTEIN 7.7 g/dL (6.3-8.2)
[2017-07-02] MEDS: MEMANTINE HCL 10 MG TABLET PO SCH ×2 (09:44→17:43)
[2017-07-02] MEDS: DOCUSATE SODIUM 100 MG CAPSULE PO SCH (09:44)
[2017-07-02] MEDS: MEGESTROL ACETATE SUSP 400 MG/10 ML UDCUP PO SCH ×2 (09:44→17:38)
[2017-07-02] MEDS: DONEPEZIL HCL 5 MG TABLET PO SCH (09:44)
[2017-07-02] MEDS: GUAIFENESIN 600 MG TABLET.SA PO SCH ×2 (09:45→17:39)
[2017-07-02 09:54] LABS: HEMATOCRIT 37.6 % (36.0-47.0); HEMOGLOBIN 12.2 g/dL (12.0-15.5); MEAN CORPUSCULAR HEMOGLOBIN 28.3 pg (27.0-33.4); MEAN CORPUSCULAR HGB CONC 32.3 g/dL (32.0-36.0); MEAN CORPUSCULAR VOLUME 87 fl (80-97); PLATELET COUNT 349 10^3/uL (150-450); RED CELL DISTRIBUTION WIDTH 18.2 % (11.5-14.0)
--- NOTE | 2017-07-02 10:04 | PDOC PROGRESS REPORT ---
Subjective Progress Note for:: 07/02/17 Subjective:: Resting comfortably without complaints Reason For Visit: ACUTE HYPOXEMIA, RESPIRATORY FAILURE Physical Exam Vital Signs: Temp Pulse Resp BP Pulse Ox 98.1 F 72 12 145/67 H 100 07/02/17 03:39 07/02/17 07:40 07/02/17 07:40 07/02/17 07:40 07/02/17 07:40 Intake & Output 07/01/17 07/02/17 07/03/17 06:59 06:59 06:59 Intake Total 791 1780 Balance 791 1780 Weight 63.9 kg 63.9 kg General appearance: PRESENT: no acute distress, cooperative, disheveled, thin Head exam: PRESENT: atraumatic, normocephalic Eye exam: PRESENT: conjunctiva pale, EOMI. ABSENT: nystagmus, periorbital swelling, scleral icterus Mouth exam: PRESENT: moist, neck supple, tongue midline Neck exam: ABSENT: carotid bruit, JVD, lymphadenopathy, thyromegaly, tracheal deviation, tracheostomy Respiratory exam: PRESENT: decreased breath sounds, prolonged expiratory phas, rhonchi, unlabored. ABSENT: retraction, stridor, tachypnea Cardiovascular exam: PRESENT: irregular rhythm, +S1, +S2 Pulses: PRESENT: normal radial pulses GI/Abdominal exam: PRESENT: normal bowel sounds, soft Extremities exam: ABSENT: calf tenderness, clubbing, joint swelling, pedal edema Musculoskeletal exam: ABSENT: deformity, dislocation Neurological exam: PRESENT: awake, oriented to person, oriented to place Psychiatric exam: PRESENT: flat affect Skin exam: PRESENT: dry, warm Results Laboratory Results: 07/02/17 09:14 07/02/17 09:14 Sodium 143.0 Potassium 5.1 H Chloride 107 Carbon Dioxide 26 Anion Gap 10 BUN 25 H Creatinine 0.97 Est GFR ( Amer) > 60 Est GFR (Non-Af Amer) 55 L Glucose 91 Calcium 9.9 Total Bilirubin 0.4 AST 21 ALT 20 Alkaline Phosphatase 107 Total Protein 7.7 Albumin 3.4 L Impressions: Chest CT 06/22/17 00:00 IMPRESSION: Small area of patchy airspace disease is present in the posterior aspect of the left lower lobe. Chest X-Ray 06/28/17 00:00 IMPRESSION: COPD. Question developing CHF. Head MRI 05/21/18 00:00 IMPRESSION: Negative for acute or sub-acute infarction. EVIDENCE OF ACUTE STROKE: NO. Assessment & Plan - Diagnosis (1) GERD (gastroesophageal reflux disease) Is this a current diagnosis for this admission?: Yes Plan: Massive hiatal hernia seen on CT scan suggest keeping 60 or higher to the diminished risk of aspiration (2) Pneumonia Qualifiers: Is this a current diagnosis for this admission?: Yes Plan: Slightly better today (3) Dementia Qualifiers: Dementia type: Alzheimer's disease Alzheimer's disease onset: late-onset Dementia behavioral disturbance: without behavioral disturbance Qualified Code (s): G30.1 - Alzheimer's disease with late onset; F02.80 - Dementia in other diseases classified elsewhere without behavioral disturbance; F02.80 - Dementia in other diseases classified elsewhere without behavioral disturbance; F02.80 - Dementia in other diseases classified elsewhere without behavioral disturbance Is this a current diagnosis for this admission?: Yes
[2017-07-02 10:16] LABS: ABSOLUTE LYMPHOCYTES# (MANUAL) 3.4 10^3/uL (0.5-4.7); ABSOLUTE MONOCYTES # (MANUAL) 0.8 10^3/uL (0.1-1.4); ABSOLUTE NEUTROPHILS# (MANUAL) 15.8 10^3/uL (1.7-8.2); BASOPHILS % (MANUAL) 0 % (0-2); EOSINOPHILS % (MANUAL) 0 % (0-6); LYMPHOCYTES % (MANUAL) 17 % (13-45); MONOCYTES % (MANUAL) 4 % (3-13); SEGMENTED NEUTROPHILS % (MAN) 79 % (42-78); TOTAL CELLS COUNTED 100
[2017-07-02 10:18] LABS: ANISOCYTOSIS 2+; PLATELET COMMENT ADEQUATE; POLYCHROMASIA SLIGHT; TOXIC GRANULATION 1+
--- NOTE | 2017-07-02 19:34 | PDOC PROGRESS REPORT ---
Subjective Progress Note for:: 07/02/17 Subjective:: No new complaints Reason For Visit: ACUTE HYPOXEMIA, RESPIRATORY FAILURE Physical Exam Vital Signs: Temp Pulse Resp BP Pulse Ox 97.4 F 102 H 16 131/67 H 99 07/02/17 16:52 07/02/17 16:52 07/02/17 16:52 07/02/17 16:52 07/02/17 16:52 Intake & Output 07/01/17 07/02/17 07/03/17 06:59 06:59 06:59 Intake Total 791 1780 620 Balance 791 1780 620 Weight 63.9 kg 63.9 kg General appearance: PRESENT: no acute distress Eye exam: PRESENT: PERRLA Respiratory exam: PRESENT: rhonchi Cardiovascular exam: PRESENT: +S1, +S2 GI/Abdominal exam: PRESENT: soft Results Laboratory Results: 07/02/17 09:14 07/02/17 09:14 07/02/17 07/02/17 09:14 09:14 WBC 20.0 H RBC 4.30 Hgb 12.2 Hct 37.6 MCV 87 MCH 28.3 MCHC 32.3 RDW 18.2 H Plt Count 349 Seg Neutrophils % Not Reportable Lymphocytes % Not Reportable Monocytes % Not Reportable Eosinophils % Not Reportable Basophils % Not Reportable Absolute Neutrophils Not Reportable Absolute Lymphocytes Not Reportable Absolute Monocytes Not Reportable Absolute Eosinophils Not Reportable Absolute Basophils Not Reportable Sodium 143.0 Potassium 5.1 H Chloride 107 Carbon Dioxide 26 Anion Gap 10 BUN 25 H Creatinine 0.97 Est GFR ( Amer) > 60 Est GFR (Non-Af Amer) 55 L Glucose 91 Calcium 9.9 Total Bilirubin 0.4 AST 21 ALT 20 Alkaline Phosphatase 107 Total Protein 7.7 Albumin 3.4 L Impressions: Chest CT 06/22/17 00:00 IMPRESSION: Small area of patchy airspace disease is present in the posterior aspect of the left lower lobe. Chest X-Ray 06/28/17 00:00 IMPRESSION: COPD. Question developing CHF. Head MRI 06/28/17 00:00 IMPRESSION: Negative for acute or sub-acute infarction. EVIDENCE OF ACUTE STROKE: NO. Assessment & Plan - Diagnosis (1) Pneumonia Qualifiers: Pneumonia type: due to unspecified organism Laterality: unspecified laterality Lung location: unspecified part of lung Qualified Code(s): J18.9 - Pneumonia, unspecified organism Is this a current diagnosis for this admission?: Yes (2) Acute kidney injury Is this a current diagnosis for this admission?: Yes (3) Adult failure to thrive Is this a current diagnosis for this admission?: Yes (4) Dehydration Is this a current diagnosis for this admission?: Yes (5) Dementia Qualifiers: Dementia type: Alzheimer's disease Alzheimer's disease onset: late-onset Dementia behavioral disturbance: without behavioral disturbance Qualified Code (s): G30.1 - Alzheimer's disease with late onset; F02.80 - Dementia in other diseases classified elsewhere without behavioral disturbance; F02.80 - Dementia in other diseases classified elsewhere without behavioral disturbance; F02.80 - Dementia in other diseases classified elsewhere without behavioral disturbance Is this a current diagnosis for this admission?: Yes (6) Pulmonary hypertension Is this a current diagnosis for this admission?: Yes (7) Rheumatoid arthritis Qualifiers: Rheumatoid arthritis location: unspecified site Rheumatoid factor presence : unspecified presence Qualified Code(s): M06.9 - Rheumatoid arthritis, unspecified Is this a current diagnosis for this admission?: Yes (8) Senile dementia of Alzheimer's type Is this a current diagnosis for this admission?: Yes - Plan Summary Plan Summary: Continue treatment
[2017-07-03 06:20] LABS: HEMATOCRIT 33.5 % (36.0-47.0); HEMOGLOBIN 10.9 g/dL (12.0-15.5); MEAN CORPUSCULAR HEMOGLOBIN 28.6 pg (27.0-33.4); MEAN CORPUSCULAR HGB CONC 32.6 g/dL (32.0-36.0); MEAN CORPUSCULAR VOLUME 88 fl (80-97); PLATELET COUNT 362 10^3/uL (150-450); RED BLOOD COUNT 3.82 10^6/uL (3.72-5.28); RED CELL DISTRIBUTION WIDTH 18.5 % (11.5-14.0); WHITE BLOOD COUNT 18.1 10^3/uL (4.0-10.5)
[2017-07-03 06:46] LABS: ALANINE AMINOTRANSFERASE 22 U/L (9-52); ALKALINE PHOSPHATASE 99 U/L (38-126); ANION GAP 11 (5-19); ASPARTATE AMINO TRANSFERASE 17 U/L (14-36); BILIRUBIN,DIRECT 0.3 mg/dL (0.0-0.4); BILIRUBIN,TOTAL 0.3 mg/dL (0.2-1.3); BLOOD UREA NITROGEN 25 mg/dL (7-20); CALCIUM 9.5 mg/dL (8.4-10.2); CARBON DIOXIDE 24 mmol/L (22-30); CHLORIDE 107 mmol/L (98-107); GLUCOSE 96 mg/dL (75-110); POTASSIUM 4.8 mmol/L (3.6-5.0); TOTAL PROTEIN 6.4 g/dL (6.3-8.2)
[2017-07-03 07:25] LABS: ABSOLUTE LYMPHOCYTES# (MANUAL) 2.5 10^3/uL (0.5-4.7); ABSOLUTE MONOCYTES # (MANUAL) 1.4 10^3/uL (0.1-1.4); ABSOLUTE NEUTROPHILS# (MANUAL) 13.9 10^3/uL (1.7-8.2); BAND NEUTROPHILS % (MANUAL) 1 % (3-5); BASOPHILS % (MANUAL) 0 % (0-2); EOSINOPHILS % (MANUAL) 1 % (0-6); LYMPHOCYTES % (MANUAL) 14 % (13-45); METAMYELOCYTES % (MANUAL) 1 % (0); MONOCYTES % (MANUAL) 8 % (3-13); SEGMENTED NEUTROPHILS % (MAN) 75 % (42-78); TOTAL CELLS COUNTED 100
[2017-07-03 07:26] LABS: ANISOCYTOSIS 2+; PLATELET COMMENT ADEQUATE; TOXIC VACUOLATION PRESENT
[2017-07-03 07:27] LABS: OVALOCYTES SLIGHT; POIKILOCYTOSIS SLIGHT
[2017-07-03] MEDS: DOCUSATE SODIUM 100 MG CAPSULE PO SCH (10:32)
[2017-07-03] MEDS: DONEPEZIL HCL 5 MG TABLET PO SCH (10:32)
[2017-07-03] MEDS: MEMANTINE HCL 10 MG TABLET PO SCH ×2 (10:32→17:32)
[2017-07-03] MEDS: GUAIFENESIN 600 MG TABLET.SA PO SCH ×2 (10:32→17:33)
[2017-07-03] MEDS: MEGESTROL ACETATE SUSP 400 MG/10 ML UDCUP PO SCH ×2 (10:32→17:33)
[2017-07-03] MEDS: LEVOFLOXACIN 750 MG/D5W RTU 750 MG/150 ML RTUPB IV SCH (17:33)
--- NOTE | 2017-07-03 17:49 | PDOC PROGRESS REPORT ---
Subjective Progress Note for:: 07/03/17 Subjective:: Family at bedside reported more sleepiness so far today. Nursing staff confirmed poor sleep pattern overnight. Poor oral fluid intake. No observed difficult with breathing or chest pain. There is concern about constipation and hard stool. Reason For Visit: ACUTE HYPOXEMIA, RESPIRATORY FAILURE Physical Exam Vital Signs: Temp Pulse Resp BP Pulse Ox 98.5 F 85 24 H 141/51 H 100 07/03/17 15:53 07/03/17 15:53 07/03/17 15:53 07/03/17 15:53 07/03/17 15:53 Intake & Output 07/02/17 07/03/17 07/04/17 06:59 06:59 06:59 Intake Total 1780 1246 450 Balance 1780 1246 450 Weight 63.9 kg 66.6 kg General appearance: PRESENT: no acute distress Head exam: PRESENT: atraumatic, normocephalic Mouth exam: PRESENT: moist - fairly Respiratory exam: PRESENT: decreased breath sounds - at lung bases Cardiovascular exam: PRESENT: RRR, +S1, +S2. ABSENT: diastolic murmur, rubs, systolic murmur Vascular exam: PRESENT: normal capillary refill. ABSENT: pallor GI/Abdominal exam: PRESENT: normal bowel sounds, soft Extremities exam: ABSENT: pedal edema Musculoskeletal exam: PRESENT: deformity - related to multiple joints involvement with arthritis Neurological exam: PRESENT: alert - with baseline dementia, awake Psychiatric exam: PRESENT: appropriate affect, normal mood. ABSENT: homicidal ideation, suicidal ideation Skin exam: PRESENT: dry, warm Results Laboratory Results: 07/03/17 05:46 07/03/17 05:46 07/03/17 07/03/17 05:46 05:46 WBC 18.1 H RBC 3.82 Hgb 10.9 L Hct 33.5 L MCV 88 MCH 28.6 MCHC 32.6 RDW 18.5 H Plt Count 362 Seg Neutrophils % Not Reportable Lymphocytes % Not Reportable Monocytes % Not Reportable Eosinophils % Not Reportable Basophils % Not Reportable Absolute Neutrophils Not Reportable Absolute Lymphocytes Not Reportable Absolute Monocytes Not Reportable Absolute Eosinophils Not Reportable Absolute Basophils Not Reportable Sodium 142.0 Potassium 4.8 Chloride 107 Carbon Dioxide 24 Anion Gap 11 BUN 25 H Creatinine 1.04 Est GFR ( Amer) > 60 Est GFR (Non-Af Amer) 50 L Glucose 96 Calcium 9.5 Total Bilirubin 0.3 AST 17 ALT 22 Alkaline Phosphatase 99 Total Protein 6.4 Albumin 3.0 L Impressions: Chest CT 06/22/17 00:00 IMPRESSION: Small area of patchy airspace disease is present in the posterior aspect of the left lower lobe. Chest X-Ray 06/28/17 00:00 IMPRESSION: COPD. Question developing CHF. Head MRI 06/28/17 00:00 IMPRESSION: Negative for acute or sub-acute infarction. EVIDENCE OF ACUTE STROKE: NO. Assessment & Plan - Diagnosis (1) Lobar pneumonia, unspecified organism Is this a current diagnosis for this admission?: Yes Plan: See covering attending physician orders. (2) Constipation, unspecified Qualifiers: Constipation type: unspecified constipation type Qualified Code(s): K59.00 - Constipation, unspecified Is this a current diagnosis for this admission?: Yes Plan: See covering attending physician orders. (3) Senile dementia of Alzheimer's type Is this a current diagnosis for this admission?: Yes Plan: See covering attending physician orders. - Time Time Spent with patient: 25-34 minutes Medications reviewed and adjusted accordingly: Yes Anticipated discharge: Home with Homehealth Within: Other - Inpatient Certification Based on my medical assessment, after consideration of the patient's comorbidities, presenting symptoms, or acuity I expect that the services needed warrant INPATIENT care.: Yes I certify that my determination is in accordance with my understanding of Medicare's requirements for reasonable and necessary INPATIENT services [42 CFR 412.3e].: Yes Medical Necessity: Need Close Monitoring Due to Risk of Patient Decompensation, Need For IV Fluids, Need For Continuous Telemetry Monitoring, Need for IV Antibiotics, Risk of Complication if Not Cared For in Hospital Post Hospital Care: D/C [employer] Documentation - Plan Summary Plan Summary: See covering attending physician orders.
[2017-07-04] MEDS: MEMANTINE HCL 10 MG TABLET PO SCH ×2 (11:09→19:04)
[2017-07-04] MEDS: GUAIFENESIN 600 MG TABLET.SA PO SCH ×2 (11:09→19:03)
[2017-07-04] MEDS: DOCUSATE SODIUM 100 MG CAPSULE PO SCH (11:10)
[2017-07-04] MEDS: MEGESTROL ACETATE SUSP 400 MG/10 ML UDCUP PO SCH ×2 (11:10→19:03)
[2017-07-04] MEDS: DONEPEZIL HCL 5 MG TABLET PO SCH (11:10)
[2017-07-04] MEDS: DEXTROSE 5%-WATER 1000 ML 1,000 ML IV PRN (15:00)
--- NOTE | 2017-07-04 17:29 | PDOC PROGRESS REPORT ---
Subjective Progress Note for:: 07/04/17 Subjective:: Family at bedside reported continue poor oral food and fluid intake. Minimal intake of supplied Ensure. No observed difficult with breathing or chest pain. Reason For Visit: ACUTE HYPOXEMIA, RESPIRATORY FAILURE Physical Exam Vital Signs: Temp Pulse Resp BP Pulse Ox 97.7 F 92 22 H 139/67 H 100 07/04/17 16:08 07/04/17 16:08 07/04/17 16:08 07/04/17 16:08 07/04/17 16:08 Intake & Output 07/03/17 07/04/17 07/05/17 06:59 06:59 06:59 Intake Total 1246 1934 Balance 1246 1934 Weight 66.6 kg 66.5 kg Physical Exam: General appearance: PRESENT: no acute distress Head exam: PRESENT: atraumatic, normocephalic Mouth exam: PRESENT: moist - fairly Respiratory exam: PRESENT: decreased breath sounds - at lung bases Cardiovascular exam: PRESENT: RRR, +S1, +S2. ABSENT: diastolic murmur, rubs, systolic murmur Vascular exam: PRESENT: normal capillary refill. ABSENT: pallor GI/Abdominal exam: PRESENT: normal bowel sounds, soft Extremities exam: ABSENT: pedal edema Musculoskeletal exam: PRESENT: deformity - related to multiple joints involvement with arthritis Neurological exam: PRESENT: alert - with baseline dementia, awake Psychiatric exam: PRESENT: appropriate affect, normal mood. ABSENT: homicidal ideation, suicidal ideation Skin exam: PRESENT: dry, warm Results Laboratory Results: 07/03/17 05:46 07/03/17 05:46 Impressions: Chest CT 06/22/17 00:00 IMPRESSION: Small area of patchy airspace disease is present in the posterior aspect of the left lower lobe. Chest X-Ray 06/28/17 00:00 IMPRESSION: COPD. Question developing CHF. Head MRI 06/28/17 00:00 IMPRESSION: Negative for acute or sub-acute infarction. EVIDENCE OF ACUTE STROKE: NO. Assessment & Plan - Diagnosis (1) Lobar pneumonia, unspecified organism Is this a current diagnosis for this admission?: Yes (2) Constipation, unspecified Qualifiers: Constipation type: unspecified constipation type Qualified Code(s): K59.00 - Constipation, unspecified Is this a current diagnosis for this admission?: Yes Plan: See covering attending physician orders. Start on Dulcolax suppository therapy on prn bases. (3) Senile dementia of Alzheimer's type Is this a current diagnosis for this admission?: Yes - Time Time Spent with patient: 25-34 minutes Medications reviewed and adjusted accordingly: Yes Anticipated discharge: Home with Homehealth Within: Other - Inpatient Certification Based on my medical assessment, after consideration of the patient's comorbidities, presenting symptoms, or acuity I expect that the services needed warrant INPATIENT care.: Yes I certify that my determination is in accordance with my understanding of Medicare's requirements for reasonable and necessary INPATIENT services [42 CFR 412.3e].: Yes Medical Necessity: Need Close Monitoring Due to Risk of Patient Decompensation, Need For IV Fluids, Risk of Complication if Not Cared For in Hospital Post Hospital Care: D/C [employer] Documentation - Plan Summary Plan Summary: Start on Dulcolax suppository 10 mg ME x 1 dose.
[2017-07-04] MEDS: SENNOSIDES/DOCUSATE 8.6-50 MG 1 EACH TABLET PO PRN (19:03)
[2017-07-05] MEDS: MEGESTROL ACETATE SUSP 400 MG/10 ML UDCUP PO SCH ×2 (11:01→18:22)
[2017-07-05] MEDS: GUAIFENESIN 600 MG TABLET.SA PO SCH ×2 (11:02→18:22)
[2017-07-05] MEDS: MEMANTINE HCL 10 MG TABLET PO SCH ×2 (11:02→18:22)
[2017-07-05] MEDS: DONEPEZIL HCL 5 MG TABLET PO SCH (11:02)
[2017-07-05] MEDS: DOCUSATE SODIUM 100 MG CAPSULE PO SCH (11:03)
[2017-07-05] MEDS: SENNOSIDES/DOCUSATE 8.6-50 MG 1 EACH TABLET PO PRN (11:03)
[2017-07-05] MEDS: DEXTROSE 5%-WATER 1000 ML 1,000 ML IV PRN (14:45)
--- NOTE | 2017-07-05 16:27 | PDOC PROGRESS REPORT ---
Subjective Progress Note for:: 07/05/17 Subjective:: No difficulty with breathing or observed chest pain. Po intake remain poor. No fever or chills. Baseline dementia persist. Reason For Visit: ACUTE HYPOXEMIA, RESPIRATORY FAILURE Physical Exam Vital Signs: Temp Pulse Resp BP Pulse Ox 98.4 F 95 16 140/67 H 97 07/05/17 11:24 07/05/17 11:24 07/05/17 11:24 07/05/17 11:24 07/05/17 11:24 Intake & Output 07/04/17 07/05/17 07/06/17 06:59 06:59 06:59 Intake Total 1933 2115 Balance 1933 2115 Weight 66.5 kg 72.2 kg Physical Exam: General appearance: PRESENT: no acute distress Head exam: PRESENT: atraumatic, normocephalic Mouth exam: PRESENT: moist - fairly Respiratory exam: PRESENT: decreased breath sounds - at lung bases Cardiovascular exam: PRESENT: RRR, +S1, +S2. ABSENT: diastolic murmur, rubs, systolic murmur Vascular exam: ABSENT: pallor GI/Abdominal exam: PRESENT: normal bowel sounds, soft Extremities exam: ABSENT: pedal edema Musculoskeletal exam: PRESENT: deformity - related to multiple joints involvement with arthritis Neurological exam: PRESENT: alert - with baseline dementia, awake Psychiatric exam: PRESENT: appropriate affect, normal mood. ABSENT: homicidal ideation, suicidal ideation Skin exam: PRESENT: dry, warm Results Laboratory Results: 07/03/17 05:46 07/03/17 05:46 Impressions: Chest CT 06/22/17 00:00 IMPRESSION: Small area of patchy airspace disease is present in the posterior aspect of the left lower lobe. Chest X-Ray 06/28/17 00:00 IMPRESSION: COPD. Question developing CHF. Head MRI 06/28/17 00:00 IMPRESSION: Negative for acute or sub-acute infarction. EVIDENCE OF ACUTE STROKE: NO. Assessment & Plan - Diagnosis (1) Lobar pneumonia, unspecified organism Is this a current diagnosis for this admission?: Yes (2) Constipation, unspecified Qualifiers: Constipation type: unspecified constipation type Qualified Code(s): K59.00 - Constipation, unspecified Is this a current diagnosis for this admission?: Yes (3) Senile dementia of Alzheimer's type Is this a current diagnosis for this admission?: Yes - Time Time Spent with patient: 25-34 minutes Medications reviewed and adjusted accordingly: Yes Anticipated discharge: Home with Homehealth Within: Other - Inpatient Certification Based on my medical assessment, after consideration of the patient's comorbidities, presenting symptoms, or acuity I expect that the services needed warrant INPATIENT care.: Yes I certify that my determination is in accordance with my understanding of Medicare's requirements for reasonable and necessary INPATIENT services [42 CFR 412.3e].: Yes Medical Necessity: Need Close Monitoring Due to Risk of Patient Decompensation, Need For IV Fluids, Need For Continuous Telemetry Monitoring, Risk of Complication if Not Cared For in Hospital Post Hospital Care: D/C [employer] Documentation - Plan Summary Plan Summary: See covering attending physician orders.
[2017-07-05] MEDS: LEVOFLOXACIN 750 MG/D5W RTU 750 MG/150 ML RTUPB IV SCH (18:26)
[2017-07-06 05:27] LABS: ANION GAP 6 (5-19); BLOOD UREA NITROGEN 27 mg/dL (7-20); CALCIUM 9.3 mg/dL (8.4-10.2); CARBON DIOXIDE 27 mmol/L (22-30); CHLORIDE 108 mmol/L (98-107); GLUCOSE 104 mg/dL (75-110); POTASSIUM 4.5 mmol/L (3.6-5.0); SODIUM 141.2 mmol/L (137-145)
[2017-07-06 05:53] LABS: MEAN CORPUSCULAR HEMOGLOBIN 28.6 pg (27.0-33.4); MEAN CORPUSCULAR HGB CONC 32.4 g/dL (32.0-36.0); MEAN CORPUSCULAR VOLUME 88 fl (80-97); RED BLOOD COUNT 4.19 10^6/uL (3.72-5.28); WHITE BLOOD COUNT 16.8 10^3/uL (4.0-10.5)
[2017-07-06 06:14] LABS: ABSOLUTE MONOCYTES # (MANUAL) 0.2 10^3/uL (0.1-1.4); ABSOLUTE NEUTROPHILS# (MANUAL) 11.6 10^3/uL (1.7-8.2); BASOPHILS % (MANUAL) 0 % (0-2); EOSINOPHILS % (MANUAL) 0 % (0-6); LYMPHOCYTES % (MANUAL) 28 % (13-45); MONOCYTES % (MANUAL) 1 % (3-13); SEGMENTED NEUTROPHILS % (MAN) 69 % (42-78); TOTAL CELLS COUNTED 100
[2017-07-06 06:15] LABS: PLATELET COMMENT ADEQUATE
[2017-07-06 06:17] LABS: TOXIC GRANULATION 1+
[2017-07-06 06:18] LABS: ANISOCYTOSIS 2+; PLATELET CLUMPS PRESENT; PLATELET COUNT 309 10^3/uL (150-450)
[2017-07-06 10:20] LABS: ARTERIAL BLOOD H2CO3 0.96 mmol/L (1.05-1.35); ARTERIAL BLOOD HCO3 22.2 mmol/L (20-26); ARTERIAL BLOOD O2 SATURATION 96.2 % (94-98); ARTERIAL BLOOD PH 7.46 (7.35-7.45); ARTERIAL BLOOD PO2 77.8 mmHg (80-100); ARTERIAL BLOOD TOTAL CO2 23.2 mmol/L (21-25)
[2017-07-06 10:21] LABS: ARTERIAL BLOOD FIO2 21%
[2017-07-06] MEDS: MEGESTROL ACETATE SUSP 400 MG/10 ML UDCUP PO SCH ×2 (10:47→19:04)
[2017-07-06] MEDS: MEMANTINE HCL 10 MG TABLET PO SCH ×2 (10:47→19:04)
[2017-07-06] MEDS: DONEPEZIL HCL 5 MG TABLET PO SCH (10:47)
[2017-07-06] MEDS: DOCUSATE SODIUM 100 MG CAPSULE PO SCH (10:47)
[2017-07-06] MEDS: GUAIFENESIN 600 MG TABLET.SA PO SCH ×2 (10:47→19:03)
--- NOTE | 2017-07-06 13:10 | PDOC PROGRESS REPORT ---
Subjective Progress Note for:: 07/06/17 Subjective:: Extended talk with family spouse and daughter about DNR, comfort care and current medical status the understand the gravity of her situation her spouse wishes everything done was months possible his daughter is a nurse and will try to review the situation with him Reason For Visit: ACUTE HYPOXEMIA, RESPIRATORY FAILURE Physical Exam Vital Signs: Temp Pulse Resp BP Pulse Ox 98.1 F 94 22 H 133/62 H 94 07/06/17 12:00 07/06/17 12:00 07/06/17 12:00 07/06/17 12:00 07/06/17 12:00 Intake & Output 07/05/17 07/06/17 07/07/17 06:59 06:59 06:59 Intake Total 2116 1448 Balance 2116 1448 Weight 72.2 kg 70.6 kg General appearance: PRESENT: no acute distress, disheveled. ABSENT: cooperative Head exam: PRESENT: atraumatic, normocephalic Eye exam: PRESENT: conjunctiva pale. ABSENT: EOMI, nystagmus, periorbital swelling, scleral icterus Mouth exam: PRESENT: dry mucosa, neck supple Neck exam: ABSENT: carotid bruit, JVD, lymphadenopathy, thyromegaly, tracheal deviation, tracheostomy Respiratory exam: PRESENT: decreased breath sounds, prolonged expiratory phas, rales, rhonchi, unlabored. ABSENT: retraction, stridor, tachypnea Cardiovascular exam: PRESENT: RRR, +S1, +S2 Pulses: PRESENT: normal radial pulses GI/Abdominal exam: PRESENT: normal bowel sounds, soft Extremities exam: ABSENT: calf tenderness, clubbing, full ROM Musculoskeletal exam: ABSENT: ambulatory, deformity, dislocation, full ROM Neurological exam: ABSENT: awake, oriented to person Skin exam: PRESENT: dry, warm Results Laboratory Results: 07/06/17 04:42 07/06/17 04:42 07/06/17 07/06/17 07/06/17 04:42 04:42 10:00 WBC 16.8 H RBC 4.19 Hgb 12.0 Hct 37.0 MCV 88 MCH 28.6 MCHC 32.4 RDW 19.0 H Plt Count 309 Seg Neutrophils % Not Reportable Lymphocytes % Not Reportable Monocytes % Not Reportable Eosinophils % Not Reportable Basophils % Not Reportable Absolute Neutrophils Not Reportable Absolute Lymphocytes Not Reportable Absolute Monocytes Not Reportable Absolute Eosinophils Not Reportable Absolute Basophils Not Reportable Carbonic Acid 0.96 L HCO3/H2CO3 Ratio 23:1 ABG pH 7.46 H ABG pCO2 32.0 L ABG pO2 77.8 L ABG HCO3 22.2 ABG O2 Saturation 96.2 ABG Base Excess -1.0 FiO2 21% Sodium 141.2 Potassium 4.5 Chloride 108 H Carbon Dioxide 27 Anion Gap 6 BUN 27 H Creatinine 0.95 Est GFR ( Amer) > 60 Est GFR (Non-Af Amer) 56 L Glucose 104 Calcium 9.3 Impressions: Chest CT 06/22/17 00:00 IMPRESSION: Small area of patchy airspace disease is present in the posterior aspect of the left lower lobe. Chest X-Ray 06/28/17 00:00 IMPRESSION: COPD. Question developing CHF. Head MRI 06/28/17 00:00 IMPRESSION: Negative for acute or sub-acute infarction. EVIDENCE OF ACUTE STROKE: NO. Assessment & Plan - Diagnosis (1) GERD (gastroesophageal reflux disease) Is this a current diagnosis for this admission?: Yes Plan: Massive hiatal hernia seen on CT scan suggest keeping 60 or higher to the diminished risk of aspiration (2) Pneumonia Qualifiers: Is this a current diagnosis for this admission?: Yes Plan: wbc trending downward abg on ra ok (3) Dementia Qualifiers: Dementia type: Alzheimer's disease Alzheimer's disease onset: late-onset Dementia behavioral disturbance: without behavioral disturbance Qualified Code (s): G30.1 - Alzheimer's disease with late onset; F02.80 - Dementia in other diseases classified elsewhere without behavioral disturbance; F02.80 - Dementia in other diseases classified elsewhere without behavioral disturbance; F02.80 - Dementia in other diseases classified elsewhere without behavioral disturbance Is this a current diagnosis for this admission?: Yes Plan: Somnolent and nonresponsive today
[2017-07-06] MEDS: DEXTROSE 5%-WATER 1000 ML 1,000 ML IV PRN (16:40)
--- NOTE | 2017-07-06 18:52 | RADIOLOGY REPORT (SQ) ---
EXAM DESCRIPTION: CHEST 2 VIEWS COMPLETED DATE/TIME: 07/06/2017 6:40 pm REASON FOR STUDY: pneumonia COMPARISON: 04/01/2016 EXAM PARAMETERS: NUMBER OF VIEWS: two views TECHNIQUE: Digital Frontal and Lateral radiographic views of the chest acquired. RADIATION DOSE: NA LIMITATIONS: none FINDINGS: LUNGS AND PLEURA: There is ill-defined retrocardiac opacification on the left and opacific ation in posterior inferior aspect of the chest on the lateral view. MEDIASTINUM AND HILAR STRUCTURES: Possible hiatal hernia. HEART AND VASCULAR STRUCTURES: Heart normal size. No evidence for failure. BONES: Kyphoplasty changes. HARDWARE: None in the chest. OTHER: No other significant finding. IMPRESSION: Cannot exclude left lower lobe pneumonia. Hiatal hernia is suggested. TECHNICAL DOCUMENTATION: JOB ID: [id number] [employer]- All Rights Reserved Reading location - IP/workstation name: [email or web address]
--- NOTE | 2017-07-06 19:09 | PDOC PROGRESS REPORT ---
Subjective Progress Note for:: 07/06/17 Subjective:: She was seen by the bedside, she has persistent leukocytosis, flow cytometry will be requested. Chest x-ray, left lower lobe pneumonia cannot rule out, ABG showed respiratory alkalosis Reason For Visit: ACUTE HYPOXEMIA, RESPIRATORY FAILURE Physical Exam Vital Signs: Temp Pulse Resp BP Pulse Ox 98.3 F 81 20 132/66 H 100 07/06/17 16:00 07/06/17 16:00 07/06/17 16:00 07/06/17 16:00 07/06/17 16:00 Intake & Output 07/05/17 07/06/17 07/07/17 06:59 06:59 06:59 Intake Total 2116 1448 896 Balance 2116 1448 896 Weight 72.2 kg 70.6 kg General appearance: PRESENT: no acute distress Respiratory exam: PRESENT: rhonchi Cardiovascular exam: PRESENT: +S1, +S2 GI/Abdominal exam: PRESENT: soft Neurological exam: PRESENT: alert Results Laboratory Results: 07/06/17 04:42 07/06/17 04:42 07/06/17 07/06/17 07/06/17 04:42 04:42 10:00 WBC 16.8 H RBC 4.19 Hgb 12.0 Hct 37.0 MCV 88 MCH 28.6 MCHC 32.4 RDW 19.0 H Plt Count 309 Seg Neutrophils % Not Reportable Lymphocytes % Not Reportable Monocytes % Not Reportable Eosinophils % Not Reportable Basophils % Not Reportable Absolute Neutrophils Not Reportable Absolute Lymphocytes Not Reportable Absolute Monocytes Not Reportable Absolute Eosinophils Not Reportable Absolute Basophils Not Reportable Carbonic Acid 0.96 L HCO3/H2CO3 Ratio 23:1 ABG pH 7.46 H ABG pCO2 32.0 L ABG pO2 77.8 L ABG HCO3 22.2 ABG O2 Saturation 96.2 ABG Base Excess -1.0 FiO2 21% Sodium 141.2 Potassium 4.5 Chloride 108 H Carbon Dioxide 27 Anion Gap 6 BUN 27 H Creatinine 0.95 Est GFR ( Amer) > 60 Est GFR (Non-Af Amer) 56 L Glucose 104 Calcium 9.3 Impressions: Chest CT 06/22/17 00:00 IMPRESSION: Small area of patchy airspace disease is present in the posterior aspect of the left lower lobe. Head MRI 06/28/17 00:00 IMPRESSION: Negative for acute or sub-acute infarction. EVIDENCE OF ACUTE STROKE: NO. Chest X-Ray 07/06/17 00:00 IMPRESSION: Cannot exclude left lower lobe pneumonia. Hiatal hernia is suggested. Assessment & Plan - Diagnosis (1) Pneumonia Qualifiers: Pneumonia type: due to unspecified organism Laterality: unspecified laterality Lung location: unspecified part of lung Qualified Code(s): J18.9 - Pneumonia, unspecified organism Is this a current diagnosis for this admission?: Yes (2) Acute kidney injury Is this a current diagnosis for this admission?: Yes (3) Adult failure to thrive Is this a current diagnosis for this admission?: Yes (4) Dehydration Is this a current diagnosis for this admission?: Yes (5) Dementia Qualifiers: Dementia type: Alzheimer's disease Alzheimer's disease onset: late-onset Dementia behavioral disturbance: without behavioral disturbance Qualified Code (s): G30.1 - Alzheimer's disease with late onset; F02.80 - Dementia in other diseases classified elsewhere without behavioral disturbance; F02.80 - Dementia in other diseases classified elsewhere without behavioral disturbance; F02.80 - Dementia in other diseases classified elsewhere without behavioral disturbance Is this a current diagnosis for this admission?: Yes (6) Pulmonary hypertension Is this a current diagnosis for this admission?: Yes (7) Rheumatoid arthritis Qualifiers: Rheumatoid arthritis location: unspecified site Rheumatoid factor presence : unspecified presence Qualified Code(s): M06.9 - Rheumatoid arthritis, unspecified Is this a current diagnosis for this admission?: Yes (8) Senile dementia of Alzheimer's type Is this a current diagnosis for this admission?: Yes
[2017-07-07] MEDS: GUAIFENESIN 600 MG TABLET.SA PO SCH ×2 (10:01→18:22)
[2017-07-07] MEDS: MEGESTROL ACETATE SUSP 400 MG/10 ML UDCUP PO SCH ×2 (10:01→18:22)
[2017-07-07] MEDS: DONEPEZIL HCL 5 MG TABLET PO SCH (10:01)
[2017-07-07] MEDS: DOCUSATE SODIUM 100 MG CAPSULE PO SCH (10:02)
[2017-07-07] MEDS: MEMANTINE HCL 10 MG TABLET PO SCH ×2 (10:02→18:22)
--- NOTE | 2017-07-07 14:22 | PDOC PROGRESS REPORT ---
Subjective Progress Note for:: 07/07/17 Subjective:: Patient had normal arterial blood gas BMP and CBC today she is much more awake alert and interactive. Reason For Visit: ACUTE HYPOXEMIA, RESPIRATORY FAILURE Physical Exam Vital Signs: Temp Pulse Resp BP Pulse Ox 97.5 F 71 16 137/59 H 99 07/06/17 19:52 07/07/17 07:00 07/06/17 19:52 07/06/17 19:52 07/06/17 19:52 Intake & Output 07/06/17 07/07/17 07/08/17 06:59 06:59 06:59 Intake Total 1448 1356 Balance 1448 1356 Weight 70.6 kg 72.8 kg General appearance: PRESENT: no acute distress, cooperative, disheveled, thin Head exam: PRESENT: atraumatic, normocephalic Eye exam: PRESENT: conjunctiva pale, EOMI, PERRLA. ABSENT: nystagmus, periorbital swelling, scleral icterus Mouth exam: PRESENT: moist, neck supple, tongue midline Neck exam: ABSENT: carotid bruit, JVD, lymphadenopathy, thyromegaly, tracheal deviation, tracheostomy Respiratory exam: PRESENT: decreased breath sounds, prolonged expiratory phas, rhonchi, unlabored. ABSENT: rales, retraction, stridor, tachypnea Cardiovascular exam: PRESENT: RRR, +S1, +S2 Pulses: PRESENT: normal radial pulses GI/Abdominal exam: PRESENT: normal bowel sounds, soft Extremities exam: ABSENT: calf tenderness, clubbing, joint swelling Musculoskeletal exam: ABSENT: deformity, dislocation Neurological exam: PRESENT: awake, oriented to person, oriented to place, oriented to time Psychiatric exam: PRESENT: normal mood Skin exam: PRESENT: dry, warm Results Laboratory Results: 07/06/17 04:42 07/06/17 04:42 Impressions: Chest CT 06/22/17 00:00 IMPRESSION: Small area of patchy airspace disease is present in the posterior aspect of the left lower lobe. Head MRI 06/28/17 00:00 IMPRESSION: Negative for acute or sub-acute infarction. EVIDENCE OF ACUTE STROKE: NO. Chest X-Ray 07/06/17 00:00 IMPRESSION: Cannot exclude left lower lobe pneumonia. Hiatal hernia is suggested. Assessment & Plan - Diagnosis (1) GERD (gastroesophageal reflux disease) Is this a current diagnosis for this admission?: Yes Plan: Massive hiatal hernia seen on CT scan suggest keeping 60 or higher to the diminished risk of aspiration (2) Pneumonia Qualifiers: Is this a current diagnosis for this admission?: Yes Plan: wbc trending downward abg on ra ok (3) Dementia Qualifiers: Dementia type: Alzheimer's disease Alzheimer's disease onset: late-onset Dementia behavioral disturbance: without behavioral disturbance Qualified Code (s): G30.1 - Alzheimer's disease with late onset; F02.80 - Dementia in other diseases classified elsewhere without behavioral disturbance; F02.80 - Dementia in other diseases classified elsewhere without behavioral disturbance; F02.80 - Dementia in other diseases classified elsewhere without behavioral disturbance Is this a current diagnosis for this admission?: Yes Plan: Somnolent and nonresponsive 1 day: next day alert and awake
[2017-07-07] MEDS: DEXTROSE 5%-WATER 1000 ML 1,000 ML IV PRN (15:09)
[2017-07-07 16:20] LABS: ABSOLUTE BASOPHILS # (AUTO) 0.2 10^3/uL (0.0-0.2); ABSOLUTE EOSINOPHILS # (AUTO) 0.2 10^3/uL (0.0-0.6); ABSOLUTE LYMPHOCYTES (AUTO) 1.7 10^3/uL (0.5-4.7); ABSOLUTE MONOCYTES (AUTO) 1.3 10^3/uL (0.1-1.4); BASOPHILS % (AUTO) 1.1 % (0-2); HEMATOCRIT 35.4 % (36.0-47.0); HEMOGLOBIN 11.4 g/dL (12.0-15.5); LYMPHOCYTES % (AUTO) 9.2 % (13-45); MEAN CORPUSCULAR HEMOGLOBIN 28.3 pg (27.0-33.4); MEAN CORPUSCULAR HGB CONC 32.2 g/dL (32.0-36.0); MEAN CORPUSCULAR VOLUME 88 fl (80-97); MONOCYTES % (AUTO) 7.3 % (3-13); PLATELET COUNT 349 10^3/uL (150-450); RED BLOOD COUNT 4.03 10^6/uL (3.72-5.28); RED CELL DISTRIBUTION WIDTH 18.6 % (11.5-14.0); SEGMENTED NEUTROPHILS % (AUTO) 81.4 % (42-78); TOTAL CELLS COUNTED % (AUTO) 100 %; WHITE BLOOD COUNT 18.4 10^3/uL (4.0-10.5)
[2017-07-07 16:26] LABS: ALANINE AMINOTRANSFERASE 12 U/L (9-52); ALBUMIN 3.2 g/dL (3.5-5.0); ALKALINE PHOSPHATASE 105 U/L (38-126); ANION GAP 12 (5-19); ASPARTATE AMINO TRANSFERASE 35 U/L (14-36); BILIRUBIN,DIRECT 0.3 mg/dL (0.0-0.4); BILIRUBIN,TOTAL 0.3 mg/dL (0.2-1.3); BLOOD UREA NITROGEN 28 mg/dL (7-20); CALCIUM 9.2 mg/dL (8.4-10.2); CARBON DIOXIDE 22 mmol/L (22-30); CHLORIDE 108 mmol/L (98-107); GLUCOSE 144 mg/dL (75-110); POTASSIUM 4.1 mmol/L (3.6-5.0); SODIUM 141.5 mmol/L (137-145); TOTAL PROTEIN 7.1 g/dL (6.3-8.2)
--- NOTE | 2017-07-07 16:39 | PDOC PROGRESS REPORT ---
Subjective Progress Note for:: 07/07/17 Subjective:: She has persistent leukocytosis, flow cytometry ordered result pending, patient was better, hopefully discharge by the end of the week Reason For Visit: ACUTE HYPOXEMIA, RESPIRATORY FAILURE Physical Exam Vital Signs: Temp Pulse Resp BP Pulse Ox 97.5 F 79 16 137/59 H 99 07/06/17 19:52 07/07/17 14:00 07/06/17 19:52 07/06/17 19:52 07/06/17 19:52 Intake & Output 07/06/17 07/07/17 07/08/17 06:59 06:59 06:59 Intake Total 1448 1356 Balance 1448 1356 Weight 70.6 kg 72.8 kg General appearance: PRESENT: no acute distress Eye exam: PRESENT: PERRLA Cardiovascular exam: PRESENT: +S1, +S2 GI/Abdominal exam: PRESENT: soft Neurological exam: PRESENT: alert Results Laboratory Results: 07/07/17 16:00 07/07/17 16:00 07/07/17 07/07/17 16:00 16:00 WBC 18.4 H RBC 4.03 Hgb 11.4 L Hct 35.4 L MCV 88 MCH 28.3 MCHC 32.2 RDW 18.6 H Plt Count 349 Seg Neutrophils % 81.4 H Lymphocytes % 9.2 L Monocytes % 7.3 Eosinophils % 1.0 Basophils % 1.1 Absolute Neutrophils 15.0 H Absolute Lymphocytes 1.7 Absolute Monocytes 1.3 Absolute Eosinophils 0.2 Absolute Basophils 0.2 Sodium 141.5 Potassium 4.1 Chloride 108 H Carbon Dioxide 22 Anion Gap 12 BUN 28 H Creatinine 1.29 H Est GFR ( Amer) 48 L Est GFR (Non-Af Amer) 39 L Glucose 144 H Calcium 9.2 Total Bilirubin 0.3 AST 35 ALT 12 Alkaline Phosphatase 105 Total Protein 7.1 Albumin 3.2 L Impressions: Chest CT 06/22/17 00:00 IMPRESSION: Small area of patchy airspace disease is present in the posterior aspect of the left lower lobe. Head MRI 06/28/17 00:00 IMPRESSION: Negative for acute or sub-acute infarction. EVIDENCE OF ACUTE STROKE: NO. Chest X-Ray 07/06/17 00:00 IMPRESSION: Cannot exclude left lower lobe pneumonia. Hiatal hernia is suggested. Assessment & Plan - Diagnosis (1) Pneumonia Qualifiers: Pneumonia type: due to unspecified organism Laterality: unspecified laterality Lung location: unspecified part of lung Qualified Code(s): J18.9 - Pneumonia, unspecified organism Is this a current diagnosis for this admission?: Yes (2) Acute kidney injury Is this a current diagnosis for this admission?: Yes (3) Adult failure to thrive Is this a current diagnosis for this admission?: Yes (4) Dehydration Is this a current diagnosis for this admission?: Yes (5) Dementia Qualifiers: Dementia type: Alzheimer's disease Alzheimer's disease onset: late-onset Dementia behavioral disturbance: without behavioral disturbance Qualified Code (s): G30.1 - Alzheimer's disease with late onset; F02.80 - Dementia in other diseases classified elsewhere without behavioral disturbance; F02.80 - Dementia in other diseases classified elsewhere without behavioral disturbance; F02.80 - Dementia in other diseases classified elsewhere without behavioral disturbance Is this a current diagnosis for this admission?: Yes (6) Pulmonary hypertension Is this a current diagnosis for this admission?: Yes (7) Rheumatoid arthritis Qualifiers: Rheumatoid arthritis location: unspecified site Rheumatoid factor presence : unspecified presence Qualified Code(s): M06.9 - Rheumatoid arthritis, unspecified Is this a current diagnosis for this admission?: Yes (8) Senile dementia of Alzheimer's type Is this a current diagnosis for this admission?: Yes
[2017-07-07] MEDS: LEVOFLOXACIN 750 MG/D5W RTU 750 MG/150 ML RTUPB IV SCH (18:23)
[2017-07-08] MEDS: GUAIFENESIN 600 MG TABLET.SA PO SCH ×2 (10:30→21:29)
[2017-07-08] MEDS: DOCUSATE SODIUM 100 MG CAPSULE PO SCH (10:30)
[2017-07-08] MEDS: MEMANTINE HCL 10 MG TABLET PO SCH ×2 (10:30→17:23)
[2017-07-08] MEDS: MEGESTROL ACETATE SUSP 400 MG/10 ML UDCUP PO SCH ×2 (10:30→17:23)
[2017-07-08] MEDS: DONEPEZIL HCL 5 MG TABLET PO SCH (10:30)
--- NOTE | 2017-07-08 10:31 | PDOC PROGRESS REPORT ---
Subjective Progress Note for:: 07/08/17 Subjective:: ASLEEP Reason For Visit: ACUTE HYPOXEMIA, RESPIRATORY FAILURE Physical Exam Vital Signs: Temp Pulse Resp BP Pulse Ox 97.3 F 73 14 145/60 H 97 07/08/17 07:24 07/08/17 07:24 07/08/17 07:24 07/08/17 07:24 07/08/17 07:24 Intake & Output 07/07/17 07/08/17 07/09/17 06:59 06:59 06:59 Intake Total 1356 1960 Balance 1356 1960 Weight 72.8 kg 71.2 kg General appearance: PRESENT: no acute distress, disheveled, thin Head exam: PRESENT: atraumatic, normocephalic Eye exam: PRESENT: conjunctiva pale, EOMI. ABSENT: nystagmus, periorbital swelling, scleral icterus Mouth exam: PRESENT: dry mucosa, neck supple, tongue midline Neck exam: ABSENT: carotid bruit, JVD, lymphadenopathy, thyromegaly, tracheal deviation, tracheostomy Respiratory exam: PRESENT: decreased breath sounds, prolonged expiratory phas, rhonchi, unlabored. ABSENT: rales, retraction, stridor, tachypnea Cardiovascular exam: PRESENT: irregular rhythm, +S1, +S2 Pulses: PRESENT: normal radial pulses GI/Abdominal exam: PRESENT: normal bowel sounds, soft Extremities exam: ABSENT: calf tenderness, clubbing, joint swelling Musculoskeletal exam: ABSENT: deformity, dislocation Neurological exam: ABSENT: awake Skin exam: PRESENT: dry, warm Results Laboratory Results: 07/07/17 16:00 07/07/17 16:00 07/07/17 07/07/17 16:00 16:00 WBC 18.4 H RBC 4.03 Hgb 11.4 L Hct 35.4 L MCV 88 MCH 28.3 MCHC 32.2 RDW 18.6 H Plt Count 349 Seg Neutrophils % 81.4 H Lymphocytes % 9.2 L Monocytes % 7.3 Eosinophils % 1.0 Basophils % 1.1 Absolute Neutrophils 15.0 H Absolute Lymphocytes 1.7 Absolute Monocytes 1.3 Absolute Eosinophils 0.2 Absolute Basophils 0.2 Sodium 141.5 Potassium 4.1 Chloride 108 H Carbon Dioxide 22 Anion Gap 12 BUN 28 H Creatinine 1.29 H Est GFR ( Amer) 48 L Est GFR (Non-Af Amer) 39 L Glucose 144 H Calcium 9.2 Total Bilirubin 0.3 AST 35 ALT 12 Alkaline Phosphatase 105 Total Protein 7.1 Albumin 3.2 L Impressions: Chest CT 06/22/17 00:00 IMPRESSION: Small area of patchy airspace disease is present in the posterior aspect of the left lower lobe. Head MRI 06/28/17 00:00 IMPRESSION: Negative for acute or sub-acute infarction. EVIDENCE OF ACUTE STROKE: NO. Chest X-Ray 07/06/17 00:00 IMPRESSION: Cannot exclude left lower lobe pneumonia. Hiatal hernia is suggested. Assessment & Plan - Diagnosis (1) GERD (gastroesophageal reflux disease) Is this a current diagnosis for this admission?: Yes Plan: Massive hiatal hernia seen on CT scan suggest keeping 60 or higher to the diminished risk of aspiration (2) Pneumonia Qualifiers: Is this a current diagnosis for this admission?: Yes Plan: wbc trending downward abg on ra ok (3) Dementia Qualifiers: Dementia type: Alzheimer's disease Alzheimer's disease onset: late-onset Dementia behavioral disturbance: without behavioral disturbance Qualified Code (s): G30.1 - Alzheimer's disease with late onset; F02.80 - Dementia in other diseases classified elsewhere without behavioral disturbance; F02.80 - Dementia in other diseases classified elsewhere without behavioral disturbance; F02.80 - Dementia in other diseases classified elsewhere without behavioral disturbance Is this a current diagnosis for this admission?: Yes Plan: Somnolent and nonresponsive 1 day: next day alert and awake
--- NOTE | 2017-07-08 17:52 | PDOC PROGRESS REPORT ---
Subjective Progress Note for:: 07/08/17 Subjective:: Patient seen by the bedside, she has baseline dementia, persistent leukocytosis , blood work sent for flow cytometry to evaluate for leukemia/lymphoma result pending, intake still minimal Reason For Visit: ACUTE HYPOXEMIA, RESPIRATORY FAILURE Physical Exam Vital Signs: Temp Pulse Resp BP Pulse Ox 98.5 F 75 16 125/59 L 97 07/08/17 11:51 07/08/17 14:00 07/08/17 11:51 07/08/17 11:51 07/08/17 11:51 Intake & Output 07/07/17 07/08/17 07/09/17 06:59 06:59 06:59 Intake Total 1356 1960 400 Balance 1356 1960 400 Weight 72.8 kg 71.2 kg General appearance: PRESENT: no acute distress Eye exam: PRESENT: PERRLA Respiratory exam: PRESENT: clear to auscultation [place] Cardiovascular exam: PRESENT: +S1, +S2 GI/Abdominal exam: PRESENT: soft Neurological exam: PRESENT: alert Results Laboratory Results: 07/07/17 16:00 07/07/17 16:00 Impressions: Chest CT 06/22/17 00:00 IMPRESSION: Small area of patchy airspace disease is present in the posterior aspect of the left lower lobe. Head MRI 06/28/17 00:00 IMPRESSION: Negative for acute or sub-acute infarction. EVIDENCE OF ACUTE STROKE: NO. Chest X-Ray 07/06/17 00:00 IMPRESSION: Cannot exclude left lower lobe pneumonia. Hiatal hernia is suggested. Assessment & Plan - Diagnosis (1) Pneumonia Qualifiers: Pneumonia type: due to unspecified organism Laterality: unspecified laterality Lung location: unspecified part of lung Qualified Code(s): J18.9 - Pneumonia, unspecified organism Is this a current diagnosis for this admission?: Yes (2) Acute kidney injury Is this a current diagnosis for this admission?: Yes (3) Adult failure to thrive Is this a current diagnosis for this admission?: Yes (4) Dehydration Is this a current diagnosis for this admission?: Yes (5) Dementia Qualifiers: Dementia type: Alzheimer's disease Alzheimer's disease onset: late-onset Dementia behavioral disturbance: without behavioral disturbance Qualified Code (s): G30.1 - Alzheimer's disease with late onset; F02.80 - Dementia in other diseases classified elsewhere without behavioral disturbance; F02.80 - Dementia in other diseases classified elsewhere without behavioral disturbance; F02.80 - Dementia in other diseases classified elsewhere without behavioral disturbance Is this a current diagnosis for this admission?: Yes (6) Pulmonary hypertension Is this a current diagnosis for this admission?: Yes (7) Rheumatoid arthritis Qualifiers: Rheumatoid arthritis location: unspecified site Rheumatoid factor presence : unspecified presence Qualified Code(s): M06.9 - Rheumatoid arthritis, unspecified Is this a current diagnosis for this admission?: Yes (8) Senile dementia of Alzheimer's type Is this a current diagnosis for this admission?: Yes
[2017-07-08 18:37] LABS: ABSOLUTE BASOPHILS # (AUTO) 0.2 10^3/uL (0.0-0.2); ABSOLUTE EOSINOPHILS # (AUTO) 0.1 10^3/uL (0.0-0.6); ABSOLUTE MONOCYTES (AUTO) 1.3 10^3/uL (0.1-1.4); ABSOLUTE NEUT (AUTO) 12.3 10^3/uL (1.7-8.2); EOSINOPHILS % (AUTO) 0.9 % (0-6); HEMATOCRIT 32.3 % (36.0-47.0); HEMOGLOBIN 10.7 g/dL (12.0-15.5); LYMPHOCYTES % (AUTO) 12.3 % (13-45); MEAN CORPUSCULAR HEMOGLOBIN 28.9 pg (27.0-33.4); MEAN CORPUSCULAR HGB CONC 33.1 g/dL (32.0-36.0); MEAN CORPUSCULAR VOLUME 87 fl (80-97); MONOCYTES % (AUTO) 8.3 % (3-13); PLATELET COUNT 327 10^3/uL (150-450); RED CELL DISTRIBUTION WIDTH 18.6 % (11.5-14.0); SEGMENTED NEUTROPHILS % (AUTO) 77.5 % (42-78); TOTAL CELLS COUNTED % (AUTO) 100 %; WHITE BLOOD COUNT 15.9 10^3/uL (4.0-10.5)
[2017-07-08 18:57] LABS: ALANINE AMINOTRANSFERASE 21 U/L (9-52); ALBUMIN 2.8 g/dL (3.5-5.0); ALKALINE PHOSPHATASE 83 U/L (38-126); ANION GAP 11 (5-19); ASPARTATE AMINO TRANSFERASE 16 U/L (14-36); BILIRUBIN,DIRECT 0.3 mg/dL (0.0-0.4); BILIRUBIN,TOTAL 0.3 mg/dL (0.2-1.3); BLOOD UREA NITROGEN 29 mg/dL (7-20); CALCIUM 9.1 mg/dL (8.4-10.2); CARBON DIOXIDE 25 mmol/L (22-30); CHLORIDE 106 mmol/L (98-107); GLUCOSE 94 mg/dL (75-110); POTASSIUM 4.7 mmol/L (3.6-5.0); SODIUM 141.8 mmol/L (137-145); TOTAL PROTEIN 6.2 g/dL (6.3-8.2)
[2017-07-09 05:40] LABS: ABSOLUTE BASOPHILS # (AUTO) 0.1 10^3/uL (0.0-0.2); ABSOLUTE EOSINOPHILS # (AUTO) 0.2 10^3/uL (0.0-0.6); ABSOLUTE MONOCYTES (AUTO) 1.2 10^3/uL (0.1-1.4); ABSOLUTE NEUT (AUTO) 10.7 10^3/uL (1.7-8.2); BASOPHILS % (AUTO) 0.9 % (0-2); EOSINOPHILS % (AUTO) 1.1 % (0-6); HEMATOCRIT 32.3 % (36.0-47.0); HEMOGLOBIN 10.5 g/dL (12.0-15.5); MEAN CORPUSCULAR HEMOGLOBIN 28.5 pg (27.0-33.4); MEAN CORPUSCULAR HGB CONC 32.6 g/dL (32.0-36.0); MEAN CORPUSCULAR VOLUME 87 fl (80-97); MONOCYTES % (AUTO) 8.4 % (3-13); PLATELET COUNT 301 10^3/uL (150-450); RED CELL DISTRIBUTION WIDTH 18.5 % (11.5-14.0); SEGMENTED NEUTROPHILS % (AUTO) 75.6 % (42-78); TOTAL CELLS COUNTED % (AUTO) 100 %; WHITE BLOOD COUNT 14.1 10^3/uL (4.0-10.5)
[2017-07-09 05:52] LABS: ALANINE AMINOTRANSFERASE 21 U/L (9-52); ALBUMIN 2.8 g/dL (3.5-5.0); ALKALINE PHOSPHATASE 85 U/L (38-126); ANION GAP 9 (5-19); ASPARTATE AMINO TRANSFERASE 14 U/L (14-36); BILIRUBIN,DIRECT 0.3 mg/dL (0.0-0.4); BILIRUBIN,TOTAL 0.3 mg/dL (0.2-1.3); BLOOD UREA NITROGEN 26 mg/dL (7-20); CALCIUM 9.1 mg/dL (8.4-10.2); CARBON DIOXIDE 24 mmol/L (22-30); CHLORIDE 107 mmol/L (98-107); GLUCOSE 105 mg/dL (75-110); POTASSIUM 4.8 mmol/L (3.6-5.0); SODIUM 139.5 mmol/L (137-145); TOTAL PROTEIN 6.2 g/dL (6.3-8.2)
[2017-07-09] MEDS: GUAIFENESIN 600 MG TABLET.SA PO SCH (09:35)
[2017-07-09] MEDS: DONEPEZIL HCL 5 MG TABLET PO SCH (09:35)
[2017-07-09] MEDS: MEMANTINE HCL 10 MG TABLET PO SCH ×2 (09:35→18:05)
[2017-07-09] MEDS: DOCUSATE SODIUM 100 MG CAPSULE PO SCH (09:35)
[2017-07-09] MEDS: MEGESTROL ACETATE SUSP 400 MG/10 ML UDCUP PO SCH ×2 (09:36→18:05)
--- NOTE | 2017-07-09 20:18 | PDOC PROGRESS REPORT ---
Subjective Progress Note for:: 07/09/17 Subjective:: Patient seen by the bedside, she has baseline dementia, persistent leukocytosis , blood work sent for flow cytometry to evaluate for leukemia/lymphoma result pending, intake still minimal Reason For Visit: ACUTE HYPOXEMIA, RESPIRATORY FAILURE Physical Exam Vital Signs: Temp Pulse Resp BP Pulse Ox 97.6 F 97 16 139/60 H 97 07/09/17 07:47 07/09/17 14:00 07/09/17 07:47 07/09/17 07:47 07/09/17 07:47 Intake & Output 07/08/17 07/09/17 07/10/17 06:59 06:59 06:59 Intake Total 1959 1822 939 Balance 1959 1822 939 Weight 71.2 kg 71.2 kg General appearance: PRESENT: no acute distress Eye exam: PRESENT: PERRLA Respiratory exam: PRESENT: clear to auscultation [place] Cardiovascular exam: PRESENT: +S1, +S2 GI/Abdominal exam: PRESENT: soft Results Laboratory Results: 07/09/17 05:14 07/09/17 05:14 07/09/17 07/09/17 05:14 05:14 WBC 14.1 H RBC 3.70 L Hgb 10.5 L Hct 32.3 L MCV 87 MCH 28.5 MCHC 32.6 RDW 18.5 H Plt Count 301 Seg Neutrophils % 75.6 Lymphocytes % 14.0 Monocytes % 8.4 Eosinophils % 1.1 Basophils % 0.9 Absolute Neutrophils 10.7 H Absolute Lymphocytes 2.0 Absolute Monocytes 1.2 Absolute Eosinophils 0.2 Absolute Basophils 0.1 Sodium 139.5 Potassium 4.8 Chloride 107 Carbon Dioxide 24 Anion Gap 9 BUN 26 H Creatinine 0.91 Est GFR ( Amer) > 60 Est GFR (Non-Af Amer) 59 L Glucose 105 Calcium 9.1 Total Bilirubin 0.3 AST 14 ALT 21 Alkaline Phosphatase 85 Total Protein 6.2 L Albumin 2.8 L Impressions: Chest CT 06/22/17 00:00 IMPRESSION: Small area of patchy airspace disease is present in the posterior aspect of the left lower lobe. Head MRI 06/28/17 00:00 IMPRESSION: Negative for acute or sub-acute infarction. EVIDENCE OF ACUTE STROKE: NO. Chest X-Ray 07/06/17 00:00 IMPRESSION: Cannot exclude left lower lobe pneumonia. Hiatal hernia is suggested. Assessment & Plan - Diagnosis (1) Pneumonia Qualifiers: Pneumonia type: due to unspecified organism Laterality: unspecified laterality Lung location: unspecified part of lung Qualified Code(s): J18.9 - Pneumonia, unspecified organism Is this a current diagnosis for this admission?: Yes (2) Acute kidney injury Is this a current diagnosis for this admission?: Yes (3) Adult failure to thrive Is this a current diagnosis for this admission?: Yes (4) Dehydration Is this a current diagnosis for this admission?: Yes (5) Dementia Qualifiers: Dementia type: Alzheimer's disease Alzheimer's disease onset: late-onset Dementia behavioral disturbance: without behavioral disturbance Qualified Code (s): G30.1 - Alzheimer's disease with late onset; F02.80 - Dementia in other diseases classified elsewhere without behavioral disturbance; F02.80 - Dementia in other diseases classified elsewhere without behavioral disturbance; F02.80 - Dementia in other diseases classified elsewhere without behavioral disturbance Is this a current diagnosis for this admission?: Yes (6) Pulmonary hypertension Is this a current diagnosis for this admission?: Yes (7) Rheumatoid arthritis Qualifiers: Rheumatoid arthritis location: unspecified site Rheumatoid factor presence : unspecified presence Qualified Code(s): M06.9 - Rheumatoid arthritis, unspecified Is this a current diagnosis for this admission?: Yes (8) Senile dementia of Alzheimer's type Is this a current diagnosis for this admission?: Yes
[2017-07-10] MEDS: GUAIFENESIN 600 MG TABLET.SA PO SCH ×3 (02:28→21:54)
[2017-07-10 07:05] LABS: ABSOLUTE BASOPHILS # (AUTO) 0.1 10^3/uL (0.0-0.2); ABSOLUTE EOSINOPHILS # (AUTO) 0.1 10^3/uL (0.0-0.6); ABSOLUTE LYMPHOCYTES (AUTO) 1.9 10^3/uL (0.5-4.7); ABSOLUTE NEUT (AUTO) 10.1 10^3/uL (1.7-8.2); BASOPHILS % (AUTO) 0.9 % (0-2); EOSINOPHILS % (AUTO) 0.9 % (0-6); HEMATOCRIT 33.9 % (36.0-47.0); HEMOGLOBIN 11.1 g/dL (12.0-15.5); MEAN CORPUSCULAR HGB CONC 32.9 g/dL (32.0-36.0); MEAN CORPUSCULAR VOLUME 88 fl (80-97); MONOCYTES % (AUTO) 7.6 % (3-13); PLATELET COUNT 279 10^3/uL (150-450); RED BLOOD COUNT 3.85 10^6/uL (3.72-5.28); RED CELL DISTRIBUTION WIDTH 18.5 % (11.5-14.0); SEGMENTED NEUTROPHILS % (AUTO) 76.6 % (42-78); TOTAL CELLS COUNTED % (AUTO) 100 %; WHITE BLOOD COUNT 13.3 10^3/uL (4.0-10.5)
--- NOTE | 2017-07-10 08:09 | RADIOLOGY REPORT (SQ) ---
EXAM DESCRIPTION: CHEST SINGLE VIEW COMPLETED DATE/TIME: 07/10/2017 8:02 am REASON FOR STUDY: resp failure COMPARISON: None. EXAM PARAMETERS: NUMBER OF VIEWS: One view. TECHNIQUE: Single frontal radiographic view of the chest acquired. RADIATION DOSE: NA LIMITATIONS: None. FINDINGS: LUNGS AND PLEURA: Possible left lower lobe airspace disease and/ or pleural effusion. Zhang gs otherwise grossly clear. Underlying emphysema. MEDIASTINUM AND HILAR STRUCTURES: No masses. Contour normal. HEART AND VASCULAR STRUCTURES: Heart stable in size. Normal vasculature. BONES: No acute findings. HARDWARE: Stable. OTHER: No other significant finding. IMPRESSION: POSSIBLE LEFT LOWER LOBE AIRSPACE DISEASE AND/OR PLEURAL EFFUSION. OVERALL STABLE APPEA MORELIA OF THE CHEST. TECHNICAL DOCUMENTATION: JOB ID: [id number] [employer]- All Rights Reserved Reading location - IP/workstation name: [email or web address]
[2017-07-10] MEDS: DOCUSATE SODIUM 100 MG CAPSULE PO SCH (09:33)
[2017-07-10] MEDS: MEMANTINE HCL 10 MG TABLET PO SCH ×2 (09:36→16:53)
[2017-07-10] MEDS: DONEPEZIL HCL 5 MG TABLET PO SCH (09:36)
[2017-07-10] MEDS: MEGESTROL ACETATE SUSP 400 MG/10 ML UDCUP PO SCH ×2 (09:36→16:56)
--- NOTE | 2017-07-10 11:21 | PDOC PROGRESS REPORT ---
Subjective Progress Note for:: 07/10/17 Subjective:: Patient is currently doing fair Chest x-ray shows a persistent infiltrate No other events happened Reason For Visit: ACUTE HYPOXEMIA, RESPIRATORY FAILURE Physical Exam Vital Signs: Temp Pulse Resp BP Pulse Ox 97.2 F 69 14 131/48 H 97 07/10/17 04:53 07/10/17 07:33 07/10/17 07:33 07/10/17 07:33 07/10/17 07:33 Intake & Output 07/09/17 07/10/17 07/11/17 06:59 06:59 06:59 Intake Total 1822 1439 Balance 1822 1439 Weight 71.2 kg 71.2 kg General appearance: PRESENT: no acute distress, well-developed, well-nourished Head exam: PRESENT: atraumatic, normocephalic Eye exam: PRESENT: conjunctiva pink, EOMI, PERRLA. ABSENT: scleral icterus Ear exam: PRESENT: normal external ear exam Mouth exam: PRESENT: moist, tongue midline Neck exam: PRESENT: full ROM. ABSENT: carotid bruit, JVD, lymphadenopathy, thyromegaly Respiratory exam: PRESENT: clear to auscultation [place] Cardiovascular exam: PRESENT: RRR. ABSENT: diastolic murmur, rubs, systolic murmur Pulses: PRESENT: normal dorsalis pedis pul, +2 pedal pulses bilateral Vascular exam: PRESENT: normal capillary refill GI/Abdominal exam: PRESENT: normal bowel sounds, soft. ABSENT: distended, guarding, mass, organolmegaly, rebound, tenderness Rectal exam: PRESENT: deferred Neurological exam: PRESENT: alert, awake, oriented to person. ABSENT: motor sensory deficit Psychiatric exam: PRESENT: appropriate affect, normal mood. ABSENT: homicidal ideation, suicidal ideation Skin exam: PRESENT: dry, intact, warm. ABSENT: cyanosis, rash Results Laboratory Results: 07/10/17 05:39 07/09/17 05:14 07/10/17 05:39 WBC 13.3 H RBC 3.85 Hgb 11.1 L Hct 33.9 L MCV 88 MCH 29.0 MCHC 32.9 RDW 18.5 H Plt Count 279 Seg Neutrophils % 76.6 Lymphocytes % 14.0 Monocytes % 7.6 Eosinophils % 0.9 Basophils % 0.9 Absolute Neutrophils 10.1 H Absolute Lymphocytes 1.9 Absolute Monocytes 1.0 Absolute Eosinophils 0.1 Absolute Basophils 0.1 Impressions: Chest CT 06/22/17 00:00 IMPRESSION: Small area of patchy airspace disease is present in the posterior aspect of the left lower lobe. Head MRI 06/28/17 00:00 IMPRESSION: Negative for acute or sub-acute infarction. EVIDENCE OF ACUTE STROKE: NO. Chest X-Ray 07/10/17 06:00 IMPRESSION: POSSIBLE LEFT LOWER LOBE AIRSPACE DISEASE AND/OR PLEURAL EFFUSION. OVERALL STABLE APPEARANCE OF THE CHEST. Assessment & Plan - Diagnosis (1) Pneumonia Qualifiers: Pneumonia type: due to unspecified organism Laterality: unspecified laterality Lung location: unspecified part of lung Qualified Code(s): J18.9 - Pneumonia, unspecified organism Is this a current diagnosis for this admission?: Yes Plan: The patient on the cefepime (2) Adult failure to thrive Is this a current diagnosis for this admission?: Yes (3) Dementia Qualifiers: Dementia type: Alzheimer's disease Is this a current diagnosis for this admission?: Yes (4) GERD (gastroesophageal reflux disease) Is this a current diagnosis for this admission?: Yes - Time Time Spent with patient: 15-24 minutes Medications reviewed and adjusted accordingly: Yes Within: Other - Inpatient Certification Medical Necessity: Need Close Monitoring Due to Risk of Patient Decompensation Post Hospital Care: D/C Caddie Documentation - Plan Summary Plan Summary: continue to current medication
[2017-07-10] MEDS: DEXTROSE 5%-WATER 1000 ML 1,000 ML IV PRN (11:23)
[2017-07-10 11:24] LABS: APPEARANCE,URINE CLEAR; BILIRUBIN,URINE NEGATIVE (NEGATIVE); COLOR,URINE YELLOW; GLUCOSE, URINE NEGATIVE (NEGATIVE); KETONES,URINE NEGATIVE (NEGATIVE); LEUKOCYTE ESTERASE,URINE NEGATIVE (NEGATIVE); NITRITE,URINE NEGATIVE (NEGATIVE); PROTEIN,URINE NEGATIVE (NEGATIVE); URINE SPECIFIC GRAVITY 1.008; UROBILINOGEN,URINE NEGATIVE mg/dL (<2.0)
[2017-07-10] MEDS ORDERED: CEFEPIME 1 GM/D5W RTU 1 GM/50 ML RTUPB IV ONE (13:00)
[2017-07-10] MEDS ORDERED: CEFEPIME 1 GM/D5W RTU 1 GM/50 ML RTUPB IV SCH (22:00)
[2017-07-11 05:03] LABS: ABSOLUTE BASOPHILS # (AUTO) 0.1 10^3/uL (0.0-0.2); ABSOLUTE EOSINOPHILS # (AUTO) 0.1 10^3/uL (0.0-0.6); ABSOLUTE LYMPHOCYTES (AUTO) 1.9 10^3/uL (0.5-4.7); ABSOLUTE MONOCYTES (AUTO) 1.3 10^3/uL (0.1-1.4); ABSOLUTE NEUT (AUTO) 10.8 10^3/uL (1.7-8.2); BASOPHILS % (AUTO) 0.8 % (0-2); EOSINOPHILS % (AUTO) 0.9 % (0-6); HEMATOCRIT 31.9 % (36.0-47.0); HEMOGLOBIN 10.5 g/dL (12.0-15.5); LYMPHOCYTES % (AUTO) 13.2 % (13-45); MEAN CORPUSCULAR HEMOGLOBIN 28.6 pg (27.0-33.4); MEAN CORPUSCULAR VOLUME 87 fl (80-97); MONOCYTES % (AUTO) 9.1 % (3-13); PLATELET COUNT 266 10^3/uL (150-450); RED BLOOD COUNT 3.69 10^6/uL (3.72-5.28); RED CELL DISTRIBUTION WIDTH 18.7 % (11.5-14.0); TOTAL CELLS COUNTED % (AUTO) 100 %; WHITE BLOOD COUNT 14.3 10^3/uL (4.0-10.5)
[2017-07-11 05:27] LABS: ANION GAP 8 (5-19); BLOOD UREA NITROGEN 41 mg/dL (7-20); CARBON DIOXIDE 25 mmol/L (22-30); CHLORIDE 104 mmol/L (98-107); GLUCOSE 104 mg/dL (75-110); POTASSIUM 5.1 mmol/L (3.6-5.0)
[2017-07-11] MEDS: DONEPEZIL HCL 5 MG TABLET PO SCH (11:03)
[2017-07-11] MEDS: DOCUSATE SODIUM 100 MG CAPSULE PO SCH (11:03)
[2017-07-11] MEDS: MEMANTINE HCL 10 MG TABLET PO SCH ×2 (11:04→19:42)
[2017-07-11] MEDS: GUAIFENESIN 600 MG TABLET.SA PO SCH ×2 (11:04→21:30)
[2017-07-11] MEDS: MEGESTROL ACETATE SUSP 400 MG/10 ML UDCUP PO SCH ×2 (11:06→19:42)
--- NOTE | 2017-07-11 11:12 | PDOC PROGRESS REPORT ---
Subjective Progress Note for:: 07/11/17 Subjective:: She is currently doing fair According to the family doing pretty good No fever and no chills Patient's white count is persistently elevated Reason For Visit: ACUTE HYPOXEMIA, RESPIRATORY FAILURE Physical Exam Vital Signs: Temp Pulse Resp BP Pulse Ox 98.3 F 70 19 127/60 H 99 07/11/17 03:53 07/11/17 07:00 07/11/17 03:53 07/11/17 03:53 07/11/17 03:53 Intake & Output 07/10/17 07/11/17 07/12/17 06:59 06:59 06:59 Intake Total 1439 1312 Output Total 300 Balance 1439 1012 Weight 71.2 kg 73.1 kg General appearance: PRESENT: no acute distress, well-developed, well-nourished Head exam: PRESENT: atraumatic, normocephalic Eye exam: PRESENT: conjunctiva pink, EOMI, PERRLA. ABSENT: scleral icterus Ear exam: PRESENT: normal external ear exam Mouth exam: PRESENT: moist, tongue midline Neck exam: PRESENT: full ROM. ABSENT: carotid bruit, JVD, lymphadenopathy, thyromegaly Respiratory exam: PRESENT: clear to auscultation [place] Cardiovascular exam: PRESENT: RRR. ABSENT: diastolic murmur, rubs, systolic murmur Pulses: PRESENT: normal dorsalis pedis pul, +2 pedal pulses bilateral Vascular exam: PRESENT: normal capillary refill GI/Abdominal exam: PRESENT: normal bowel sounds, soft. ABSENT: distended, guarding, mass, organolmegaly, rebound, tenderness Rectal exam: PRESENT: deferred Neurological exam: PRESENT: alert, awake. ABSENT: motor sensory deficit Psychiatric exam: PRESENT: appropriate affect, normal mood. ABSENT: homicidal ideation, suicidal ideation Skin exam: PRESENT: dry, intact, warm. ABSENT: cyanosis, rash Results Laboratory Results: 07/11/17 04:09 07/11/17 04:09 07/10/17 07/11/17 07/11/17 10:50 04:09 04:09 WBC 14.3 H RBC 3.69 L Hgb 10.5 L Hct 31.9 L MCV 87 MCH 28.6 MCHC 33.0 RDW 18.7 H Plt Count 266 Seg Neutrophils % 76.0 Lymphocytes % 13.2 Monocytes % 9.1 Eosinophils % 0.9 Basophils % 0.8 Absolute Neutrophils 10.8 H Absolute Lymphocytes 1.9 Absolute Monocytes 1.3 Absolute Eosinophils 0.1 Absolute Basophils 0.1 Sodium 137.0 Potassium 5.1 H Chloride 104 Carbon Dioxide 25 Anion Gap 8 BUN 41 H Creatinine 0.91 Est GFR ( Amer) > 60 Est GFR (Non-Af Amer) 59 L Glucose 104 Calcium 9.0 Urine Color YELLOW Urine Appearance CLEAR Urine pH 5.0 Ur Specific [place] 1.008 Urine Protein NEGATIVE Urine Glucose (UA) NEGATIVE Urine Ketones NEGATIVE Urine Blood NEGATIVE Urine Nitrite NEGATIVE Ur Leukocyte Esterase NEGATIVE Urine WBC (Auto) 1 Urine RBC (Auto) 1 Impressions: Chest CT 06/22/17 00:00 IMPRESSION: Small area of patchy airspace disease is present in the posterior aspect of the left lower lobe. Head MRI 06/28/17 00:00 IMPRESSION: Negative for acute or sub-acute infarction. EVIDENCE OF ACUTE STROKE: NO. Chest X-Ray 07/10/17 06:00 IMPRESSION: POSSIBLE LEFT LOWER LOBE AIRSPACE DISEASE AND/OR PLEURAL EFFUSION. OVERALL STABLE APPEARANCE OF THE CHEST. Assessment & Plan - Diagnosis (1) Pneumonia Qualifiers: Pneumonia type: due to unspecified organism Laterality: unspecified laterality Lung location: unspecified part of lung Qualified Code(s): J18.9 - Pneumonia, unspecified organism Is this a current diagnosis for this admission?: Yes Plan: Start the patient on the p.o. Levaquin in the setting of the chest x-ray and a persistent elevated white count (2) Adult failure to thrive Is this a current diagnosis for this admission?: Yes (3) Dementia Qualifiers: Dementia type: Alzheimer's disease Is this a current diagnosis for this admission?: Yes (4) GERD (gastroesophageal reflux disease) Is this a current diagnosis for this admission?: Yes - Time Time Spent with patient: 15-24 minutes Medications reviewed and adjusted accordingly: Yes Anticipated discharge: Other Within: Other - Inpatient Certification Medical Necessity: Need Close Monitoring Due to Risk of Patient Decompensation Post Hospital Care: D/C Olive Packer Documentation - Plan Summary Plan Summary: Discussed with the family and the bedside about the all the test reports
[2017-07-11] MEDS: LEVOFLOXACIN 250 MG TABLET PO SCH (12:33)
[2017-07-11] MEDS ORDERED: FUROSEMIDE INJ/PF 20 MG/2 ML SDV IV ONE ×2 (16:00→16:45)
--- NOTE | 2017-07-11 16:23 | RADIOLOGY REPORT (SQ) ---
EXAM DESCRIPTION: CHEST SINGLE VIEW COMPLETED DATE/TIME: 07/11/2017 4:10 pm REASON FOR STUDY: SOB,TACHYCARDIA COMPARISON: 07/10/2017 EXAM PARAMETERS: NUMBER OF VIEWS: One view. TECHNIQUE: Single frontal radiographic view of the chest acquired. RADIATION DOSE: NA LIMITATIONS: None. FINDINGS: LUNGS AND PLEURA: Similar in appearance to previous. Possible left basilar airspace disea se. MEDIASTINUM AND HILAR STRUCTURES: No masses. Contour normal. HEART AND VASCULAR STRUCTURES: Heart normal in size. Normal vasculature. BONES: Formal kyphoplasty. HARDWARE: Venous access catheter unchanged. OTHER: No other significant finding. IMPRESSION: Stable appearance. TECHNICAL DOCUMENTATION: JOB ID: [id number] [employer]- All Rights Reserved Reading location - IP/workstation name: [email or web address]
--- NOTE | 2017-07-11 17:22 | RADIOLOGY REPORT (SQ) ---
EXAM DESCRIPTION: VENOUS UNILATERAL UPPER COMPLETED DATE/TIME: 07/11/2017 5:07 pm REASON FOR STUDY: SWELLING COMPARISON: None. TECHNIQUE: Dynamic and static renteria scale and color images acquired of the left arm venous system. Se lected spectral images acquired with additional compression and augmentation maneuvers. The contralat eral subclavian vein and internal jugular vein were also imaged. Images stored on PACS. LIMITATIONS: None. FINDINGS: INTERNAL JUGULAR VEIN: Normal phasicity, compression, augmentation. No visualized echogeni c material on renteria scale. No defects on color images. Comparison opposite side normal. SUBCLAVIAN VEIN: Normal compression, augmentation. No visualized echogenic material on renteria scale. No defects on color images. AXILLARY VEIN: Normal compression, augmentation. No visualized echogenic material on renteria scale. No d efects on color images. BRACHIAL VEIN: Normal compression, augmentation. No visualized echogenic material on renteria scale. No d efects on color images. BASILIC VEIN: Normal compression, augmentation. No visualized echogenic material on renteria scale. No de fects on color images. CEPHALIC VEIN: Normal compression, augmentation. No visualized echogenic material on renteria scale. No d efects on color images. OTHER: PICC line in the left basilic vein CONTRALATERAL SUBCLAVIAN VEIN AND INTERNAL JUGULAR VEIN: Not imaged IMPRESSION: NO EVIDENCE DVT OR SVT IN THE LEFT ARM. TECHNICAL DOCUMENTATION: JOB ID: [id number] [employer]- All Rights Reserved Reading location - IP/workstation name: [email or web address]
--- NOTE | 2017-07-11 23:15 | EKG REPORT ---
SEVERITY:- ABNORMAL ECG - SINUS TACHYCARDIA PROBABLE LEFT ATRIAL ABNORMALITY LEFT VENTRICULAR HYPERTROPHY BORDERLINE T ABNORMALITIES, INFERIOR LEADS : Confirmed by: Albino Herrmann 11-Jul-2017 23:14:01
[2017-07-12 05:28] LABS: ABSOLUTE BASOPHILS # (AUTO) 0.1 10^3/uL (0.0-0.2); ABSOLUTE EOSINOPHILS # (AUTO) 0.2 10^3/uL (0.0-0.6); ABSOLUTE LYMPHOCYTES (AUTO) 1.5 10^3/uL (0.5-4.7); ABSOLUTE MONOCYTES (AUTO) 1.2 10^3/uL (0.1-1.4); ABSOLUTE NEUT (AUTO) 10.1 10^3/uL (1.7-8.2); BASOPHILS % (AUTO) 0.6 % (0-2); EOSINOPHILS % (AUTO) 1.3 % (0-6); HEMATOCRIT 28.8 % (36.0-47.0); HEMOGLOBIN 9.5 g/dL (12.0-15.5); LYMPHOCYTES % (AUTO) 11.6 % (13-45); MEAN CORPUSCULAR HEMOGLOBIN 29.5 pg (27.0-33.4); MEAN CORPUSCULAR VOLUME 89 fl (80-97); MONOCYTES % (AUTO) 9.3 % (3-13); PLATELET COUNT 236 10^3/uL (150-450); RED BLOOD COUNT 3.23 10^6/uL (3.72-5.28); RED CELL DISTRIBUTION WIDTH 18.9 % (11.5-14.0); SEGMENTED NEUTROPHILS % (AUTO) 77.2 % (42-78); TOTAL CELLS COUNTED % (AUTO) 100 %; WHITE BLOOD COUNT 13.1 10^3/uL (4.0-10.5)
[2017-07-12 05:55] LABS: ANION GAP 5 (5-19); BLOOD UREA NITROGEN 42 mg/dL (7-20); CALCIUM 8.7 mg/dL (8.4-10.2); CARBON DIOXIDE 28 mmol/L (22-30); CHLORIDE 106 mmol/L (98-107); GLUCOSE 98 mg/dL (75-110); POTASSIUM 4.5 mmol/L (3.6-5.0); SODIUM 139.1 mmol/L (137-145)
[2017-07-12] MEDS: MEGESTROL ACETATE SUSP 400 MG/10 ML UDCUP PO SCH ×2 (10:42→17:05)
[2017-07-12] MEDS: MEMANTINE HCL 10 MG TABLET PO SCH ×2 (10:42→17:05)
[2017-07-12] MEDS: DONEPEZIL HCL 5 MG TABLET PO SCH (10:42)
[2017-07-12] MEDS: GUAIFENESIN 600 MG TABLET.SA PO SCH ×2 (10:42→21:42)
[2017-07-12] MEDS: DOCUSATE SODIUM 100 MG CAPSULE PO SCH (10:42)
[2017-07-12] MEDS: LEVOFLOXACIN 250 MG TABLET PO SCH (11:15)
--- NOTE | 2017-07-12 13:29 | PDOC PROGRESS REPORT ---
Subjective Progress Note for:: 07/09/17 Subjective:: ASLEEP Reason For Visit: ACUTE HYPOXEMIA, RESPIRATORY FAILURE Physical Exam Vital Signs: Temp Pulse Resp BP Pulse Ox 97.6 F 73 16 139/60 H 97 07/09/17 07:47 07/09/17 07:47 07/09/17 07:47 07/09/17 07:47 07/09/17 07:47 Intake & Output 07/08/17 07/09/17 07/10/17 06:59 06:59 06:59 Intake Total 1960 1822 Balance 1960 1822 Weight 71.2 kg 71.2 kg General appearance: PRESENT: no acute distress, disheveled, well-developed, well -nourished. ABSENT: cooperative Head exam: PRESENT: atraumatic, normocephalic Eye exam: PRESENT: conjunctiva pale, EOMI Mouth exam: PRESENT: dry mucosa, neck supple, tongue midline Neck exam: ABSENT: carotid bruit, JVD, lymphadenopathy, thyromegaly, tracheal deviation, tracheostomy Respiratory exam: PRESENT: decreased breath sounds, prolonged expiratory phas, rhonchi, unlabored. ABSENT: retraction, stridor Cardiovascular exam: PRESENT: RRR, +S1, +S2 Pulses: PRESENT: normal radial pulses GI/Abdominal exam: PRESENT: normal bowel sounds, soft Extremities exam: ABSENT: calf tenderness, clubbing Musculoskeletal exam: ABSENT: ambulatory, deformity, dislocation Neurological exam: PRESENT: oriented to person, oriented to place Skin exam: PRESENT: dry, warm Results Laboratory Results: 07/09/17 05:14 07/09/17 05:14 07/08/17 07/08/17 07/09/17 18:30 18:30 05:14 WBC 15.9 H 14.1 H RBC 3.70 L 3.70 L Hgb 10.7 L 10.5 L Hct 32.3 L 32.3 L MCV 87 87 MCH 28.9 28.5 MCHC 33.1 32.6 RDW 18.6 H 18.5 H Plt Count 327 301 Seg Neutrophils % 77.5 75.6 Lymphocytes % 12.3 L 14.0 Monocytes % 8.3 8.4 Eosinophils % 0.9 1.1 Basophils % 1.0 0.9 Absolute Neutrophils 12.3 H 10.7 H Absolute Lymphocytes 2.0 2.0 Absolute Monocytes 1.3 1.2 Absolute Eosinophils 0.1 0.2 Absolute Basophils 0.2 0.1 Sodium 141.8 Potassium 4.7 Chloride 106 Carbon Dioxide 25 Anion Gap 11 BUN 29 H Creatinine 1.05 Est GFR ( Amer) > 60 Est GFR (Non-Af Amer) 50 L Glucose 94 Calcium 9.1 Total Bilirubin 0.3 AST 16 ALT 21 Alkaline Phosphatase 83 Total Protein 6.2 L Albumin 2.8 L 07/09/17 05:14 WBC RBC Hgb Hct MCV MCH MCHC RDW Plt Count Seg Neutrophils % Lymphocytes % Monocytes % Eosinophils % Basophils % Absolute Neutrophils Absolute Lymphocytes Absolute Monocytes Absolute Eosinophils Absolute Basophils Sodium 139.5 Potassium 4.8 Chloride 107 Carbon Dioxide 24 Anion Gap 9 BUN 26 H Creatinine 0.91 Est GFR ( Amer) > 60 Est GFR (Non-Af Amer) 59 L Glucose 105 Calcium 9.1 Total Bilirubin 0.3 AST 14 ALT 21 Alkaline Phosphatase 85 Total Protein 6.2 L Albumin 2.8 L Impressions: Chest CT 06/22/17 00:00 IMPRESSION: Small area of patchy airspace disease is present in the posterior aspect of the left lower lobe. Head MRI 06/28/17 00:00 IMPRESSION: Negative for acute or sub-acute infarction. EVIDENCE OF ACUTE STROKE: NO. Chest X-Ray 07/06/17 00:00 IMPRESSION: Cannot exclude left lower lobe pneumonia. Hiatal hernia is suggested. Assessment & Plan - Diagnosis (1) GERD (gastroesophageal reflux disease) Is this a current diagnosis for this admission?: Yes Plan: Massive hiatal hernia seen on CT scan suggest keeping 60 or higher to the diminished risk of aspiration (2) Pneumonia Qualifiers: Is this a current diagnosis for this admission?: Yes Plan: wbc trending downward abg on ra ok (3) Dementia Qualifiers: Dementia type: Alzheimer's disease Alzheimer's disease onset: late-onset Dementia behavioral disturbance: without behavioral disturbance Qualified Code (s): G30.1 - Alzheimer's disease with late onset; F02.80 - Dementia in other diseases classified elsewhere without behavioral disturbance; F02.80 - Dementia in other diseases classified elsewhere without behavioral disturbance; F02.80 - Dementia in other diseases classified elsewhere without behavioral disturbance Is this a current diagnosis for this admission?: Yes Plan: Somnolent and nonresponsive 1 day: next day alert and awake
--- NOTE | 2017-07-12 13:34 | PDOC PROGRESS REPORT ---
Subjective Progress Note for:: 07/09/17 Subjective:: ASLEEP Reason For Visit: ACUTE HYPOXEMIA, RESPIRATORY FAILURE Physical Exam Vital Signs: Temp Pulse Resp BP Pulse Ox 97.9 F 70 20 146/56 H 98 07/12/17 08:00 07/12/17 08:00 07/12/17 08:00 07/12/17 08:00 07/12/17 08:00 Intake & Output 07/11/17 07/12/17 07/13/17 06:59 06:59 06:59 Intake Total 1312 1285 Output Total 300 Balance 1012 1285 Weight 73.1 kg 74.3 kg General appearance: PRESENT: no acute distress, cooperative, well-developed, well-nourished Head exam: PRESENT: atraumatic, normocephalic Eye exam: PRESENT: conjunctiva pale, EOMI. ABSENT: nystagmus, periorbital swelling, scleral icterus Mouth exam: PRESENT: dry mucosa, neck supple, tongue midline Neck exam: ABSENT: carotid bruit, JVD, lymphadenopathy, thyromegaly, tracheal deviation, tracheostomy Cardiovascular exam: PRESENT: RRR, +S1, +S2 Pulses: PRESENT: normal radial pulses GI/Abdominal exam: PRESENT: normal bowel sounds, soft Extremities exam: ABSENT: calf tenderness, clubbing Musculoskeletal exam: ABSENT: ambulatory, deformity, dislocation Neurological exam: PRESENT: oriented to person Skin exam: PRESENT: dry, warm Results Laboratory Results: 07/12/17 04:14 07/12/17 04:14 07/12/17 07/12/17 04:14 04:14 WBC 13.1 H RBC 3.23 L Hgb 9.5 L Hct 28.8 L MCV 89 MCH 29.5 MCHC 33.0 RDW 18.9 H Plt Count 236 Seg Neutrophils % 77.2 Lymphocytes % 11.6 L Monocytes % 9.3 Eosinophils % 1.3 Basophils % 0.6 Absolute Neutrophils 10.1 H Absolute Lymphocytes 1.5 Absolute Monocytes 1.2 Absolute Eosinophils 0.2 Absolute Basophils 0.1 Sodium 139.1 Potassium 4.5 Chloride 106 Carbon Dioxide 28 Anion Gap 5 BUN 42 H Creatinine 0.96 Est GFR ( Amer) > 60 Est GFR (Non-Af Amer) 55 L Glucose 98 Calcium 8.7 Impressions: Chest CT 06/22/17 00:00 IMPRESSION: Small area of patchy airspace disease is present in the posterior aspect of the left lower lobe. Head MRI 06/28/17 00:00 IMPRESSION: Negative for acute or sub-acute infarction. EVIDENCE OF ACUTE STROKE: NO. Chest X-Ray 07/11/17 00:00 IMPRESSION: Stable appearance. Venous Doppler Study 07/11/17 00:00 IMPRESSION: NO EVIDENCE DVT OR SVT IN THE LEFT ARM. Assessment & Plan - Diagnosis (1) GERD (gastroesophageal reflux disease) Is this a current diagnosis for this admission?: Yes Plan: Massive hiatal hernia seen on CT scan suggest keeping 60 or higher to the diminished risk of aspiration (2) Pneumonia Qualifiers: Is this a current diagnosis for this admission?: Yes Plan: wbc trending downward abg on ra ok (3) Dementia Qualifiers: Dementia type: Alzheimer's disease Alzheimer's disease onset: late-onset Dementia behavioral disturbance: without behavioral disturbance Qualified Code (s): G30.1 - Alzheimer's disease with late onset; F02.80 - Dementia in other diseases classified elsewhere without behavioral disturbance; F02.80 - Dementia in other diseases classified elsewhere without behavioral disturbance; F02.80 - Dementia in other diseases classified elsewhere without behavioral disturbance Is this a current diagnosis for this admission?: Yes Plan: Somnolent and nonresponsive 1 day: next day alert and awake
--- NOTE | 2017-07-12 21:51 | PDOC PROGRESS REPORT ---
Subjective Progress Note for:: 07/12/17 Subjective:: Patient is alert, There is no new complaints Reason For Visit: ACUTE HYPOXEMIA, RESPIRATORY FAILURE Physical Exam Vital Signs: Temp Pulse Resp BP Pulse Ox 98.1 F 100 20 139/56 H 97 07/12/17 15:39 07/12/17 15:39 07/12/17 15:39 07/12/17 15:39 07/12/17 15:39 Intake & Output 07/11/17 07/12/17 07/13/17 06:59 06:59 06:59 Intake Total 1312 1285 1076 Output Total 300 0 Balance 1012 1285 1076 Weight 73.1 kg 74.3 kg General appearance: PRESENT: no acute distress Eye exam: PRESENT: PERRLA Respiratory exam: PRESENT: clear to auscultation [place] Cardiovascular exam: PRESENT: +S1, +S2 GI/Abdominal exam: PRESENT: soft Neurological exam: PRESENT: alert Results Laboratory Results: 07/12/17 04:14 07/12/17 04:14 07/12/17 07/12/17 04:14 04:14 WBC 13.1 H RBC 3.23 L Hgb 9.5 L Hct 28.8 L MCV 89 MCH 29.5 MCHC 33.0 RDW 18.9 H Plt Count 236 Seg Neutrophils % 77.2 Lymphocytes % 11.6 L Monocytes % 9.3 Eosinophils % 1.3 Basophils % 0.6 Absolute Neutrophils 10.1 H Absolute Lymphocytes 1.5 Absolute Monocytes 1.2 Absolute Eosinophils 0.2 Absolute Basophils 0.1 Sodium 139.1 Potassium 4.5 Chloride 106 Carbon Dioxide 28 Anion Gap 5 BUN 42 H Creatinine 0.96 Est GFR ( Amer) > 60 Est GFR (Non-Af Amer) 55 L Glucose 98 Calcium 8.7 Impressions: Chest CT 06/22/17 00:00 IMPRESSION: Small area of patchy airspace disease is present in the posterior aspect of the left lower lobe. Head MRI 06/28/17 00:00 IMPRESSION: Negative for acute or sub-acute infarction. EVIDENCE OF ACUTE STROKE: NO. Chest X-Ray 07/11/17 00:00 IMPRESSION: Stable appearance. Venous Doppler Study 07/11/17 00:00 IMPRESSION: NO EVIDENCE DVT OR SVT IN THE LEFT ARM. Assessment & Plan - Diagnosis (1) Pneumonia Qualifiers: Pneumonia type: due to unspecified organism Laterality: unspecified laterality Lung location: unspecified part of lung Qualified Code(s): J18.9 - Pneumonia, unspecified organism Is this a current diagnosis for this admission?: Yes (2) Acute kidney injury Is this a current diagnosis for this admission?: Yes (3) Adult failure to thrive Is this a current diagnosis for this admission?: Yes (4) Dehydration Is this a current diagnosis for this admission?: Yes (5) Dementia Qualifiers: Dementia type: Alzheimer's disease Alzheimer's disease onset: late-onset Dementia behavioral disturbance: without behavioral disturbance Qualified Code (s): G30.1 - Alzheimer's disease with late onset; F02.80 - Dementia in other diseases classified elsewhere without behavioral disturbance; F02.80 - Dementia in other diseases classified elsewhere without behavioral disturbance; F02.80 - Dementia in other diseases classified elsewhere without behavioral disturbance Is this a current diagnosis for this admission?: Yes (6) Pulmonary hypertension Is this a current diagnosis for this admission?: Yes (7) Rheumatoid arthritis Qualifiers: Rheumatoid arthritis location: unspecified site Rheumatoid factor presence : unspecified presence Qualified Code(s): M06.9 - Rheumatoid arthritis, unspecified Is this a current diagnosis for this admission?: Yes (8) Senile dementia of Alzheimer's type Is this a current diagnosis for this admission?: Yes
[2017-07-13 05:19] LABS: ANION GAP 7 (5-19); BLOOD UREA NITROGEN 36 mg/dL (7-20); CARBON DIOXIDE 26 mmol/L (22-30); CHLORIDE 107 mmol/L (98-107); GLUCOSE 102 mg/dL (75-110); POTASSIUM 4.8 mmol/L (3.6-5.0); SODIUM 140.3 mmol/L (137-145)
[2017-07-13] MEDS: GUAIFENESIN 600 MG TABLET.SA PO SCH ×2 (10:02→21:10)
[2017-07-13] MEDS: DONEPEZIL HCL 5 MG TABLET PO SCH (10:02)
[2017-07-13] MEDS: MEMANTINE HCL 10 MG TABLET PO SCH ×2 (10:03→18:18)
[2017-07-13] MEDS: MEGESTROL ACETATE SUSP 400 MG/10 ML UDCUP PO SCH ×2 (10:03→18:18)
[2017-07-13] MEDS: DOCUSATE SODIUM 100 MG CAPSULE PO SCH (10:03)
--- NOTE | 2017-07-13 10:27 | PDOC PROGRESS REPORT ---
Subjective Progress Note for:: 07/13/17 Subjective:: lethargic but responsive Reason For Visit: ACUTE HYPOXEMIA, RESPIRATORY FAILURE Physical Exam Vital Signs: Temp Pulse Resp BP Pulse Ox 99.0 F 68 17 141/58 H 96 07/12/17 23:37 07/13/17 07:00 07/12/17 23:37 07/12/17 23:37 07/12/17 23:37 Intake & Output 07/12/17 07/13/17 07/14/17 06:59 06:59 06:59 Intake Total 1285 1916 Output Total 0 Balance 1285 1916 Weight 74.3 kg 74 kg General appearance: PRESENT: no acute distress, cooperative, disheveled, well- developed, well-nourished Head exam: PRESENT: atraumatic, normocephalic Eye exam: PRESENT: conjunctiva pale, EOMI. ABSENT: nystagmus, periorbital swelling, scleral icterus Mouth exam: PRESENT: moist, neck supple, tongue midline Neck exam: ABSENT: carotid bruit, JVD, lymphadenopathy, thyromegaly, tracheal deviation, tracheostomy Respiratory exam: PRESENT: decreased breath sounds, prolonged expiratory phas, rhonchi, unlabored. ABSENT: rales, retraction, stridor Cardiovascular exam: PRESENT: RRR, +S1, +S2 Pulses: PRESENT: normal radial pulses GI/Abdominal exam: PRESENT: normal bowel sounds, soft Extremities exam: ABSENT: calf tenderness, clubbing Musculoskeletal exam: ABSENT: deformity, dislocation Neurological exam: PRESENT: awake, oriented to person, oriented to place Skin exam: PRESENT: dry, warm Results Laboratory Results: 07/12/17 04:14 07/13/17 04:11 07/13/17 04:11 Sodium 140.3 Potassium 4.8 Chloride 107 Carbon Dioxide 26 Anion Gap 7 BUN 36 H Creatinine 0.85 Est GFR ( Amer) > 60 Est GFR (Non-Af Amer) > 60 Glucose 102 Calcium 9.0 Impressions: Chest CT 06/22/17 00:00 IMPRESSION: Small area of patchy airspace disease is present in the posterior aspect of the left lower lobe. Head MRI 06/28/17 00:00 IMPRESSION: Negative for acute or sub-acute infarction. EVIDENCE OF ACUTE STROKE: NO. Chest X-Ray 07/11/17 00:00 IMPRESSION: Stable appearance. Venous Doppler Study 07/11/17 00:00 IMPRESSION: NO EVIDENCE DVT OR SVT IN THE LEFT ARM. Assessment & Plan - Diagnosis (1) GERD (gastroesophageal reflux disease) Is this a current diagnosis for this admission?: Yes Plan: Massive hiatal hernia seen on CT scan suggest keeping 60 or higher to the diminished risk of aspiration (2) Pneumonia Qualifiers: Is this a current diagnosis for this admission?: Yes Plan: stable (3) Dementia Qualifiers: Dementia type: Alzheimer's disease Alzheimer's disease onset: late-onset Dementia behavioral disturbance: without behavioral disturbance Qualified Code (s): G30.1 - Alzheimer's disease with late onset; F02.80 - Dementia in other diseases classified elsewhere without behavioral disturbance; F02.80 - Dementia in other diseases classified elsewhere without behavioral disturbance; F02.80 - Dementia in other diseases classified elsewhere without behavioral disturbance Is this a current diagnosis for this admission?: Yes Plan: Somnolent unchanged
[2017-07-13] MEDS: LEVOFLOXACIN 250 MG TABLET PO SCH (12:51)
[2017-07-13 18:16] LABS: HEMOGLOBIN 9.9 g/dL (12.0-15.5); MEAN CORPUSCULAR HEMOGLOBIN 29.1 pg (27.0-33.4); MEAN CORPUSCULAR HGB CONC 31.9 g/dL (32.0-36.0); MEAN CORPUSCULAR VOLUME 91 fl (80-97); PLATELET COUNT 219 10^3/uL (150-450); RED BLOOD COUNT 3.39 10^6/uL (3.72-5.28); RED CELL DISTRIBUTION WIDTH 19.9 % (11.5-14.0); WHITE BLOOD COUNT 11.7 10^3/uL (4.0-10.5)
[2017-07-13 18:34] LABS: ABSOLUTE LYMPHOCYTES# (MANUAL) 1.6 10^3/uL (0.5-4.7); ABSOLUTE MONOCYTES # (MANUAL) 1.3 10^3/uL (0.1-1.4); ABSOLUTE NEUTROPHILS# (MANUAL) 8.5 10^3/uL (1.7-8.2); ANISOCYTOSIS 2+; BASOPHILS % (MANUAL) 0 % (0-2); EOSINOPHILS % (MANUAL) 2 % (0-6); LYMPHOCYTES % (MANUAL) 14 % (13-45); MONOCYTES % (MANUAL) 11 % (3-13); PLATELET COMMENT ADEQUATE; POIKILOCYTOSIS SLIGHT; SEGMENTED NEUTROPHILS % (MAN) 73 % (42-78); TOTAL CELLS COUNTED 100; TOXIC GRANULATION SLIGHT
--- NOTE | 2017-07-13 19:06 | RADIOLOGY REPORT (SQ) ---
EXAM DESCRIPTION: CT CHEST WITHOUT COMPLETED DATE/TIME: 07/13/2017 6:48 pm REASON FOR STUDY: pneumonia COMPARISON: 06/22/2017 in 04/23/2017 peer TECHNIQUE: CT scan performed of the chest without intravenous contrast. Images reviewed with lung, soft tissue and bone windows. Reconstructed coronal and sagittal MPR images reviewed. All images st ored on PACS. All CT scanners at this facility use dose modulation, iterative reconstruction, and/or weight based d osing when appropriate to reduce radiation dose to as low as reasonably achievable (ALARA). [facility]: Dose Right [facility]: CareDose [facility]: Dose Right [facility]: Teradose 4D [facility]: [employer] RADIATION DOSE: CT Rad equipment meets quality standard of care and radiation dose reduction techniq ues were employed. CTDIvol: 7.8 - 12.4 mGy. DLP: 612 mGy-cm. mGy. LIMITATIONS: No technical limitations. FINDINGS: LUNGS AND PLEURA: Slight improvement in bilateral lower lobe airspace disease. Stable opa cities noted within the upper lobes and lingula presumably represent areas of scarring. Stable 5 mm nodule right upper lobe. No new airspace opacities. No pleural effusion. No pneumothorax. HILAR AND MEDIASTINAL STRUCTURES: No identified masses or abnormal nodes. No obvious aneurysm. HEART AND VASCULAR STRUCTURES: No aneurysm. No pericardial effusion. UPPER ABDOMEN: Stable hiatal hernia. No acute findings. THYROID AND OTHER SOFT TISSUES: No masses. No adenopathy. BONES: Stable with multilevel compression fractures status post kyphoplasty at T8 and T12. No new fr acture or suspicious osseous lesion identified. HARDWARE: None in the chest. OTHER: No other significant findings. IMPRESSION: IMPROVING MULTIFOCAL AIRSPACE DISEASE. STABLE OPACITIES IN THE UPPER LOBES IS WELL IS NODULE RIGHT UPPER LOBE PRESUMABLY REPRESENTS SCARRING . RECOMMEND FOLLOW-UP CT IN 3 TO 6 MONTHS TO ENSURE STABILITY/ RESOLUTION. ADDITIONAL CHRONIC CHANGES ABOVE. TECHNICAL DOCUMENTATION: JOB ID: [id number] Quality ID # [id number]: Final reports with documentation of one or more dose reduction techniques (e.g., Au tomated exposure control, adjustment of the mA and/or kV according to patient size, use of iterative reconstruction technique) 2010 [employer]- All Rights Reserved Reading location - IP/workstation name: [email or web address]
[2017-07-13] MEDS: DEXTROSE 5%-WATER 1000 ML 1,000 ML IV PRN (20:28)
--- NOTE | 2017-07-13 21:01 | PDOC PROGRESS REPORT ---
Subjective Progress Note for:: 07/13/17 Subjective:: The CT chest that was done today suggests improvement in the airspace disease, there is a subcentimeter, 5 mm nodule that is stable from prior CT chest. The white blood cell is also improved suggesting improvement in the pneumonia and infectious process. Reason For Visit: ACUTE HYPOXEMIA, RESPIRATORY FAILURE Physical Exam Vital Signs: Temp Pulse Resp BP Pulse Ox 97.4 F 131 H 13 119/86 H 94 07/13/17 16:09 07/13/17 16:09 07/13/17 12:05 07/13/17 16:09 07/13/17 16:09 Intake & Output 07/12/17 07/13/17 07/14/17 06:59 06:59 06:59 Intake Total 1285 1916 764 Output Total 0 Balance 1285 1916 764 Weight 74.3 kg 74 kg General appearance: PRESENT: no acute distress Eye exam: PRESENT: PERRLA Respiratory exam: PRESENT: rales Cardiovascular exam: PRESENT: +S1, +S2 GI/Abdominal exam: PRESENT: soft Neurological exam: PRESENT: alert Results Laboratory Results: 07/13/17 04:11 07/13/17 04:11 07/13/17 07/13/17 04:11 04:11 WBC 11.7 H RBC 3.39 L Hgb 9.9 L Hct 31.0 L MCV 91 MCH 29.1 MCHC 31.9 L RDW 19.9 H Plt Count 219 Seg Neutrophils % Not Reportable Lymphocytes % Not Reportable Monocytes % Not Reportable Eosinophils % Not Reportable Basophils % Not Reportable Absolute Neutrophils Not Reportable Absolute Lymphocytes Not Reportable Absolute Monocytes Not Reportable Absolute Eosinophils Not Reportable Absolute Basophils Not Reportable Sodium 140.3 Potassium 4.8 Chloride 107 Carbon Dioxide 26 Anion Gap 7 BUN 36 H Creatinine 0.85 Est GFR ( Amer) > 60 Est GFR (Non-Af Amer) > 60 Glucose 102 Calcium 9.0 07/10/17 10:50 Clean Catch Midstream Urine Culture - Final C.albicans/C.dubliniensis Impressions: Head MRI 06/28/17 00:00 IMPRESSION: Negative for acute or sub-acute infarction. EVIDENCE OF ACUTE STROKE: NO. Chest X-Ray 07/11/17 00:00 IMPRESSION: Stable appearance. Venous Doppler Study 07/11/17 00:00 IMPRESSION: NO EVIDENCE DVT OR SVT IN THE LEFT ARM. Chest CT 07/13/17 00:00 IMPRESSION: IMPROVING MULTIFOCAL AIRSPACE DISEASE. STABLE OPACITIES IN THE UPPER LOBES IS WELL IS NODULE RIGHT UPPER LOBE PRESUMABLY REPRESENTS SCARRING. RECOMMEND FOLLOW-UP CT IN 3 TO 6 MONTHS TO ENSURE STABILITY/ RESOLUTION. ADDITIONAL CHRONIC CHANGES ABOVE. Assessment & Plan - Diagnosis (1) Pneumonia Qualifiers: Pneumonia type: due to unspecified organism Laterality: unspecified laterality Lung location: unspecified part of lung Qualified Code(s): J18.9 - Pneumonia, unspecified organism Is this a current diagnosis for this admission?: Yes (2) Acute kidney injury Is this a current diagnosis for this admission?: Yes (3) Adult failure to thrive Is this a current diagnosis for this admission?: Yes (4) Dehydration Is this a current diagnosis for this admission?: Yes (5) Dementia Qualifiers: Dementia type: Alzheimer's disease Alzheimer's disease onset: late-onset Dementia behavioral disturbance: without behavioral disturbance Qualified Code (s): G30.1 - Alzheimer's disease with late onset; F02.80 - Dementia in other diseases classified elsewhere without behavioral disturbance; F02.80 - Dementia in other diseases classified elsewhere without behavioral disturbance; F02.80 - Dementia in other diseases classified elsewhere without behavioral disturbance Is this a current diagnosis for this admission?: Yes (6) Pulmonary hypertension Is this a current diagnosis for this admission?: Yes (7) Rheumatoid arthritis Qualifiers: Rheumatoid arthritis location: unspecified site Rheumatoid factor presence : unspecified presence Qualified Code(s): M06.9 - Rheumatoid arthritis, unspecified Is this a current diagnosis for this admission?: Yes (8) Senile dementia of Alzheimer's type Is this a current diagnosis for this admission?: Yes
[2017-07-14] MEDS: MEMANTINE HCL 10 MG TABLET PO SCH ×2 (10:05→18:11)
[2017-07-14] MEDS: GUAIFENESIN 600 MG TABLET.SA PO SCH ×2 (10:05→21:05)
[2017-07-14] MEDS: DONEPEZIL HCL 5 MG TABLET PO SCH (10:05)
[2017-07-14] MEDS: DOCUSATE SODIUM 100 MG CAPSULE PO SCH (10:06)
[2017-07-14] MEDS: MEGESTROL ACETATE SUSP 400 MG/10 ML UDCUP PO SCH ×2 (10:06→18:11)
[2017-07-14] MEDS: LEVOFLOXACIN 250 MG TABLET PO SCH (14:59)
--- NOTE | 2017-07-14 15:07 | PDOC PROGRESS REPORT ---
Subjective Progress Note for:: 07/14/17 Subjective:: lethargic but responsive Reason For Visit: ACUTE HYPOXEMIA, RESPIRATORY FAILURE Physical Exam Vital Signs: Temp Pulse Resp BP Pulse Ox 97.6 F 77 20 147/61 H 96 07/14/17 11:14 07/14/17 13:55 07/14/17 11:14 07/14/17 11:14 07/14/17 11:14 Intake & Output 07/13/17 07/14/17 07/15/17 06:59 06:59 06:59 Intake Total 1916 1464 Output Total 0 Balance 1916 1464 Weight 74 kg 76 kg General appearance: PRESENT: no acute distress, cooperative, disheveled, hard of hearing Head exam: PRESENT: atraumatic, normocephalic Eye exam: PRESENT: conjunctiva pale, EOMI. ABSENT: nystagmus, periorbital swelling, scleral icterus Mouth exam: PRESENT: dry mucosa, neck supple, tongue midline Neck exam: ABSENT: carotid bruit, JVD, lymphadenopathy, thyromegaly, tracheal deviation, tracheostomy Respiratory exam: PRESENT: decreased breath sounds, prolonged expiratory phas, rhonchi, unlabored. ABSENT: retraction, stridor Cardiovascular exam: PRESENT: +S1, +S2 Pulses: PRESENT: normal radial pulses GI/Abdominal exam: PRESENT: normal bowel sounds, soft Extremities exam: ABSENT: calf tenderness, clubbing, joint swelling Musculoskeletal exam: ABSENT: deformity, dislocation Neurological exam: PRESENT: awake, oriented to person, oriented to place Psychiatric exam: PRESENT: normal mood Skin exam: PRESENT: dry, warm Results Laboratory Results: 07/13/17 04:11 07/13/17 04:11 07/13/17 04:11 WBC 11.7 H RBC 3.39 L Hgb 9.9 L Hct 31.0 L MCV 91 MCH 29.1 MCHC 31.9 L RDW 19.9 H Plt Count 219 Seg Neutrophils % Not Reportable Lymphocytes % Not Reportable Monocytes % Not Reportable Eosinophils % Not Reportable Basophils % Not Reportable Absolute Neutrophils Not Reportable Absolute Lymphocytes Not Reportable Absolute Monocytes Not Reportable Absolute Eosinophils Not Reportable Absolute Basophils Not Reportable 07/10/17 10:50 Clean Catch Midstream Urine Culture - Final C.albicans/C.dubliniensis Impressions: Head MRI 06/28/17 00:00 IMPRESSION: Negative for acute or sub-acute infarction. EVIDENCE OF ACUTE STROKE: NO. Chest X-Ray 07/11/17 00:00 IMPRESSION: Stable appearance. Venous Doppler Study 07/11/17 00:00 IMPRESSION: NO EVIDENCE DVT OR SVT IN THE LEFT ARM. Chest CT 07/13/17 00:00 IMPRESSION: IMPROVING MULTIFOCAL AIRSPACE DISEASE. STABLE OPACITIES IN THE UPPER LOBES IS WELL IS NODULE RIGHT UPPER LOBE PRESUMABLY REPRESENTS SCARRING. RECOMMEND FOLLOW-UP CT IN 3 TO 6 MONTHS TO ENSURE STABILITY/ RESOLUTION. ADDITIONAL CHRONIC CHANGES ABOVE. Assessment & Plan - Diagnosis (1) GERD (gastroesophageal reflux disease) Is this a current diagnosis for this admission?: Yes Plan: Massive hiatal hernia seen on CT scan suggest keeping 60 or higher to the diminished risk of aspiration (2) Pneumonia Qualifiers: Is this a current diagnosis for this admission?: Yes Plan: stable (3) Dementia Qualifiers: Dementia type: Alzheimer's disease Alzheimer's disease onset: late-onset Dementia behavioral disturbance: without behavioral disturbance Qualified Code (s): G30.1 - Alzheimer's disease with late onset; F02.80 - Dementia in other diseases classified elsewhere without behavioral disturbance; F02.80 - Dementia in other diseases classified elsewhere without behavioral disturbance; F02.80 - Dementia in other diseases classified elsewhere without behavioral disturbance Is this a current diagnosis for this admission?: Yes Plan: Somnolent unchanged
--- NOTE | 2017-07-14 18:27 | PDOC PROGRESS REPORT ---
Subjective Progress Note for:: 07/14/17 Subjective:: She was seen by the bedside the CT scan chest showed improvement in the pneumonia, a white blood cell is normal now she is very deconditioned she will need physical therapy Reason For Visit: ACUTE HYPOXEMIA, RESPIRATORY FAILURE Physical Exam Vital Signs: Temp Pulse Resp BP Pulse Ox 97.6 F 77 20 147/61 H 96 07/14/17 11:14 07/14/17 13:55 07/14/17 11:14 07/14/17 11:14 07/14/17 11:14 Intake & Output 07/13/17 07/14/17 07/15/17 06:59 06:59 06:59 Intake Total 1916 1464 480 Output Total 0 200 Balance 1916 1464 280 Weight 74 kg 76 kg General appearance: PRESENT: no acute distress Eye exam: PRESENT: PERRLA Respiratory exam: PRESENT: rhonchi Cardiovascular exam: PRESENT: +S1, +S2 GI/Abdominal exam: PRESENT: soft Neurological exam: PRESENT: alert Results Laboratory Results: 07/13/17 04:11 07/13/17 04:11 07/13/17 04:11 WBC 11.7 H RBC 3.39 L Hgb 9.9 L Hct 31.0 L MCV 91 MCH 29.1 MCHC 31.9 L RDW 19.9 H Plt Count 219 07/10/17 10:50 Clean Catch Midstream Urine Culture - Final C.albicans/C.dubliniensis Impressions: Head MRI 06/28/17 00:00 IMPRESSION: Negative for acute or sub-acute infarction. EVIDENCE OF ACUTE STROKE: NO. Chest X-Ray 07/11/17 00:00 IMPRESSION: Stable appearance. Venous Doppler Study 07/11/17 00:00 IMPRESSION: NO EVIDENCE DVT OR SVT IN THE LEFT ARM. Chest CT 07/13/17 00:00 IMPRESSION: IMPROVING MULTIFOCAL AIRSPACE DISEASE. STABLE OPACITIES IN THE UPPER LOBES IS WELL IS NODULE RIGHT UPPER LOBE PRESUMABLY REPRESENTS SCARRING. RECOMMEND FOLLOW-UP CT IN 3 TO 6 MONTHS TO ENSURE STABILITY/ RESOLUTION. ADDITIONAL CHRONIC CHANGES ABOVE. Assessment & Plan - Diagnosis (1) Pneumonia Qualifiers: Pneumonia type: due to unspecified organism Laterality: unspecified laterality Lung location: unspecified part of lung Qualified Code(s): J18.9 - Pneumonia, unspecified organism Is this a current diagnosis for this admission?: Yes (2) Acute kidney injury Is this a current diagnosis for this admission?: Yes (3) Adult failure to thrive Is this a current diagnosis for this admission?: Yes (4) Dehydration Is this a current diagnosis for this admission?: Yes (5) Dementia Qualifiers: Dementia type: Alzheimer's disease Alzheimer's disease onset: late-onset Dementia behavioral disturbance: without behavioral disturbance Qualified Code (s): G30.1 - Alzheimer's disease with late onset; F02.80 - Dementia in other diseases classified elsewhere without behavioral disturbance; F02.80 - Dementia in other diseases classified elsewhere without behavioral disturbance; F02.80 - Dementia in other diseases classified elsewhere without behavioral disturbance Is this a current diagnosis for this admission?: Yes (6) Pulmonary hypertension Is this a current diagnosis for this admission?: Yes (7) Rheumatoid arthritis Qualifiers: Rheumatoid arthritis location: unspecified site Rheumatoid factor presence : unspecified presence Qualified Code(s): M06.9 - Rheumatoid arthritis, unspecified Is this a current diagnosis for this admission?: Yes (8) Senile dementia of Alzheimer's type Is this a current diagnosis for this admission?: Yes
[2017-07-15] MEDS: DOCUSATE SODIUM 100 MG CAPSULE PO SCH (09:53)
[2017-07-15] MEDS: MEGESTROL ACETATE SUSP 400 MG/10 ML UDCUP PO SCH ×2 (09:53→18:15)
[2017-07-15] MEDS: DONEPEZIL HCL 5 MG TABLET PO SCH (10:06)
[2017-07-15] MEDS: MEMANTINE HCL 10 MG TABLET PO SCH ×2 (10:07→18:14)
[2017-07-15] MEDS: GUAIFENESIN 600 MG TABLET.SA PO SCH ×2 (10:07→21:07)
[2017-07-15] MEDS: LEVOFLOXACIN 250 MG TABLET PO SCH (11:59)
--- NOTE | 2017-07-15 12:55 | PDOC PROGRESS REPORT ---
Subjective Progress Note for:: 07/15/17 Subjective:: w.family awake alert Reason For Visit: ACUTE HYPOXEMIA, RESPIRATORY FAILURE Physical Exam Vital Signs: Temp Pulse Resp BP Pulse Ox 98.4 F 71 16 147/61 H 98 07/15/17 07:53 07/15/17 07:53 07/15/17 07:53 07/15/17 07:53 07/15/17 07:53 Intake & Output 07/14/17 07/15/17 07/16/17 06:59 06:59 06:59 Intake Total 1464 2878 Output Total 200 Balance 1464 2678 Weight 76 kg 76.6 kg General appearance: PRESENT: no acute distress, cooperative, well-developed Head exam: PRESENT: atraumatic, normocephalic Eye exam: PRESENT: conjunctiva pale, EOMI. ABSENT: nystagmus, periorbital swelling, scleral icterus Mouth exam: PRESENT: moist, neck supple, tongue midline Neck exam: ABSENT: carotid bruit, JVD, lymphadenopathy, thyromegaly, tracheal deviation, tracheostomy Respiratory exam: PRESENT: decreased breath sounds, prolonged expiratory phas, rhonchi, unlabored. ABSENT: retraction, stridor Cardiovascular exam: PRESENT: RRR, +S1, +S2 Pulses: PRESENT: normal radial pulses GI/Abdominal exam: PRESENT: normal bowel sounds, soft Extremities exam: ABSENT: calf tenderness, clubbing, joint swelling Musculoskeletal exam: ABSENT: deformity, dislocation Neurological exam: PRESENT: awake, oriented to person, oriented to place Skin exam: PRESENT: dry, warm Results Laboratory Results: 07/13/17 04:11 07/13/17 04:11 Impressions: Head MRI 06/28/17 00:00 IMPRESSION: Negative for acute or sub-acute infarction. EVIDENCE OF ACUTE STROKE: NO. Chest X-Ray 07/11/17 00:00 IMPRESSION: Stable appearance. Venous Doppler Study 07/11/17 00:00 IMPRESSION: NO EVIDENCE DVT OR SVT IN THE LEFT ARM. Chest CT 07/13/17 00:00 IMPRESSION: IMPROVING MULTIFOCAL AIRSPACE DISEASE. STABLE OPACITIES IN THE UPPER LOBES IS WELL IS NODULE RIGHT UPPER LOBE PRESUMABLY REPRESENTS SCARRING. RECOMMEND FOLLOW-UP CT IN 3 TO 6 MONTHS TO ENSURE STABILITY/ RESOLUTION. ADDITIONAL CHRONIC CHANGES ABOVE. Assessment & Plan - Diagnosis (1) GERD (gastroesophageal reflux disease) Is this a current diagnosis for this admission?: Yes Plan: Massive hiatal hernia seen on CT scan suggest keeping 60 or higher to the diminished risk of aspiration (2) Pneumonia Qualifiers: Is this a current diagnosis for this admission?: Yes Plan: stable (3) Dementia Qualifiers: Dementia type: Alzheimer's disease Alzheimer's disease onset: late-onset Dementia behavioral disturbance: without behavioral disturbance Qualified Code (s): G30.1 - Alzheimer's disease with late onset; F02.80 - Dementia in other diseases classified elsewhere without behavioral disturbance; F02.80 - Dementia in other diseases classified elsewhere without behavioral disturbance; F02.80 - Dementia in other diseases classified elsewhere without behavioral disturbance Is this a current diagnosis for this admission?: Yes Plan: Somnolent unchanged
[2017-07-15] MEDS: DEXTROSE 5%-WATER 1000 ML 1,000 ML IV PRN (15:33)
--- NOTE | 2017-07-15 20:39 | PDOC PROGRESS REPORT ---
Subjective Progress Note for:: 07/15/17 Subjective:: Patient is awaiting placement in a fdc,Family is looking into [facility] in [place] Reason For Visit: ACUTE HYPOXEMIA, RESPIRATORY FAILURE Physical Exam Vital Signs: Temp Pulse Resp BP Pulse Ox 97.8 F 88 17 129/76 H 97 07/15/17 16:00 07/15/17 16:00 07/15/17 16:00 07/15/17 16:00 07/15/17 16:00 Intake & Output 07/14/17 07/15/17 07/16/17 06:59 06:59 06:59 Intake Total 1464 2878 1118 Output Total 200 Balance 1464 2678 1118 Weight 76 kg 76.6 kg General appearance: PRESENT: no acute distress Eye exam: PRESENT: PERRLA Respiratory exam: PRESENT: clear to auscultation [place] Cardiovascular exam: PRESENT: +S1, +S2 GI/Abdominal exam: PRESENT: soft Neurological exam: PRESENT: alert Results Laboratory Results: 07/13/17 04:11 07/13/17 04:11 Impressions: Head MRI 06/28/17 00:00 IMPRESSION: Negative for acute or sub-acute infarction. EVIDENCE OF ACUTE STROKE: NO. Chest X-Ray 07/11/17 00:00 IMPRESSION: Stable appearance. Venous Doppler Study 07/11/17 00:00 IMPRESSION: NO EVIDENCE DVT OR SVT IN THE LEFT ARM. Chest CT 07/13/17 00:00 IMPRESSION: IMPROVING MULTIFOCAL AIRSPACE DISEASE. STABLE OPACITIES IN THE UPPER LOBES IS WELL IS NODULE RIGHT UPPER LOBE PRESUMABLY REPRESENTS SCARRING. RECOMMEND FOLLOW-UP CT IN 3 TO 6 MONTHS TO ENSURE STABILITY/ RESOLUTION. ADDITIONAL CHRONIC CHANGES ABOVE. Assessment & Plan - Diagnosis (1) Pneumonia Qualifiers: Pneumonia type: due to unspecified organism Laterality: unspecified laterality Lung location: unspecified part of lung Qualified Code(s): J18.9 - Pneumonia, unspecified organism Is this a current diagnosis for this admission?: Yes (2) Acute kidney injury Is this a current diagnosis for this admission?: Yes (3) Adult failure to thrive Is this a current diagnosis for this admission?: Yes (4) Dehydration Is this a current diagnosis for this admission?: Yes (5) Dementia Qualifiers: Dementia type: Alzheimer's disease Alzheimer's disease onset: late-onset Dementia behavioral disturbance: without behavioral disturbance Qualified Code (s): G30.1 - Alzheimer's disease with late onset; F02.80 - Dementia in other diseases classified elsewhere without behavioral disturbance; F02.80 - Dementia in other diseases classified elsewhere without behavioral disturbance; F02.80 - Dementia in other diseases classified elsewhere without behavioral disturbance Is this a current diagnosis for this admission?: Yes (6) Pulmonary hypertension Is this a current diagnosis for this admission?: Yes (7) Rheumatoid arthritis Qualifiers: Rheumatoid arthritis location: unspecified site Rheumatoid factor presence : unspecified presence Qualified Code(s): M06.9 - Rheumatoid arthritis, unspecified Is this a current diagnosis for this admission?: Yes (8) Senile dementia of Alzheimer's type Is this a current diagnosis for this admission?: Yes
[2017-07-16] MEDS: GUAIFENESIN 600 MG TABLET.SA PO SCH ×2 (10:30→21:13)
[2017-07-16] MEDS: MEMANTINE HCL 10 MG TABLET PO SCH ×2 (10:31→18:13)
[2017-07-16] MEDS: DONEPEZIL HCL 5 MG TABLET PO SCH (10:31)
[2017-07-16] MEDS: DOCUSATE SODIUM 100 MG CAPSULE PO SCH (10:31)
[2017-07-16] MEDS: MEGESTROL ACETATE SUSP 400 MG/10 ML UDCUP PO SCH ×2 (10:31→18:13)
--- NOTE | 2017-07-16 10:47 | PDOC PROGRESS REPORT ---
Subjective Progress Note for:: 07/16/17 Subjective:: w.family awake alert Reason For Visit: ACUTE HYPOXEMIA, RESPIRATORY FAILURE Physical Exam Vital Signs: Temp Pulse Resp BP Pulse Ox 98.2 F 72 16 133/41 H 96 07/16/17 07:15 07/16/17 07:15 07/16/17 07:15 07/16/17 07:15 07/16/17 07:15 Intake & Output 07/15/17 07/16/17 07/17/17 06:59 06:59 06:59 Intake Total 2878 1148 Output Total 200 Balance 2678 1148 Weight 76.6 kg 76 kg General appearance: PRESENT: no acute distress, cooperative, disheveled Head exam: PRESENT: atraumatic, normocephalic Eye exam: PRESENT: conjunctiva pale, EOMI. ABSENT: nystagmus, periorbital swelling, scleral icterus Mouth exam: PRESENT: moist, neck supple, tongue midline Neck exam: ABSENT: carotid bruit, JVD, lymphadenopathy, thyromegaly, tracheal deviation, tracheostomy Respiratory exam: PRESENT: decreased breath sounds, prolonged expiratory phas, rales, rhonchi, unlabored. ABSENT: retraction, stridor Cardiovascular exam: PRESENT: irregular rhythm, +S1, +S2 Pulses: PRESENT: normal radial pulses GI/Abdominal exam: PRESENT: normal bowel sounds, soft Extremities exam: ABSENT: calf tenderness, clubbing, joint swelling Musculoskeletal exam: ABSENT: deformity, dislocation Neurological exam: PRESENT: awake, oriented to person, oriented to place Psychiatric exam: PRESENT: normal mood Skin exam: PRESENT: dry, warm Results Laboratory Results: 07/13/17 04:11 07/13/17 04:11 Impressions: Head MRI 06/28/17 00:00 IMPRESSION: Negative for acute or sub-acute infarction. EVIDENCE OF ACUTE STROKE: NO. Chest X-Ray 07/11/17 00:00 IMPRESSION: Stable appearance. Venous Doppler Study 07/11/17 00:00 IMPRESSION: NO EVIDENCE DVT OR SVT IN THE LEFT ARM. Chest CT 07/13/17 00:00 IMPRESSION: IMPROVING MULTIFOCAL AIRSPACE DISEASE. STABLE OPACITIES IN THE UPPER LOBES IS WELL IS NODULE RIGHT UPPER LOBE PRESUMABLY REPRESENTS SCARRING. RECOMMEND FOLLOW-UP CT IN 3 TO 6 MONTHS TO ENSURE STABILITY/ RESOLUTION. ADDITIONAL CHRONIC CHANGES ABOVE. Assessment & Plan - Diagnosis (1) GERD (gastroesophageal reflux disease) Is this a current diagnosis for this admission?: Yes Plan: Massive hiatal hernia seen on CT scan suggest keeping 60 or higher to the diminished risk of aspiration (2) Pneumonia Qualifiers: Is this a current diagnosis for this admission?: Yes Plan: stable Labs- All tests 24 hr 07/13/17 04:[address] scan 6 5 improved multifocal airspace disease (3) Dementia Qualifiers: Dementia type: Alzheimer's disease Alzheimer's disease onset: late-onset Dementia behavioral disturbance: without behavioral disturbance Qualified Code (s): G30.1 - Alzheimer's disease with late onset; F02.80 - Dementia in other diseases classified elsewhere without behavioral disturbance; F02.80 - Dementia in other diseases classified elsewhere without behavioral disturbance; F02.80 - Dementia in other diseases classified elsewhere without behavioral disturbance Is this a current diagnosis for this admission?: Yes
[2017-07-16] MEDS: LEVOFLOXACIN 250 MG TABLET PO SCH (13:04)
--- NOTE | 2017-07-16 20:21 | PDOC TRANSFER SUMMARY ---
General - Admit/Disc Date/PCP Admission Date/Primary Care Provider: 06/22/17 17:24 MALIK RAYMUNDO MD Discharge Date: 07/16/17 - Discharge Diagnosis (1) Pneumonia Is this a current diagnosis for this admission?: Yes (2) Acute kidney injury Is this a current diagnosis for this admission?: Yes (3) Adult failure to thrive Is this a current diagnosis for this admission?: Yes (4) Dehydration Is this a current diagnosis for this admission?: Yes (5) Dementia Is this a current diagnosis for this admission?: Yes (6) Pulmonary hypertension Is this a current diagnosis for this admission?: Yes (7) Rheumatoid arthritis Is this a current diagnosis for this admission?: Yes (8) Senile dementia of Alzheimer's type Is this a current diagnosis for this admission?: Yes - Additional Information Discharge Diet: Regular Discharge Activity: Activity As Tolerated Home Medications: Docusate Sodium [Colace 100 mg Capsule] 100 mg PO DAILY 06/22/17 Donepezil HCl [Aricept] 10 mg PO DAILY 06/22/17 Megestrol Acetate 400 mg PO BID 06/22/17 Memantine HCl [Namenda 10 mg Tablet] 10 mg PO BID 06/22/17 Acetaminophen [Tylenol 325 mg Tablet] 650 mg PO Q4HP PRN tablet 07/16/17 History of Present Illness Admission Date/PCP: 06/22/17 17:24 MALIK RAYMUNDO MD History of Present Illness: MARLYS B BRIAN is a 87 year old female, She has baseline dementia, 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 She has a history of pneumonia, she was admitted directly from the office to the hospital for further management and evaluation.The CT chest that was done showed new pneumonia process, she has multiple hospitalization for infection related condition including pneumonia, UTI. The last time she was in the office, she had cognitive evaluation with Mini-Mental state examination protocol, she scored 9 out of 30 consistent with moderate to severe dementia. 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 She was empirically treated with IV antibiotic, Levaquin and cefepime. She was also seen by pulmonary on this admission. Patient hospital course was prolonged partly due to persistent leukocytosis, a flow cytometry test was done because of concern for leukemia/ lymphoma the result came back negative for leukemia/lymphoma. The leukocytosis is part of the inflammatory process due to pneumonia subsequent CT chest that was done showed improvement in the pneumonic process and the white blood cell subsequently decreased. The plan is to transfer patient for short-term rehabilitation including physical therapy, speech therapy and occupational therapy. Patient is extremely deconditioned Physical Exam Vital Signs: Temp Pulse Resp BP Pulse Ox 97.6 F 96 17 142/59 H 96 07/16/17 11:11 07/16/17 14:00 07/16/17 11:11 07/16/17 11:11 07/16/17 11:11 Intake & Output 07/15/17 07/16/17 07/17/17 06:59 06:59 06:59 Intake Total 2878 1148 1103 Output Total 200 Balance 2678 1148 1103 Weight 76.6 kg 76 kg General appearance: PRESENT: no acute distress Eye exam: PRESENT: PERRLA Respiratory exam: PRESENT: clear to auscultation [place] Cardiovascular exam: PRESENT: +S1, +S2 GI/Abdominal exam: PRESENT: soft Neurological exam: PRESENT: alert Results Laboratory Results: 07/13/17 04:11 07/13/17 04:11 Impressions: Head MRI 06/28/17 00:00 IMPRESSION: Negative for acute or sub-acute infarction. EVIDENCE OF ACUTE STROKE: NO. Chest X-Ray 07/11/17 00:00 IMPRESSION: Stable appearance. Venous Doppler Study 07/11/17 00:00 IMPRESSION: NO EVIDENCE DVT OR SVT IN THE LEFT ARM. Chest CT 07/13/17 00:00 IMPRESSION: IMPROVING MULTIFOCAL AIRSPACE DISEASE. STABLE OPACITIES IN THE UPPER LOBES IS WELL IS NODULE RIGHT UPPER LOBE PRESUMABLY REPRESENTS SCARRING. RECOMMEND FOLLOW-UP CT IN 3 TO 6 MONTHS TO ENSURE STABILITY/ RESOLUTION. ADDITIONAL CHRONIC CHANGES ABOVE. Qualifiers - * PATIENT BEING DISCHARGED WITH ANY OF THE FOLLOWING DIAGNOSIS: No Plan Discharge Plan: Patient has a tendency to be tachypneic on mild exertion, she may need supplemental oxygen during the course of physical therapy
[2017-07-17] MEDS: DONEPEZIL HCL 5 MG TABLET PO SCH (10:08)
[2017-07-17] MEDS: DOCUSATE SODIUM 100 MG CAPSULE PO SCH (10:08)
[2017-07-17] MEDS: MEMANTINE HCL 10 MG TABLET PO SCH ×2 (10:08→19:41)
[2017-07-17] MEDS: MEGESTROL ACETATE SUSP 400 MG/10 ML UDCUP PO SCH ×2 (10:09→19:41)
[2017-07-17] MEDS: GUAIFENESIN 600 MG TABLET.SA PO SCH ×2 (10:09→21:03)
[2017-07-17] MEDS: DEXTROSE 5%-WATER 1000 ML 1,000 ML IV PRN (12:36)
[2017-07-17] MEDS: LEVOFLOXACIN 250 MG TABLET PO SCH (12:39)
[2017-07-18] MEDS: DOCUSATE SODIUM 100 MG CAPSULE PO SCH (10:55)
[2017-07-18] MEDS: DONEPEZIL HCL 5 MG TABLET PO SCH (10:55)
[2017-07-18] MEDS: MEMANTINE HCL 10 MG TABLET PO SCH ×2 (10:55→17:42)
[2017-07-18] MEDS: GUAIFENESIN 600 MG TABLET.SA PO SCH ×2 (10:55→22:32)
[2017-07-18] MEDS: SENNOSIDES/DOCUSATE 8.6-50 MG 1 EACH TABLET PO PRN (10:57)
[2017-07-18] MEDS: MEGESTROL ACETATE SUSP 400 MG/10 ML UDCUP PO SCH ×2 (10:58→17:41)
[2017-07-18 13:53] LABS: ARTERIAL BLOOD BASE EXCESS -2.2 mmol/L; ARTERIAL BLOOD H2CO3 0.93 mmol/L (1.05-1.35); ARTERIAL BLOOD O2 SATURATION 96.8 % (94-98); ARTERIAL BLOOD PH 7.45 (7.35-7.45); ARTERIAL BLOOD TOTAL CO2 21.9 mmol/L (21-25)
[2017-07-18 13:54] LABS: ARTERIAL BLOOD FIO2 ROOM AIR
[2017-07-18] MEDS: BUSPIRONE HCL 10 MG TABLET PO SCH (17:42)
--- NOTE | 2017-07-18 18:11 | RADIOLOGY REPORT (SQ) ---
EXAM DESCRIPTION: MRI HEAD COMBO COMPLETED DATE/TIME: 07/18/2017 4:49 pm REASON FOR STUDY: unresponsive /hyperventilating . AMS. Dementia COMPARISON: MRI head 06/28/2017, 05/26/2017, 08/19/2015. TECHNIQUE: Multiplanar imaging includes noncontrasted T1, T2, FLAIR, Diffusion with ADC map and post gadolinium contrast T1 sequences. Images stored on PACS. CONTRAST TYPE AND DOSE: 15 mL Multihance. RENAL FUNCTION: GFR > 60. LIMITATIONS: Motion artifact. FINDINGS: ANATOMY: No anomalies. Normal vascular flow voids. Pituitary fossa normal. CSF SPACES: Atrophy-induced prominence of CSF spaces and ventricles. CEREBRUM: High-signal intensity lesions scattered throughout the white matter on FLAIR imaging with d istribution suggesting chronic micro-vascular ischemic change. No evidence of hemorrhage, mass, extra axial fluid collection or acute ischemic change. No enhancing lesions. POSTERIOR FOSSA: No signal alteration. No hemorrhage. No edema, masses, or mass effect. Internal danna tory canals, cerebello-pontine angles, mastoids normal. No enhancing lesions. ORBITS: No masses. Globes normal. PARANASAL SINUSES: No fluid levels. Mucosa normal. DIFFUSION: Normal. No evidence of recent infarct. IMPRESSION: ATROPHY AND CHRONIC MICRO-VASCULAR ISCHEMIC CHANGES. OTHERWISE UNREMARKABLE MRI OF THE B RAIN WITHOUT AND WITH INTRAVENOUS GADOLINIUM CONTRAST. EVIDENCE OF ACUTE STROKE: NO. TECHNICAL DOCUMENTATION: JOB ID: [id number] [employer]- All Rights Reserved Reading location - IP/workstation name: [email or web address]
--- NOTE | 2017-07-18 18:54 | PDOC PROGRESS REPORT ---
Subjective Progress Note for:: 07/18/17 Subjective:: Patient was supposed to be transferred to [facility] for rehabilitation, she was noticed to be tachypneic, blood gas was done he showed respiratory alkalosis but the oxygen saturation was adequate, above 90, MRI brain was done to rule out any intracranial pathology, it showed severe cerebral atrophy with small vessel disease, she is started on BuSpar Reason For Visit: ACUTE HYPOXEMIA, RESPIRATORY FAILURE Physical Exam Vital Signs: Temp Pulse Resp BP Pulse Ox 97.6 F 124 H 20 140/57 H 95 07/18/17 08:47 07/18/17 14:00 07/18/17 08:47 07/18/17 08:47 07/18/17 08:47 Intake & Output 07/17/17 07/18/17 07/19/17 06:59 06:59 06:59 Intake Total 1852 2052 Balance 1852 2052 Weight 75.9 kg General appearance: PRESENT: mild distress Respiratory exam: PRESENT: other - Hyperventilating Cardiovascular exam: PRESENT: +S1, +S2 Neurological exam: PRESENT: alert Results Laboratory Results: 07/13/17 04:11 07/13/17 04:11 07/18/17 13:10 Carbonic Acid 0.93 L HCO3/H2CO3 Ratio 22:1 ABG pH 7.45 ABG pCO2 31.0 L ABG pO2 84.0 ABG HCO3 21.0 ABG O2 Saturation 96.8 ABG Base Excess -2.2 FiO2 ROOM AIR Impressions: Chest X-Ray 07/11/17 00:00 IMPRESSION: Stable appearance. Venous Doppler Study 07/11/17 00:00 IMPRESSION: NO EVIDENCE DVT OR SVT IN THE LEFT ARM. Chest CT 07/13/17 00:00 IMPRESSION: IMPROVING MULTIFOCAL AIRSPACE DISEASE. STABLE OPACITIES IN THE UPPER LOBES IS WELL IS NODULE RIGHT UPPER LOBE PRESUMABLY REPRESENTS SCARRING. RECOMMEND FOLLOW-UP CT IN 3 TO 6 MONTHS TO ENSURE STABILITY/ RESOLUTION. ADDITIONAL CHRONIC CHANGES ABOVE. Head MRI 07/18/17 00:00 IMPRESSION: ATROPHY AND CHRONIC MICRO-VASCULAR ISCHEMIC CHANGES. OTHERWISE UNREMARKABLE MRI OF THE BRAIN WITHOUT AND WITH INTRAVENOUS GADOLINIUM CONTRAST. EVIDENCE OF ACUTE STROKE: NO. Assessment & Plan - Diagnosis (1) Pneumonia Qualifiers: Pneumonia type: due to unspecified organism Laterality: unspecified laterality Lung location: unspecified part of lung Qualified Code(s): J18.9 - Pneumonia, unspecified organism Is this a current diagnosis for this admission?: Yes (2) Acute kidney injury Is this a current diagnosis for this admission?: Yes (3) Adult failure to thrive Is this a current diagnosis for this admission?: Yes (4) Dehydration Is this a current diagnosis for this admission?: Yes (5) Dementia Qualifiers: Dementia type: Alzheimer's disease Alzheimer's disease onset: late-onset Dementia behavioral disturbance: without behavioral disturbance Qualified Code (s): G30.1 - Alzheimer's disease with late onset; F02.80 - Dementia in other diseases classified elsewhere without behavioral disturbance; F02.80 - Dementia in other diseases classified elsewhere without behavioral disturbance; F02.80 - Dementia in other diseases classified elsewhere without behavioral disturbance Is this a current diagnosis for this admission?: Yes (6) Pulmonary hypertension Is this a current diagnosis for this admission?: Yes (7) Rheumatoid arthritis Qualifiers: Rheumatoid arthritis location: unspecified site Rheumatoid factor presence : unspecified presence Qualified Code(s): M06.9 - Rheumatoid arthritis, unspecified Is this a current diagnosis for this admission?: Yes (8) Senile dementia of Alzheimer's type Is this a current diagnosis for this admission?: Yes (9) Respiratory alkalosis Is this a current diagnosis for this admission?: Yes Plan: She is hyperventilating, etiology is not clear, she started on BuSpar
--- NOTE | 2017-07-19 07:41 | EKG REPORT ---
SEVERITY:- ABNORMAL ECG - SINUS TACHYCARDIA LEFT AXIS DEVIATION LEFT VENTRICULAR HYPERTROPHY PROLONGED QT INTERVAL : Confirmed by: Manuel Casas MD 19-Jul-2017 07:40:18
[2017-07-19 08:16] VITALS: BP 150/59
[2017-07-19] MEDS: GUAIFENESIN 600 MG TABLET.SA PO SCH (09:58)
[2017-07-19] MEDS: MEGESTROL ACETATE SUSP 400 MG/10 ML UDCUP PO SCH (09:58)
[2017-07-19] MEDS: DOCUSATE SODIUM 100 MG CAPSULE PO SCH (09:58)
[2017-07-19] MEDS: DONEPEZIL HCL 5 MG TABLET PO SCH (09:59)
[2017-07-19] MEDS: MEMANTINE HCL 10 MG TABLET PO SCH (09:59)
--- NOTE | 2017-07-19 10:47 | PDOC PROGRESS REPORT ---
Subjective Progress Note for:: 07/19/17 Subjective:: awake Reason For Visit: ACUTE HYPOXEMIA, RESPIRATORY FAILURE Physical Exam Vital Signs: Temp Pulse Resp BP Pulse Ox 98 F 65 18 150/59 H 98 07/19/17 08:00 07/19/17 08:00 07/19/17 08:00 07/19/17 08:00 07/19/17 08:00 Intake & Output 07/18/17 07/19/17 07/20/17 06:59 06:59 06:59 Intake Total 2052 147 Balance 2052 147 Weight 75.9 kg 75.3 kg General appearance: PRESENT: no acute distress, cooperative, disheveled Head exam: PRESENT: atraumatic, normocephalic Eye exam: PRESENT: conjunctiva pale, EOMI. ABSENT: nystagmus, periorbital swelling, scleral icterus Mouth exam: PRESENT: dry mucosa, neck supple, tongue midline Neck exam: ABSENT: carotid bruit, JVD, lymphadenopathy, thyromegaly, tracheal deviation, tracheostomy Respiratory exam: PRESENT: decreased breath sounds, prolonged expiratory phas, rhonchi, unlabored. ABSENT: retraction, stridor Cardiovascular exam: PRESENT: RRR, +S1, +S2 Pulses: PRESENT: normal radial pulses GI/Abdominal exam: PRESENT: normal bowel sounds, soft Extremities exam: ABSENT: calf tenderness, clubbing, joint swelling Musculoskeletal exam: ABSENT: deformity, dislocation Neurological exam: PRESENT: awake Psychiatric exam: PRESENT: flat affect Skin exam: PRESENT: dry, other Results Laboratory Results: 07/13/17 04:11 07/13/17 04:11 07/18/17 13:10 Carbonic Acid 0.93 L HCO3/H2CO3 Ratio 22:1 ABG pH 7.45 ABG pCO2 31.0 L ABG pO2 84.0 ABG HCO3 21.0 ABG O2 Saturation 96.8 ABG Base Excess -2.2 FiO2 ROOM AIR Impressions: Chest X-Ray 07/11/17 00:00 IMPRESSION: Stable appearance. Venous Doppler Study 07/11/17 00:00 IMPRESSION: NO EVIDENCE DVT OR SVT IN THE LEFT ARM. Chest CT 07/13/17 00:00 IMPRESSION: IMPROVING MULTIFOCAL AIRSPACE DISEASE. STABLE OPACITIES IN THE UPPER LOBES IS WELL IS NODULE RIGHT UPPER LOBE PRESUMABLY REPRESENTS SCARRING. RECOMMEND FOLLOW-UP CT IN 3 TO 6 MONTHS TO ENSURE STABILITY/ RESOLUTION. ADDITIONAL CHRONIC CHANGES ABOVE. Head MRI 07/18/17 00:00 IMPRESSION: ATROPHY AND CHRONIC MICRO-VASCULAR ISCHEMIC CHANGES. OTHERWISE UNREMARKABLE MRI OF THE BRAIN WITHOUT AND WITH INTRAVENOUS GADOLINIUM CONTRAST. EVIDENCE OF ACUTE STROKE: NO. Assessment & Plan - Diagnosis (1) GERD (gastroesophageal reflux disease) Is this a current diagnosis for this admission?: Yes Plan: Massive hiatal hernia seen on CT scan suggest keeping 60 or higher to the diminished risk of aspiration (2) Pneumonia Qualifiers: Is this a current diagnosis for this admission?: Yes Plan: stable Labs- All tests 24 hr 07/13/17 04:[address] scan 6 5 improved multifocal airspace disease (3) Dementia Qualifiers: Dementia type: Alzheimer's disease Alzheimer's disease onset: late-onset Dementia behavioral disturbance: without behavioral disturbance Qualified Code (s): G30.1 - Alzheimer's disease with late onset; F02.80 - Dementia in other diseases classified elsewhere without behavioral disturbance; F02.80 - Dementia in other diseases classified elsewhere without behavioral disturbance; F02.80 - Dementia in other diseases classified elsewhere without behavioral disturbance Is this a current diagnosis for this admission?: Yes Plan: Somnolent unchanged
[2017-07-19] MEDS: BUSPIRONE HCL 10 MG TABLET PO SCH (14:00)
[2017-07-19 14:25] LABS: ABSOLUTE BASOPHILS # (AUTO) 0.1 10^3/uL (0.0-0.2); ABSOLUTE EOSINOPHILS # (AUTO) 0.5 10^3/uL (0.0-0.6); ABSOLUTE LYMPHOCYTES (AUTO) 1.4 10^3/uL (0.5-4.7); ABSOLUTE MONOCYTES (AUTO) 0.9 10^3/uL (0.1-1.4); ABSOLUTE NEUT (AUTO) 10.4 10^3/uL (1.7-8.2); EOSINOPHILS % (AUTO) 3.5 % (0-6); HEMATOCRIT 37.1 % (36.0-47.0); HEMOGLOBIN 12.1 g/dL (12.0-15.5); LYMPHOCYTES % (AUTO) 10.6 % (13-45); MEAN CORPUSCULAR HEMOGLOBIN 28.8 pg (27.0-33.4); MEAN CORPUSCULAR HGB CONC 32.5 g/dL (32.0-36.0); MEAN CORPUSCULAR VOLUME 89 fl (80-97); MONOCYTES % (AUTO) 6.6 % (3-13); PLATELET COUNT 300 10^3/uL (150-450); RED BLOOD COUNT 4.19 10^6/uL (3.72-5.28); RED CELL DISTRIBUTION WIDTH 18.3 % (11.5-14.0); SEGMENTED NEUTROPHILS % (AUTO) 78.3 % (42-78); TOTAL CELLS COUNTED % (AUTO) 100 %; WHITE BLOOD COUNT 13.3 10^3/uL (4.0-10.5)
[2017-07-19 14:49] LABS: ALANINE AMINOTRANSFERASE 24 U/L (9-52); ALKALINE PHOSPHATASE 104 U/L (38-126); ANION GAP 13 (5-19); ASPARTATE AMINO TRANSFERASE 28 U/L (14-36); BILIRUBIN,DIRECT 0.4 mg/dL (0.0-0.4); BILIRUBIN,TOTAL 0.4 mg/dL (0.2-1.3); BLOOD UREA NITROGEN 28 mg/dL (7-20); CALCIUM 9.5 mg/dL (8.4-10.2); CARBON DIOXIDE 23 mmol/L (22-30); CHLORIDE 108 mmol/L (98-107); GLUCOSE 111 mg/dL (75-110); POTASSIUM 4.7 mmol/L (3.6-5.0); SODIUM 144.4 mmol/L (137-145); TOTAL PROTEIN 6.7 g/dL (6.3-8.2)
== END 2017-07-19 14:45 | DRG 193 ==
LOC: 4N 17:24
PROVIDERS: ADMIT Internal Medicine; ATTEND Internal Medicine
DX: J18.9 Pneumonia, unspecified organism (principal); J96.01 Acute respiratory failure with hypoxia; N17.9 Acute kidney failure, unspecified; N39.0 Urinary tract infection, site not specified; E87.3 Alkalosis; J84.9 Interstitial pulmonary disease, unspecified; J44.0 Chronic obstructive pulmonary disease with (acute) lower respiratory infection; E86.0 Dehydration; B95.2 Enterococcus as the cause of diseases classified elsewhere; M05.10 Rheumatoid lung disease with rheumatoid arthritis of unspecified site; R62.7 Adult failure to thrive; G30.1 Alzheimer's disease with late onset; J44.9 Chronic obstructive pulmonary disease, unspecified; F02.80 Dementia in other diseases classified elsewhere, unspecified severity, without behavioral disturbance, psychotic disturbance, mood disturbance, and anxiety; I10 Essential (primary) hypertension; I27.20 Pulmonary hypertension, unspecified; K21.9 Gastro-esophageal reflux disease without esophagitis; K44.9 Diaphragmatic hernia without obstruction or gangrene; R63.0 Anorexia; K59.00 Constipation, unspecified; D72.829 Elevated white blood cell count, unspecified; F45.8 Other somatoform disorders; Z87.01 Personal history of pneumonia (recurrent); Z87.891 Personal history of nicotine dependence; Z90.49 Acquired absence of other specified parts of digestive tract; Z90.710 Acquired absence of both cervix and uterus; Z79.899 Other long term (current) drug therapy; Z87.440 Personal history of urinary (tract) infections; Z68.24 Body mass index [BMI] 24.0-24.9, adult
CPT/HCPCS: 36415; 36600; 70551; 70553; 71045; 71046; 71250; 80048; 80053; 80076; 81001; 82803; 83735; 85025; 87086; 88184; 88185; 93005; 93010; 93971; 94667; 94799; A9577; G8978-GP; G8979-GP; J0692; J0696; J1630; J1940; J1956; J7030; J7060

== ENCOUNTER 2017-08-02 14:19 | Observation (INO) | payer MEDICARE, BC ==
[2017-08-02] MEDS ORDERED: NORMAL SALINE 1000 ML 1,000 ML IV PRN (14:29)
[2017-08-02 15:20] LABS: ARTERIAL BLOOD BASE EXCESS -0.5 mmol/L; ARTERIAL BLOOD H2CO3 1.04 mmol/L (1.05-1.35); ARTERIAL BLOOD HCO3 23.1 mmol/L (20-26); ARTERIAL BLOOD O2 SATURATION 96.5 % (94-98); ARTERIAL BLOOD PCO2 34.7 mmHg (35-45); ARTERIAL BLOOD PH 7.44 (7.35-7.45); ARTERIAL BLOOD PO2 81.7 mmHg (80-100); ARTERIAL BLOOD TOTAL CO2 24.2 mmol/L (21-25)
[2017-08-02 15:39] LABS: ARTERIAL BLOOD FIO2 ROOM AIR
[2017-08-02 16:41] LABS: HEMATOCRIT 36.8 % (36.0-47.0); HEMOGLOBIN 11.8 g/dL (12.0-15.5); MEAN CORPUSCULAR HEMOGLOBIN 28.4 pg (27.0-33.4); MEAN CORPUSCULAR HGB CONC 32.1 g/dL (32.0-36.0); MEAN CORPUSCULAR VOLUME 89 fl (80-97); PLATELET COUNT 301 10^3/uL (150-450); RED BLOOD COUNT 4.15 10^6/uL (3.72-5.28); RED CELL DISTRIBUTION WIDTH 17.9 % (11.5-14.0); WHITE BLOOD COUNT 12.8 10^3/uL (4.0-10.5)
[2017-08-02 16:45] LABS: INTERNATIONAL RATION (INR) 0.93; PROTHROMBIN TIME 12.9 SEC (11.4-15.4)
[2017-08-02 16:58] LABS: ALANINE AMINOTRANSFERASE 21 U/L (9-52); ALBUMIN 3.3 g/dL (3.5-5.0); ALKALINE PHOSPHATASE 82 U/L (38-126); AMYLASE 129 U/L (30-110); ANION GAP 10 (5-19); ASPARTATE AMINO TRANSFERASE 21 U/L (14-36); BILIRUBIN,DIRECT 0.4 mg/dL (0.0-0.4); BILIRUBIN,TOTAL 0.4 mg/dL (0.2-1.3); BLOOD UREA NITROGEN 32 mg/dL (7-20); CALCIUM 9.6 mg/dL (8.4-10.2); CARBON DIOXIDE 23 mmol/L (22-30); CHLORIDE 110 mmol/L (98-107); GLUCOSE 81 mg/dL (75-110); PHOSPHORUS 3.9 mg/dL (2.5-4.5); POTASSIUM 5.4 mmol/L (3.6-5.0); SODIUM 143.1 mmol/L (137-145); TOTAL PROTEIN 6.8 g/dL (6.3-8.2)
[2017-08-02 17:11] LABS: CREATINE KINASE MB 0.67 ng/mL (<4.55)
[2017-08-02 17:15] LABS: TROPONIN I < 0.012 ng/mL
[2017-08-02 17:33] LABS: FREE T4 (FREE THYROXINE) 1.48 ng/dL (0.78-2.19); THYROID STIMULATING HORMONE 3.18 uIU/mL (0.47-4.68)
--- NOTE | 2017-08-02 17:39 | RADIOLOGY REPORT (SQ) ---
EXAM DESCRIPTION: CHEST SINGLE VIEW COMPLETED DATE/TIME: 08/02/2017 5:26 pm REASON FOR STUDY: A-Fib COMPARISON: 07/11/2017 EXAM PARAMETERS: NUMBER OF VIEWS: One view. TECHNIQUE: Single frontal radiographic view of the chest acquired. RADIATION DOSE: NA LIMITATIONS: Patient has made a shallow inspiration. FINDINGS: LUNGS AND PLEURA: Possible left basilar density is again identified with loss of definitio n of the left hemidiaphragm which I cannot exclude is a small left pleural effusion and I cannot excl ude some associated atelectasis or infiltrate in the left lung base. Remaining lung tristan are clear . MEDIASTINUM AND HILAR STRUCTURES: No masses. Contour normal. HEART AND VASCULAR STRUCTURES: The configuration of the heart and mediastinal structures is unchanged . BONES: No acute findings. HARDWARE: PICC line is unchanged in position. OTHER: No other significant finding. IMPRESSION: No significant interval change. Possible left basilar density is noted above. Other fi indings as noted above TECHNICAL DOCUMENTATION: JOB ID: [id number] [employer]- All Rights Reserved Reading location - IP/workstation name: [email or web address]
--- NOTE | 2017-08-02 20:28 | PDOC H&P ---
History of Present Illness Admission Date/PCP: 08/02/17 14:30 MALIK RAYMUNDO MD History of Present Illness: MARLYS TORRES is a 87 year old female, She has baseline dementia she was just transferred to a longterm for rehabilitation on 07/19/2017, there was concern from family that patient has increased heart rate , atrial fibrillation was suspected, she was admitted directly from the [place] [facility] the hospital because of concern for atrial fibrillation with rapid irregular response. On admission into the hospital EKG shows sinus rhythm with a controlled heart rate, she was clinically dry,Since she was transferred to a longterm she seems to have sustained decubitus ulcer in the sacrum Past Medical History Cardiac Medical History: Reports: Hypertension Pulmonary Medical History: Reports: Chronic Obstructive Pulmonary Disease (COPD) , Pneumonia GI Medical History: Reports: Gastroesophageal Reflux Disease Musculoskeltal Medical History: Reports: Arthritis - Rheumatoid arthritis Psychiatric Medical History: Reports: Dementia Past Surgical History Past Surgical History: Reports: Appendectomy, Hysterectomy Social History Smoking Status: Never Smoker Frequency of Alcohol Use: None Hx Recreational Drug Use: No Drugs: None Hx Prescription Drug Abuse: No Family History Family History: None Parental Family History Reviewed: Yes Children Family History Reviewed: Yes Sibling(s) Family History Reviewed.: Yes Medication/Allergy Home Medications: Donepezil HCl [Aricept] 10 mg PO DAILY 08/02/17 Megestrol Acetate 10 ml PO DAILY 08/02/17 Memantine HCl [Namenda 10 mg Tablet] 10 mg PO BID 08/02/17 Tramadol HCl [Ultram 50 mg Tablet] 50 mg PO Q8HP PRN 08/02/17 Allergies/Adverse Reactions: No Known Allergies Allergy (Verified 02/12/14 08:24) Review of Systems ROS unobtainable: Other - Difficult to obtain review of system because of her dementia Musculoskeletal: ABSENT: joint swelling Physical Exam Vital Signs: Temp Pulse Resp BP Pulse Ox 97.5 F 81 16 134/58 H 100 08/02/17 19:46 08/02/17 19:46 08/02/17 19:46 08/02/17 19:46 08/02/17 19:46 Intake & Output 08/01/17 08/02/17 08/03/17 06:59 06:59 06:59 Intake Total 100 Balance 100 Weight 75.389 kg General appearance: PRESENT: mild distress Head exam: PRESENT: atraumatic, normocephalic Eye exam: PRESENT: PERRLA Mouth exam: PRESENT: dry mucosa Neck exam: PRESENT: full ROM Respiratory exam: PRESENT: clear to auscultation [place]avan Cardiovascular exam: PRESENT: RRR, +S1, +S2 Pulses: PRESENT: normal dorsalis pedis pul, +2 pedal pulses bilateral Vascular exam: PRESENT: normal capillary refill GI/Abdominal exam: PRESENT: normal bowel sounds, soft Rectal exam: PRESENT: deferred Neurological exam: PRESENT: alert, CN II-XII grossly intact Psychiatric exam: PRESENT: appropriate affect, normal mood Skin exam: PRESENT: dry, intact, warm Results Laboratory Results: 08/02/17 16:18 08/02/17 16:18 08/02/17 08/02/17 08/02/17 15:10 16:08 16:18 WBC RBC Hgb Hct MCV MCH MCHC RDW Plt Count Carbonic Acid 1.04 L HCO3/H2CO3 Ratio 22:1 ABG pH 7.44 ABG pCO2 34.7 L ABG pO2 81.7 ABG HCO3 23.1 ABG O2 Saturation 96.5 ABG Base Excess -0.5 FiO2 ROOM AIR Sodium 143.1 Potassium 5.4 H Chloride 110 H Carbon Dioxide 23 Anion Gap 10 BUN 32 H Creatinine 0.94 Est GFR ( Amer) > 60 Est GFR (Non-Af Amer) 57 L Glucose 81 Calcium 9.6 Phosphorus 3.9 Magnesium 2.1 Total Bilirubin 0.4 AST 21 ALT 21 Alkaline Phosphatase 82 Ammonia Total Protein 6.8 Albumin 3.3 L Amylase 129 H Lipase 70.0 TSH 3.18 Free T4 1.48 08/02/17 08/02/17 16:18 16:18 WBC 12.8 H RBC 4.15 Hgb 11.8 L Hct 36.8 MCV 89 MCH 28.4 MCHC 32.1 RDW 17.9 H Plt Count 301 Carbonic Acid HCO3/H2CO3 Ratio ABG pH ABG pCO2 ABG pO2 ABG HCO3 ABG O2 Saturation ABG Base Excess FiO2 Sodium Potassium Chloride Carbon Dioxide Anion Gap BUN Creatinine Est GFR ( Amer) Est GFR (Non-Af Amer) Glucose Calcium Phosphorus Magnesium Total Bilirubin AST ALT Alkaline Phosphatase Ammonia 11.3 Total Protein Albumin Amylase Lipase TSH Free T4 08/02/17 08/02/17 16:08 16:18 Creatine Kinase < 20 L CK-MB (CK-2) 0.67 Troponin I < 0.012 Impressions: Chest X-Ray 08/02/17 00:00 IMPRESSION: No significant interval change. Possible left basilar density is noted above. Other fiindings as noted above Assessment & Plan - Diagnosis (1) Dehydration Is this a current diagnosis for this admission?: Yes Plan: Treat with IV fluid (2) Adult failure to thrive Is this a current diagnosis for this admission?: Yes
[2017-08-02] MEDS ORDERED: TRAMADOL HCL 50 MG TABLET PO PRN (20:29)
[2017-08-02] MEDS ORDERED: (PENDING PHARMACY ID) (Donepezil Hcl [Aricept] 10 MG) PO SCH (20:30)
[2017-08-02] MEDS ORDERED: MEMANTINE HCL 10 MG TABLET PO SCH (20:30)
[2017-08-02] MEDS ORDERED: (PENDING PHARMACY ID) (Megestrol Acetate [Megestrol Acetate] 10 ML) PO SCH (20:30)
[2017-08-02 21:57] LABS: TROPONIN I < 0.012 ng/mL
[2017-08-02] MEDS: MEMANTINE HCL 10 MG TABLET PO SCH (22:30)
--- NOTE | 2017-08-03 01:48 | Physician Advisory Note ---
Physician Advisor ProgressNote .: Pursuant to the plan for [facility], I have reviewed the medical record for this patient. Physician Advisor Statement: Please consider documenting, if you agree, in each note: 1. "Stage __ sacral decub, POA" 2. 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 "chronic diastolic CHF" [if never sx, then is "stage B" chronic diastolic CHF] 4. ? "adverse effect of ____ [Rx] causing anorexia/decreased po intake/FTT" ( Aricept?) 5. ? "suspected protein-calorie malnutrition [state mild, mod, or severe] with BMI 27.7, ____[?wt loss, ]" [if possible, give specifics on intake, wt loss, loss of SQ fat & muscle mass, diminished hand vice president supply chain strength, & clinical importance such as (A) nutritional assessment ordered, (B) modified diet or supplements ordered, (C) additional labs ordered, (D) prolonged wound healing time, (E) delayed infxn clearance] Status: appropriately brought in as Observation for dehydration & FTT, (with ongoing anorexia sx, advanced dementia, on Alzheimer's meds, repeated dehydration admissions, low normal LV EF, very limited mobility, suspected worsening malnutrition despite Megace). Is Medicare pt, has now spent 1MN in hospital care/monitoring. - If she is not found to be sufficiently stable for d/c on 08/03, please document clinical reason/concern [worsening WBC/infxn? developing acute diast CHF? new arrhythmia? "___ is not back to baseline", "I AM CONCERNED about ____ _"], and may then be appropriate for conversion to INpatient status. Thanks! CK
[2017-08-03 03:28] LABS: CREATINE KINASE MB 0.66 ng/mL (<4.55)
[2017-08-03 03:32] LABS: TROPONIN I < 0.012 ng/mL
[2017-08-03 04:27] LABS: HEMATOCRIT 33.8 % (36.0-47.0); HEMOGLOBIN 10.8 g/dL (12.0-15.5); MEAN CORPUSCULAR HEMOGLOBIN 28.2 pg (27.0-33.4); MEAN CORPUSCULAR HGB CONC 32.1 g/dL (32.0-36.0); MEAN CORPUSCULAR VOLUME 88 fl (80-97); PLATELET COUNT 307 10^3/uL (150-450); RED BLOOD COUNT 3.84 10^6/uL (3.72-5.28); RED CELL DISTRIBUTION WIDTH 18.1 % (11.5-14.0); WHITE BLOOD COUNT 12.3 10^3/uL (4.0-10.5)
[2017-08-03 04:34] LABS: ANION GAP 11 (5-19); BLOOD UREA NITROGEN 28 mg/dL (7-20); CALCIUM 9.3 mg/dL (8.4-10.2); CARBON DIOXIDE 22 mmol/L (22-30); CHLORIDE 111 mmol/L (98-107); CHOLESTEROL 146.75 mg/dL (0-200); GLUCOSE 86 mg/dL (75-110); POTASSIUM 5.1 mmol/L (3.6-5.0); SODIUM 143.8 mmol/L (137-145); TRIGLYCERIDES 75 mg/dL (<150)
[2017-08-03 04:44] LABS: DIRECT LDL 99 mg/dL (<100)
[2017-08-03 05:20] LABS: ABSOLUTE NEUTROPHILS# (MANUAL) 9.2 10^3/uL (1.7-8.2); ANISOCYTOSIS 2+; BASOPHILS % (MANUAL) 0 % (0-2); EOSINOPHILS % (MANUAL) 1 % (0-6); LYMPHOCYTES % (MANUAL) 16 % (13-45); METAMYELOCYTES % (MANUAL) 1 % (0); MONOCYTES % (MANUAL) 8 % (3-13); SEGMENTED NEUTROPHILS % (MAN) 74 % (42-78); TOTAL CELLS COUNTED 100
[2017-08-03 05:21] LABS: HYPOCHROMASIA SLIGHT; OVALOCYTES SLIGHT; PLATELET COMMENT ADEQUATE
--- NOTE | 2017-08-03 07:58 | EKG REPORT ---
SEVERITY:- ABNORMAL ECG - SINUS RHYTHM CONSIDER LEFT VENTRICULAR HYPERTROPHY : Confirmed by: Tayla Beltran MD 03-Aug-2017 07:57:36
[2017-08-03] MEDS: DONEPEZIL HCL 5 MG TABLET PO SCH (09:37)
[2017-08-03] MEDS: MEMANTINE HCL 10 MG TABLET PO SCH ×2 (09:37→22:39)
[2017-08-03] MEDS: ENOXAPARIN SODIUM INJ 30 MG/0.3 ML DISP.SYRIN SUBCUT SCH (09:37)
[2017-08-03] MEDS: MEGESTROL ACETATE SUSP 400 MG/10 ML UDCUP PO SCH (09:37)
[2017-08-03] MEDS: NORMAL SALINE 1000 ML 1,000 ML IV PRN (15:57)
[2017-08-03] MEDS ORDERED: METOPROLOL SUCCINATE 50 MG TAB.SR.24H PO ONE (18:30)
[2017-08-03] MEDS ORDERED: NORMAL SALINE 10 ML SDV (AFTER EACH USE) IV PRN (18:46)
[2017-08-03] MEDS ORDERED: ALTEPLASE INJ 2 MG VIAL (CATH CLEARANCE) INJ ONE (19:30)
--- NOTE | 2017-08-03 20:37 | PDOC PROGRESS REPORT ---
Subjective Progress Note for:: 08/03/17 Subjective:: She has inappropriate sinus tachycardia, There is no new complaints Reason For Visit: DEHYDRATION, DEMENTIA Physical Exam Vital Signs: Temp Pulse Resp BP Pulse Ox 98.2 F 84 16 143/68 H 100 08/03/17 15:12 08/03/17 15:12 08/03/17 15:12 08/03/17 15:12 08/03/17 15:12 Intake & Output 08/02/17 08/03/17 08/04/17 06:59 06:59 06:59 Intake Total 1068 1585 Balance 1068 1585 Weight 75.4 kg 75.4 kg General appearance: PRESENT: no acute distress Eye exam: PRESENT: PERRLA Respiratory exam: PRESENT: clear to auscultation donavan Cardiovascular exam: PRESENT: +S1, +S2 Results Laboratory Results: 08/03/17 04:06 08/03/17 04:06 08/03/17 08/03/17 04:06 04:06 WBC 12.3 H RBC 3.84 Hgb 10.8 L Hct 33.8 L MCV 88 MCH 28.2 MCHC 32.1 RDW 18.1 H Plt Count 307 Seg Neutrophils % Not Reportable Lymphocytes % Not Reportable Monocytes % Not Reportable Eosinophils % Not Reportable Basophils % Not Reportable Absolute Neutrophils Not Reportable Absolute Lymphocytes Not Reportable Absolute Monocytes Not Reportable Absolute Eosinophils Not Reportable Absolute Basophils Not Reportable Sodium 143.8 Potassium 5.1 H Chloride 111 H Carbon Dioxide 22 Anion Gap 11 BUN 28 H Creatinine 0.88 Est GFR ( Amer) > 60 Est GFR (Non-Af Amer) > 60 Glucose 86 Calcium 9.3 Triglycerides 75 Cholesterol 146.75 LDL Cholesterol Direct 99 VLDL Cholesterol 15.0 HDL Cholesterol 41 08/02/17 08/02/17 08/02/17 16:08 16:18 20:56 Creatine Kinase < 20 L < 20 L CK-MB (CK-2) 0.67 Troponin I < 0.012 08/02/17 08/03/17 08/03/17 20:56 02:45 02:45 Creatine Kinase < 20 L CK-MB (CK-2) 0.60 0.66 Troponin I < 0.012 < 0.012 Impressions: Chest X-Ray 08/02/17 00:00 IMPRESSION: No significant interval change. Possible left basilar density is noted above. Other fiindings as noted above Assessment & Plan - Diagnosis (1) Dehydration Is this a current diagnosis for this admission?: Yes (2) Adult failure to thrive Is this a current diagnosis for this admission?: Yes (3) Inappropriate sinus tachycardia Is this a current diagnosis for this admission?: Yes
[2017-08-03] MEDS: NORMAL SALINE 10 ML SDV (SCHEDULED) IV SCH (22:39)
[2017-08-04 04:27] LABS: ABSOLUTE BASOPHILS # (AUTO) 0.1 10^3/uL (0.0-0.2); ABSOLUTE EOSINOPHILS # (AUTO) 0.2 10^3/uL (0.0-0.6); ABSOLUTE LYMPHOCYTES (AUTO) 2.4 10^3/uL (0.5-4.7); ABSOLUTE NEUT (AUTO) 9.4 10^3/uL (1.7-8.2); EOSINOPHILS % (AUTO) 1.6 % (0-6); HEMATOCRIT 29.7 % (36.0-47.0); HEMOGLOBIN 9.8 g/dL (12.0-15.5); MEAN CORPUSCULAR HEMOGLOBIN 28.9 pg (27.0-33.4); MEAN CORPUSCULAR VOLUME 88 fl (80-97); PLATELET COUNT 305 10^3/uL (150-450); RED BLOOD COUNT 3.38 10^6/uL (3.72-5.28); RED CELL DISTRIBUTION WIDTH 18.2 % (11.5-14.0); SEGMENTED NEUTROPHILS % (AUTO) 71.4 % (42-78); TOTAL CELLS COUNTED % (AUTO) 100 %; WHITE BLOOD COUNT 13.1 10^3/uL (4.0-10.5)
[2017-08-04 04:32] LABS: ANION GAP 8 (5-19); BLOOD UREA NITROGEN 34 mg/dL (7-20); CALCIUM 8.9 mg/dL (8.4-10.2); CARBON DIOXIDE 23 mmol/L (22-30); CHLORIDE 112 mmol/L (98-107); GLUCOSE 89 mg/dL (75-110); POTASSIUM 4.8 mmol/L (3.6-5.0); SODIUM 142.5 mmol/L (137-145)
[2017-08-04] MEDS: NORMAL SALINE 1000 ML 1,000 ML IV PRN (04:42)
[2017-08-04] MEDS: MEGESTROL ACETATE SUSP 400 MG/10 ML UDCUP PO SCH (09:46)
[2017-08-04] MEDS: METOPROLOL SUCCINATE 50 MG TAB.SR.24H PO SCH (09:47)
[2017-08-04] MEDS: DONEPEZIL HCL 5 MG TABLET PO SCH (09:47)
[2017-08-04] MEDS: MEMANTINE HCL 10 MG TABLET PO SCH ×2 (09:48→22:12)
[2017-08-04] MEDS: ENOXAPARIN SODIUM INJ 30 MG/0.3 ML DISP.SYRIN SUBCUT SCH (09:49)
[2017-08-04] MEDS: NORMAL SALINE 10 ML SDV (SCHEDULED) IV SCH ×2 (09:51→22:15)
[2017-08-04] MEDS ORDERED: ACETAMINOPHEN 325 MG TABLET PO PRN (16:38)
--- NOTE | 2017-08-04 19:32 | PDOC DISCHARGE SUMMARY ---
General - Admit/Disc Date/PCP Admission Date/Primary Care Provider: 08/02/17 14:19 MALIK RAYMUNDO MD Discharge Date: 08/04/17 - Discharge Diagnosis (1) Dehydration Is this a current diagnosis for this admission?: Yes (2) Adult failure to thrive Is this a current diagnosis for this admission?: Yes (3) Inappropriate sinus tachycardia Is this a current diagnosis for this admission?: Yes (4) Dementia Is this a current diagnosis for this admission?: Yes - Additional Information Prescriptions: Metoprolol Succinate [Toprol Xl 50 mg Tab.sr] 50 mg PO DAILY #90 tab.sr.24h Home Medications: Donepezil HCl [Aricept] 10 mg PO DAILY 08/02/17 Megestrol Acetate 10 ml PO DAILY 08/02/17 Memantine HCl [Namenda 10 mg Tablet] 10 mg PO BID 08/02/17 Tramadol HCl [Ultram 50 mg Tablet] 50 mg PO Q8HP PRN 08/02/17 Metoprolol Succinate [Toprol Xl 50 mg Tab.sr] 50 mg PO DAILY #90 tab.sr.24h History of Present Illness History of Present Illness: MARLYS TORRES is a 87 year old female, She has baseline dementia she was just [facility] to a detention for rehabilitation on 07/19/2017, there was concern from family that patient has increased heart rate , atrial fibrillation was suspected, [facility] because of concern for atrial fibrillation with rapid irregular response. On admission into the hospital EKG shows sinus rhythm with a controlled heart rate, she was clinically dry,Since she was transferred to a detention she seems to have sustained decubitus ulcer in the [facility] Hospital Course Hospital Course: She was admitted for observation and management of concern for atrial fibrillation, she was found to have inappropriate sinus tachycardia she was treated with metoprolol Physical Exam Vital Signs: Temp Pulse Resp BP Pulse Ox 97.6 F 65 20 129/57 H 100 08/04/17 16:10 08/04/17 16:10 08/04/17 16:10 08/04/17 16:10 08/04/17 16:10 Intake & Output 08/03/17 08/04/17 08/05/17 06:59 06:59 06:59 Intake Total 1068 2232 1250 Balance 1068 2232 1250 Weight 75.4 kg 76.1 kg General appearance: PRESENT: no acute distress Eye exam: PRESENT: PERRLA Mouth exam: PRESENT: moist, tongue midline Neck exam: PRESENT: full ROM Respiratory exam: PRESENT: clear to auscultation [place]avan Cardiovascular exam: PRESENT: RRR, +S1, +S2 Vascular exam: PRESENT: normal capillary refill GI/Abdominal exam: PRESENT: normal bowel sounds, soft Rectal exam: PRESENT: deferred Neurological exam: PRESENT: alert Psychiatric exam: PRESENT: appropriate affect, normal mood Skin exam: PRESENT: dry, intact, warm Results Laboratory Results: 08/04/17 04:15 08/04/17 04:15 08/04/17 08/04/17 04:15 04:15 WBC 13.1 H RBC 3.38 L Hgb 9.8 L Hct 29.7 L MCV 88 MCH 28.9 MCHC 33.0 RDW 18.2 H Plt Count 305 Seg Neutrophils % 71.4 Lymphocytes % 18.0 Monocytes % 8.0 Eosinophils % 1.6 Basophils % 1.0 Absolute Neutrophils 9.4 H Absolute Lymphocytes 2.4 Absolute Monocytes 1.0 Absolute Eosinophils 0.2 Absolute Basophils 0.1 Sodium 142.5 Potassium 4.8 Chloride 112 H Carbon Dioxide 23 Anion Gap 8 BUN 34 H Creatinine 0.98 Est GFR ( Amer) > 60 Est GFR (Non-Af Amer) 54 L Glucose 89 Calcium 8.9 08/02/17 08/02/17 08/02/17 16:08 16:18 20:56 Creatine Kinase < 20 L < 20 L CK-MB (CK-2) 0.67 Troponin I < 0.012 08/02/17 08/03/17 08/03/17 20:56 02:45 02:45 Creatine Kinase < 20 L CK-MB (CK-2) 0.60 0.66 Troponin I < 0.012 < 0.012 Impressions: Chest X-Ray 08/02/17 00:00 IMPRESSION: No significant interval change. Possible left basilar density is noted above. Other fiindings as noted above Qualifiers - * PATIENT BEING DISCHARGED WITH ANY OF THE FOLLOWING DIAGNOSIS: No
[2017-08-05] MEDS: NORMAL SALINE 1000 ML 1,000 ML IV PRN (01:21)
[2017-08-05 06:26] LABS: ABSOLUTE BASOPHILS # (AUTO) 0.1 10^3/uL (0.0-0.2); ABSOLUTE EOSINOPHILS # (AUTO) 0.2 10^3/uL (0.0-0.6); ABSOLUTE LYMPHOCYTES (AUTO) 2.3 10^3/uL (0.5-4.7); ABSOLUTE MONOCYTES (AUTO) 0.7 10^3/uL (0.1-1.4); ABSOLUTE NEUT (AUTO) 7.1 10^3/uL (1.7-8.2); EOSINOPHILS % (AUTO) 1.8 % (0-6); HEMATOCRIT 29.3 % (36.0-47.0); HEMOGLOBIN 9.6 g/dL (12.0-15.5); LYMPHOCYTES % (AUTO) 21.7 % (13-45); MEAN CORPUSCULAR HEMOGLOBIN 28.5 pg (27.0-33.4); MEAN CORPUSCULAR HGB CONC 32.6 g/dL (32.0-36.0); MEAN CORPUSCULAR VOLUME 87 fl (80-97); PLATELET COUNT 259 10^3/uL (150-450); RED BLOOD COUNT 3.36 10^6/uL (3.72-5.28); SEGMENTED NEUTROPHILS % (AUTO) 68.5 % (42-78); TOTAL CELLS COUNTED % (AUTO) 100 %; WHITE BLOOD COUNT 10.4 10^3/uL (4.0-10.5)
[2017-08-05 06:28] LABS: ANION GAP 6 (5-19); BLOOD UREA NITROGEN 30 mg/dL (7-20); CALCIUM 8.2 mg/dL (8.4-10.2); CARBON DIOXIDE 23 mmol/L (22-30); CHLORIDE 114 mmol/L (98-107); GLUCOSE 76 mg/dL (75-110); POTASSIUM 4.3 mmol/L (3.6-5.0); SODIUM 143.2 mmol/L (137-145)
[2017-08-05] MEDS: MEMANTINE HCL 10 MG TABLET PO SCH (10:44)
[2017-08-05] MEDS: DONEPEZIL HCL 5 MG TABLET PO SCH (10:44)
[2017-08-05] MEDS: MEGESTROL ACETATE SUSP 400 MG/10 ML UDCUP PO SCH (10:44)
[2017-08-05] MEDS: ENOXAPARIN SODIUM INJ 30 MG/0.3 ML DISP.SYRIN SUBCUT SCH (10:45)
[2017-08-05] MEDS: METOPROLOL SUCCINATE 50 MG TAB.SR.24H PO SCH (10:45)
[2017-08-05] MEDS: NORMAL SALINE 10 ML SDV (SCHEDULED) IV SCH (10:46)
[2017-08-05 18:37] VITALS: BP 115/62
== END 2017-08-05 19:59 | disposition short-term general hospital (02) ==
LOC: 3S 14:19 → OBSVTOIN 14:30 → INTOOBSV 14:30
PROVIDERS: ADMIT Internal Medicine; ATTEND Internal Medicine
DX: E86.0 Dehydration (principal); R62.7 Adult failure to thrive; R00.0 Tachycardia, unspecified; F03.90 Unspecified dementia, unspecified severity, without behavioral disturbance, psychotic disturbance, mood disturbance, and anxiety; L89.159 Pressure ulcer of sacral region, unspecified stage; M06.9 Rheumatoid arthritis, unspecified; Z79.899 Other long term (current) drug therapy; Z90.49 Acquired absence of other specified parts of digestive tract; Z90.710 Acquired absence of both cervix and uterus
CPT/HCPCS: 36415 ×2; 84439; 82553 ×2; 82140; 82150; 82803; 82550 ×2; 83690; 83735; 84100; 84443; 85025 ×3; 85027; 85610; 80048 ×3; 80053; 84484 ×2; 83036; 80061; 71045; 93005; 93010; 97110; 97116; 97163; G0378 ×4; G0379; J2997; A9270 ×11; J3490 ×3; J1650 ×3; J7030 ×3; J1642 ×3; G8978; G8979

== ENCOUNTER 2017-08-10 19:09 | Observation (INO) | payer MEDICARE, BC ==
[2017-08-10] MEDS: NORMAL SALINE 1000 ML 1,000 ML IV PRN (21:17)
[2017-08-10 22:24] LABS: ANION GAP 9 (5-19); BLOOD UREA NITROGEN 33 mg/dL (7-20); CALCIUM 9.3 mg/dL (8.4-10.2); CARBON DIOXIDE 26 mmol/L (22-30); CHLORIDE 108 mmol/L (98-107); GLUCOSE 85 mg/dL (75-110); POTASSIUM 5.4 mmol/L (3.6-5.0)
[2017-08-10 22:26] LABS: ABSOLUTE BASOPHILS # (AUTO) 0.2 10^3/uL (0.0-0.2); ABSOLUTE EOSINOPHILS # (AUTO) 0.4 10^3/uL (0.0-0.6); ABSOLUTE LYMPHOCYTES (AUTO) 3.2 10^3/uL (0.5-4.7); ABSOLUTE MONOCYTES (AUTO) 1.1 10^3/uL (0.1-1.4); BASOPHILS % (AUTO) 1.1 % (0-2); EOSINOPHILS % (AUTO) 2.2 % (0-6); HEMATOCRIT 35.1 % (36.0-47.0); HEMOGLOBIN 11.4 g/dL (12.0-15.5); LYMPHOCYTES % (AUTO) 19.2 % (13-45); MEAN CORPUSCULAR HEMOGLOBIN 28.6 pg (27.0-33.4); MEAN CORPUSCULAR HGB CONC 32.4 g/dL (32.0-36.0); MEAN CORPUSCULAR VOLUME 88 fl (80-97); MONOCYTES % (AUTO) 6.7 % (3-13); PLATELET COUNT 222 10^3/uL (150-450); RED BLOOD COUNT 3.98 10^6/uL (3.72-5.28); RED CELL DISTRIBUTION WIDTH 17.5 % (11.5-14.0); SEGMENTED NEUTROPHILS % (AUTO) 70.8 % (42-78); TOTAL CELLS COUNTED % (AUTO) 100 %; WHITE BLOOD COUNT 16.9 10^3/uL (4.0-10.5)
[2017-08-11] MEDS ORDERED: ACETAMINOPHEN 325 MG TABLET PO PRN (10:43)
[2017-08-11] MEDS ORDERED: DOCUSATE SODIUM 100 MG CAPSULE PO ONE (11:00)
[2017-08-11] MEDS ORDERED: MEGESTROL ACETATE SUSP 400 MG/10 ML UDCUP PO ONE (11:00)
[2017-08-11] MEDS ORDERED: METOPROLOL SUCCINATE 50 MG TAB.SR.24H PO ONE (11:00)
[2017-08-11 11:46] LABS: ABSOLUTE BASOPHILS # (AUTO) 0.2 10^3/uL (0.0-0.2); ABSOLUTE EOSINOPHILS # (AUTO) 0.2 10^3/uL (0.0-0.6); ABSOLUTE LYMPHOCYTES (AUTO) 2.5 10^3/uL (0.5-4.7); ABSOLUTE MONOCYTES (AUTO) 0.8 10^3/uL (0.1-1.4); ABSOLUTE NEUT (AUTO) 8.7 10^3/uL (1.7-8.2); BASOPHILS % (AUTO) 1.3 % (0-2); EOSINOPHILS % (AUTO) 1.6 % (0-6); HEMATOCRIT 36.6 % (36.0-47.0); HEMOGLOBIN 11.9 g/dL (12.0-15.5); MEAN CORPUSCULAR HEMOGLOBIN 28.3 pg (27.0-33.4); MEAN CORPUSCULAR HGB CONC 32.5 g/dL (32.0-36.0); MEAN CORPUSCULAR VOLUME 87 fl (80-97); MONOCYTES % (AUTO) 6.2 % (3-13); PLATELET COUNT 267 10^3/uL (150-450); RED BLOOD COUNT 4.22 10^6/uL (3.72-5.28); RED CELL DISTRIBUTION WIDTH 17.5 % (11.5-14.0); SEGMENTED NEUTROPHILS % (AUTO) 70.9 % (42-78); TOTAL CELLS COUNTED % (AUTO) 100 %; WHITE BLOOD COUNT 12.3 10^3/uL (4.0-10.5)
[2017-08-11 12:01] LABS: ALANINE AMINOTRANSFERASE 20 U/L (9-52); ALBUMIN 3.3 g/dL (3.5-5.0); ALKALINE PHOSPHATASE 76 U/L (38-126); ANION GAP 10 (5-19); ASPARTATE AMINO TRANSFERASE 20 U/L (14-36); BILIRUBIN,DIRECT 0.3 mg/dL (0.0-0.4); BILIRUBIN,TOTAL 0.6 mg/dL (0.2-1.3); BLOOD UREA NITROGEN 28 mg/dL (7-20); CALCIUM 9.5 mg/dL (8.4-10.2); CARBON DIOXIDE 25 mmol/L (22-30); CHLORIDE 109 mmol/L (98-107); GLUCOSE 89 mg/dL (75-110); POTASSIUM 4.8 mmol/L (3.6-5.0); SODIUM 143.5 mmol/L (137-145); TOTAL PROTEIN 6.7 g/dL (6.3-8.2)
[2017-08-11] MEDS: NORMAL SALINE 1000 ML 1,000 ML IV PRN (12:10)
--- NOTE | 2017-08-11 17:50 | PDOC H&P ---
History of Present Illness Admission Date/PCP: 08/10/17 19:59 MALIK RAYMUNDO MD History of Present Illness: MARYLS TORRES is a 87 year old female, she has advanced dementia, history of rheumatoid lung disease, ambulatory dysfunction, she was transferred for senior living home to the hospital for the management of dehydration due to inadequate intake, there is no diarrhea ,vomiting Past Medical History Cardiac Medical History: Reports: Hypertension Pulmonary Medical History: Reports: Chronic Obstructive Pulmonary Disease (COPD) , Pneumonia GI Medical History: Reports: Gastroesophageal Reflux Disease Musculoskeltal Medical History: Reports: Arthritis - Rheumatoid arthritis Psychiatric Medical History: Reports: Dementia Past Surgical History Past Surgical History: Reports: Appendectomy, Hysterectomy Social History Smoking Status: Former Smoker Number of Years Smokin Last Time Smoked: 1977 Frequency of Alcohol Use: None Hx Recreational Drug Use: No Drugs: None Hx Prescription Drug Abuse: No - Advance Directive Resuscitation Status: Full Code Family History Family History: None Parental Family History Reviewed: Yes Children Family History Reviewed: Yes Sibling(s) Family History Reviewed.: Yes Medication/Allergy Home Medications: Megestrol Acetate 400 mg PO BID 08/02/17 Metoprolol Succinate [Toprol Xl 50 mg Tab.sr] 50 mg PO DAILY #90 tab.sr.24h Docusate Sodium [Colace 100 mg Capsule] 100 mg PO DAILY 08/10/17 Allergies/Adverse Reactions: No Known Allergies Allergy (Verified 02/12/14 08:24) Review of Systems ROS unobtainable: Due to mental status Physical Exam Vital Signs: Temp Pulse Resp BP Pulse Ox 98.9 F 60 20 148/58 H 96 08/10/17 23:34 08/10/17 23:34 08/10/17 23:34 08/10/17 23:34 08/10/17 23:34 Intake & Output 08/10/17 08/11/17 08/12/17 06:59 06:59 06:59 Intake Total 0 Balance 0 Weight 73.1 kg 73.1 kg General appearance: PRESENT: mild distress Head exam: PRESENT: atraumatic, normocephalic Eye exam: PRESENT: PERRLA Mouth exam: PRESENT: dry mucosa Neck exam: PRESENT: full ROM. ABSENT: carotid bruit, JVD, lymphadenopathy, thyromegaly Respiratory exam: PRESENT: clear to auscultation [place]avan Cardiovascular exam: PRESENT: RRR, +S1, +S2 Pulses: PRESENT: normal dorsalis pedis pul, +2 pedal pulses bilateral Vascular exam: PRESENT: normal capillary refill GI/Abdominal exam: PRESENT: normal bowel sounds, soft Rectal exam: PRESENT: deferred Neurological exam: PRESENT: alert Psychiatric exam: PRESENT: appropriate affect, normal mood Skin exam: PRESENT: dry, intact, warm Results Laboratory Results: 08/11/17 11:36 08/11/17 11:36 08/10/17 08/10/17 08/11/17 22:00 22:00 11:36 WBC 16.9 H 12.3 H RBC 3.98 4.22 Hgb 11.4 L 11.9 L Hct 35.1 L 36.6 MCV 88 87 MCH 28.6 28.3 MCHC 32.4 32.5 RDW 17.5 H 17.5 H Plt Count 222 267 Seg Neutrophils % 70.8 70.9 Lymphocytes % 19.2 20.0 Monocytes % 6.7 6.2 Eosinophils % 2.2 1.6 Basophils % 1.1 1.3 Absolute Neutrophils 12.0 H 8.7 H Absolute Lymphocytes 3.2 2.5 Absolute Monocytes 1.1 0.8 Absolute Eosinophils 0.4 0.2 Absolute Basophils 0.2 0.2 Sodium 143.0 Potassium 5.4 H Chloride 108 H Carbon Dioxide 26 Anion Gap 9 BUN 33 H Creatinine 1.03 Est GFR ( Amer) > 60 Est GFR (Non-Af Amer) 51 L Glucose 85 Calcium 9.3 Total Bilirubin AST ALT Alkaline Phosphatase Total Protein Albumin 08/11/17 11:36 WBC RBC Hgb Hct MCV MCH MCHC RDW Plt Count Seg Neutrophils % Lymphocytes % Monocytes % Eosinophils % Basophils % Absolute Neutrophils Absolute Lymphocytes Absolute Monocytes Absolute Eosinophils Absolute Basophils Sodium 143.5 Potassium 4.8 Chloride 109 H Carbon Dioxide 25 Anion Gap 10 BUN 28 H Creatinine 0.91 Est GFR ( Amer) > 60 Est GFR (Non-Af Amer) 59 L Glucose 89 Calcium 9.5 Total Bilirubin 0.6 AST 20 ALT 20 Alkaline Phosphatase 76 Total Protein 6.7 Albumin 3.3 L Assessment & Plan - Diagnosis (1) Dehydration Is this a current diagnosis for this admission?: Yes Plan: She is admitted for hydration, and then transferred to senior living home for continued rehabilitation (2) Dementia Qualifiers: Dementia type: Alzheimer's disease Alzheimer's disease onset: late-onset Dementia behavioral disturbance: without behavioral disturbance Qualified Code (s): G30.1 - Alzheimer's disease with late onset; F02.80 - Dementia in other diseases classified elsewhere without behavioral disturbance; F02.80 - Dementia in other diseases classified elsewhere without behavioral disturbance; F02.80 - Dementia in other diseases classified elsewhere without behavioral disturbance Is this a current diagnosis for this admission?: Yes
[2017-08-11] MEDS ORDERED: (PENDING PHARMACY ID) (Megestrol Acetate [Megestrol Acetate] 400 MG) PO SCH (18:00)
[2017-08-11] MEDS: MEGESTROL ACETATE SUSP 400 MG/10 ML UDCUP PO SCH (22:46)
[2017-08-12] MEDS: NORMAL SALINE 1000 ML 1,000 ML IV PRN (06:43)
[2017-08-12] MEDS: METOPROLOL SUCCINATE 50 MG TAB.SR.24H PO SCH (11:54)
[2017-08-12] MEDS: MEGESTROL ACETATE SUSP 400 MG/10 ML UDCUP PO SCH ×2 (11:57→22:27)
[2017-08-12] MEDS: DOCUSATE SODIUM 100 MG CAPSULE PO SCH (11:57)
--- NOTE | 2017-08-12 12:05 | RADIOLOGY REPORT (SQ) ---
EXAM DESCRIPTION: PICC INSERTION; FLUORO/CV PLACEMENT; U/S GUIDE FOR VASCULAR ACCESS COMPLETED DATE/TIME: 08/12/2017 11:43 am REASON FOR STUDY: PICC; IV ACCESS COMPARISON: Chest film 08/02/2017 CT chest 07/13/2017 FLUOROSCOPY TIME: 31 seconds 1 digital radiographic images saved to PACS. TECHNIQUE: Fluoroscopic and ultrasound guided PICC placement. LIMITATIONS: None. PROCEDURE: After written consent and assessment were obtained, the patient was brought into the fluo roscopy room and place supine on the table. Ultrasound evaluation of potential access sites were perf ormed. After successfully identifying a patent left basilic vein, the left arm was prepped and draped in a sterile fashion along with the ultrasound probe. The entry site was anesthetized with 1% lidoca ine. A 21 gauge 7 cm needle was advanced through the skin and into the basilic vein under live ultras ound guidance. An ultrasound image was saved to PACS confirming access site. A .018 guide wire was then inserted through the needle and into the venous system. The needle was the removed and an 11 marianna de scalpel was used to make a 1cm skin incision. A 5 fr peel-away sheath was advanced over the wire and into the venous system. A measurement was then made using the existing wire and live fluoroscopic guidance. The wire was then removed and the trimmed. The PICC was advanced through the peel-away she ath and into the venous system. The peel-away sheath was removed and the catheter was adhered to the patients arm with a stat lock. The catheter was then aspirated and flushed and a sterile bandage was placed over the access site. A fluoroscopic spot image was saved to PACS confirming the catheter tip within the superior vena cava. IMPRESSION: SUCCESSFUL PLACEMENT OF A 5 FR DUAL LUMEN 39 CM PICC IN THE LEFT BASILIC VEIN. COMMENT: Patient medication list reviewed: Yes- Quality ID# 130:Eligible professional attests to doc umenting in the medical record they obtained, updated, or reviewed the patient's current medications. . Quality ID 145: Final reports for procedures using fluoroscopy that document radiation exposure beryl aj, or exposure time and number of fluorographic images (if radiation exposure indices are not avail able) Quality ID #76: The patient was prepped and draped using maximum sterile barrier technique including cap, mask, sterile gown, sterile gloves, a large sterile sheet, hand hygiene, and 2% Chlorhexidine fo r cutaneous antisepsis. When ultrasound is used, sterile ultrasound techniques are followed requiring sterile gel and sterile probes. TECHNICAL DOCUMENTATION: JOB ID: [id number]- All Rights Reserved rev-06/25 Reading location - IP/workstation name: [email or web address]
[2017-08-12] MEDS ORDERED: NORMAL SALINE 10 ML SDV (AFTER EACH USE) IV PRN (12:11)
--- NOTE | 2017-08-12 19:10 | PDOC TRANSFER SUMMARY ---
General - Admit/Disc Date/PCP Admission Date/Primary Care Provider: 08/10/17 19:59 MALIK RAYMUNDO MD Discharge Date: 08/13/17 - Discharge Diagnosis (1) Dehydration Is this a current diagnosis for this admission?: Yes (2) Dementia Is this a current diagnosis for this admission?: Yes (3) Rheumatoid arthritis Is this a current diagnosis for this admission?: Yes (4) Osteoporotic compression fracture of spine Is this a current diagnosis for this admission?: Yes (5) Adult failure to thrive Is this a current diagnosis for this admission?: Yes (6) GERD (gastroesophageal reflux disease) Is this a current diagnosis for this admission?: Yes (7) Pulmonary hypertension Is this a current diagnosis for this admission?: Yes (8) Inappropriate sinus tachycardia Is this a current diagnosis for this admission?: Yes - Additional Information Resuscitation Status: Full Code Prescriptions: Donepezil HCl [Aricept] 10 mg PO DAILY #90 tablet Normal Saline 1000 ml [NaCl 0.9% 1000 ml IV Soln] 30 ml IV CONTINUOUS PRN #10 iv.soln PRN Reason: Home Medications: Megestrol Acetate 400 mg PO BID 08/02/17 Metoprolol Succinate [Toprol Xl 50 mg Tab.sr] 50 mg PO DAILY #90 tab.sr.24h Docusate Sodium [Colace 100 mg Capsule] 100 mg PO DAILY 08/10/17 Acetaminophen [Tylenol 325 mg Tablet] 650 mg PO Q6HP PRN tablet 08/12/17 Donepezil HCl [Aricept] 10 mg PO DAILY #90 tablet 08/12/17 Normal Saline 1000 ml [NaCl 0.9% 1000 ml IV Soln] 30 ml IV CONTINUOUS PRN #10 iv.soln 08/12/17 History of Present Illness Admission Date/PCP: 08/10/17 19:59 MALIK RAYMUNDO MD History of Present Illness: MARLYS TORRES is a 87 year old female, she has advanced dementia, history of rheumatoid lung disease, ambulatory dysfunction, she was transferred for senior care home to the hospital for the management of dehydration due to inadequate intake, there is no diarrhea ,vomiting Hospital Course Hospital Course: Patient with baseline dementia, she was admitted for the management of dehydration, for IV fluid therapy. She had a PICC line placement done today, she will be transferred to a senior care home for continuity of care and for rehabilitation. She will continue intravenous fluid through the PICC line the purpose is to administer IV fluids, normal saline, at 50 cc/h upto 2 L at a time at about 2-3 times weekly because patient is not ingesting enough fluids to sustain adequate body hydration. Physical Exam Vital Signs: Temp Pulse Resp BP Pulse Ox 98.2 F 68 18 143/58 H 98 08/12/17 12:37 08/12/17 15:00 08/12/17 12:37 08/12/17 12:37 08/12/17 12:37 Intake & Output 08/11/17 08/12/17 08/13/17 06:59 06:59 06:59 Intake Total 0 3163 Balance 0 3163 Weight 73.1 kg 74.344 kg General appearance: PRESENT: no acute distress Respiratory exam: PRESENT: clear to auscultation [place]avan Cardiovascular exam: PRESENT: +S1, +S2 GI/Abdominal exam: PRESENT: soft Neurological exam: PRESENT: alert Results Laboratory Results: 08/11/17 11:36 08/11/17 11:36 Impressions: Guidance Fluoroscopy 08/12/17 00:00 IMPRESSION: SUCCESSFUL PLACEMENT OF A 5 FR DUAL LUMEN 39 CM PICC IN THE LEFT BASILIC VEIN. Interventional Vascular Procedure 08/12/17 00:00 IMPRESSION: SUCCESSFUL PLACEMENT OF A 5 FR DUAL LUMEN 39 CM PICC IN THE LEFT BASILIC VEIN. PICC Line Insertion 08/12/17 00:00 IMPRESSION: SUCCESSFUL PLACEMENT OF A 5 FR DUAL LUMEN 39 CM PICC IN THE LEFT BASILIC VEIN. Qualifiers - * PATIENT BEING DISCHARGED WITH ANY OF THE FOLLOWING DIAGNOSIS: No
[2017-08-12] MEDS: NORMAL SALINE 10 ML SDV (SCHEDULED) IV SCH (22:30)
[2017-08-13] MEDS: NORMAL SALINE 10 ML SDV (SCHEDULED) IV SCH (09:52)
[2017-08-13] MEDS: METOPROLOL SUCCINATE 50 MG TAB.SR.24H PO SCH (09:52)
[2017-08-13] MEDS: DOCUSATE SODIUM 100 MG CAPSULE PO SCH (09:53)
[2017-08-13] MEDS: MEGESTROL ACETATE SUSP 400 MG/10 ML UDCUP PO SCH (09:53)
[2017-08-13] MEDS: NORMAL SALINE 1000 ML 1,000 ML IV PRN (11:22)
[2017-08-13 12:29] VITALS: BP 128/51
== END 2017-08-13 14:26 ==
LOC: ER 19:09 → EH 19:59 → INTOOBSV 19:59 → 5 23:32
PROVIDERS: ADMIT Internal Medicine; ATTEND Internal Medicine
PROC: 05HY33Z Insertion of Infusion Device into Upper Vein, Percutaneous Approach (ICD-10-PCS; principal; 2017-08-12)
DX: E86.0 Dehydration (principal); G30.1 Alzheimer's disease with late onset; F02.80 Dementia in other diseases classified elsewhere, unspecified severity, without behavioral disturbance, psychotic disturbance, mood disturbance, and anxiety; R62.7 Adult failure to thrive; M80.08XA Age-related osteoporosis with current pathological fracture, vertebra(e), initial encounter for fracture; K21.9 Gastro-esophageal reflux disease without esophagitis; I27.20 Pulmonary hypertension, unspecified; R00.0 Tachycardia, unspecified; I10 Essential (primary) hypertension; J44.9 Chronic obstructive pulmonary disease, unspecified; M05.10 Rheumatoid lung disease with rheumatoid arthritis of unspecified site; Z87.891 Personal history of nicotine dependence
CPT/HCPCS: 36415 ×2; 85025 ×2; 80048; 80053; 36569; 77001; 76937; G0378; C1769; A9270 ×7; J3490; J7030 ×4; J1642 ×2

== ENCOUNTER 2017-08-15 21:28 | Emergency (ER) | payer MEDICARE, BC ==
--- NOTE | 2017-08-15 21:55 | ER Document Report ---
ED General - General Chief Complaint: Fever Stated Complaint: FEVER Time Seen by Provider: 08/15/17 21:39 TRAVEL OUTSIDE OF THE [place] IN LAST 30 DAYS: No - HPI Notes: Patient is an 87-year-old female with a history of tachycardia, advanced dementia, hypertension, previous pneumonias/UTIs, ambulatory dysfunction who presents to the ED with family complaining of a fever of 100.5 prior to arrival with tachypnea in the 30s that has since resolved. Daughter states that they did give Tylenol prior to arrival as well. Daughter states that she has had an occasional cough. She is otherwise acting and behaving normally. No drug allergies. Per family: Denies any sore throat, chest pain, syncope, abdominal pain, nausea/vomiting/diarrhea, urinary retention, dysuria, hematuria, or rash. - Related Data Allergies/Adverse Reactions: No Known Allergies Allergy (Verified 02/12/14 08:24) Past Medical History - General Information source: Relative - Social History Smoking Status: Unknown if Ever Smoked Family History: None Patient has suicidal ideation: No Patient has homicidal ideation: No - Past Medical History Cardiac Medical History: Reports: Hx Hypertension Pulmonary Medical History: Reports: Hx COPD, Hx Pneumonia Renal/ Medical History: Denies: Hx Kidney Stones, Hx Peritoneal Dialysis GI Medical History: Reports: Hx Gastroesophageal Reflux Disease Musculoskeltal Medical History: Reports Hx Arthritis - Rheumatoid arthritis, Denies Hx Muscular Dystrophy Psychiatric Medical History: Reports: Hx Dementia Traumatic Medical History: Denies: Hx Fractures Past Surgical History: Reports: Hx Appendectomy, Hx Hysterectomy. Denies: Hx Bowel Surgery - Immunizations Hx Diphtheria, Pertussis, Tetanus Vaccination: Yes Hx Pneumococcal Vaccination: 02/08/06 Review of Systems - Review of Systems -: Yes ROS unobtainable due to patient's medical condition - see hpi for pertinent positives/negatives from the family Physical Exam - Vital signs Vitals: Pulse Ox 98 08/15/17 21:31 - Notes Notes: PHYSICAL EXAMINATION: GENERAL: Well-appearing, well-nourished and in no acute distress. HEAD: Atraumatic, normocephalic. EYES: Pupils equal round and reactive to light, extraocular movements intact, sclera anicteric, conjunctiva are normal. ENT: Nares patent and without discharge. oropharynx clear without exudates. No tonsilar hypertrophy or erythema. Moist mucous membranes. NECK: Normal range of motion, supple without lymphadenopathy LUNGS: some crackles noted to the LLL. No retractions or labored breathing noted. RR 20. HEART: Regular rate and rhythm without murmurs, rubs, gallops. HR 67 ABDOMEN: Soft, nontender, nondistended abdomen. No guarding, no rebound. No masses appreciated. Normal bowel sounds present. No CVA tenderness bilaterally. Musculoskeletal: FROM to passive/active. Strength 5+/5. Extremities: No cyanosis, clubbing, or edema b/l. Peripheral pulses 2+. Capillary refill less than 3 seconds. PSYCH: Normal mood, normal affect per family. Pt is demented but does speak and obeys commands SKIN: Warm, Dry, normal turgor, no rashes or lesions noted. Course - Re-evaluation Re-evalutation: 08/16/17 01:17 Patient is an afebrile, well-hydrated, 87-year-old female who presents to the ED with an acute UTI. Vitals are acceptable without any significant tachycardia , tachypnea, or hypoxia. PE is otherwise unremarkable. Patient's abdomen is soft and nontender lungs are clear to auscultation bilaterally. Patient has not had any labored breathing or signs of respiratory distress throughout her entire stay. Family states that she has been continuing to act and behave normally. CBC has white count of 13. CMP/bnp acceptable. Venous blood gas and lactic acid were unremarkable. Cardiac enzymes 2/EKG (reviewed with Dr. Philip, unremarkable), chest x-ray were unremarkable for acute pathology. See urinalysis results. Urine culture pending. One dose of Keflex given p.o. today. No other labs or imaging warranted at this time based on H&P. Patient is nontoxic-appearing is tolerating p.o. without any difficulties. Patient has no concern of pain, nor did she have any chest pain prior to arrival or throughout her stay. Low suspicion for any sepsis, meningitis, severe dehydration, respiratory compromise, acute abdomen, ACS, PE, pneumothorax, pericarditis, dissection, or other systemic emergent condition at this time. Family is aware that condition can change from initial presentation and they need to monitor symptoms closely and seek medical attention with any acute changes. I will send her home with a prescription for Keflex. Conservative measures otherwise for symptoms. Recheck with your PCM in 2-3 days. Return to the ED with any worsening/concerning symptoms otherwise as reviewed in discharge. Family is in agreement. - Vital Signs Vital signs: Temp Pulse Resp BP Pulse Ox 98.0 F 22 H 152/63 H 100 08/15/17 21:39 08/16/17 00:01 08/16/17 00:01 08/16/17 00:01 - Laboratory Result Diagrams: 08/15/17 22:15 08/15/17 22:15 Laboratory results interpreted by me: 08/15/17 08/15/17 08/15/17 22:15 22:15 22:15 WBC 13.0 H RBC 3.65 L Hgb 10.6 L Hct 32.1 L RDW 17.7 H Absolute Neutrophils 9.1 H Sodium 146.8 H Chloride 114 H BUN 29 H Est GFR ( Amer) 53 L Est GFR (Non-Af Amer) 44 L NT-Pro-B Natriuret Pep 923 H Albumin 3.1 L Urine Urobilinogen Ur Leukocyte Esterase 08/15/17 22:53 WBC RBC Hgb Hct RDW Absolute Neutrophils Sodium Chloride BUN Est GFR ( Amer) Est GFR (Non-Af Amer) NT-Pro-B Natriuret Pep Albumin Urine Urobilinogen 2.0 H Ur Leukocyte Esterase MODERATE H Discharge - Discharge Clinical Impression: Acute UTI (urinary tract infection) Fever Qualifiers: Fever type: unspecified Qualified Code(s): R50.9 - Fever, unspecified Condition: Stable Disposition: HOME, SELF-CARE Instructions: Cephalexin ([facility]), Urinary Tract Infection ([facility]) Additional Instructions: Push fluids (i.e. water, cranberry juice) Proper hygenic technique Keep the skin clean Tylenol/ibuprofen as needed Take medications as directed F/u with your PCM in 2-3 days for a recheck Return to the ED with any worsening symptoms and/or development of fever, headache, chest pain, palpitations, syncope, shortness of breath, trouble breathing, abdominal pain, n/v/d, blood in stool/urine, loss of control of bowel /bladder, urinary retention, or other worsening symptoms that are concerning to you. Prescriptions: Cephalexin Monohydrate [Keflex 500 mg Capsule] 500 mg PO BID #14 capsule Forms: Elevated Blood Pressure Referrals: MALIK RAYMUNDO MD [Primary Care Provider] - 08/17/17
[2017-08-15 22:32] LABS: VENOUS BLOOD BASE EXCESS -0.3 mmol/L; VENOUS BLOOD HCO3 26.5 mmol/L (20-32); VENOUS BLOOD PCO2 54.1 mmHg (35-63); VENOUS BLOOD PH 7.31 (7.30-7.42)
[2017-08-15 22:35] LABS: ABSOLUTE BASOPHILS # (AUTO) 0.1 10^3/uL (0.0-0.2); ABSOLUTE EOSINOPHILS # (AUTO) 0.4 10^3/uL (0.0-0.6); ABSOLUTE LYMPHOCYTES (AUTO) 2.4 10^3/uL (0.5-4.7); ABSOLUTE NEUT (AUTO) 9.1 10^3/uL (1.7-8.2); BASOPHILS % (AUTO) 0.8 % (0-2); EOSINOPHILS % (AUTO) 2.7 % (0-6); HEMATOCRIT 32.1 % (36.0-47.0); HEMOGLOBIN 10.6 g/dL (12.0-15.5); LYMPHOCYTES % (AUTO) 18.5 % (13-45); MEAN CORPUSCULAR HEMOGLOBIN 29.1 pg (27.0-33.4); MEAN CORPUSCULAR HGB CONC 33.1 g/dL (32.0-36.0); MEAN CORPUSCULAR VOLUME 88 fl (80-97); MONOCYTES % (AUTO) 7.8 % (3-13); PLATELET COUNT 238 10^3/uL (150-450); RED BLOOD COUNT 3.65 10^6/uL (3.72-5.28); RED CELL DISTRIBUTION WIDTH 17.7 % (11.5-14.0); SEGMENTED NEUTROPHILS % (AUTO) 70.2 % (42-78); TOTAL CELLS COUNTED % (AUTO) 100 %
[2017-08-15 22:52] LABS: ALANINE AMINOTRANSFERASE 16 U/L (9-52); ALBUMIN 3.1 g/dL (3.5-5.0); ALKALINE PHOSPHATASE 110 U/L (38-126); ANION GAP 7 (5-19); ASPARTATE AMINO TRANSFERASE 17 U/L (14-36); BILIRUBIN,DIRECT 0.3 mg/dL (0.0-0.4); BILIRUBIN,TOTAL 0.4 mg/dL (0.2-1.3); BLOOD UREA NITROGEN 29 mg/dL (7-20); CALCIUM 9.1 mg/dL (8.4-10.2); CARBON DIOXIDE 26 mmol/L (22-30); CHLORIDE 114 mmol/L (98-107); GLUCOSE 89 mg/dL (75-110); POTASSIUM 4.5 mmol/L (3.6-5.0); SODIUM 146.8 mmol/L (137-145); TOTAL PROTEIN 6.4 g/dL (6.3-8.2)
[2017-08-15 23:04] LABS: TROPONIN I 0.013 ng/mL
--- NOTE | 2017-08-15 23:11 | RADIOLOGY REPORT (SQ) ---
Clinical History : cough , Exam : Portable AP view of the chest 08/15/2017 9:46 PM CDT Comparisons : Portable AP view of the chest August 02, 2017 Findings : There is a left PICC with its tip in the mid SVC. There is mild peribronchial thickening throughout the lungs bilaterally.. The heart is normal in size. The mediastinal contours are distorted by patient rotation to the right . The patient is osteopenic which limits evaluation of the thoracic spine. There is multilevel vertebroplasty material throughout the lower thoracic and upper lumbar spine. The ribs and shoulders are grossly normal. Limited evaluation of the upper abdomen demonstrates no gross abnormalities. Impression: 1. Left PICC tip in mid SVC. 2. Significant patient rotation to the right limiting evaluation. 3. Stable mild peribronchial thickening diffusely.
[2017-08-15] MEDS ORDERED: NORMAL SALINE 1000 ML 1,000 ML IV ONE (23:32)
[2017-08-15 23:48] LABS: AMORPHOUS SEDIMENT,URINE TRACE /HPF; APPEARANCE,URINE SLIGHTLY-CLOUDY; BILIRUBIN,URINE NEGATIVE (NEGATIVE); COLOR,URINE YELLOW; GLUCOSE, URINE NEGATIVE (NEGATIVE); KETONES,URINE NEGATIVE (NEGATIVE); LEUKOCYTE ESTERASE,URINE MODERATE (NEGATIVE); NITRITE,URINE NEGATIVE (NEGATIVE); PROTEIN,URINE NEGATIVE (NEGATIVE); URINE SPECIFIC GRAVITY 1.019
[2017-08-15] MEDS ORDERED: CEPHALEXIN 500 MG CAPSULE PO ONE (23:57)
[2017-08-16 01:22] VITALS: BP 166/63
--- NOTE | 2017-08-16 05:15 | EKG REPORT ---
SEVERITY:- NORMAL ECG - SINUS RHYTHM : Confirmed by: Manuel Casas MD 16-Aug-2017 05:15:00
== END 2017-08-16 02:02 | disposition home or self-care (01) ==
LOC: ER 21:28
DX: N39.0 Urinary tract infection, site not specified (principal); R50.9 Fever, unspecified; F03.90 Unspecified dementia, unspecified severity, without behavioral disturbance, psychotic disturbance, mood disturbance, and anxiety; I10 Essential (primary) hypertension; J44.9 Chronic obstructive pulmonary disease, unspecified; Z90.710 Acquired absence of both cervix and uterus
CPT/HCPCS: 93005; 99284; 96360; 51702; 36415; 87086; 85025; 80053; 81001; 84484; 82803; 83605; 83880; 71045; 93010; A9270; J7030

== ENCOUNTER 2017-10-13 16:34 | Inpatient (IN) | payer MEDICARE, BC ==
--- NOTE | 2017-10-13 17:59 | RADIOLOGY REPORT (SQ) ---
EXAM DESCRIPTION: CHEST 2 VIEWS COMPLETED DATE/TIME: 10/13/2017 5:51 pm REASON FOR STUDY: cough, sob COMPARISON: 08/25/2017 EXAM PARAMETERS: NUMBER OF VIEWS: two views TECHNIQUE: Digital Frontal and Lateral radiographic views of the chest acquired. RADIATION DOSE: NA LIMITATIONS: none FINDINGS: LUNGS AND PLEURA: There is faint opacification in the left upper lobe and in the left lowe r lobe. MEDIASTINUM AND HILAR STRUCTURES: A hiatal hernia is suggested. HEART AND VASCULAR STRUCTURES: Heart normal size. No evidence for failure. BONES: Kyphoplasty changes in the spine. No acute abnormality. HARDWARE: PICC line on the left. OTHER: No other significant finding. IMPRESSION: Left upper lobe pneumonia. Cannot exclude limited left lower lobe pneumonia. Hiatal he rnia. TECHNICAL DOCUMENTATION: JOB ID: [id number] [employer]- All Rights Reserved Reading location - IP/workstation name: [email or web address]
[2017-10-13 18:01] LABS: HEMATOCRIT 33.2 % (36.0-47.0); HEMOGLOBIN 10.8 g/dL (12.0-15.5); MEAN CORPUSCULAR HEMOGLOBIN 27.3 pg (27.0-33.4); MEAN CORPUSCULAR HGB CONC 32.6 g/dL (32.0-36.0); MEAN CORPUSCULAR VOLUME 84 fl (80-97); RED BLOOD COUNT 3.97 10^6/uL (3.72-5.28); RED CELL DISTRIBUTION WIDTH 16.9 % (11.5-14.0); WHITE BLOOD COUNT 7.5 10^3/uL (4.0-10.5)
[2017-10-13] MEDS ORDERED: PIPERACILLIN/TAZOBACTAM 3.375 GM VIAL IV ONE (18:03)
--- NOTE | 2017-10-13 18:03 | ER Document Report ---
ED General - General Chief Complaint: Shortness Of Breath Stated Complaint: WEAKNESS Time Seen by Provider: 10/13/17 17:10 Cannot obtain history due to: Dementia TRAVEL OUTSIDE OF THE [place] IN LAST 30 DAYS: No - HPI Notes: 87-year-old female with history of pulmonary fibrosis presents by EMS with family for increasing shortness of breath and hypoxia. She has had multiple pneumonias over the past few months and was recent released from rehab facility. She finished a 14 day course of Levaquin 1 week ago. She has a PICC line in her left arm for frequent IV fluids for dehydration. She also has chronic UTI but is not on preventative antibiotics. No fevers at home. Family feels like she is choking on her sputum. She has episodic shortness of breath. Sats were around 89% at home. Patient has dementia and has no complaints. Family thinks that she is more confused than her baseline. She has not eaten well today and family states she has been extremely weak. - Related Data Allergies/Adverse Reactions: No Known Allergies Allergy (Verified 10/13/17 16:40) Past Medical History - Social History Smoking Status: Unknown if Ever Smoked Family History: None, Reviewed & Not Pertinent - Past Medical History Cardiac Medical History: Reports: Hx Hypertension Pulmonary Medical History: Reports: Hx COPD, Hx Pneumonia Renal/ Medical History: Denies: Hx Kidney Stones, Hx Peritoneal Dialysis GI Medical History: Reports: Hx Gastroesophageal Reflux Disease Musculoskeletal Medical History: Reports Hx Arthritis - Rheumatoid arthritis, Denies Hx Muscular Dystrophy Psychiatric Medical History: Reports: Hx Dementia Traumatic Medical History: Denies: Hx Fractures Past Surgical History: Reports: Hx Appendectomy, Hx Hysterectomy. Denies: Hx Bowel Surgery - Immunizations Hx Diphtheria, Pertussis, Tetanus Vaccination: Yes Hx Pneumococcal Vaccination: 02/08/06 Review of Systems - Review of Systems -: Yes ROS unobtainable due to patient's medical condition - dementia Constitutional: denies: Fever Respiratory: Cough, Short of breath Physical Exam - Vital signs Vitals: Temp Pulse Resp BP Pulse Ox 98 F 66 16 140/60 H 98 10/13/17 16:39 10/13/17 16:39 10/13/17 16:39 10/13/17 16:39 10/13/17 16:39 - Notes Notes: PHYSICAL EXAMINATION: GENERAL: Well-appearing, well-nourished and in no acute distress. HEAD: Atraumatic, normocephalic. EYES: Pupils equal round and reactive to light, extraocular movements intact, conjunctiva are normal. ENT: nares patent, oropharynx clear without exudates. Moist mucous membranes. NECK: Normal range of motion, supple without lymphadenopathy LUNGS: Diffuse rales. No tachypnea or dyspnea HEART: Regular rate and rhythm, no chest wall tenderness ABDOMEN: Soft, nontender, normoactive bowel sounds. No guarding, no rebound. No masses appreciated. EXTREMITIES: Normal range of motion, no pitting or edema. No cyanosis. NEUROLOGICAL: Cranial nerves grossly intact. Normal speech, normal gait. Normal sensory and motor exams. PSYCH: Pleasantly confused SKIN: Warm, Dry, normal turgor, no rashes or lesions noted. Course - Re-evaluation Re-evalutation: 10/13/17 19:08 Left upper and lower lobe pneumonia on chest x-ray. Patient just finished a prolonged course of Levaquin so given Zosyn. Discussed with Dr. Raymundo for admission. - Vital Signs Vital signs: Temp Pulse Resp BP Pulse Ox 98.4 F 66 20 139/59 H 97 10/13/17 18:22 10/13/17 18:22 10/13/17 18:22 10/13/17 18:22 10/13/17 18:22 - Laboratory Result Diagrams: 10/13/17 17:40 10/13/17 17:40 Laboratory results interpreted by me: 10/13/17 10/13/17 10/13/17 17:40 17:40 17:40 Hgb 10.8 L Hct 33.2 L RDW 16.9 H Metamyelocytes % 3 H Potassium 5.2 H Chloride 114 H Carbon Dioxide 20 L BUN 30 H Est GFR (Non-Af Amer) 56 L NT-Pro-B Natriuret Pep 2010 H Albumin 3.0 L Discharge - Discharge Clinical Impression: Pneumonia Qualifiers: Pneumonia type: due to unspecified organism Laterality: left Lung location: upper lobe of lung Qualified Code(s): J18.1 - Lobar pneumonia, unspecified organism Condition: Stable Disposition: ADMITTED INPATIENT Admitting Provider: Dharmesh Unit Admitted: Medical Floor Referrals: MALIK RAYMUNDO MD [Primary Care Provider] - Follow up as needed
[2017-10-13 18:21] LABS: PLATELET COUNT 218 10^3/uL (150-450)
[2017-10-13 18:24] LABS: ALANINE AMINOTRANSFERASE 11 U/L (9-52); ALKALINE PHOSPHATASE 68 U/L (38-126); ANION GAP 8 (5-19); ASPARTATE AMINO TRANSFERASE 16 U/L (14-36); BILIRUBIN,DIRECT 0.4 mg/dL (0.0-0.4); BILIRUBIN,TOTAL 0.4 mg/dL (0.2-1.3); BLOOD UREA NITROGEN 30 mg/dL (7-20); CALCIUM 9.3 mg/dL (8.4-10.2); CARBON DIOXIDE 20 mmol/L (22-30); CHLORIDE 114 mmol/L (98-107); GLUCOSE 97 mg/dL (75-110); POTASSIUM 5.2 mmol/L (3.6-5.0); SODIUM 142.4 mmol/L (137-145); TOTAL PROTEIN 6.3 g/dL (6.3-8.2)
[2017-10-13 18:28] LABS: ABSOLUTE LYMPHOCYTES# (MANUAL) 2.3 10^3/uL (0.5-4.7); ABSOLUTE MONOCYTES # (MANUAL) 0.4 10^3/uL (0.1-1.4); ABSOLUTE NEUTROPHILS# (MANUAL) 4.7 10^3/uL (1.7-8.2); BAND NEUTROPHILS % (MANUAL) 3 % (3-5); BASOPHILS % (MANUAL) 0 % (0-2); EOSINOPHILS % (MANUAL) 2 % (0-6); LYMPHOCYTES % (MANUAL) 30 % (13-45); MONOCYTES % (MANUAL) 5 % (3-13); SEGMENTED NEUTROPHILS % (MAN) 57 % (42-78); TOTAL CELLS COUNTED 100
[2017-10-13 18:30] LABS: ANISOCYTOSIS 1+; TOXIC VACUOLATION PRESENT
[2017-10-13 18:31] LABS: PLATELET CLUMPS PRESENT; PLATELET COMMENT ADEQUATE
[2017-10-13 18:32] LABS: METAMYELOCYTES % (MANUAL) 3 % (0)
[2017-10-13] MEDS ORDERED: LEVALBUTEROL HCL NEB 0.63 MG/3 ML AMPUL NEB PRN (20:37)
[2017-10-13] MEDS ORDERED: (PENDING PHARMACY ID) (Megestrol Acetate [Megestrol Acetate] 400 MG) PO SCH (20:45)
[2017-10-13] MEDS ORDERED: CEFTRIAXONE 1 GM/D5W RTU 50 ML IV SCH (21:00)
[2017-10-13 21:27] LABS: CREATINE KINASE MB 1.07 ng/mL (<4.55)
[2017-10-13 21:32] LABS: TROPONIN I < 0.012 ng/mL
[2017-10-13] MEDS: CEFTRIAXONE SODIUM 1,000 MG in NORMAL SALINE 50 ML IV SCH (22:32)
[2017-10-13] MEDS: MEGESTROL ACETATE SUSP 400 MG/10 ML UDCUP PO SCH (22:32)
[2017-10-13] MEDS: METOPROLOL SUCCINATE 50 MG TAB.SR.24H PO SCH (22:33)
[2017-10-13] MEDS: AZITHROMYCIN 500 MG in DEXTROSE 5%-WATER 250 ML IV SCH (23:37)
[2017-10-14 09:24] LABS: HEMATOCRIT 28.5 % (36.0-47.0); HEMOGLOBIN 9.3 g/dL (12.0-15.5); MEAN CORPUSCULAR HEMOGLOBIN 27.1 pg (27.0-33.4); MEAN CORPUSCULAR HGB CONC 32.7 g/dL (32.0-36.0); MEAN CORPUSCULAR VOLUME 83 fl (80-97); PLATELET COUNT 246 10^3/uL (150-450); RED BLOOD COUNT 3.44 10^6/uL (3.72-5.28); RED CELL DISTRIBUTION WIDTH 16.7 % (11.5-14.0); WHITE BLOOD COUNT 3.6 10^3/uL (4.0-10.5)
[2017-10-14 09:31] LABS: ANION GAP 8 (5-19); BLOOD UREA NITROGEN 28 mg/dL (7-20); CARBON DIOXIDE 21 mmol/L (22-30); CHLORIDE 110 mmol/L (98-107); GLUCOSE 85 mg/dL (75-110); POTASSIUM 4.8 mmol/L (3.6-5.0); SODIUM 139.2 mmol/L (137-145)
[2017-10-14] MEDS: ENOXAPARIN SODIUM INJ 40 MG/0.4 ML DISP.SYRIN SUBCUT SCH (10:10)
[2017-10-14] MEDS: MEGESTROL ACETATE SUSP 400 MG/10 ML UDCUP PO SCH ×2 (10:10→22:10)
[2017-10-14] MEDS: DOCUSATE SODIUM 100 MG CAPSULE PO SCH ×2 (10:10→17:29)
[2017-10-14] MEDS: METOPROLOL SUCCINATE 50 MG TAB.SR.24H PO SCH ×2 (10:11→17:30)
[2017-10-14 10:34] LABS: ABSOLUTE LYMPHOCYTES# (MANUAL) 1.1 10^3/uL (0.5-4.7); BAND NEUTROPHILS % (MANUAL) 4 % (3-5); BASOPHILS % (MANUAL) 0 % (0-2); LYMPHOCYTES % (MANUAL) 30 % (13-45); SEGMENTED NEUTROPHILS % (MAN) 43 % (42-78); TOTAL CELLS COUNTED 100
[2017-10-14 10:35] LABS: ABSOLUTE MONOCYTES # (MANUAL) 0.5 10^3/uL (0.1-1.4); ABSOLUTE NEUTROPHILS# (MANUAL) 1.8 10^3/uL (1.7-8.2); ANISOCYTOSIS 1+; EOSINOPHILS % (MANUAL) 6 % (0-6); METAMYELOCYTES % (MANUAL) 2 % (0); MONOCYTES % (MANUAL) 15 % (3-13); PLATELET COMMENT ADEQUATE; POLYCHROMASIA SLIGHT; TOXIC GRANULATION 1+; TOXIC VACUOLATION PRESENT
[2017-10-14] MEDS: LEVALBUTEROL HCL NEB 0.63 MG/3 ML AMPUL NEB PRN (12:25)
[2017-10-14] MEDS ORDERED: ALTEPLASE INJ 2 MG VIAL (CATH CLEARANCE) IV ONE (20:00)
[2017-10-14] MEDS: CEFTRIAXONE SODIUM 1,000 MG in NORMAL SALINE 50 ML IV SCH (21:22)
--- NOTE | 2017-10-14 22:01 | PDOC H&P ---
History of Present Illness Admission Date/PCP: 10/13/17 19:36 MALIK RAYMUNDO MD History of Present Illness: MARLYS TORRES is a 87 year old female, She has advanced dementia with recurrent aspiration pneumonia, [facility], she also had pneumonia in the prison she was treated for 14 days with IV antibiotic. Family said she was choking on her food , she was short of breath, in the emergency room a chest x-ray was done , it showed left lower lobe pneumonia. I had discussed with the family about the options available for this patient, it seems that this is going to be a recurring problem, probably a J-tube may be an option which may not completely prevent aspiration. Family will think about these, hospice is also an option for this family. 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, , deconditioning Past Medical History Cardiac Medical History: Reports: Hypertension Pulmonary Medical History: Reports: Chronic Obstructive Pulmonary Disease (COPD) , Pneumonia GI Medical History: Reports: Gastroesophageal Reflux Disease Musculoskeltal Medical History: Reports: Arthritis - Rheumatoid arthritis Psychiatric Medical History: Reports: Dementia Past Surgical History Past Surgical History: Reports: Appendectomy, Hysterectomy Social History Smoking Status: Former Smoker Frequency of Alcohol Use: None Hx Recreational Drug Use: No Drugs: None Hx Prescription Drug Abuse: No Family History Family History: None, Reviewed & Not Pertinent Parental Family History Reviewed: Yes Children Family History Reviewed: Yes Sibling(s) Family History Reviewed.: Yes Medication/Allergy Home Medications: Megestrol Acetate 400 mg PO BID 08/02/17 Docusate Sodium [Colace 100 mg Capsule] 100 mg PO BID 08/10/17 Guaifenesin/D-Methorphan Hb [Robitussin Dm S-F Cough Syrup] 10 ml PO Q6HP PRN Levalbuterol HCl 1 vial NEB Q6HP PRN 10/13/17 Metoprolol Succinate [Toprol Xl 50 mg Tab.sr] 1 tab PO DAILY 10/13/17 Normal Saline 1000 ml [NaCl 0.9% 1000 ml IV Soln] 50 ml IV CONTINUOUS 10/13/17 Allergies/Adverse Reactions: No Known Allergies Allergy (Verified 10/13/17 16:40) Review of Systems ROS unobtainable: Other - Dementia Physical Exam Vital Signs: Temp Pulse Resp BP Pulse Ox 98.9 F 64 16 126/44 H 98 10/14/17 15:17 10/14/17 15:17 10/14/17 15:17 10/14/17 15:17 10/14/17 21:09 Pulse Oximeter Continuous Start: 10/13/17 20: 33 Freq: RTQ4 Status: Complete Document 10/14/17 21:09 EST (Rec: 10/14/17 21:10 EST [email or web address]) Pulse Oximetry Assessment Oxygen Saturation (92-100) 98 Oxygen Delivery Method Room Air Fraction of Inspired Oxygen (FIO2) 21 Equipment Usage Equipment Discontinued Continuous SpO2 Machine # 14 Additional RT Notes Other COPOX discontinued per nurse request. Intake & Output 10/13/17 10/14/17 10/15/17 06:59 06:59 06:59 Intake Total 50 724 Balance 50 724 Weight 74.389 kg 74.9 kg General appearance: PRESENT: mild distress Respiratory exam: PRESENT: crackles, rhonchi Cardiovascular exam: PRESENT: +S1, +S2 GI/Abdominal exam: PRESENT: soft Neurological exam: PRESENT: alert Results Laboratory Results: 10/14/17 06:59 10/14/17 06:59 10/14/17 10/14/17 06:59 06:59 WBC 3.6 L RBC 3.44 L Hgb 9.3 L Hct 28.5 L MCV 83 MCH 27.1 MCHC 32.7 RDW 16.7 H Plt Count 246 Seg Neutrophils % Not Reportable Lymphocytes % Not Reportable Monocytes % Not Reportable Eosinophils % Not Reportable Basophils % Not Reportable Absolute Neutrophils Not Reportable Absolute Lymphocytes Not Reportable Absolute Monocytes Not Reportable Absolute Eosinophils Not Reportable Absolute Basophils Not Reportable Sodium 139.2 Potassium 4.8 Chloride 110 H Carbon Dioxide 21 L Anion Gap 8 BUN 28 H Creatinine 0.78 Est GFR ( Amer) > 60 Est GFR (Non-Af Amer) > 60 Glucose 85 Calcium 9.0 Impressions: Chest X-Ray 10/13/17 17:23 IMPRESSION: Left upper lobe pneumonia. Cannot exclude limited left lower lobe pneumonia. Hiatal hernia. Assessment & Plan - Diagnosis (1) Aspiration pneumonia Qualifiers: Aspiration pneumonia type: unspecified Laterality: left Lung location: lower lobe of lung Qualified Code(s): J69.0 - Pneumonitis due to inhalation of food and vomit Is this a current diagnosis for this admission?: Yes Plan: She is admitted for management, I had a long discussion with patient's family about the overall prognosis (2) Alzheimer disease Qualifiers: Alzheimer's disease onset: unspecified onset Dementia behavioral disturbance: without behavioral disturbance Qualified Code(s): G30.9 - Alzheimer's disease, unspecified; F02.80 - Dementia in other diseases classified elsewhere without behavioral disturbance; F02.80 - Dementia in other diseases classified elsewhere without behavioral disturbance; F02.80 - Dementia in other diseases classified elsewhere without behavioral disturbance Is this a current diagnosis for this admission?: Yes (3) Rheumatoid arthritis Qualifiers: Rheumatoid arthritis location: unspecified site Rheumatoid factor presence : without rheumatoid factor Qualified Code(s): M06.00 - Rheumatoid arthritis without rheumatoid factor, unspecified site Is this a current diagnosis for this admission?: Yes
[2017-10-14] MEDS: AZITHROMYCIN 500 MG in DEXTROSE 5%-WATER 250 ML IV SCH (22:06)
[2017-10-15 06:59] LABS: HEMATOCRIT 36.2 % (36.0-47.0); MEAN CORPUSCULAR HEMOGLOBIN 27.5 pg (27.0-33.4); MEAN CORPUSCULAR HGB CONC 33.4 g/dL (32.0-36.0); MEAN CORPUSCULAR VOLUME 82 fl (80-97); PLATELET COUNT 245 10^3/uL (150-450); RED CELL DISTRIBUTION WIDTH 16.3 % (11.5-14.0); WHITE BLOOD COUNT 5.2 10^3/uL (4.0-10.5)
[2017-10-15 07:20] LABS: ANION GAP 11 (5-19); BLOOD UREA NITROGEN 25 mg/dL (7-20); CALCIUM 9.4 mg/dL (8.4-10.2); CARBON DIOXIDE 22 mmol/L (22-30); CHLORIDE 107 mmol/L (98-107); GLUCOSE 91 mg/dL (75-110); SODIUM 139.9 mmol/L (137-145)
[2017-10-15 07:43] LABS: ABSOLUTE LYMPHOCYTES# (MANUAL) 1.6 10^3/uL (0.5-4.7); ABSOLUTE MONOCYTES # (MANUAL) 0.4 10^3/uL (0.1-1.4); ABSOLUTE NEUTROPHILS# (MANUAL) 3.1 10^3/uL (1.7-8.2); BAND NEUTROPHILS % (MANUAL) 3 % (3-5); BASOPHILS % (MANUAL) 0 % (0-2); EOSINOPHILS % (MANUAL) 2 % (0-6); LYMPHOCYTES % (MANUAL) 30 % (13-45); METAMYELOCYTES % (MANUAL) 1 % (0); MONOCYTES % (MANUAL) 8 % (3-13); MYELOCYTES % (MANUAL) 4 % (0); SEGMENTED NEUTROPHILS % (MAN) 51 % (42-78); TOTAL CELLS COUNTED 100
[2017-10-15 07:45] LABS: ANISOCYTOSIS 1+; HEMOGLOBIN 12.1 g/dL (12.0-15.5); PLATELET COMMENT ADEQUATE; PLATELET LARGE PRESENT; POLYCHROMASIA SLIGHT
[2017-10-15] MEDS: ENOXAPARIN SODIUM INJ 40 MG/0.4 ML DISP.SYRIN SUBCUT SCH (09:02)
[2017-10-15] MEDS: MEGESTROL ACETATE SUSP 400 MG/10 ML UDCUP PO SCH ×2 (09:02→21:50)
[2017-10-15] MEDS: DOCUSATE SODIUM 100 MG CAPSULE PO SCH ×2 (09:03→18:41)
[2017-10-15] MEDS: LEVALBUTEROL HCL NEB 0.63 MG/3 ML AMPUL NEB PRN (09:29)
[2017-10-15 13:32] LABS: PATH REVIEW PATHOLOGIST REVIEWED
[2017-10-15 13:36] LABS: PATH REVIEW PATHOLOGIST REVIEWED
[2017-10-15] MEDS: METOPROLOL SUCCINATE 50 MG TAB.SR.24H PO SCH (18:42)
--- NOTE | 2017-10-15 21:04 | PDOC PROGRESS REPORT ---
Subjective Progress Note for:: 10/15/17 Subjective:: Patient was seen by the bedside, she has recurrent pneumonia, admitted for management, family is looking at other options including palliative care etc. Reason For Visit: RECURRENT PNEUMONIA,DEMENTIA,PULMONARY HTN, Physical Exam Vital Signs: Temp Pulse Resp BP Pulse Ox 98.8 F 88 17 137/65 H 99 10/15/17 19:38 10/15/17 19:38 10/15/17 19:38 10/15/17 19:38 10/15/17 19:38 Pulse Oximeter Continuous Start: 10/13/17 20: 33 Freq: RTQ4 Status: Complete Document 10/14/17 21:09 EST (Rec: 10/14/17 21:10 EST [email or web address]) Pulse Oximetry Assessment Oxygen Saturation (92-100) 98 Oxygen Delivery Method Room Air Fraction of Inspired Oxygen (FIO2) 21 Equipment Usage Equipment Discontinued Continuous SpO2 Machine # 14 Additional RT Notes Other COPOX discontinued per nurse request. Intake & Output 10/14/17 10/15/17 10/16/17 06:59 06:59 06:59 Intake Total 50 1224 268 Balance 50 1224 268 Weight 74.389 kg 74.4 kg Eye exam: PRESENT: PERRLA Respiratory exam: PRESENT: rhonchi Cardiovascular exam: PRESENT: +S1, +S2 GI/Abdominal exam: PRESENT: soft Neurological exam: PRESENT: alert Results Laboratory Results: 10/15/17 06:21 10/15/17 06:21 10/15/17 10/15/17 06:21 06:21 WBC 5.2 RBC 4.40 Hgb 12.1 D Hct 36.2 MCV 82 MCH 27.5 MCHC 33.4 RDW 16.3 H Plt Count 245 Seg Neutrophils % Not Reportable Lymphocytes % Not Reportable Monocytes % Not Reportable Eosinophils % Not Reportable Basophils % Not Reportable Absolute Neutrophils Not Reportable Absolute Lymphocytes Not Reportable Absolute Monocytes Not Reportable Absolute Eosinophils Not Reportable Absolute Basophils Not Reportable Sodium 139.9 Potassium 5.0 Chloride 107 Carbon Dioxide 22 Anion Gap 11 BUN 25 H Creatinine 0.85 Est GFR ( Amer) > 60 Est GFR (Non-Af Amer) > 60 Glucose 91 Calcium 9.4 Impressions: Chest X-Ray 10/13/17 17:23 IMPRESSION: Left upper lobe pneumonia. Cannot exclude limited left lower lobe pneumonia. Hiatal hernia. Assessment & Plan - Diagnosis (1) Aspiration pneumonia Qualifiers: Aspiration pneumonia type: unspecified Laterality: left Lung location: lower lobe of lung Qualified Code(s): J69.0 - Pneumonitis due to inhalation of food and vomit Is this a current diagnosis for this admission?: Yes (2) Alzheimer disease Qualifiers: Alzheimer's disease onset: unspecified onset Dementia behavioral disturbance: without behavioral disturbance Qualified Code(s): G30.9 - Alzheimer's disease, unspecified; F02.80 - Dementia in other diseases classified elsewhere without behavioral disturbance; F02.80 - Dementia in other diseases classified elsewhere without behavioral disturbance; F02.80 - Dementia in other diseases classified elsewhere without behavioral disturbance Is this a current diagnosis for this admission?: Yes (3) Rheumatoid arthritis Qualifiers: Rheumatoid arthritis location: unspecified site Rheumatoid factor presence : without rheumatoid factor Qualified Code(s): M06.00 - Rheumatoid arthritis without rheumatoid factor, unspecified site Is this a current diagnosis for this admission?: Yes
[2017-10-15] MEDS: CEFTRIAXONE SODIUM 1,000 MG in NORMAL SALINE 50 ML IV SCH (21:49)
[2017-10-15] MEDS: AZITHROMYCIN 500 MG in DEXTROSE 5%-WATER 250 ML IV SCH (22:41)
[2017-10-16 05:37] LABS: HEMATOCRIT 30.3 % (36.0-47.0); HEMOGLOBIN 10.1 g/dL (12.0-15.5); MEAN CORPUSCULAR HEMOGLOBIN 27.2 pg (27.0-33.4); MEAN CORPUSCULAR HGB CONC 33.2 g/dL (32.0-36.0); MEAN CORPUSCULAR VOLUME 82 fl (80-97); PLATELET COUNT 267 10^3/uL (150-450); RED BLOOD COUNT 3.71 10^6/uL (3.72-5.28); RED CELL DISTRIBUTION WIDTH 16.5 % (11.5-14.0); WHITE BLOOD COUNT 4.9 10^3/uL (4.0-10.5)
[2017-10-16 05:51] LABS: ANION GAP 11 (5-19); BLOOD UREA NITROGEN 24 mg/dL (7-20); CARBON DIOXIDE 21 mmol/L (22-30); CHLORIDE 107 mmol/L (98-107); GLUCOSE 93 mg/dL (75-110); POTASSIUM 5.2 mmol/L (3.6-5.0); SODIUM 138.9 mmol/L (137-145)
[2017-10-16 07:30] LABS: ABSOLUTE LYMPHOCYTES# (MANUAL) 1.7 10^3/uL (0.5-4.7); ABSOLUTE MONOCYTES # (MANUAL) 0.5 10^3/uL (0.1-1.4); ABSOLUTE NEUTROPHILS# (MANUAL) 2.4 10^3/uL (1.7-8.2); BASOPHILS % (MANUAL) 0 % (0-2); EOSINOPHILS % (MANUAL) 6 % (0-6); LYMPHOCYTES % (MANUAL) 35 % (13-45); MONOCYTES % (MANUAL) 10 % (3-13); SEGMENTED NEUTROPHILS % (MAN) 49 % (42-78); TOTAL CELLS COUNTED 100
[2017-10-16 07:32] LABS: ANISOCYTOSIS 1+; OVALOCYTES SLIGHT; POIKILOCYTOSIS 1+; TEAR DROP CELLS SLIGHT; TOXIC GRANULATION SLIGHT
[2017-10-16 07:33] LABS: PLATELET COMMENT ADEQUATE
[2017-10-16] MEDS: DOCUSATE SODIUM 100 MG CAPSULE PO SCH ×2 (10:37→18:40)
[2017-10-16] MEDS: ENOXAPARIN SODIUM INJ 40 MG/0.4 ML DISP.SYRIN SUBCUT SCH (10:37)
[2017-10-16] MEDS: MEGESTROL ACETATE SUSP 400 MG/10 ML UDCUP PO SCH ×2 (10:37→21:21)
[2017-10-16] MEDS ORDERED: NORMAL SALINE 10 ML SDV (AFTER EACH USE) IV PRN (15:06)
--- NOTE | 2017-10-16 15:24 | PDOC PROGRESS REPORT ---
Subjective Progress Note for:: 10/16/17 Subjective:: Patient seen by the bedside, family in the room, family member requesting IV fluid for patient, trying to avoid IV fluid therapy in light of the recurrent pneumonia, start low-dose IV fluid, family yet to meet to discuss other options Reason For Visit: RECURRENT PNEUMONIA,DEMENTIA,PULMONARY HTN, Physical Exam Vital Signs: Temp Pulse Resp BP Pulse Ox 97.6 F 80 22 H 128/46 H 96 10/16/17 11:08 10/16/17 11:08 10/16/17 11:08 10/16/17 11:08 10/16/17 11:08 Pulse Oximeter Continuous Start: 10/13/17 20: 33 Freq: RTQ4 Status: Complete Document 10/14/17 21:09 EST (Rec: 10/14/17 21:10 EST [email or web address]) Pulse Oximetry Assessment Oxygen Saturation (92-100) 98 Oxygen Delivery Method Room Air Fraction of Inspired Oxygen (FIO2) 21 Equipment Usage Equipment Discontinued Continuous SpO2 Machine # 14 Additional RT Notes Other COPOX discontinued per nurse request. Intake & Output 10/15/17 10/16/17 10/17/17 06:59 06:59 06:59 Intake Total 1224 686 Balance 1224 686 Weight 74.4 kg 74.9 kg General appearance: PRESENT: no acute distress Eye exam: PRESENT: PERRLA Respiratory exam: PRESENT: rales Cardiovascular exam: PRESENT: +S1, +S2 GI/Abdominal exam: PRESENT: soft Neurological exam: PRESENT: alert Results Laboratory Results: 10/16/17 04:54 10/16/17 04:54 10/16/17 10/16/17 04:54 04:54 WBC 4.9 RBC 3.71 L Hgb 10.1 L Hct 30.3 L MCV 82 MCH 27.2 MCHC 33.2 RDW 16.5 H Plt Count 267 Seg Neutrophils % Not Reportable Lymphocytes % Not Reportable Monocytes % Not Reportable Eosinophils % Not Reportable Basophils % Not Reportable Absolute Neutrophils Not Reportable Absolute Lymphocytes Not Reportable Absolute Monocytes Not Reportable Absolute Eosinophils Not Reportable Absolute Basophils Not Reportable Sodium 138.9 Potassium 5.2 H Chloride 107 Carbon Dioxide 21 L Anion Gap 11 BUN 24 H Creatinine 0.83 Est GFR ( Amer) > 60 Est GFR (Non-Af Amer) > 60 Glucose 93 Calcium 9.0 Impressions: Chest X-Ray 10/13/17 17:23 IMPRESSION: Left upper lobe pneumonia. Cannot exclude limited left lower lobe pneumonia. Hiatal hernia. Assessment & Plan - Diagnosis (1) Aspiration pneumonia Qualifiers: Aspiration pneumonia type: unspecified Laterality: left Lung location: lower lobe of lung Qualified Code(s): J69.0 - Pneumonitis due to inhalation of food and vomit Is this a current diagnosis for this admission?: Yes (2) Alzheimer disease Qualifiers: Alzheimer's disease onset: unspecified onset Dementia behavioral disturbance: without behavioral disturbance Qualified Code(s): G30.9 - Alzheimer's disease, unspecified; F02.80 - Dementia in other diseases classified elsewhere without behavioral disturbance; F02.80 - Dementia in other diseases classified elsewhere without behavioral disturbance; F02.80 - Dementia in other diseases classified elsewhere without behavioral disturbance Is this a current diagnosis for this admission?: Yes (3) Rheumatoid arthritis Qualifiers: Rheumatoid arthritis location: unspecified site Rheumatoid factor presence : without rheumatoid factor Qualified Code(s): M06.00 - Rheumatoid arthritis without rheumatoid factor, unspecified site Is this a current diagnosis for this admission?: Yes - Plan Summary Plan Summary: Start IV fluid, continue IV antibiotic, prognosis is guarded
[2017-10-16] MEDS: NORMAL SALINE 1000 ML 1,000 ML IV PRN (16:18)
[2017-10-16] MEDS: METOPROLOL SUCCINATE 50 MG TAB.SR.24H PO SCH (18:40)
[2017-10-16] MEDS: CEFTRIAXONE SODIUM 1,000 MG in NORMAL SALINE 50 ML IV SCH (21:20)
[2017-10-16] MEDS: NORMAL SALINE 10 ML SDV (SCHEDULED) IV SCH (21:24)
[2017-10-16] MEDS: AZITHROMYCIN 500 MG in DEXTROSE 5%-WATER 250 ML IV SCH (21:57)
[2017-10-17] MEDS: DOCUSATE SODIUM 100 MG CAPSULE PO SCH ×2 (11:49→17:13)
[2017-10-17] MEDS: ENOXAPARIN SODIUM INJ 40 MG/0.4 ML DISP.SYRIN SUBCUT SCH (11:51)
[2017-10-17] MEDS: MEGESTROL ACETATE SUSP 400 MG/10 ML UDCUP PO SCH ×2 (11:52→21:26)
[2017-10-17] MEDS: NORMAL SALINE 10 ML SDV (SCHEDULED) IV SCH ×2 (11:52→21:28)
--- NOTE | 2017-10-17 14:22 | PDOC PROGRESS REPORT ---
Subjective Progress Note for:: 10/17/17 Subjective:: Patient seen by the bedside, family yet to decide the plan regarding J-tube Reason For Visit: RECURRENT PNEUMONIA,DEMENTIA,PULMONARY HTN, Physical Exam Vital Signs: Temp Pulse Resp BP Pulse Ox 97.8 F 62 18 147/71 H 97 10/17/17 12:00 10/17/17 12:00 10/17/17 12:00 10/17/17 12:00 10/17/17 12:00 Pulse Oximeter Continuous Start: 10/13/17 20: 33 Freq: RTQ4 Status: Complete Document 10/14/17 21:09 EST (Rec: 10/14/17 21:10 EST [email or web address]) Pulse Oximetry Assessment Oxygen Saturation (92-100) 98 Oxygen Delivery Method Room Air Fraction of Inspired Oxygen (FIO2) 21 Equipment Usage Equipment Discontinued Continuous SpO2 Machine # 14 Additional RT Notes Other COPOX discontinued per nurse request. Intake & Output 10/16/17 10/17/17 10/18/17 06:59 06:59 06:59 Intake Total 686 1393 Balance 686 1393 Weight 74.9 kg 74.9 kg General appearance: PRESENT: no acute distress Eye exam: PRESENT: PERRLA Respiratory exam: PRESENT: rhonchi Cardiovascular exam: PRESENT: +S1, +S2 GI/Abdominal exam: PRESENT: soft Neurological exam: PRESENT: alert Results Laboratory Results: 10/16/17 04:54 10/16/17 04:54 Impressions: Chest X-Ray 10/13/17 17:23 IMPRESSION: Left upper lobe pneumonia. Cannot exclude limited left lower lobe pneumonia. Hiatal hernia. Assessment & Plan - Diagnosis (1) Aspiration pneumonia Qualifiers: Aspiration pneumonia type: unspecified Laterality: left Lung location: lower lobe of lung Qualified Code(s): J69.0 - Pneumonitis due to inhalation of food and vomit Is this a current diagnosis for this admission?: Yes (2) Alzheimer disease Qualifiers: Alzheimer's disease onset: unspecified onset Dementia behavioral disturbance: without behavioral disturbance Qualified Code(s): G30.9 - Alzheimer's disease, unspecified; F02.80 - Dementia in other diseases classified elsewhere without behavioral disturbance; F02.80 - Dementia in other diseases classified elsewhere without behavioral disturbance; F02.80 - Dementia in other diseases classified elsewhere without behavioral disturbance Is this a current diagnosis for this admission?: Yes (3) Rheumatoid arthritis Qualifiers: Rheumatoid arthritis location: unspecified site Rheumatoid factor presence : without rheumatoid factor Qualified Code(s): M06.00 - Rheumatoid arthritis without rheumatoid factor, unspecified site Is this a current diagnosis for this admission?: Yes
[2017-10-17] MEDS: NORMAL SALINE 1000 ML 1,000 ML IV PRN (15:49)
[2017-10-17] MEDS: METOPROLOL SUCCINATE 50 MG TAB.SR.24H PO SCH (17:13)
[2017-10-17] MEDS: AZITHROMYCIN 500 MG in DEXTROSE 5%-WATER 250 ML IV SCH (21:23)
[2017-10-17] MEDS: CEFTRIAXONE SODIUM 1,000 MG in NORMAL SALINE 50 ML IV SCH (21:24)
[2017-10-18] MEDS: ENOXAPARIN SODIUM INJ 40 MG/0.4 ML DISP.SYRIN SUBCUT SCH (10:43)
[2017-10-18] MEDS: MEGESTROL ACETATE SUSP 400 MG/10 ML UDCUP PO SCH ×2 (10:44→23:31)
[2017-10-18] MEDS: DOCUSATE SODIUM 100 MG CAPSULE PO SCH ×2 (10:44→17:25)
[2017-10-18] MEDS: NORMAL SALINE 10 ML SDV (SCHEDULED) IV SCH ×2 (10:44→23:35)
[2017-10-18] MEDS: METOPROLOL SUCCINATE 50 MG TAB.SR.24H PO SCH (17:27)
[2017-10-18] MEDS: NORMAL SALINE 1000 ML 1,000 ML IV PRN (20:38)
--- NOTE | 2017-10-18 20:44 | PDOC PROGRESS REPORT ---
Subjective Progress Note for:: 10/18/17 Subjective:: There is no new complaints Reason For Visit: RECURRENT PNEUMONIA,DEMENTIA,PULMONARY HTN, Physical Exam Vital Signs: Temp Pulse Resp BP Pulse Ox 98.5 F 73 20 141/52 H 100 10/18/17 20:00 10/18/17 20:00 10/18/17 20:00 10/18/17 20:00 10/18/17 20:00 Pulse Oximeter Continuous Start: 10/13/17 20: 33 Freq: RTQ4 Status: Complete Document 10/14/17 21:09 EST (Rec: 10/14/17 21:10 EST [email or web address]) Pulse Oximetry Assessment Oxygen Saturation (92-100) 98 Oxygen Delivery Method Room Air Fraction of Inspired Oxygen (FIO2) 21 Equipment Usage Equipment Discontinued Continuous SpO2 Machine # 14 Additional RT Notes Other COPOX discontinued per nurse request. Intake & Output 10/17/17 10/18/17 10/19/17 06:59 06:59 06:59 Intake Total 1393 1284 1384 Balance 1393 1284 1384 Weight 74.9 kg 78.7 kg General appearance: PRESENT: no acute distress Eye exam: PRESENT: PERRLA Respiratory exam: PRESENT: crackles Cardiovascular exam: PRESENT: +S1, +S2 Neurological exam: PRESENT: alert Results Laboratory Results: 10/16/17 04:54 10/16/17 04:54 Impressions: Chest X-Ray 10/13/17 17:23 IMPRESSION: Left upper lobe pneumonia. Cannot exclude limited left lower lobe pneumonia. Hiatal hernia. Assessment & Plan - Diagnosis (1) Aspiration pneumonia Qualifiers: Aspiration pneumonia type: unspecified Laterality: left Lung location: lower lobe of lung Qualified Code(s): J69.0 - Pneumonitis due to inhalation of food and vomit Is this a current diagnosis for this admission?: Yes (2) Alzheimer disease Qualifiers: Alzheimer's disease onset: unspecified onset Dementia behavioral disturbance: without behavioral disturbance Qualified Code(s): G30.9 - Alzheimer's disease, unspecified; F02.80 - Dementia in other diseases classified elsewhere without behavioral disturbance; F02.80 - Dementia in other diseases classified elsewhere without behavioral disturbance; F02.80 - Dementia in other diseases classified elsewhere without behavioral disturbance Is this a current diagnosis for this admission?: Yes (3) Rheumatoid arthritis Qualifiers: Rheumatoid arthritis location: unspecified site Rheumatoid factor presence : without rheumatoid factor Qualified Code(s): M06.00 - Rheumatoid arthritis without rheumatoid factor, unspecified site Is this a current diagnosis for this admission?: Yes
[2017-10-18] MEDS: CEFTRIAXONE SODIUM 1,000 MG in NORMAL SALINE 50 ML IV SCH (21:56)
[2017-10-18] MEDS: AZITHROMYCIN 500 MG in DEXTROSE 5%-WATER 250 ML IV SCH (22:36)
[2017-10-19] MEDS: DOCUSATE SODIUM 100 MG CAPSULE PO SCH ×2 (10:25→17:08)
[2017-10-19] MEDS: ENOXAPARIN SODIUM INJ 40 MG/0.4 ML DISP.SYRIN SUBCUT SCH (10:28)
[2017-10-19] MEDS: NORMAL SALINE 10 ML SDV (SCHEDULED) IV SCH ×2 (10:29→21:36)
[2017-10-19] MEDS: MEGESTROL ACETATE SUSP 400 MG/10 ML UDCUP PO SCH ×2 (10:30→21:36)
--- NOTE | 2017-10-19 14:29 | PDOC DISCHARGE SUMMARY ---
General - Admit/Disc Date/PCP Admission Date/Primary Care Provider: 10/13/17 19:36 MALIK RAYMUNDO MD Discharge Date: 10/19/17 - Discharge Diagnosis (1) Aspiration pneumonia Is this a current diagnosis for this admission?: Yes (2) Alzheimer disease Is this a current diagnosis for this admission?: Yes (3) Rheumatoid arthritis Is this a current diagnosis for this admission?: Yes - Additional Information Home Medications: Megestrol Acetate 400 mg PO BID 08/02/17 Docusate Sodium [Colace 100 mg Capsule] 100 mg PO BID 08/10/17 Guaifenesin/D-Methorphan Hb [Robitussin Dm S-F Cough Syrup] 10 ml PO Q6HP PRN Levalbuterol HCl 1 vial NEB Q6HP PRN 10/13/17 Metoprolol Succinate [Toprol Xl 50 mg Tab.sr] 1 tab PO DAILY 10/13/17 Normal Saline 1000 ml [NaCl 0.9% 1000 ml IV Soln] 50 ml IV CONTINUOUS 10/13/17 History of Present Illness History of Present Illness: MARLYS TORRES is a 87 year old female, She has advanced dementia with recurrent aspiration pneumonia, she was just discharged from the assisted where she underwent rehabilitation, she also had pneumonia in the assisted she was treated for 14 days with IV antibiotic. Family said she was choking on her food , she was short of breath, in the emergency room a chest x-ray was done , it showed left lower lobe pneumonia. I had discussed with the family about the options available for this patient, it seems that this is going to be a recurring problem, probably a J-tube may be an option which may not completely prevent aspiration. Family will think about these, hospice is also an option for this family. 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 She was admitted, and started on IV antibiotic, because of the inclement weather on the fact that the [facility] declared mandatory evacuation, patient will be transferred to another hospital for continuity of care. Family yet to make decision on CODE STATUS or hospice option Physical Exam Vital Signs: Temp Pulse Resp BP Pulse Ox 97.6 F 74 12 152/67 H 94 10/19/17 11:17 10/19/17 11:17 10/19/17 11:17 10/19/17 11:17 10/19/17 11:17 Pulse Oximeter Continuous Start: 10/13/17 20: 33 Freq: RTQ4 Status: Complete Document 10/14/17 21:09 EST (Rec: 10/14/17 21:10 EST [email or web address]) Pulse Oximetry Assessment Oxygen Saturation (92-100) 98 Oxygen Delivery Method Room Air Fraction of Inspired Oxygen (FIO2) 21 Equipment Usage Equipment Discontinued Continuous SpO2 Machine # 14 Additional RT Notes Other COPOX discontinued per nurse request. Intake & Output 10/18/17 10/19/17 10/20/17 06:59 06:59 06:59 Intake Total 1284 1904 Balance 1284 1904 Weight 78.7 kg 78.9 kg General appearance: PRESENT: no acute distress Respiratory exam: PRESENT: rales Cardiovascular exam: PRESENT: +S1, +S2 GI/Abdominal exam: PRESENT: soft Neurological exam: PRESENT: alert Results Laboratory Results: 10/16/17 04:54 10/16/17 04:54 10/13/17 23:15 Blood Blood Culture - Final NO GROWTH IN 5 DAYS 10/13/17 22:12 Blood Blood Culture - Final NO GROWTH IN 5 DAYS Impressions: Chest X-Ray 10/13/17 17:23 IMPRESSION: Left upper lobe pneumonia. Cannot exclude limited left lower lobe pneumonia. Hiatal hernia. Qualifiers - * PATIENT BEING DISCHARGED WITH ANY OF THE FOLLOWING DIAGNOSIS: No
[2017-10-19] MEDS: METOPROLOL SUCCINATE 50 MG TAB.SR.24H PO SCH (17:09)
[2017-10-19] MEDS: NORMAL SALINE 1000 ML 1,000 ML IV PRN (19:08)
[2017-10-19] MEDS: CEFTRIAXONE SODIUM 1,000 MG in NORMAL SALINE 50 ML IV SCH (21:41)
[2017-10-19] MEDS: AZITHROMYCIN 500 MG in DEXTROSE 5%-WATER 250 ML IV SCH (22:19)
[2017-10-20 03:05] VITALS: BP 141/52
== END 2017-10-20 03:07 | disposition short-term general hospital (02) | DRG 179 ==
LOC: ER 16:34 → EH 19:36 → 4W 10-14 08:32 → 4N 10-17 16:52
PROVIDERS: ADMIT Internal Medicine; ATTEND Internal Medicine
PROC: 3E0F73Z Introduction of Anti-inflammatory into Respiratory Tract, Via Natural or Artificial Opening (ICD-10-PCS; principal; 2017-10-14)
DX: J69.0 Pneumonitis due to inhalation of food and vomit (principal); I10 Essential (primary) hypertension; J44.9 Chronic obstructive pulmonary disease, unspecified; M05.10 Rheumatoid lung disease with rheumatoid arthritis of unspecified site; K21.9 Gastro-esophageal reflux disease without esophagitis; G30.9 Alzheimer's disease, unspecified; F02.80 Dementia in other diseases classified elsewhere, unspecified severity, without behavioral disturbance, psychotic disturbance, mood disturbance, and anxiety; J84.9 Interstitial pulmonary disease, unspecified; Z87.01 Personal history of pneumonia (recurrent); Z87.440 Personal history of urinary (tract) infections; Z90.49 Acquired absence of other specified parts of digestive tract; Z90.710 Acquired absence of both cervix and uterus; Z87.891 Personal history of nicotine dependence; Z75.1 Person awaiting admission to adequate facility elsewhere
CPT/HCPCS: 36415; 71046; 80048; 80053; 82550; 82553; 83036; 83880; 84484; 85025; 87040; 94762; 96365; 99285; J0456; J0696; J1642; J1650; J2543; J2997; J3490; J7030; J7060; J7614

== ENCOUNTER → 2018-01-07 | Day surgery (SDC) | payer MEDICARE, BC ==
--- NOTE | 2018-01-07 16:57 | RADIOLOGY REPORT (SQ) ---
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 TECHNIQUE: Fluoroscopic guided PICC replacement. LIMITATIONS: None. PROCEDURE: After written consent and assessment were obtained, the patient was brought into the fluo roscopy room and place supine on the table. The left arm an existing PICC was prepped and draped in a sterile fashion. The entry site was anesthetized with 1% lidocaine. A .018 guide wire was then in serted through the existing PICC and into the venous system. The old catheter was then removed and a new catheter measuring 41 cm was advanced over the wire and into the venous system. The wire was the n removed and the catheter was adhered to the patients arm with a stat lock. The catheter was then as pirated and flushed and a sterile bandage was placed over the access site. A fluoroscopic spot image was saved to PACS confirming the catheter tip within the superior vena cava. IMPRESSION: SUCCESSFUL OVER THE WIRE REPLACEMENT OF AN OLD PICC FOR A NEW ONE THAT IS 5 FR dual LUME N 41 CM PICC IN THE LEFT ARM. COMMENT: Patient medication list reviewed: Yes- Quality ID# 130:Eligible professional attests to doc umenting in the medical record they obtained, updated, or reviewed the patient's current medications. . Quality ID 145: Final reports for procedures using fluoroscopy that document radiation exposure beryl aj, or exposure time and number of fluorographic images (if radiation exposure indices are not avail able) Quality ID #76: The patient was prepped and draped using maximum sterile barrier technique including cap, mask, sterile gown, sterile gloves, a large sterile sheet, hand hygiene, and 2% Chlorhexidine fo r cutaneous antisepsis. When ultrasound is used, sterile ultrasound techniques are followed requiring sterile gel and sterile probes. TECHNICAL DOCUMENTATION: JOB ID: [id number] [employer]- All Rights Reserved Reading location - IP/workstation name: [facility]
== END ==
LOC: RAD 15:02
PROVIDERS: ATTEND Internal Medicine
DX: J84.9 Interstitial pulmonary disease, unspecified (principal); M06.052 Rheumatoid arthritis without rheumatoid factor, left hip; R63.0 Anorexia; F02.81 Dementia in other diseases classified elsewhere, unspecified severity, with behavioral disturbance; J44.9 Chronic obstructive pulmonary disease, unspecified
CPT/HCPCS: 36584; 77001; C1769; J1642

== ENCOUNTER → 2018-01-28 | Day surgery (SDC) | payer MEDICARE, BC ==
--- NOTE | 2018-01-28 15:25 | RADIOLOGY REPORT (SQ) ---
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 TECHNIQUE: Fluoroscopic and ultrasound guided PICC placement. LIMITATIONS: None. PROCEDURE: After written consent and assessment were obtained, the patient was brought into the fluo roscopy room and placed supine on the table. Ultrasound evaluation of potential access sites were per formed. After successfully identifying a patent left basilic vein, the left arm was prepped and drape d in a sterile fashion along with the ultrasound probe. The entry site was anesthetized with 1% lidoc christophe. A 21 gauge 7 cm needle was advanced through the skin and into the basilic vein under live ultra sound guidance. An ultrasound image was saved to PACS confirming access site. A .018 guide wire was then inserted through the needle and into the venous system. The needle was then removed and an 11 b lade scalpel was used to make a 1cm skin incision. A 5 fr peel-away sheath was advanced over the wir e and into the venous system. A measurement was then made using the existing wire and live fluoroscop ic guidance. The wire was then removed and trimmed. The PICC was advanced through the peel-away sheat h and into the venous system. The peel-away sheath was removed and the catheter was adhered to the pa tients arm with a stat lock. The catheter was then aspirated and flushed and a sterile bandage was pl aced over the access site. A fluoroscopic spot image was saved to PACS confirming the catheter tip w ithin the superior vena cava. IMPRESSION: SUCCESSFUL PLACEMENT OF A 5 FR DUAL LUMEN 38 CM PICC IN THE LEFT BASILIC VEIN. COMMENT: Patient medication list reviewed: Yes- Quality ID# 130:Eligible professional attests to doc umenting in the medical record they obtained, updated, or reviewed the patient's current medications. . Quality ID 145: Final reports for procedures using fluoroscopy that document radiation exposure beryl aj, or exposure time and number of fluorographic images (if radiation exposure indices are not avail able) Quality ID #76: The patient was prepped and draped using maximum sterile barrier technique including cap, mask, sterile gown, sterile gloves, a large sterile sheet, hand hygiene, and 2% Chlorhexidine fo r cutaneous antisepsis. When ultrasound is used, sterile ultrasound techniques are followed requiring sterile gel and sterile probes. TECHNICAL DOCUMENTATION: JOB ID: [id number] [employer]- All Rights Reserved rev-06/25 Reading location - IP/workstation name: [facility]
== END ==
LOC: RAD 13:31
PROVIDERS: ATTEND Internal Medicine
DX: J84.9 Interstitial pulmonary disease, unspecified (principal); F02.81 Dementia in other diseases classified elsewhere, unspecified severity, with behavioral disturbance; R63.0 Anorexia; M06.052 Rheumatoid arthritis without rheumatoid factor, left hip; J44.9 Chronic obstructive pulmonary disease, unspecified
CPT/HCPCS: 36569; 77001; 76937; J1642

== ENCOUNTER 2018-10-16 12:31 | Inpatient (IN) | payer MEDICARE, BC ==
[2018-10-16 12:57] LABS: ABSOLUTE BASOPHILS # (AUTO) 0.1 10^3/uL (0.0-0.2); ABSOLUTE LYMPHOCYTES (AUTO) 1.1 10^3/uL (0.5-4.7); ABSOLUTE MONOCYTES (AUTO) 0.7 10^3/uL (0.1-1.4); ABSOLUTE NEUT (AUTO) 11.8 10^3/uL (1.7-8.2); BASOPHILS % (AUTO) 0.5 % (0-2); EOSINOPHILS % (AUTO) 0.3 % (0-6); HEMATOCRIT 44.4 % (36.0-47.0); HEMOGLOBIN 14.7 g/dL (12.0-15.5); LYMPHOCYTES % (AUTO) 7.9 % (13-45); MEAN CORPUSCULAR HEMOGLOBIN 28.7 pg (27.0-33.4); MEAN CORPUSCULAR HGB CONC 33.2 g/dL (32.0-36.0); MEAN CORPUSCULAR VOLUME 87 fl (80-97); MONOCYTES % (AUTO) 5.2 % (3-13); PLATELET COUNT 299 10^3/uL (150-450); RED BLOOD COUNT 5.13 10^6/uL (3.72-5.28); RED CELL DISTRIBUTION WIDTH 15.9 % (11.5-14.0); SEGMENTED NEUTROPHILS % (AUTO) 86.1 % (42-78); TOTAL CELLS COUNTED % (AUTO) 100 %; WHITE BLOOD COUNT 13.7 10^3/uL (4.0-10.5)
[2018-10-16 13:18] LABS: ALKALINE PHOSPHATASE 131 U/L (38-126); ANION GAP 10 (5-19); ASPARTATE AMINO TRANSFERASE 19 U/L (14-36); BILIRUBIN,DIRECT 0.4 mg/dL (0.0-0.4); BILIRUBIN,TOTAL 0.7 mg/dL (0.2-1.3); BLOOD UREA NITROGEN 35 mg/dL (7-20); CARBON DIOXIDE 28 mmol/L (22-30); CHLORIDE 104 mmol/L (98-107); CREATINE KINASE 22 U/L (30-135); GLUCOSE 119 mg/dL (75-110)
[2018-10-16 13:27] LABS: CREATINE KINASE MB 1.35 ng/mL (<4.55); TROPONIN I 0.012 ng/mL
--- NOTE | 2018-10-16 13:42 | ER Document Report ---
ED Medical Screen (RME) - General Chief Complaint: Cough Stated Complaint: POSSIBLE PNEUMONIA Time Seen by Provider: 10/16/18 13:40 Primary Care Provider: MALIK RAYMUNDO MD [Primary Care Provider] - Follow up as needed Mode of Arrival: Medic Information source: Patient Notes: 88-year-old female presented to ED for productive cough with yellow sputum. Respirations regular and unlabored lung sounds are diminished O2 sat is 94 to 96% on room air. Respirations are 20 and unlabored. Patient is confused at times but does answer some questions appropriately I have greeted and performed a rapid initial assessment of this patient. A comprehensive ED assessment and evaluation of the patient, analysis of test results and completion of medical decision making process will be conducted by an additional ED providers. TRAVEL OUTSIDE OF THE [place] IN LAST 30 DAYS: No - Related Data Allergies/Adverse Reactions: No Known Allergies Allergy (Verified 10/13/17 16:40) Past Medical History - Past Medical History Cardiac Medical History: Reports: Hx Hypertension Pulmonary Medical History: Reports: Hx COPD, Hx Pneumonia Renal/ Medical History: Denies: Hx Kidney Stones, Hx Peritoneal Dialysis GI Medical History: Reports: Hx Gastroesophageal Reflux Disease Musculoskeltal Medical History: Reports Hx Arthritis - Rheumatoid arthritis, Denies Hx Muscular Dystrophy Psychiatric Medical History: Reports: Hx Dementia Traumatic Medical History: Denies: Hx Fractures Past Surgical History: Reports: Hx Appendectomy, Hx Hysterectomy. Denies: Hx Bowel Surgery - Immunizations Hx Diphtheria, Pertussis, Tetanus Vaccination: Yes History of Influenza Vaccine for 11/2016 - 04/2017 Season: Refused Physical Exam - Vital signs Vitals: Temp Pulse Ox 98.1 F 99 10/16/18 12:47 10/16/18 12:47 Course - Vital Signs Vital signs: Temp Pulse Resp BP Pulse Ox 98.1 F 99 10/16/18 12:47 10/16/18 12:47 - Laboratory Result Diagrams: 10/16/18 12:38 10/16/18 12:38 Laboratory results interpreted by me: 10/16/18 10/16/18 12:38 12:38 WBC 13.7 H RDW 15.9 H Lymph % (Auto) 7.9 L Absolute Neuts (auto) 11.8 H Seg Neutrophils % 86.1 H BUN 35 H Creatinine 1.28 H Est GFR ( Amer) 48 L Est GFR (MDRD) Non-Af 40 L Glucose 119 H Alkaline Phosphatase 131 H Creatine Kinase 22 L Doctor's Discharge - Discharge Referrals: MALIK RAYMUNDO MD [Primary Care Provider] - Follow up as needed
[2018-10-16] MEDS ORDERED: CEFTRIAXONE 1 GM/D5W RTU 1 GM/50 ML RTUPB IV ONE (13:43)
--- NOTE | 2018-10-16 13:48 | RADIOLOGY REPORT (SQ) ---
EXAM DESCRIPTION: CHEST SINGLE VIEW COMPLETED DATE/TIME: 10/16/2018 1:13 pm REASON FOR STUDY: sob, productive cough COMPARISON: Chest x-ray 10/13/2017. EXAM PARAMETERS: NUMBER OF VIEWS: One view. TECHNIQUE: Single frontal radiographic view of the chest acquired. RADIATION DOSE: NA LIMITATIONS: The patient's neck is partially obscuring the lung apices. FINDINGS: LUNGS AND PLEURA: No consolidation, pneumothorax or pleural effusion. Pleural scarring at the bilateral lung apices. MEDIASTINUM AND HILAR STRUCTURES: No masses. Contour normal. HEART AND VASCULAR STRUCTURES: Heart normal in size. No overt vascular congestion. BONES: Kyphoplasty changes at the spine. Remote deformity of the proximal right humerus. HARDWARE: None in the chest. IMPRESSION: No acute radiographic finding in the chest. TECHNICAL DOCUMENTATION: JOB ID: [id number] [employer]- All Rights Reserved Reading location - IP/workstation name: [email or web address]
[2018-10-16] MEDS ORDERED: NORMAL SALINE 1000 ML 1,000 ML IV ONE (14:20)
--- NOTE | 2018-10-16 14:21 | ER Document Report ---
ED General - General Chief Complaint: Cough Stated Complaint: POSSIBLE PNEUMONIA Time Seen by Provider: 10/16/18 13:40 Primary Care Provider: MALIK RAYMUNDO MD [Primary Care Provider] - Follow up as needed Mode of Arrival: Medic TRAVEL OUTSIDE OF THE [place] IN LAST 30 DAYS: No - HPI Notes: Patient is a 88-year-old female that presents to the emergency department for chief complaint of cough. Patient's family report over the last 3 to 4 days she has had some increasing confusion. Patient does have dementia at baseline but they state she has been more tired and confused than usual. Patient does have a history of pneumonia and they are concerned that she may be developing a new pneumonia. They report a thick sputum in the back of her throat. Patient does have issues swallowing and aspirates occasionally. They do not note any specific aspiration that happened recently. They have not checked a temperature at home but feels she may have run running a low-grade fever. Patient has not had much to eat or drink over the last few days either. She has not had any diarrhea vomiting or complaints of chest pain or difficulty breathing. Past Medical History: Dementia Past Surgical History: Reviewed in chart Social History: Lives at home with family Family History: Reviewed and noncontributory for presenting illness Allergies: Reviewed, see documented allergy list. REVIEW OF SYSTEMS: Unable to obtain because of patient's dementia PHYSICAL EXAMINATION: Vital signs reviewed, nursing noted reviewed. GENERAL: Well-appearing, well-nourished and in no acute distress. HEAD: Atraumatic, normocephalic. EYES: Eyes appear normal, extraocular movements intact, sclera anicteric, conjunctiva are normal. ENT: nares patent, oropharynx clear without exudates. Dry mucous membranes. NECK: Normal range of motion, supple without lymphadenopathy LUNGS: Breath sounds diminished to auscultation bilaterally and equal. No wheezes rales or rhonchi. HEART: Regular rate and rhythm without murmurs ABDOMEN: Soft, nontender, normoactive bowel sounds. No rebound, guarding, or rigidity. No masses appreciated. EXTREMITIES: Nontender, good range of motion, no pitting or edema. NEUROLOGICAL: Oriented to person and place, disoriented to time and situation. Moves all extremities spontaneously Motor and sensory grossly intact on exam. PSYCH: Normal mood, normal affect. SKIN: Warm, Dry, normal turgor, no rashes or lesions noted on exposed skin - Related Data Allergies/Adverse Reactions: No Known Allergies Allergy (Verified 10/13/17 16:40) Past Medical History - General Information source: Patient - Social History Smoking Status: Never Smoker Family History: None, Reviewed & Not Pertinent Patient has suicidal ideation: No Patient has homicidal ideation: No - Past Medical History Cardiac Medical History: Reports: Hx Hypertension Pulmonary Medical History: Reports: Hx COPD, Hx Pneumonia Renal/ Medical History: Denies: Hx Kidney Stones, Hx Peritoneal Dialysis GI Medical History: Reports: Hx Gastroesophageal Reflux Disease Musculoskeletal Medical History: Reports Hx Arthritis - Rheumatoid arthritis, Denies Hx Muscular Dystrophy Psychiatric Medical History: Reports: Hx Dementia Traumatic Medical History: Denies: Hx Fractures Past Surgical History: Reports: Hx Appendectomy, Hx Hysterectomy. Denies: Hx Bowel Surgery - Immunizations Hx Diphtheria, Pertussis, Tetanus Vaccination: Yes Hx Pneumococcal Vaccination: 02/08/06 Physical Exam - Vital signs Vitals: Resp Pulse Ox 17 94 10/16/18 12:34 10/16/18 12:34 Course - Re-evaluation Re-evalutation: 10/16/18 15:05 Vitals reviewed. Nursing notes reviewed. Patient is alert and in no acute distress. She is currently protecting her airway. Chest x-ray shows no underlying pneumonia. Patient does have a urinary tract infection and is meeting sepsis criteria with her leukocytosis and heart rate greater than 90. Blood cultures, urine culture, and lactate have been ordered. Patient was started on IV fluids and given Rocephin for her urinary tract infection. She also has acute kidney injury on lab work today which is likely secondary to poor oral intake and dehydration. Patient will be admitted to the hospital for further care of her UTI, sepsis and delirium. Her care was discussed with Dr. Winn who accepts admission. Patient's family is currently at bedside and in agreement with this plan of care. Laboratory 10/16/18 10/16/18 10/16/18 12:38 12:38 12:38 WBC 13.7 H RBC 5.13 Hgb 14.7 Hct 44.4 MCV 87 MCH 28.7 MCHC 33.2 RDW 15.9 H Plt Count 299 Lymph % (Auto) 7.9 L Gregg % (Auto) 5.2 Eos % (Auto) 0.3 Baso % (Auto) 0.5 Absolute Neuts (auto) 11.8 H Absolute Lymphs (auto) 1.1 Absolute Monos (auto) 0.7 Absolute Eos (auto) 0.0 Absolute Basos (auto) 0.1 Seg Neutrophils % 86.1 H Sodium 141.8 Potassium 5.0 Chloride 104 Carbon Dioxide 28 Anion Gap 10 BUN 35 H Creatinine 1.28 H Est GFR ( Amer) 48 L Est GFR (MDRD) Non-Af 40 L Glucose 119 H Calcium 10.0 Total Bilirubin 0.7 Direct Bilirubin 0.4 Neonat Total Bilirubin Not Reportable Neonat Direct Bilirubin Not Reportable Neonat Indirect Bili Not Reportable AST 19 ALT 13 Alkaline Phosphatase 131 H Creatine Kinase 22 L CK-MB (CK-2) 1.35 Troponin I 0.012 Total Protein 8.0 Albumin 4.0 Urine Color Urine Appearance Urine pH Ur Specific [place] Urine Protein Urine Glucose (UA) Urine Ketones Urine Blood Urine Nitrite Urine Bilirubin Urine Urobilinogen Ur Leukocyte Esterase Urine WBC (Auto) Urine RBC (Auto) Urine Bacteria (Auto) Urine WBC Clumps Squamous Epi Cells Auto Amorphous Sediment Auto Urine Mucus (Auto) Urine Ascorbic Acid 10/16/18 13:40 WBC RBC Hgb Hct MCV MCH MCHC RDW Plt Count Lymph % (Auto) Gregg % (Auto) Eos % (Auto) Baso % (Auto) Absolute Neuts (auto) Absolute Lymphs (auto) Absolute Monos (auto) Absolute Eos (auto) Absolute Basos (auto) Seg Neutrophils % Sodium Potassium Chloride Carbon Dioxide Anion Gap BUN Creatinine Est GFR ( Amer) Est GFR (MDRD) Non-Af Glucose Calcium Total Bilirubin Direct Bilirubin Neonat Total Bilirubin Neonat Direct Bilirubin Neonat Indirect Bili AST ALT Alkaline Phosphatase Creatine Kinase CK-MB (CK-2) Troponin I Total Protein Albumin Urine Color MERLIN Urine Appearance TURBID Urine pH 5.0 Ur Specific [place] 1.019 Urine Protein 30 H Urine Glucose (UA) NEGATIVE Urine Ketones TRACE H Urine Blood LARGE H Urine Nitrite POSITIVE H Urine Bilirubin NEGATIVE Urine Urobilinogen NEGATIVE Ur Leukocyte Esterase LARGE H Urine WBC (Auto) >182 Urine RBC (Auto) 37 Urine Bacteria (Auto) 3+ Urine WBC Clumps MANY Squamous Epi Cells Auto 1 Amorphous Sediment Auto TRACE Urine Mucus (Auto) FEW Urine Ascorbic Acid NEGATIVE Chest X-Ray 10/16/18 12:36 IMPRESSION: No acute radiographic finding in the chest. - Vital Signs Vital signs: Temp Pulse Resp BP Pulse Ox 98.1 F 17 176/79 H 95 10/16/18 12:47 10/16/18 14:01 10/16/18 14:00 10/16/18 14:01 - Laboratory Result Diagrams: 10/16/18 12:38 10/16/18 12:38 Laboratory results interpreted by me: 10/16/18 10/16/18 10/16/18 12:38 12:38 13:40 WBC 13.7 H RDW 15.9 H Lymph % (Auto) 7.9 L Absolute Neuts (auto) 11.8 H Seg Neutrophils % 86.1 H BUN 35 H Creatinine 1.28 H Est GFR ( Amer) 48 L Est GFR (MDRD) Non-Af 40 L Glucose 119 H Alkaline Phosphatase 131 H Creatine Kinase 22 L Urine Protein 30 H Urine Ketones TRACE H Urine Blood LARGE H Urine Nitrite POSITIVE H Ur Leukocyte Esterase LARGE H Discharge - Discharge Clinical Impression: Acute UTI, Delirium, WILLOW (acute kidney injury) Sepsis Qualifiers: Sepsis type: sepsis due to unspecified organism Sepsis acute organ dysfunction status: with acute organ dysfunction Severe sepsis acute organ dysfunction type: acute renal failure Acute renal failure type: unspecified Severe sepsis shock status: without septic shock Qualified Code(s): A41.9 - Sepsis, unspecified organism; R65.20 - Severe sepsis without septic shock; N17.9 - Acute kidney failure, unspecified Condition: Stable Disposition: ADMITTED INPATIENT Admitting Provider: [facility] Admitted: Telemetry Referrals: MALIK RAYMUNDO MD [Primary Care Provider] - Follow up as needed
[2018-10-16 14:37] LABS: AMORPHOUS SEDIMENT,URINE TRACE /HPF; APPEARANCE,URINE TURBID; BILIRUBIN,URINE NEGATIVE (NEGATIVE); COLOR,URINE AMBER; GLUCOSE, URINE NEGATIVE (NEGATIVE); KETONES,URINE TRACE mg/dL (NEGATIVE); LEUKOCYTE ESTERASE,URINE LARGE (NEGATIVE); NITRITE,URINE POSITIVE (NEGATIVE); PROTEIN,URINE 30 mg/dL (NEGATIVE); URINE SPECIFIC GRAVITY 1.019; UROBILINOGEN,URINE NEGATIVE mg/dL (<2.0)
--- NOTE | 2018-10-16 18:48 | EKG REPORT ---
SEVERITY:- ABNORMAL ECG - SINUS RHYTHM VENTRICULAR PREMATURE COMPLEX PROBABLE LEFT ATRIAL ABNORMALITY LEFT VENTRICULAR HYPERTROPHY BORDERLINE T ABNORMALITIES, INFERIOR LEADS BORDERLINE PROLONGED QT INTERVAL : Confirmed by: Albino Herrmann 16-Oct-2018 18:47:45
[2018-10-16] MEDS ORDERED: DEXTROSE 40% GEL 15 GM TUBE PO PRN ×2 (19:20)
[2018-10-16] MEDS ORDERED: GLUCAGON,HUMAN RECOMB 1 MG INJ SUBCUT PRN (19:20)
[2018-10-16] MEDS ORDERED: DEXTROSE 50%-WATER 25 GM/50 ML DISP.SYRIN IV PRN ×2 (19:20)
[2018-10-16] MEDS: DEXTROSE 5%-NORMAL SALINE 1,000 ML IV PRN (22:21)
--- NOTE | 2018-10-17 00:03 | PDOC H&P ---
History of Present Illness Admission Date/PCP: 10/16/18 15:12 MALIK RAYMUNDO MD History of Present Illness: MARLYS TORRES is a 88 [address] old [address] of [address] Raymundo who was brought to the ED by family due to change in her responses, chest congestion, coughing, and difficulty with breathing. Family reported that her symptoms have worsen over last 3-4 days. Patient was verbalizing and tolerating oral intake with thin liquid but experience episodes of aspiration. There is associated weakness, confusion, difficulty with expectoration, and collection of thick sputum in the back of her throat. Daughter at bedside denied any associated definite fever but patient remain at her usual feeling chilly. No reported vomiting, diarrhea, or expressed abdominal pain. Her initial evaluation in the ED was suggestive of UTI with altered mental status. Her morbidities include senile dementia, HTN, COPD, GERD, and Osteoarthritis Past Medical History Cardiac Medical History: Reports: Hypertension Pulmonary Medical History: Reports: Chronic Obstructive Pulmonary Disease (COPD), Pneumonia GI Medical History: Reports: Gastroesophageal Reflux Disease Musculoskeltal Medical History: Reports: Arthritis - Rheumatoid arthritis Psychiatric Medical History: Reports: Dementia Past Surgical History Past Surgical History: Reports: Appendectomy, Hysterectomy Social History Smoking Status: Never Smoker Frequency of Alcohol Use: None Hx Recreational Drug Use: No Drugs: None Hx Prescription Drug Abuse: No - Advance Directive Resuscitation Status: Full Code Family History Family History: None, Reviewed & Not Pertinent Parental Family History Reviewed: Yes Children Family History Reviewed: Yes Sibling(s) Family History Reviewed.: Yes Medication/Allergy Home Medications: Megestrol Acetate 400 mg PO BID 08/02/17 Docusate Sodium [Colace 100 mg Capsule] 100 mg PO BID 08/10/17 Guaifenesin/D-Methorphan Hb [Robitussin Dm S-F Cough Syrup] 10 ml PO Q6HP PRN 10/13/17 Levalbuterol HCl 1 vial NEB Q6HP PRN 10/13/17 Metoprolol Succinate [Toprol Xl 50 mg Tab.sr] 1 tab PO DAILY 10/13/17 Normal Saline 1000 ml [NaCl 0.9% 1000 ml IV Soln] 50 ml IV CONTINUOUS 10/13/17 Allergies/Adverse Reactions: No Known Allergies Allergy (Verified 10/13/17 16:40) Review of Systems ROS unobtainable: Due to mental status - due to dementia and ongoing acute illness. Daughter at bedside during the time of my evaluation provided all responses to my questioning. Physical Exam Vital Signs: Temp Pulse Resp BP Pulse Ox 98.7 F 99 17 151/90 H 91 L 10/16/18 18:05 10/16/18 18:05 10/16/18 14:01 10/16/18 18:05 10/16/18 18:05 Intake & Output 10/15/18 10/16/18 10/17/18 06:59 06:59 06:59 Intake Total 1050 Balance 1050 Weight 70.6 kg General appearance: PRESENT: mild distress - with breathing and mouth intermitently wide open Head exam: PRESENT: atraumatic, normocephalic Eye exam: PRESENT: conjunctiva pink, EOMI, PERRLA. ABSENT: scleral icterus Mouth exam: PRESENT: dry mucosa - with minimal sputum collection in oropharynx Teeth exam: PRESENT: edentulous Throat exam: PRESENT: post pharyngeal erythema Neck exam: ABSENT: carotid bruit, JVD, lymphadenopathy, tenderness, thyromegaly, tracheal deviation, tracheostomy, other Respiratory exam: PRESENT: decreased breath sounds - at lung bases Cardiovascular exam: PRESENT: RRR, +S1, +S2. ABSENT: diastolic murmur, rubs, systolic murmur Vascular exam: ABSENT: pallor GI/Abdominal exam: PRESENT: normal bowel sounds, soft Rectal exam: PRESENT: deferred Extremities exam: ABSENT: calf tenderness, joint swelling, pedal edema, tenderness Musculoskeletal exam: PRESENT: normal inspection Neurological exam: PRESENT: altered - due to dementia and acute illness Psychiatric exam: ABSENT: agitated Skin exam: PRESENT: dry, warm Results Laboratory Results: 10/16/18 12:38 10/16/18 12:38 10/16/18 10/16/18 10/16/18 12:38 12:38 13:40 WBC 13.7 H RBC 5.13 Hgb 14.7 Hct 44.4 MCV 87 MCH 28.7 MCHC 33.2 RDW 15.9 H Plt Count 299 Seg Neutrophils % 86.1 H Sodium 141.8 Potassium 5.0 Chloride 104 Carbon Dioxide 28 Anion Gap 10 BUN 35 H Creatinine 1.28 H Est GFR ( Amer) 48 L Glucose 119 H Lactic Acid Calcium 10.0 Total Bilirubin 0.7 AST 19 Alkaline Phosphatase 131 H Total Protein 8.0 Albumin 4.0 Urine Color MERLIN Urine Appearance TURBID Urine pH 5.0 Ur Specific [place] 1.019 Urine Protein 30 H Urine Glucose (UA) NEGATIVE Urine Ketones TRACE H Urine Blood LARGE H Urine Nitrite POSITIVE H Ur Leukocyte Esterase LARGE H Urine WBC (Auto) >182 Urine RBC (Auto) 37 10/16/18 14:50 WBC RBC Hgb Hct MCV MCH MCHC RDW Plt Count Seg Neutrophils % Sodium Potassium Chloride Carbon Dioxide Anion Gap BUN Creatinine Est GFR ( Amer) Glucose Lactic Acid 1.0 Calcium Total Bilirubin AST Alkaline Phosphatase Total Protein Albumin Urine Color Urine Appearance Urine pH Ur Specific [place] Urine Protein Urine Glucose (UA) Urine Ketones Urine Blood Urine Nitrite Ur Leukocyte Esterase Urine WBC (Auto) Urine RBC (Auto) 10/16/18 10/16/18 12:38 12:38 Creatine Kinase 22 L CK-MB (CK-2) 1.35 Troponin I 0.012 Impressions: Chest X-Ray 10/16/18 12:36 IMPRESSION: No acute radiographic finding in the chest. Assessment & Plan - Diagnosis (1) UTI (urinary tract infection) Qualifiers: Urinary tract infection type: site unspecified Hematuria presence: with hematuria Qualified Code(s): N39.0 - Urinary tract infection, site not specified Is this a current diagnosis for this admission?: Yes Plan: See admitting physician orders for details about care plan. (2) Acute kidney injury Is this a current diagnosis for this admission?: Yes Plan: See admitting physician orders for details about care plan. (3) Toxic metabolic encephalopathy Is this a current diagnosis for this admission?: Yes Plan: See admitting physician orders for details about care plan. (4) Senile dementia of Alzheimer's type Is this a current diagnosis for this admission?: Yes Plan: See admitting physician orders for details about care plan. (5) HTN (hypertension) Qualifiers: Hypertension type: essential hypertension Qualified Code(s): I10 - Essential (primary) hypertension Is this a current diagnosis for this admission?: Yes Plan: See admitting physician orders for details about care plan. (6) GERD (gastroesophageal reflux disease) Qualifiers: Esophagitis presence: esophagitis presence not specified Qualified Code(s): K21.9 - Gastro-esophageal reflux disease without esophagitis Is this a current diagnosis for this admission?: Yes Plan: See admitting physician orders for details about care plan. - Time Time Spent: 50 to 70 Minutes Medications reviewed and adjusted accordingly: Yes Anticipated discharge: Home with Homehealth Within: Other - Inpatient Certification Based on my medical assessment, after consideration of the patient's comorb idities, presenting symptoms, or acuity I expect that the services needed warrant INPATIENT care.: Yes I certify that my determination is in accordance with my understanding of Medicare's requirements for reasonable and necessary INPATIENT services [42 CFR 412.3e].: Yes Medical Necessity: Significant Comorbidiites Make Outpatient Treatment Too Risky, Need Close Monitoring Due to Risk of Patient Decompensation, Need For IV Fluids, Need for IV Antibiotics, Risk of Complication if Not Cared For in Hospital, Risk of Diagnosis Which Will Require Inpatient Eval/Care/Monitoring Post Hospital Care: 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
[2018-10-17] MEDS: DEXTROSE 5%-NORMAL SALINE 1,000 ML IV PRN ×2 (11:27→23:04)
[2018-10-17] MEDS: CEFTRIAXONE 1 GM/D5W RTU 1 GM/50 ML RTUPB IV SCH (17:20)
[2018-10-17 20:22] LABS: ALBUMIN 2.8 g/dL (3.5-5.0); ALKALINE PHOSPHATASE 94 U/L (38-126); ANION GAP 7 (5-19); ASPARTATE AMINO TRANSFERASE 13 U/L (14-36); BILIRUBIN,DIRECT 0.2 mg/dL (0.0-0.4); BILIRUBIN,TOTAL 0.5 mg/dL (0.2-1.3); BLOOD UREA NITROGEN 22 mg/dL (7-20); CARBON DIOXIDE 24 mmol/L (22-30); CHLORIDE 113 mmol/L (98-107); GLUCOSE 103 mg/dL (75-110); POTASSIUM 3.9 mmol/L (3.6-5.0); TOTAL PROTEIN 6.3 g/dL (6.3-8.2)
[2018-10-17 20:41] LABS: ABSOLUTE BASOPHILS # (AUTO) 0.1 10^3/uL (0.0-0.2); ABSOLUTE EOSINOPHILS # (AUTO) 0.1 10^3/uL (0.0-0.6); ABSOLUTE LYMPHOCYTES (AUTO) 1.3 10^3/uL (0.5-4.7); ABSOLUTE MONOCYTES (AUTO) 0.7 10^3/uL (0.1-1.4); ABSOLUTE NEUT (AUTO) 8.1 10^3/uL (1.7-8.2); BASOPHILS % (AUTO) 0.7 % (0-2); EOSINOPHILS % (AUTO) 0.6 % (0-6); HEMATOCRIT 36.4 % (36.0-47.0); LYMPHOCYTES % (AUTO) 12.4 % (13-45); MEAN CORPUSCULAR HEMOGLOBIN 28.5 pg (27.0-33.4); MEAN CORPUSCULAR HGB CONC 32.7 g/dL (32.0-36.0); MEAN CORPUSCULAR VOLUME 87 fl (80-97); PLATELET COUNT 226 10^3/uL (150-450); RED BLOOD COUNT 4.18 10^6/uL (3.72-5.28); RED CELL DISTRIBUTION WIDTH 15.9 % (11.5-14.0); SEGMENTED NEUTROPHILS % (AUTO) 79.3 % (42-78); TOTAL CELLS COUNTED % (AUTO) 100 %; WHITE BLOOD COUNT 10.2 10^3/uL (4.0-10.5)
[2018-10-17 20:45] LABS: HEMOGLOBIN 11.9 g/dL (12.0-15.5)
--- NOTE | 2018-10-17 23:23 | PDOC PROGRESS REPORT ---
Subjective Progress Note for:: 10/17/18 Subjective:: Patient with profound dementia, admitted yesterday for altered mental status, UTI, she was seen today by the bedside, reduce urinary output, spoke to family members about patient. She is meant not to me, she has a history of progressive profound dementia, rheumatoid lung disease history of pneumonia history of recurrent UTI Reason For Visit: UTI, TOXIC METABOLIC ENCEPHALOPATHY Physical Exam Vital Signs: Temp Pulse Resp BP Pulse Ox 98.0 F 83 16 150/62 H 95 10/17/18 19:58 10/17/18 19:58 10/17/18 19:58 10/17/18 19:58 10/17/18 19:58 Intake & Output 10/16/18 10/17/18 10/18/18 06:59 06:59 06:59 Intake Total 1150 1905 Balance 1150 1905 Weight 69.8 kg General appearance: PRESENT: no acute distress Eye exam: PRESENT: PERRLA Mouth exam: PRESENT: moist Respiratory exam: PRESENT: clear to auscultation [place] Cardiovascular exam: PRESENT: +S1, +S2 GI/Abdominal exam: PRESENT: soft Neurological exam: PRESENT: alert Results Laboratory Results: 10/17/18 20:36 10/17/18 19:40 10/17/18 10/17/18 10/17/18 19:40 19:40 20:36 WBC Cancelled 10.2 RBC Cancelled 4.18 Hgb Cancelled 11.9 L D Hct Cancelled 36.4 MCV Cancelled 87 MCH Cancelled 28.5 MCHC Cancelled 32.7 RDW Cancelled 15.9 H Plt Count Cancelled 226 Seg Neutrophils % Cancelled 79.3 H Sodium 143.8 Potassium 3.9 Chloride 113 H Carbon Dioxide 24 Anion Gap 7 BUN 22 H Creatinine 1.08 Est GFR ( Amer) 58 L Glucose 103 Calcium 9.0 Total Bilirubin 0.5 AST 13 L Alkaline Phosphatase 94 Total Protein 6.3 Albumin 2.8 L 10/16/18 10/16/18 12:38 12:38 Creatine Kinase 22 L CK-MB (CK-2) 1.35 Troponin I 0.012 Impressions: Chest X-Ray 10/16/18 12:36 IMPRESSION: No acute radiographic finding in the chest. Assessment & Plan - Diagnosis (1) Urinary tract infection Qualifiers: Urinary tract infection type: acute cystitis Hematuria presence: without h ematuria Qualified Code(s): N30.00 - Acute cystitis without hematuria Is this a current diagnosis for this admission?: Yes Plan: Continue IV antibiotic (2) Oliguria Is this a current diagnosis for this admission?: Yes Plan: Increase normal saline 100 cc/h for 3 L, then reduce (3) Dementia Qualifiers: Dementia type: Alzheimer's disease Alzheimer's disease onset: late-onset Dementia behavioral disturbance: without behavioral disturbance Qualified Code(s): G30.1 - Alzheimer's disease with late onset; F02.80 - Dementia in other diseases classified elsewhere without behavioral disturbance; F02.80 - Dementia in other diseases classified elsewhere without behavioral disturbance; F02.80 - Dementia in other diseases classified elsewhere without behavioral disturbance Is this a current diagnosis for this admission?: Yes (4) Senile dementia of Alzheimer's type Is this a current diagnosis for this admission?: Yes
[2018-10-18] MEDS: CEFTRIAXONE 1 GM/D5W RTU 1 GM/50 ML RTUPB IV SCH (19:07)
--- NOTE | 2018-10-18 22:46 | PDOC PROGRESS REPORT ---
Subjective Progress Note for:: 10/18/18 Subjective:: Patient seen by the bedside, with baseline dementia Reason For Visit: UTI, TOXIC METABOLIC ENCEPHALOPATHY Physical Exam Vital Signs: Temp Pulse Resp BP Pulse Ox 97.4 F 86 18 155/88 H 97 10/18/18 15:06 10/18/18 15:06 10/18/18 15:06 10/18/18 15:06 10/18/18 15:06 Intake & Output 10/17/18 10/18/18 10/19/18 06:59 06:59 06:59 Intake Total 1150 1905 50 Balance 1150 1905 50 Weight 69.8 kg 69.8 kg General appearance: PRESENT: no acute distress Eye exam: PRESENT: PERRLA Respiratory exam: PRESENT: clear to auscultation [place] Cardiovascular exam: PRESENT: +S1, +S2 Results Laboratory Results: 10/17/18 20:36 10/17/18 19:40 10/16/18 13:40 Catheterized Urine Urine Culture - Final Escherichia Coli 10/16/18 10/16/18 12:38 12:38 Creatine Kinase 22 L CK-MB (CK-2) 1.35 Troponin I 0.012 Impressions: Chest X-Ray 10/16/18 12:36 IMPRESSION: No acute radiographic finding in the chest. Assessment & Plan - Diagnosis (1) Urinary tract infection Qualifiers: Urinary tract infection type: acute cystitis Hematuria presence: without hematuria Qualified Code(s): N30.00 - Acute cystitis without hematuria Is this a current diagnosis for this admission?: Yes Plan: Continue IV antibiotic (2) Oliguria Is this a current diagnosis for this admission?: Yes Plan: Improved (3) Dementia Qualifiers: Dementia type: Alzheimer's disease Alzheimer's disease onset: late-onset Dementia behavioral disturbance: without behavioral disturbance Qualified Code(s): G30.1 - Alzheimer's disease with late onset; F02.80 - Dementia in other diseases classified elsewhere without behavioral disturbance; F02.80 - Dementia in other diseases classified elsewhere without behavioral disturbance; F02.80 - Dementia in other diseases classified elsewhere without behavioral disturbance Is this a current diagnosis for this admission?: Yes (4) Senile dementia of Alzheimer's type Is this a current diagnosis for this admission?: Yes
[2018-10-19] MEDS: CEFTRIAXONE 1 GM/D5W RTU 1 GM/50 ML RTUPB IV SCH (18:44)
--- NOTE | 2018-10-19 19:32 | PDOC PROGRESS REPORT ---
Subjective Progress Note for:: 10/19/18 Subjective:: Patient seen by the bedside, she has advanced dementia, minimal intake Reason For Visit: UTI, TOXIC METABOLIC ENCEPHALOPATHY Physical Exam Vital Signs: Temp Pulse Resp BP Pulse Ox 98.3 F 62 17 149/90 H 88 L 10/18/18 21:45 10/19/18 00:43 10/19/18 00:43 10/19/18 00:43 10/19/18 00:43 Intake & Output 10/18/18 10/19/18 10/20/18 06:59 06:59 06:59 Intake Total 1905 50 Balance 1905 50 Weight 69.8 kg 80.6 kg General appearance: PRESENT: no acute distress Eye exam: PRESENT: PERRLA Respiratory exam: PRESENT: clear to auscultation [place] Cardiovascular exam: PRESENT: +S1, +S2 GI/Abdominal exam: PRESENT: soft Results Laboratory Results: 10/17/18 20:36 10/17/18 19:40 10/16/18 10/16/18 12:38 12:38 Creatine Kinase 22 L CK-MB (CK-2) 1.35 Troponin I 0.012 Impressions: Chest X-Ray 10/16/18 12:36 IMPRESSION: No acute radiographic finding in the chest. Assessment & Plan - Diagnosis (1) Urinary tract infection Qualifiers: Urinary tract infection type: acute cystitis Hematuria presence: without hematuria Qualified Code(s): N30.00 - Acute cystitis without hematuria Is this a current diagnosis for this admission?: Yes (2) Oliguria Is this a current diagnosis for this admission?: Yes (3) Dementia Qualifiers: Dementia type: Alzheimer's disease Alzheimer's disease onset: late-onset Dementia behavioral disturbance: without behavioral disturbance Qualified Code(s): G30.1 - Alzheimer's disease with late onset; F02.80 - Dementia in other diseases classified elsewhere without behavioral disturbance; F02.80 - Dementia in other diseases classified elsewhere without behavioral disturbance; F02.80 - Dementia in other diseases classified elsewhere without behavioral disturbance Is this a current diagnosis for this admission?: Yes (4) Senile dementia of Alzheimer's type Is this a current diagnosis for this admission?: Yes (5) E. coli UTI Is this a current diagnosis for this admission?: Yes Plan: She has E. coli UTI, presently on ceftriaxone
[2018-10-20] MEDS: DEXTROSE 5%-NORMAL SALINE 1,000 ML IV PRN (07:30)
[2018-10-20] MEDS: CEFTRIAXONE 1 GM/D5W RTU 1 GM/50 ML RTUPB IV SCH (17:08)
[2018-10-20 20:09] LABS: ABSOLUTE BASOPHILS # (AUTO) 0.1 10^3/uL (0.0-0.2); ABSOLUTE EOSINOPHILS # (AUTO) 0.3 10^3/uL (0.0-0.6); ABSOLUTE LYMPHOCYTES (AUTO) 1.4 10^3/uL (0.5-4.7); ABSOLUTE MONOCYTES (AUTO) 0.8 10^3/uL (0.1-1.4); ABSOLUTE NEUT (AUTO) 7.9 10^3/uL (1.7-8.2); BASOPHILS % (AUTO) 1.3 % (0-2); EOSINOPHILS % (AUTO) 2.6 % (0-6); HEMATOCRIT 38.2 % (36.0-47.0); HEMOGLOBIN 12.7 g/dL (12.0-15.5); LYMPHOCYTES % (AUTO) 13.4 % (13-45); MEAN CORPUSCULAR HEMOGLOBIN 28.6 pg (27.0-33.4); MEAN CORPUSCULAR HGB CONC 33.1 g/dL (32.0-36.0); MEAN CORPUSCULAR VOLUME 87 fl (80-97); MONOCYTES % (AUTO) 7.4 % (3-13); PLATELET COUNT 275 10^3/uL (150-450); RED BLOOD COUNT 4.42 10^6/uL (3.72-5.28); RED CELL DISTRIBUTION WIDTH 15.4 % (11.5-14.0); SEGMENTED NEUTROPHILS % (AUTO) 75.3 % (42-78); TOTAL CELLS COUNTED % (AUTO) 100 %; WHITE BLOOD COUNT 10.5 10^3/uL (4.0-10.5)
[2018-10-20 20:28] LABS: ALBUMIN 2.9 g/dL (3.5-5.0); ALKALINE PHOSPHATASE 83 U/L (38-126); ANION GAP 10 (5-19); ASPARTATE AMINO TRANSFERASE 18 U/L (14-36); BILIRUBIN,DIRECT 0.3 mg/dL (0.0-0.4); BILIRUBIN,TOTAL 0.4 mg/dL (0.2-1.3); BLOOD UREA NITROGEN 13 mg/dL (7-20); CALCIUM 8.5 mg/dL (8.4-10.2); CARBON DIOXIDE 22 mmol/L (22-30); CHLORIDE 107 mmol/L (98-107); GLUCOSE 101 mg/dL (75-110); TOTAL PROTEIN 6.2 g/dL (6.3-8.2)
--- NOTE | 2018-10-20 20:58 | RADIOLOGY REPORT (SQ) ---
XR CHEST 1 VIEW CLINICAL STATEMENT: cough COMPARISON: 10/16/2018. FINDINGS: Heart is moderately enlarged. Aorta is tortuous. No consolidation or pleural effusion. No pulmonary edema or pneumothorax. Small layering bilateral pleural effusions. IMPRESSION: No acute disease.
--- NOTE | 2018-10-20 23:12 | PDOC PROGRESS REPORT ---
Subjective Progress Note for:: 10/20/18 Subjective:: Patient seen by the bedside, baseline dementia, Reason For Visit: UTI, TOXIC METABOLIC ENCEPHALOPATHY Physical Exam Vital Signs: Temp Pulse Resp BP Pulse Ox 97.9 F 81 16 133/62 H 97 10/20/18 20:04 10/20/18 20:04 10/20/18 20:04 10/20/18 20:04 10/20/18 20:04 Intake & Output 10/19/18 10/20/18 10/21/18 06:59 06:59 06:59 Intake Total 1050 50 410 Balance 1050 50 410 Weight 80.6 kg 80.6 kg General appearance: PRESENT: no acute distress Eye exam: PRESENT: PERRLA Respiratory exam: PRESENT: clear to auscultation [place] Cardiovascular exam: PRESENT: +S1, +S2 GI/Abdominal exam: PRESENT: soft Neurological exam: PRESENT: alert Results Laboratory Results: 10/20/18 19:36 10/20/18 19:36 10/20/18 10/20/18 19:36 19:36 WBC 10.5 RBC 4.42 Hgb 12.7 Hct 38.2 MCV 87 MCH 28.6 MCHC 33.1 RDW 15.4 H Plt Count 275 Seg Neutrophils % 75.3 Sodium 139.0 Potassium 4.0 Chloride 107 Carbon Dioxide 22 Anion Gap 10 BUN 13 Creatinine 1.16 Est GFR ( Amer) 54 L Glucose 101 Calcium 8.5 Total Bilirubin 0.4 AST 18 Alkaline Phosphatase 83 Total Protein 6.2 L Albumin 2.9 L 10/16/18 10/16/18 12:38 12:38 Creatine Kinase 22 L CK-MB (CK-2) 1.35 Troponin I 0.012 Impressions: Chest X-Ray 10/20/18 00:00 IMPRESSION: No acute disease. Assessment & Plan - Diagnosis (1) Urinary tract infection Qualifiers: Urinary tract infection type: acute cystitis Hematuria presence: without hematuria Qualified Code(s): N30.00 - Acute cystitis without hematuria Is this a current diagnosis for this admission?: Yes (2) Oliguria Is this a current diagnosis for this admission?: Yes (3) Dementia Qualifiers: Dementia type: Alzheimer's disease Alzheimer's disease onset: late-onset Dementia behavioral disturbance: without behavioral disturbance Qualified Code(s): G30.1 - Alzheimer's disease with late onset; F02.80 - Dementia in other diseases classified elsewhere without behavioral disturbance; F02.80 - Dementia in other diseases classified elsewhere without behavioral disturbance; F02.80 - Dementia in other diseases classified elsewhere without behavioral disturbance Is this a current diagnosis for this admission?: Yes (4) Senile dementia of Alzheimer's type Is this a current diagnosis for this admission?: Yes (5) E. coli UTI Is this a current diagnosis for this admission?: Yes Plan: Continue antibiotic
[2018-10-21] MEDS: DEXTROSE 5%-NORMAL SALINE 1,000 ML IV PRN (05:20)
[2018-10-21 07:28] LABS: ABSOLUTE EOSINOPHILS # (AUTO) 0.3 10^3/uL (0.0-0.6); ABSOLUTE LYMPHOCYTES (AUTO) 1.3 10^3/uL (0.5-4.7); ABSOLUTE MONOCYTES (AUTO) 0.7 10^3/uL (0.1-1.4); ABSOLUTE NEUT (AUTO) 7.4 10^3/uL (1.7-8.2); BASOPHILS % (AUTO) 0.2 % (0-2); EOSINOPHILS % (AUTO) 2.7 % (0-6); HEMATOCRIT 39.4 % (36.0-47.0); LYMPHOCYTES % (AUTO) 13.4 % (13-45); MEAN CORPUSCULAR HEMOGLOBIN 28.4 pg (27.0-33.4); MEAN CORPUSCULAR VOLUME 86 fl (80-97); MONOCYTES % (AUTO) 7.7 % (3-13); PLATELET COUNT 228 10^3/uL (150-450); RED BLOOD COUNT 4.58 10^6/uL (3.72-5.28); RED CELL DISTRIBUTION WIDTH 15.5 % (11.5-14.0); TOTAL CELLS COUNTED % (AUTO) 100 %; WHITE BLOOD COUNT 9.8 10^3/uL (4.0-10.5)
[2018-10-21 07:43] LABS: ALBUMIN 3.2 g/dL (3.5-5.0); ALKALINE PHOSPHATASE 93 U/L (38-126); ANION GAP 7 (5-19); ASPARTATE AMINO TRANSFERASE 15 U/L (14-36); BILIRUBIN,DIRECT 0.2 mg/dL (0.0-0.4); BILIRUBIN,TOTAL 0.4 mg/dL (0.2-1.3); BLOOD UREA NITROGEN 11 mg/dL (7-20); CALCIUM 8.4 mg/dL (8.4-10.2); CARBON DIOXIDE 27 mmol/L (22-30); CHLORIDE 105 mmol/L (98-107); GLUCOSE 101 mg/dL (75-110); POTASSIUM 3.3 mmol/L (3.6-5.0); TOTAL PROTEIN 6.7 g/dL (6.3-8.2)
[2018-10-21] MEDS: CEFTRIAXONE 1 GM/D5W RTU 1 GM/50 ML RTUPB IV SCH (17:21)
--- NOTE | 2018-10-21 22:30 | PDOC PROGRESS REPORT ---
Subjective Progress Note for:: 10/21/18 Subjective:: Patient improved on IV antibiotic Reason For Visit: UTI, TOXIC METABOLIC ENCEPHALOPATHY Physical Exam Vital Signs: Temp Pulse Resp BP Pulse Ox 98.5 F 76 16 139/78 H 98 10/21/18 20:00 10/21/18 20:00 10/21/18 20:00 10/21/18 20:00 10/21/18 20:00 Intake & Output 10/20/18 10/21/18 10/22/18 06:59 06:59 06:59 Intake Total 50 1730 286 Balance 50 1730 286 Weight 80.6 kg 81.3 kg General appearance: PRESENT: no acute distress Eye exam: PRESENT: PERRLA Respiratory exam: PRESENT: clear to auscultation [place] Cardiovascular exam: PRESENT: +S1, +S2 GI/Abdominal exam: PRESENT: soft Results Laboratory Results: 10/21/18 07:10 10/21/18 07:10 10/21/18 10/21/18 07:10 07:10 WBC 9.8 RBC 4.58 Hgb 13.0 Hct 39.4 MCV 86 MCH 28.4 MCHC 33.0 RDW 15.5 H Plt Count 228 Seg Neutrophils % 76.0 Sodium 138.6 Potassium 3.3 L Chloride 105 Carbon Dioxide 27 Anion Gap 7 BUN 11 Creatinine 0.95 Est GFR ( Amer) > 60 Glucose 101 Calcium 8.4 Total Bilirubin 0.4 AST 15 Alkaline Phosphatase 93 Total Protein 6.7 Albumin 3.2 L 10/16/18 17:00 Blood Blood Culture - Final NO GROWTH IN 5 DAYS 10/16/18 12:38 Blood Blood Culture - Final NO GROWTH IN 5 DAYS 10/16/18 10/16/18 12:38 12:38 Creatine Kinase 22 L CK-MB (CK-2) 1.35 Troponin I 0.012 Impressions: Chest X-Ray 10/20/18 00:00 IMPRESSION: No acute disease. Assessment & Plan - Diagnosis (1) Urinary tract infection Qualifiers: Urinary tract infection type: acute cystitis Hematuria presence: without hematuria Qualified Code(s): N30.00 - Acute cystitis without hematuria Is this a current diagnosis for this admission?: Yes Plan: Continue IV antibiotic, patient is aspiration risk, she requires suctioning regularly to prevent aspiration (2) Oliguria Is this a current diagnosis for this admission?: Yes (3) Dementia Qualifiers: Dementia type: Alzheimer's disease Alzheimer's disease onset: late-onset Dementia behavioral disturbance: without behavioral disturbance Qualified Code(s): G30.1 - Alzheimer's disease with late onset; F02.80 - Dementia in other diseases classified elsewhere without behavioral disturbance Is this a current diagnosis for this admission?: Yes (4) Senile dementia of Alzheimer's type Is this a current diagnosis for this admission?: Yes (5) E. coli UTI Is this a current diagnosis for this admission?: Yes
[2018-10-22 14:22] VITALS: BP 157/102
--- NOTE | 2018-10-22 17:46 | PDOC DISCHARGE SUMMARY ---
General - Admit/Disc Date/PCP Admission Date/Primary Care Provider: 10/16/18 15:12 MALIK RAYMUNDO MD Discharge Date: 10/22/18 - Discharge Diagnosis (1) Urinary tract infection Is this a current diagnosis for this admission?: Yes (2) Oliguria Is this a current diagnosis for this admission?: Yes (3) Dementia Is this a current diagnosis for this admission?: Yes (4) Senile dementia of Alzheimer's type Is this a current diagnosis for this admission?: Yes (5) E. coli UTI Is this a current diagnosis for this admission?: Yes - Additional Information Resuscitation Status: Full Code Discharge Diet: Cardiac Discharge Activity: Activity As Tolerated Prescriptions: Ciprofloxacin HCl [Cipro 500 mg Tablet] 500 mg PO BID #14 tablet Home Medications: Metoprolol Succinate [Toprol Xl 50 mg Tab.sr] 50 mg PO DAILY 10/17/18 Ciprofloxacin HCl [Cipro 500 mg Tablet] 500 mg PO BID #14 tablet 10/22/18 History of Present Illness History of Present Illness: MARLYS TORRES is a 88 year old female, patient with dementia admitted when she presented with UTI, altered mental status Hospital Course Hospital Course: She has E. coli UTI, she was treated with IV antibiotic with a background of advanced dementia. 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 She was treated with IV antibiotic, IV fluid, she seemed to respond to treatment she was more responsive appropriately to verbal commands, she has baseline confusion. 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 She was prescribed suctioning machine Physical Exam Vital Signs: Temp Pulse Resp BP Pulse Ox 98.3 F 84 15 142/71 H 99 10/22/18 13:46 10/22/18 13:46 10/22/18 13:46 10/22/18 13:46 10/22/18 13:46 Intake & Output 10/21/18 10/22/18 10/23/18 06:59 06:59 06:59 Intake Total 1730 1286 Balance 1730 1286 Weight 81.3 kg 79.5 kg General appearance: PRESENT: no acute distress Eye exam: PRESENT: PERRLA Respiratory exam: PRESENT: clear to auscultation [place] Cardiovascular exam: PRESENT: +S1, +S2 GI/Abdominal exam: PRESENT: soft Neurological exam: PRESENT: alert Results Laboratory Results: 10/21/18 07:10 10/21/18 07:10 10/16/18 17:00 Blood Blood Culture - Final NO GROWTH IN 5 DAYS 10/16/18 12:38 Blood Blood Culture - Final NO GROWTH IN 5 DAYS 10/16/18 10/16/18 12:38 12:38 Creatine Kinase 22 L CK-MB (CK-2) 1.35 Troponin I 0.012 Impressions: Chest X-Ray 10/20/18 00:00 IMPRESSION: No acute disease. Qualifiers - * PATIENT BEING DISCHARGED WITH ANY OF THE FOLLOWING DIAGNOSIS: No Reason(s) for not prescribing Overlap Therapy:: Not indicated Stroke Pt being discharged on Anti-thrombolytic therapy?: No Reason(s) for not prescribing Anti-thrombolytic therapy:: Not indicated Stroke Pt being discharged on Anti-coagulation therapy?: No Reason(s) for not prescribing Anti-coagulation therapy:: Not indicated Stroke Pt being discharged on Statins?: No Reason(s) for not prescribing Statins therapy:: Not indicated [place] Pt being discharged on Aspirin therapy?: No Reason(s) for not prescribing Aspirin therapy:: Not indicated [place] Pt being discharged on Statins?: No Reason(s) for not prescribing Statin therapy:: Not indicated [place] Pt discharged ACEI/ARBS?: No Reason(s) for not prescribing ACEI/ARBS:: Not indicated Acute Heart Failure - Is this a Heart Failure Patient?: No Follow-up Appointment scheduled within 7 days?: Yes
== END 2018-10-22 17:15 | disposition home health service (06) | DRG 689 ==
LOC: ER 12:31 → EH 15:12 → 5 17:24
PROVIDERS: ADMIT Internal Medicine Geriatric Medicine; ATTEND Internal Medicine
DX: N39.0 Urinary tract infection, site not specified (principal); G92 Toxic encephalopathy; N17.9 Acute kidney failure, unspecified; I10 Essential (primary) hypertension; K21.9 Gastro-esophageal reflux disease without esophagitis; J44.9 Chronic obstructive pulmonary disease, unspecified; G30.1 Alzheimer's disease with late onset; F02.80 Dementia in other diseases classified elsewhere, unspecified severity, without behavioral disturbance, psychotic disturbance, mood disturbance, and anxiety; R34 Anuria and oliguria; B96.20 Unspecified Escherichia coli [E. coli] as the cause of diseases classified elsewhere
CPT/HCPCS: 36415; 71045; 80053; 81001; 82550; 82553; 83605; 84484; 85025; 87040; 87086; 87088; 87186; 93005; 93010; 99283; J0696; J7030; J7042

== ENCOUNTER 2018-11-06 18:56 | Inpatient (IN) | payer MEDICARE, BC ==
--- NOTE | 2018-11-06 19:19 | ER Document Report ---
ED General - General Chief Complaint: Altered Mental Status Stated Complaint: ALTERED MENTAL STATUS Time Seen by Provider: 11/06/18 19:18 Notes: Patient is a 88-year-old female that presents to the emergency department for chief complaint of altered mental status. Patient has history of dementia, apparently has been more altered since around breakfast this morning per family according to EMS. She is been less responsive, she is looking around the room, but not talking as much as she usually does. She recently did have a urinary tract infection with similar symptoms and they think may be that is what is going on again. She is afebrile per EMS. Patient unable to provide any significant history at this time otherwise. Past medical history obtained from the chart Past Medical History: Dementia, COPD, hypertension Past Surgical History: Appendectomy, hysterectomy Social History: Lives at home, no current tobacco or alcohol or drug use. Family History: Reviewed and noncontributory for presenting illness Allergies: Reviewed, see documented allergy list. REVIEW OF SYSTEMS: Complete review of systems is not obtainable at this time secondary to the patient's advanced dementia and altered mental status. PHYSICAL EXAMINATION: Vital signs reviewed, nursing noted reviewed. GENERAL: Elderly female, no acute or apparent distress, altered, will look around and follow simple commands, but alert and oriented only to self. HEAD: Atraumatic, normocephalic. EYES: Eyes appear normal, extraocular movements intact, sclera anicteric, conjunctiva are normal. PERRLA ENT: nares patent, oropharynx clear without exudates. Dry mucous membranes. NECK: Normal range of motion, supple without lymphadenopathy LUNGS: Breath sounds clear to auscultation bilaterally and equal. No wheezes rales or rhonchi. HEART: Regular rate and rhythm without murmurs ABDOMEN: Soft, nontender, normoactive bowel sounds. No rebound, guarding, or rigidity. No masses appreciated. EXTREMITIES: Nontender, good range of motion, no pitting or edema. NEUROLOGICAL: Moves all extremities, alert and oriented to self only, no focal deficits noted on my exam. PSYCH: Flat affect. SKIN: Warm, Dry, normal turgor, no rashes or lesions noted on exposed skin TRAVEL OUTSIDE OF THE [place] IN LAST 30 DAYS: No - Related Data Allergies/Adverse Reactions: No Known Allergies Allergy (Verified 10/13/17 16:40) Past Medical History - Social History Smoking Status: Never Smoker Family History: None, Reviewed & Not Pertinent Patient has suicidal ideation: No Patient has homicidal ideation: No - Past Medical History Cardiac Medical History: Reports: Hx Hypertension Pulmonary Medical History: Reports: Hx COPD, Hx Pneumonia Renal/ Medical History: Denies: Hx Kidney Stones, Hx Peritoneal Dialysis GI Medical History: Reports: Hx Gastroesophageal Reflux Disease Musculoskeletal Medical History: Reports Hx Arthritis - Rheumatoid arthritis, Denies Hx Muscular Dystrophy Psychiatric Medical History: Reports: Hx Dementia Traumatic Medical History: Denies: Hx Fractures Past Surgical History: Reports: Hx Appendectomy, Hx Hysterectomy. Denies: Hx Bowel Surgery - Immunizations Hx Diphtheria, Pertussis, Tetanus Vaccination: Yes Hx Pneumococcal Vaccination: 02/08/06 Physical Exam - Vital signs Vitals: Temp Resp BP Pulse Ox 98 F 25 H 148/93 H 94 11/06/18 19:01 11/06/18 19:01 11/06/18 19:01 11/06/18 19:01 Course - Re-evaluation Re-evalutation: Patient seen and examined vital signs reviewed. Laboratory data and imaging were ordered as appropriate for the patient's presenting symptoms and complaint, with consideration of any critical or life threatening conditions that may be associated with their obtained history and exam as noted above. Patient was treated with IV fluids, 2 L total were ordered, and she was started on Rocephin, empirically for possible UTI Results were reviewed when available and demonstrated acute kidney injury, patient was noted to be encephalopathic, likely from dehydration, and acute kidney injury versus the antibiotic she is currently taking which is ciprofloxacin, for urinary tract infection, or combination of the above. Her urine was not convincing of UTI although will send for culture. Blood cultures were sent as well. The patient was re-evaluated and was stable, still altered, but will follow simple commands, CT of her head was negative for any acute findings, chest x-ray negative as well. Evaluation was most consistent with acute metabolic encephalopathy, acute kidney injury, leukocytosis Results were discussed with the patient's family members at this point after careful consideration I feel that that patient should be admitted to the hospital. This was discussed with the patient family members that it is in the best interest for their care to be admitted for further evaluation and management. Patient family members agreed with this plan of care. A call was placed to the admitting physician, Dr. Barroso who graciously accepted the patient onto their service. *Note is created using voice recognition software and may contain spelling, syn tax or grammatical errors. Laboratory 11/06/18 11/06/18 11/06/18 19:11 19:23 19:23 WBC 12.2 H RBC 4.85 Hgb 13.7 Hct 42.7 MCV 88 MCH 28.3 MCHC 32.1 RDW 16.4 H Plt Count 384 Lymph % (Auto) 13.8 Chambers % (Auto) 6.5 Eos % (Auto) 1.0 Baso % (Auto) 0.9 Absolute Neuts (auto) 9.5 H Absolute Lymphs (auto) 1.7 Absolute Monos (auto) 0.8 Absolute Eos (auto) 0.1 Absolute Basos (auto) 0.1 Seg Neutrophils % 77.8 PT 14.3 INR 1.11 VBG pH VBG pCO2 VBG HCO3 VBG Base Excess Sodium Potassium Chloride Carbon Dioxide Anion Gap BUN Creatinine Est GFR ( Amer) Est GFR (Non-Af Amer) Est GFR (MDRD) Non-Af Glucose POC Glucose 90 Lactic Acid Calcium Total Bilirubin Direct Bilirubin Neonat Total Bilirubin Neonat Direct Bilirubin Neonat Indirect Bili AST ALT Alkaline Phosphatase Troponin I Total Protein Albumin EGFR Urine Color Urine Appearance Urine pH Ur Specific [place] Urine Protein Urine Glucose (UA) Urine Ketones Urine Blood Urine Nitrite Urine Bilirubin Urine Urobilinogen Ur Leukocyte Esterase Urine WBC (Auto) Urine RBC (Auto) U Hyaline Cast (Auto) Urine Bacteria (Auto) Squamous Epi Cells Auto Urine Mucus (Auto) Urine Ascorbic Acid 11/06/18 11/06/18 11/06/18 19:23 19:23 19:23 WBC RBC Hgb Hct MCV MCH MCHC RDW Plt Count Lymph % (Auto) Chambers % (Auto) Eos % (Auto) Baso % (Auto) Absolute Neuts (auto) Absolute Lymphs (auto) Absolute Monos (auto) Absolute Eos (auto) Absolute Basos (auto) Seg Neutrophils % PT INR VBG pH VBG pCO2 VBG HCO3 VBG Base Excess Sodium Cancelled Potassium Cancelled Chloride Cancelled Carbon Dioxide Cancelled Anion Gap Cancelled BUN Cancelled Creatinine Cancelled Est GFR ( Amer) Cancelled Est GFR (Non-Af Amer) Cancelled Est GFR (MDRD) Non-Af Cancelled Glucose Cancelled POC Glucose Lactic Acid 1.3 Calcium Cancelled Total Bilirubin Cancelled Direct Bilirubin Cancelled Neonat Total Bilirubin Cancelled Neonat Direct Bilirubin Cancelled Neonat Indirect Bili Cancelled AST Cancelled ALT Cancelled Alkaline Phosphatase Cancelled Troponin I Cancelled Total Protein Cancelled Albumin Cancelled EGFR Cancelled Urine Color Urine Appearance Urine pH Ur Specific [place] Urine Protein Urine Glucose (UA) Urine Ketones Urine Blood Urine Nitrite Urine Bilirubin Urine Urobilinogen Ur Leukocyte Esterase Urine WBC (Auto) Urine RBC (Auto) U Hyaline Cast (Auto) Urine Bacteria (Auto) Squamous Epi Cells Auto Urine Mucus (Auto) Urine Ascorbic Acid 11/06/18 11/06/18 11/06/18 19:23 20:05 20:21 WBC RBC Hgb Hct MCV MCH MCHC RDW Plt Count Lymph % (Auto) Chambers % (Auto) Eos % (Auto) Baso % (Auto) Absolute Neuts (auto) Absolute Lymphs (auto) Absolute Monos (auto) Absolute Eos (auto) Absolute Basos (auto) Seg Neutrophils % PT INR VBG pH 7.33 VBG pCO2 58.9 VBG HCO3 30.1 VBG Base Excess 2.7 Sodium 138.6 Potassium 5.5 H Chloride 106 Carbon Dioxide 23 Anion Gap 10 BUN 45 H Creatinine 1.70 H Est GFR ( Amer) 34 L Est GFR (Non-Af Amer) Est GFR (MDRD) Non-Af 28 L Glucose 106 POC Glucose Lactic Acid Calcium 9.3 Total Bilirubin 0.6 Direct Bilirubin 0.3 Neonat Total Bilirubin Not Reportable Neonat Direct Bilirubin Not Reportable Neonat Indirect Bili Not Reportable AST 25 ALT 12 Alkaline Phosphatase 102 Troponin I Total Protein 7.2 Albumin 3.4 L EGFR Urine Color YELLOW Urine Appearance CLEAR Urine pH 6.0 Ur Specific [place] 1.019 Urine Protein NEGATIVE Urine Glucose (UA) NEGATIVE Urine Ketones NEGATIVE Urine Blood NEGATIVE Urine Nitrite NEGATIVE Urine Bilirubin NEGATIVE Urine Urobilinogen NEGATIVE Ur Leukocyte Esterase NEGATIVE Urine WBC (Auto) 2 Urine RBC (Auto) 1 U Hyaline Cast (Auto) 1 Urine Bacteria (Auto) TRACE Squamous Epi Cells Auto 1 Urine Mucus (Auto) RARE Urine Ascorbic Acid NEGATIVE 11/06/18 20:21 WBC RBC Hgb Hct MCV MCH MCHC RDW Plt Count Lymph % (Auto) Chambers % (Auto) Eos % (Auto) Baso % (Auto) Absolute Neuts (auto) Absolute Lymphs (auto) Absolute Monos (auto) Absolute Eos (auto) Absolute Basos (auto) Seg Neutrophils % PT INR VBG pH VBG pCO2 VBG HCO3 VBG Base Excess Sodium Potassium Chloride Carbon Dioxide Anion Gap BUN Creatinine Est GFR ( Amer) Est GFR (Non-Af Amer) Est GFR (MDRD) Non-Af Glucose POC Glucose Lactic Acid Calcium Total Bilirubin Direct Bilirubin Neonat Total Bilirubin Neonat Direct Bilirubin Neonat Indirect Bili AST ALT Alkaline Phosphatase Troponin I < 0.012 Total Protein Albumin EGFR Urine Color Urine Appearance Urine pH Ur Specific [place] Urine Protein Urine Glucose (UA) Urine Ketones Urine Blood Urine Nitrite Urine Bilirubin Urine Urobilinogen Ur Leukocyte Esterase Urine WBC (Auto) Urine RBC (Auto) U Hyaline Cast (Auto) Urine Bacteria (Auto) Squamous Epi Cells Auto Urine Mucus (Auto) Urine Ascorbic Acid Chest X-Ray 11/06/18 19:02 IMPRESSION: NO ACUTE RADIOGRAPHIC FINDING IN THE CHEST. Head CT 11/06/18 19:25 IMPRESSION: 1. No acute intracranial abnormalities. Nonspecific white matter change most likely small vessel ischemic disease, age indeterminate. 2. CT is insensitive for early evaluation of acute stroke. If there is clinical concern for acute ischemia, an MRI may be considered. TECHNICAL DOCUMENTATION: Quality ID # 436: Final reports with documentation of one or more dose reduction techniques (e.g., Automated exposure control, adjustment of the mA and/or kV according to patient size, use of iterative reconstruction technique) copyright 2011 [employer]- All Rights Reserved - Vital Signs Vital signs: Temp Pulse Resp BP Pulse Ox 98 F 16 143/50 H 97 11/06/18 19:01 11/06/18 21:34 11/06/18 21:34 11/06/18 21:34 - Laboratory Result Diagrams: 11/06/18 19:23 11/06/18 20:21 Laboratory results interpreted by me: 11/06/18 11/06/18 19:23 20:21 WBC 12.2 H RDW 16.4 H Absolute Neuts (auto) 9.5 H Potassium 5.5 H BUN 45 H Creatinine 1.70 H Est GFR ( Amer) 34 L Est GFR (MDRD) Non-Af 28 L Albumin 3.4 L - EKG Interpretation by Me Additional EKG results interpreted by me: EKG demonstrates sinus rhythm with a ventricular rate of 73 bpm, left axis deviation, QTC 450 ms, no ST elevation, compared with prior EKG from 10/16/2018, without significant change. Discharge - Discharge Clinical Impression: WILLOW (acute kidney injury), Toxic metabolic encephalopathy Leukocytosis Qualifiers: Leukocytosis type: unspecified Qualified Code(s): D72.829 - Elevated white blood cell count, unspecified Condition: Stable Disposition: ADMITTED INPATIENT Admitting Provider: [facility] Admitted: Telemetry
[2018-11-06] MEDS ORDERED: CEFTRIAXONE 1 GM/D5W RTU 1 GM/50 ML RTUPB IV ONE (19:25)
[2018-11-06] MEDS ORDERED: NORMAL SALINE 1000 ML 1,000 ML IV ONE (19:25)
[2018-11-06 19:45] LABS: VENOUS BLOOD BASE EXCESS 2.7 mmol/L; VENOUS BLOOD HCO3 30.1 mmol/L (20-32); VENOUS BLOOD PCO2 58.9 mmHg (35-63); VENOUS BLOOD PH 7.33 (7.30-7.42)
[2018-11-06 19:46] LABS: ABSOLUTE BASOPHILS # (AUTO) 0.1 10^3/uL (0.0-0.2); ABSOLUTE EOSINOPHILS # (AUTO) 0.1 10^3/uL (0.0-0.6); ABSOLUTE LYMPHOCYTES (AUTO) 1.7 10^3/uL (0.5-4.7); ABSOLUTE MONOCYTES (AUTO) 0.8 10^3/uL (0.1-1.4); ABSOLUTE NEUT (AUTO) 9.5 10^3/uL (1.7-8.2); BASOPHILS % (AUTO) 0.9 % (0-2); HEMATOCRIT 42.7 % (36.0-47.0); HEMOGLOBIN 13.7 g/dL (12.0-15.5); LYMPHOCYTES % (AUTO) 13.8 % (13-45); MEAN CORPUSCULAR HEMOGLOBIN 28.3 pg (27.0-33.4); MEAN CORPUSCULAR HGB CONC 32.1 g/dL (32.0-36.0); MEAN CORPUSCULAR VOLUME 88 fl (80-97); MONOCYTES % (AUTO) 6.5 % (3-13); PLATELET COUNT 384 10^3/uL (150-450); RED BLOOD COUNT 4.85 10^6/uL (3.72-5.28); RED CELL DISTRIBUTION WIDTH 16.4 % (11.5-14.0); SEGMENTED NEUTROPHILS % (AUTO) 77.8 % (42-78); TOTAL CELLS COUNTED % (AUTO) 100 %; WHITE BLOOD COUNT 12.2 10^3/uL (4.0-10.5)
--- NOTE | 2018-11-06 20:15 | RADIOLOGY REPORT (SQ) ---
EXAM DESCRIPTION: CHEST SINGLE VIEW COMPLETED DATE/TIME: 11/06/2018 8:01 pm REASON FOR STUDY: sepsis alert COMPARISON: AP chest 10/20/2018, 10/16/2018 EXAM PARAMETERS: NUMBER OF VIEWS: One view. TECHNIQUE: Single frontal radiographic view of the chest acquired. RADIATION DOSE: NA LIMITATIONS: None. FINDINGS: LUNGS AND PLEURA: No opacities, masses or pneumothorax. No pleural effusion. MEDIASTINUM AND HILAR STRUCTURES: No masses. Contour normal. HEART AND VASCULAR STRUCTURES: Moderate cardiomegaly BONES: Old thoracic kyphoplasties HARDWARE: None in the chest. OTHER: No other significant finding. IMPRESSION: NO ACUTE RADIOGRAPHIC FINDING IN THE CHEST. TECHNICAL DOCUMENTATION: JOB ID: [id number] [employer]- All Rights Reserved Reading location - IP/workstation name: [email or web address]
[2018-11-06 20:16] LABS: INTERNATIONAL RATION (INR) 1.11; PROTHROMBIN TIME 14.3 SEC (11.4-15.4)
[2018-11-06 20:44] LABS: APPEARANCE,URINE CLEAR; BILIRUBIN,URINE NEGATIVE (NEGATIVE); COLOR,URINE YELLOW; GLUCOSE, URINE NEGATIVE (NEGATIVE); KETONES,URINE NEGATIVE (NEGATIVE); LEUKOCYTE ESTERASE,URINE NEGATIVE (NEGATIVE); NITRITE,URINE NEGATIVE (NEGATIVE); PROTEIN,URINE NEGATIVE (NEGATIVE); URINE SPECIFIC GRAVITY 1.019; UROBILINOGEN,URINE NEGATIVE mg/dL (<2.0)
[2018-11-06 21:12] LABS: ALBUMIN 3.4 g/dL (3.5-5.0); ALKALINE PHOSPHATASE 102 U/L (38-126); ANION GAP 10 (5-19); ASPARTATE AMINO TRANSFERASE 25 U/L (14-36); BILIRUBIN,DIRECT 0.3 mg/dL (0.0-0.4); BILIRUBIN,TOTAL 0.6 mg/dL (0.2-1.3); BLOOD UREA NITROGEN 45 mg/dL (7-20); CALCIUM 9.3 mg/dL (8.4-10.2); CARBON DIOXIDE 23 mmol/L (22-30); CHLORIDE 106 mmol/L (98-107); GLUCOSE 106 mg/dL (75-110); POTASSIUM 5.5 mmol/L (3.6-5.0); TOTAL PROTEIN 7.2 g/dL (6.3-8.2)
[2018-11-06] MEDS ORDERED: RINGERS SOLUTION,LACTATED 1,000 ML IV ONE (21:16)
--- NOTE | 2018-11-06 21:28 | RADIOLOGY REPORT (SQ) ---
EXAM DESCRIPTION: CT HEAD WITHOUT IV CONTRAST COMPLETED DATE/TME: 11/06/2018 19:25 CLINICAL HISTORY: 88 years, Female, altered mental status COMPARISON: MRI brain 07/18/2017. TECHNIQUE: Noncontrast CT brain. Images stored on PACS. All CT scanners at this facility use dose modulation, iterative reconstruction, and/or weight based dosing when appropriate to reduce radiation dose to as low as reasonably achievable (ALARA). [facility]: Dose Right [facility]: CareDose [facility]: Dose Right [facility]: Teradose 4D [facility]: Smart SOLARBRUSH LIMITATIONS: Patient positioning. FINDINGS: Multifocal regions of patchy hypoattenuation are present in a subcortical and periventricular deep white matter distribution, nonspecific; however, most likely represent small vessel ischemic disease, age indeterminate. The ventricles, and sulci are prominent compatible with underlying volume loss. The renteria-white matter differentiation is preserved. There is no mass effect, midline shift, intra- or extra-axial fluid collection/acute hemorrhage. The osseous structures are unremarkable. The paranasal sinuses and mastoid air cells are clear. IMPRESSION: 1. No acute intracranial abnormalities. Nonspecific white matter change most likely small vessel ischemic disease, age indeterminate. 2. CT is insensitive for early evaluation of acute stroke. If there is clinical concern for acute ischemia, an MRI may be considered. TECHNICAL DOCUMENTATION: Quality ID # 436: Final reports with documentation of one or more dose reduction techniques (e.g., Automated exposure control, adjustment of the mA and/or kV according to patient size, use of iterative reconstruction technique) copyright 2011 [employer]- All Rights Reserved
[2018-11-06] MEDS: RINGERS SOLUTION,LACTATED 1,000 ML IV PRN (23:44)
[2018-11-06] MEDS ORDERED: ENOXAPARIN SODIUM INJ 40 MG/0.4 ML DISP.SYRIN SUBCUT ONE (23:45)
[2018-11-07 00:21] LABS: INTERNATIONAL RATION (INR) 1.13; PROTHROMBIN TIME 14.6 SEC (11.4-15.4)
[2018-11-07 00:22] LABS: PARTIAL THROMBOPLASTIN TIME 30.5 SEC (23.5-35.8)
[2018-11-07 00:37] LABS: AMYLASE 65 U/L (30-110); ANION GAP 8 (5-19); BLOOD UREA NITROGEN 41 mg/dL (7-20); CALCIUM 9.1 mg/dL (8.4-10.2); CARBON DIOXIDE 21 mmol/L (22-30); CHLORIDE 109 mmol/L (98-107); GLUCOSE 97 mg/dL (75-110); PHOSPHORUS 3.9 mg/dL (2.5-4.5); POTASSIUM 5.4 mmol/L (3.6-5.0)
[2018-11-07 00:49] LABS: TROPONIN I < 0.012 ng/mL
--- NOTE | 2018-11-07 00:53 | EKG REPORT ---
SEVERITY:- ABNORMAL ECG - SINUS RHYTHM LEFT VENTRICULAR HYPERTROPHY : Confirmed by: Albino Herrmann 07-Nov-2018 00:51:57
[2018-11-07 01:19] LABS: FREE T4 (FREE THYROXINE) 2.34 ng/dL (0.78-2.19)
[2018-11-07 01:33] LABS: THYROID STIMULATING HORMONE 3.11 uIU/mL (0.47-4.68)
[2018-11-07 06:19] LABS: ABSOLUTE BASOPHILS # (AUTO) 0.1 10^3/uL (0.0-0.2); ABSOLUTE EOSINOPHILS # (AUTO) 0.2 10^3/uL (0.0-0.6); ABSOLUTE LYMPHOCYTES (AUTO) 1.4 10^3/uL (0.5-4.7); ABSOLUTE MONOCYTES (AUTO) 0.5 10^3/uL (0.1-1.4); BASOPHILS % (AUTO) 0.9 % (0-2); EOSINOPHILS % (AUTO) 2.1 % (0-6); LYMPHOCYTES % (AUTO) 16.8 % (13-45); MEAN CORPUSCULAR HEMOGLOBIN 28.6 pg (27.0-33.4); MEAN CORPUSCULAR HGB CONC 32.5 g/dL (32.0-36.0); MEAN CORPUSCULAR VOLUME 88 fl (80-97); MONOCYTES % (AUTO) 6.6 % (3-13); PLATELET COUNT 251 10^3/uL (150-450); RED BLOOD COUNT 4.55 10^6/uL (3.72-5.28); RED CELL DISTRIBUTION WIDTH 16.5 % (11.5-14.0); SEGMENTED NEUTROPHILS % (AUTO) 73.6 % (42-78); TOTAL CELLS COUNTED % (AUTO) 100 %; WHITE BLOOD COUNT 8.1 10^3/uL (4.0-10.5)
[2018-11-07 06:42] LABS: ALBUMIN 3.3 g/dL (3.5-5.0); ALKALINE PHOSPHATASE 101 U/L (38-126); ASPARTATE AMINO TRANSFERASE 21 U/L (14-36); BILIRUBIN,DIRECT 0.1 mg/dL (0.0-0.4); BILIRUBIN,TOTAL 0.5 mg/dL (0.2-1.3)
[2018-11-07 06:43] LABS: CREATINE KINASE MB 0.66 ng/mL (<4.55)
[2018-11-07 06:49] LABS: TROPONIN I < 0.012 ng/mL
[2018-11-07 13:26] LABS: CREATINE KINASE MB 0.94 ng/mL (<4.55)
[2018-11-07 13:29] LABS: TROPONIN I < 0.012 ng/mL
--- NOTE | 2018-11-07 14:25 | RADIOLOGY REPORT (SQ) ---
EXAM DESCRIPTION: MRI HEAD WITHOUT COMPLETED DATE/TIME: 11/07/2018 2:15 pm REASON FOR STUDY: altered mental status ? CVA COMPARISON: CT brain 11/06/2018 MRI brain 07/18/2017, 06/28/2017 TECHNIQUE: Multiplanar imaging includes non-contrasted T1, T2, FLAIR, and diffusion with ADC map seq uences. Images stored on PACS. LIMITATIONS: Motion artifact FINDINGS: Most of the pulse sequences are degraded by patient motion artifact. On the images withou t motion, there is no MR evidence of large territory acute ischemic change, acute intracranial hemorr erica, mass effect, or midline shift. There is mild bifrontal and biparietal and mid pontine small vessel ischemic change. Prominent periv ascular space left inferior basal ganglia. IMPRESSION: Very limited study. No MR evidence of acute large territory ischemic change. Mild chronic small vessel ischemic change in the bifrontal and biparietal and mid pontine regions. EVIDENCE OF ACUTE STROKE: NO. TECHNICAL DOCUMENTATION: JOB ID: [id number] [employer]- All Rights Reserved Reading location - IP/workstation name: [email or web address]
[2018-11-07] MEDS: RINGERS SOLUTION,LACTATED 1,000 ML IV PRN (15:07)
[2018-11-07] MEDS: METOPROLOL SUCCINATE 50 MG TAB.SR.24H PO SCH (17:13)
[2018-11-07] MEDS: ENOXAPARIN SODIUM INJ 40 MG/0.4 ML DISP.SYRIN SUBCUT SCH ×2 (17:32→22:31)
--- NOTE | 2018-11-07 17:52 | PDOC H&P ---
History of Present Illness Admission Date/PCP: 11/06/18 21:37 MALIK RAYMUNDO MD History of Present Illness: MARLYS TORRES is a 88 year old female,She has underlying dementia, she was transferred from home to the emergency room for evaluation of altered mental status. In the emergency room a CT scan of the head was done, it was negative for any acute pathology, there was finding consistent with loss of brain parenchyma. The urine dipstick was normal, the chest x-ray was normal. No reasonable history could be obtained from this patient, she is virtually unresponsive to verbal commands, she will open her eyes and then closed the eyes again. The symptoms she is manifesting is probably sign of progressive dementia not necessarily from infection. She has other underlying condition including rheumatoid lung disease, rheumatoid arthritis.She was just recently admitted and treated for UTI, she has had multiple hospital admission for sepsis related conditions both her presentation presently is not consistent with infection. I do not see any value in lumbar puncture, EEG is also ordered, that also will be of limited value Past Medical History Cardiac Medical History: Reports: Hypertension Pulmonary Medical History: Reports: Chronic Obstructive Pulmonary Disease (COPD), Pneumonia GI Medical History: Reports: Gastroesophageal Reflux Disease Musculoskeltal Medical History: Reports: Arthritis - Rheumatoid arthritis Psychiatric Medical History: Reports: Dementia Past Surgical History Past Surgical History: Reports: Appendectomy, Hysterectomy Social History Smoking Status: Former Smoker Frequency of Alcohol Use: None Hx Recreational Drug Use: No Drugs: None Hx Prescription Drug Abuse: No Family History Family History: None, Reviewed & Not Pertinent, CAD, COPD, CVA Parental Family History Reviewed: Yes Children Family History Reviewed: Yes Sibling(s) Family History Reviewed.: Yes Medication/Allergy Home Medications: Metoprolol Succinate [Toprol Xl 50 mg Tab.sr] 50 mg PO DAILY 10/17/18 Ciprofloxacin HCl [Cipro 500 mg Tablet] 500 mg PO BID #14 tablet 10/22/18 Allergies/Adverse Reactions: No Known Allergies Allergy (Verified 10/13/17 16:40) Review of Systems ROS unobtainable: Due to mental status Physical Exam Vital Signs: Temp Pulse Resp BP Pulse Ox 98.5 F 65 17 131/59 H 95 11/07/18 12:14 11/07/18 14:00 11/07/18 11:05 11/07/18 11:05 11/07/18 11:05 Intake & Output 11/06/18 11/07/18 11/08/18 06:59 06:59 06:59 Intake Total 2049 136 Balance 2049 136 Weight 72.8 kg General appearance: PRESENT: no acute distress Eye exam: PRESENT: PERRLA Respiratory exam: PRESENT: chest wall tenderness, rales Cardiovascular exam: PRESENT: +S1, +S2 GI/Abdominal exam: PRESENT: soft Neurological exam: PRESENT: altered Results Laboratory Results: 11/07/18 06:11 11/06/18 23:59 11/06/18 11/06/18 11/06/18 19:23 19:23 19:23 WBC 12.2 H RBC 4.85 Hgb 13.7 Hct 42.7 MCV 88 MCH 28.3 MCHC 32.1 RDW 16.4 H Plt Count 384 Seg Neutrophils % 77.8 VBG pH VBG pCO2 VBG HCO3 VBG Base Excess Sodium Cancelled Potassium Cancelled Chloride Cancelled Carbon Dioxide Cancelled Anion Gap Cancelled BUN Cancelled Creatinine Cancelled Est GFR ( Amer) Cancelled Est GFR (Non-Af Amer) Cancelled Glucose Cancelled Lactic Acid 1.3 Calcium Cancelled Phosphorus Magnesium Total Bilirubin Cancelled AST Cancelled Alkaline Phosphatase Cancelled Ammonia Total Protein Cancelled Albumin Cancelled Amylase TSH Free T4 Urine Color Urine Appearance Urine pH Ur Specific [place] Urine Protein Urine Glucose (UA) Urine Ketones Urine Blood Urine Nitrite Ur Leukocyte Esterase Urine WBC (Auto) Urine RBC (Auto) 11/06/18 11/06/18 11/06/18 19:23 20:05 20:21 WBC RBC Hgb Hct MCV MCH MCHC RDW Plt Count Seg Neutrophils % VBG pH 7.33 VBG pCO2 58.9 VBG HCO3 30.1 VBG Base Excess 2.7 Sodium 138.6 Potassium 5.5 H Chloride 106 Carbon Dioxide 23 Anion Gap 10 BUN 45 H Creatinine 1.70 H Est GFR ( Amer) 34 L Est GFR (Non-Af Amer) Glucose 106 Lactic Acid Calcium 9.3 Phosphorus Magnesium Total Bilirubin 0.6 AST 25 Alkaline Phosphatase 102 Ammonia Total Protein 7.2 Albumin 3.4 L Amylase TSH Free T4 Urine Color YELLOW Urine Appearance CLEAR Urine pH 6.0 Ur Specific [place] 1.019 Urine Protein NEGATIVE Urine Glucose (UA) NEGATIVE Urine Ketones NEGATIVE Urine Blood NEGATIVE Urine Nitrite NEGATIVE Ur Leukocyte Esterase NEGATIVE Urine WBC (Auto) 2 Urine RBC (Auto) 1 11/06/18 11/06/18 11/06/18 23:59 23:59 23:59 WBC RBC Hgb Hct MCV MCH MCHC RDW Plt Count Seg Neutrophils % VBG pH VBG pCO2 VBG HCO3 VBG Base Excess Sodium 138.3 Potassium 5.4 H Chloride 109 H Carbon Dioxide 21 L Anion Gap 8 BUN 41 H Creatinine 1.55 H Est GFR ( Amer) 38 L Est GFR (Non-Af Amer) Glucose 97 Lactic Acid Calcium 9.1 Phosphorus 3.9 Magnesium 2.3 Total Bilirubin AST Alkaline Phosphatase Ammonia < 8.7 L Total Protein Albumin Amylase 65 TSH 3.11 Free T4 2.34 H Urine Color Urine Appearance Urine pH Ur Specific [place] Urine Protein Urine Glucose (UA) Urine Ketones Urine Blood Urine Nitrite Ur Leukocyte Esterase Urine WBC (Auto) Urine RBC (Auto) 11/07/18 11/07/18 06:11 06:11 WBC 8.1 RBC 4.55 Hgb 13.0 Hct 40.0 MCV 88 MCH 28.6 MCHC 32.5 RDW 16.5 H Plt Count 251 Seg Neutrophils % 73.6 VBG pH VBG pCO2 VBG HCO3 VBG Base Excess Sodium Potassium Chloride Carbon Dioxide Anion Gap BUN Creatinine Est GFR ( Amer) Est GFR (Non-Af Amer) Glucose Lactic Acid Calcium Phosphorus Magnesium Total Bilirubin 0.5 AST 21 Alkaline Phosphatase 101 Ammonia Total Protein 7.0 Albumin 3.3 L Amylase TSH Free T4 Urine Color Urine Appearance Urine pH Ur Specific [place] Urine Protein Urine Glucose (UA) Urine Ketones Urine Blood Urine Nitrite Ur Leukocyte Esterase Urine WBC (Auto) Urine RBC (Auto) 11/06/18 11/06/18 11/06/18 19:23 20:21 23:59 CK-MB (CK-2) 0.30 Troponin I Cancelled < 0.012 < 0.012 11/07/18 11/07/18 06:11 11:45 CK-MB (CK-2) 0.66 0.94 Troponin I < 0.012 < 0.012 Impressions: Chest X-Ray 11/06/18 19:02 IMPRESSION: NO ACUTE RADIOGRAPHIC FINDING IN THE CHEST. Head CT 11/06/18 19:25 IMPRESSION: 1. No acute intracranial abnormalities. Nonspecific white matter change most likely small vessel ischemic disease, age indeterminate. 2. CT is insensitive for early evaluation of acute stroke. If there is clinical concern for acute ischemia, an MRI may be considered. TECHNICAL DOCUMENTATION: Quality ID # 436: Final reports with documentation of one or more dose reduction techniques (e.g., Automated exposure control, adjustment of the mA and/or kV according to patient size, use of iterative reconstruction technique) copyright 2011 [employer]- All Rights Reserved Head MRI 11/07/18 00:00 IMPRESSION: Very limited study. No MR evidence of acute large territory ischemic change. Mild chronic small vessel ischemic change in the bifrontal and biparietal and mid pontine regions. EVIDENCE OF ACUTE STROKE: NO. Assessment & Plan - Diagnosis (1) Encephalopathy, unspecified Is this a current diagnosis for this admission?: Yes Plan: MRI brain was done, there is motion artifact but negative for an acute infarct, She is not awake enough to be giving oral medication of food, will hydrate slowly.Family needs to address CODE STATUS (2) Dementia Qualifiers: Dementia type: Alzheimer's disease Alzheimer's disease onset: late-onset Dementia behavioral disturbance: with behavioral disturbance Qualified Code(s): G30.1 - Alzheimer's disease with late onset; F02.81 - Dementia in other diseases classified elsewhere with behavioral disturbance Is this a current diagnosis for this admission?: Yes Plan: The symptoms is most likely due to progression of her dementia, she is presently a full code (3) HTN (hypertension) Qualifiers: Hypertension type: essential hypertension Qualified Code(s): I10 - Essential (primary) hypertension
[2018-11-08 04:50] LABS: ABSOLUTE BASOPHILS # (AUTO) 0.1 10^3/uL (0.0-0.2); ABSOLUTE EOSINOPHILS # (AUTO) 0.2 10^3/uL (0.0-0.6); ABSOLUTE LYMPHOCYTES (AUTO) 0.9 10^3/uL (0.5-4.7); ABSOLUTE MONOCYTES (AUTO) 0.6 10^3/uL (0.1-1.4); ABSOLUTE NEUT (AUTO) 6.1 10^3/uL (1.7-8.2); BASOPHILS % (AUTO) 0.7 % (0-2); EOSINOPHILS % (AUTO) 2.4 % (0-6); HEMATOCRIT 37.2 % (36.0-47.0); HEMOGLOBIN 12.3 g/dL (12.0-15.5); LYMPHOCYTES % (AUTO) 11.3 % (13-45); MEAN CORPUSCULAR HEMOGLOBIN 28.5 pg (27.0-33.4); MEAN CORPUSCULAR VOLUME 86 fl (80-97); MONOCYTES % (AUTO) 7.2 % (3-13); PLATELET COUNT 249 10^3/uL (150-450); RED BLOOD COUNT 4.31 10^6/uL (3.72-5.28); RED CELL DISTRIBUTION WIDTH 16.1 % (11.5-14.0); SEGMENTED NEUTROPHILS % (AUTO) 78.4 % (42-78); TOTAL CELLS COUNTED % (AUTO) 100 %; WHITE BLOOD COUNT 7.8 10^3/uL (4.0-10.5)
[2018-11-08 05:04] LABS: ALBUMIN 3.3 g/dL (3.5-5.0); ALKALINE PHOSPHATASE 98 U/L (38-126); ASPARTATE AMINO TRANSFERASE 21 U/L (14-36); BILIRUBIN,DIRECT 0.1 mg/dL (0.0-0.4); BILIRUBIN,TOTAL 0.4 mg/dL (0.2-1.3); TOTAL PROTEIN 7.1 g/dL (6.3-8.2)
[2018-11-08] MEDS ORDERED: INFLUENZA QUAD (6MOS+) 2019-20 VAC 0.5 ML SYR IM ONE (06:10)
[2018-11-08] MEDS: METOPROLOL SUCCINATE 50 MG TAB.SR.24H PO SCH (09:29)
[2018-11-08] MEDS: ENOXAPARIN SODIUM INJ 30 MG/0.3 ML DISP.SYRIN SUBCUT SCH (09:29)
--- NOTE | 2018-11-08 16:34 | NEURO WORKBENCH EEG REPORT ---
EEG Report Patient: Shruti Madden ID: [id number] Referring Doctor: Parvin Barroso Date: 11/08/2018 Reason for study: Evaluate Altered Mental Status Medications: Lovenox, Toprol XL History: This is a 88 year old female with a history of dementia, HTN, COPD, GERD, RA, pneumonia and UTI. This EEG was requested for evaluation of epileptiform activity. EEG Interpretation: This EEG was recorded during wakefulness and sleep. The awake EEG is characterized by a background of predominantly diffuse 6-7 Hz theta with intermixed diffuse 1-3 Hz delta activity. There is no posterior dominant rhythm (PDR). The remainder of the background consisted of low amplitude alpha and beta activity. The EEG is symmetric in amplitudes and frequencies. Photic stimulation resulted in no photic driving, and there was no epileptiform activity elicited with photic stimulation There were periods more diffuse and prominent delta-theta activity lacking higher frequency activity likely correlating to stage II sleep. K-complexes were noted but no sleep spindles or vertex waves were present. There were no epileptiform abnormalities (no sharp waves and no spikes). There were no seizures. The EKG showed a regular rhythm with typically 45-65 beats per minute. EEG Impression: This EEG is abnormal due to diffuse background slowing with predominantly diffuse theta and delta activity consistent with diffuse mild to moderate cerebral dysfunction which is non-specific for etiology. Likely considerations would include toxic-metabolic derangements, drug intoxication, or post-ictal state. There was no epileptiform activity or seizures. There were no EEG findings consistent with epilepsy, but if there is strong concern for clinical or sub-clinical seizure activity then long-term EEG monitoring would be advised or additional repeat routine EEGs if long-term monitoring is not available. INTERPRETING NEUROLOGIST: Mark Dial MD Board certified by the [place] in Neurology, Clinical Neurophysiology, and Sleep Medicine [facility]
[2018-11-08] MEDS: RINGERS SOLUTION,LACTATED 1,000 ML IV PRN (17:23)
--- NOTE | 2018-11-08 18:37 | PDOC PROGRESS REPORT ---
Subjective Progress Note for:: 11/08/18 Subjective:: Patient is seen by the bedside, EEG was done, no definitive epileptiform focus identified, there was diffuse slowing essentially abnormal EEG Reason For Visit: PROGRESSIVE DEMENTIA,ANOREXIA Physical Exam Vital Signs: Temp Pulse Resp BP Pulse Ox 97.8 F 67 16 163/76 H 98 11/08/18 16:22 11/08/18 16:22 11/08/18 16:22 11/08/18 16:22 11/08/18 16:22 Intake & Output 11/07/18 11/08/18 11/09/18 06:59 06:59 06:59 Intake Total 2049 1410 1000 Balance 2049 1410 1000 Weight 72.8 kg 72.3 kg General appearance: PRESENT: no acute distress Eye exam: PRESENT: PERRLA Respiratory exam: PRESENT: clear to auscultation [place] Cardiovascular exam: PRESENT: +S1, +S2 GI/Abdominal exam: PRESENT: soft Neurological exam: PRESENT: alert Results Laboratory Results: 11/08/18 04:31 11/06/18 23:59 11/08/18 11/08/18 04:31 04:31 WBC 7.8 RBC 4.31 Hgb 12.3 Hct 37.2 MCV 86 MCH 28.5 MCHC 33.0 RDW 16.1 H Plt Count 249 Seg Neutrophils % 78.4 H Total Bilirubin 0.4 AST 21 Alkaline Phosphatase 98 Total Protein 7.1 Albumin 3.3 L 11/06/18 11/06/18 11/06/18 19:23 20:21 23:59 CK-MB (CK-2) 0.30 Troponin I Cancelled < 0.012 < 0.012 11/07/18 11/07/18 06:11 11:45 CK-MB (CK-2) 0.66 0.94 Troponin I < 0.012 < 0.012 Impressions: Chest X-Ray 11/06/18 19:02 IMPRESSION: NO ACUTE RADIOGRAPHIC FINDING IN THE CHEST. Head CT 11/06/18 19:25 IMPRESSION: 1. No acute intracranial abnormalities. Nonspecific white matter change most likely small vessel ischemic disease, age indeterminate. 2. CT is insensitive for early evaluation of acute stroke. If there is clinical concern for acute ischemia, an MRI may be considered. TECHNICAL DOCUMENTATION: Quality ID # [id number]: Final reports with documentation of one or more dose reduction techniques (e.g., Automated exposure control, adjustment of the mA and/or kV according to patient size, use of iterative reconstruction technique) copyright 2011 [employer]- All Rights Reserved Head MRI 11/07/18 00:00 IMPRESSION: Very limited study. No MR evidence of acute large territory ischemic change. Mild chronic small vessel ischemic change in the bifrontal and biparietal and mid pontine regions. EVIDENCE OF ACUTE STROKE: NO. Assessment & Plan - Diagnosis (1) Encephalopathy, unspecified Is this a current diagnosis for this admission?: Yes Plan: EEG demonstrated diffuse slowing, abnormal EEG, the fluctuating mentation is most likely a sign of the progression of dementia and not necessarily due to infection. I had a long discussion with the family today, hopefully she will be discharged home tomorrow with family, palliative consult was ordered (2) Dementia Qualifiers: Dementia type: Alzheimer's disease Alzheimer's disease onset: late-onset Dementia behavioral disturbance: with behavioral disturbance Qualified Code(s): G30.1 - Alzheimer's disease with late onset; F02.81 - Dementia in other diseases classified elsewhere with behavioral disturbance Is this a current diagnosis for this admission?: Yes (3) HTN (hypertension) Qualifiers: Hypertension type: essential hypertension Qualified Code(s): I10 - Essential (primary) hypertension Is this a current diagnosis for this admission?: Yes
[2018-11-08] MEDS ORDERED: HALOPERIDOL LACTATE INJ 5 MG/1 ML VIAL IV ONE (21:30)
[2018-11-09 05:39] LABS: ABSOLUTE BASOPHILS # (AUTO) 0.1 10^3/uL (0.0-0.2); ABSOLUTE EOSINOPHILS # (AUTO) 0.2 10^3/uL (0.0-0.6); ABSOLUTE LYMPHOCYTES (AUTO) 1.4 10^3/uL (0.5-4.7); ABSOLUTE MONOCYTES (AUTO) 0.6 10^3/uL (0.1-1.4); ABSOLUTE NEUT (AUTO) 4.9 10^3/uL (1.7-8.2); BASOPHILS % (AUTO) 1.2 % (0-2); EOSINOPHILS % (AUTO) 2.5 % (0-6); HEMATOCRIT 36.6 % (36.0-47.0); HEMOGLOBIN 12.1 g/dL (12.0-15.5); MEAN CORPUSCULAR HEMOGLOBIN 28.6 pg (27.0-33.4); MEAN CORPUSCULAR HGB CONC 32.9 g/dL (32.0-36.0); MEAN CORPUSCULAR VOLUME 87 fl (80-97); MONOCYTES % (AUTO) 8.1 % (3-13); PLATELET COUNT 247 10^3/uL (150-450); RED BLOOD COUNT 4.22 10^6/uL (3.72-5.28); RED CELL DISTRIBUTION WIDTH 15.9 % (11.5-14.0); SEGMENTED NEUTROPHILS % (AUTO) 69.2 % (42-78); TOTAL CELLS COUNTED % (AUTO) 100 %; WHITE BLOOD COUNT 7.1 10^3/uL (4.0-10.5)
[2018-11-09 05:58] LABS: ALKALINE PHOSPHATASE 94 U/L (38-126); ASPARTATE AMINO TRANSFERASE 20 U/L (14-36); BILIRUBIN,DIRECT 0.1 mg/dL (0.0-0.4); BILIRUBIN,TOTAL 0.5 mg/dL (0.2-1.3); TOTAL PROTEIN 6.6 g/dL (6.3-8.2)
[2018-11-09] MEDS: ENOXAPARIN SODIUM INJ 30 MG/0.3 ML DISP.SYRIN SUBCUT SCH (10:33)
[2018-11-09] MEDS: METOPROLOL SUCCINATE 50 MG TAB.SR.24H PO SCH (10:33)
[2018-11-09] MEDS: RINGERS SOLUTION,LACTATED 1,000 ML IV PRN (12:19)
--- NOTE | 2018-11-09 16:23 | PDOC DISCHARGE SUMMARY ---
Impression - Admit/DC Date/PCP Admission Date/Primary Care Provider: 11/06/18 21:37 MALIK RAYMUNDO MD Discharge Date: 11/09/18 - Discharge Diagnosis (1) Encephalopathy, unspecified Is this a current diagnosis for this admission?: Yes (2) Dementia Is this a current diagnosis for this admission?: Yes (3) HTN (hypertension) Is this a current diagnosis for this admission?: Yes - Additional Information Referrals: MALIK RAYMUNDO MD [Primary Care Provider] - 11/16/18 9:45 am Home Medications: RX: Metoprolol Succinate [Toprol Xl 50 mg Tab.sr] 50 mg PO DAILY 10/17/18 History of Present Illiness History of Present Illness: MARLYS TORRES is a 88 year old female,She has underlying dementia, she was transferred from home to the emergency room for evaluation of altered mental status. In the emergency room a CT scan of the head was done, it was negative for any acute pathology, there was finding consistent with loss of brain parenchyma. The urine dipstick was normal, the chest x-ray was normal. No reasonable history could be obtained from this patient, she is virtually unresponsive to verbal commands, she will open her eyes and then closed the eyes again. The symptoms she is manifesting is probably sign of progressive dementia not necessarily from infection. She has other underlying condition including rheumatoid lung disease, rheumatoid arthritis.She was just recently admitted and treated for UTI, she has had multiple hospital admission for sepsis related conditions both her presentation presently is not consistent with infection. I do not see any value in lumbar puncture, EEG is also ordered, that also will be of limited value Hospital Course Hospital Course: Patient was admitted for the management of altered mental status, she was very stuporous, she has underlining dementia. There was no evidence of acute infection, the urinalysis, dipstick, was grossly normal. The urine culture grew MRSA with a colony count of 10,000-20,000.MRSA is not a uropathogen, MRSA in the urine is a reflection of a secondary focus, the urine is a manifestation of metastatic focus. There is no evidence of sepsis in this patient, the colony count of 10,000-20,000 does not suggest infection, it is probably secondary to contamination during the collection of the urine specimen. Patient was treated with IV fluid she regained full consciousness she was interactive but her speech was not well understood, she has underlying dementia and language function is also affected by dementia. EEG was done, it demonstrated generalized slowing of the brain. MRI of the brain was done there was motion artifact because of patient movement but there was no large territory infarction.The overall consensus is that her symptomatology is a manifestation of progressive dementia Physical Exam Vital Signs: Temp Pulse Resp BP Pulse Ox 97.4 F 58 L 20 175/73 H 93 11/09/18 12:11 11/09/18 14:00 11/09/18 12:11 11/09/18 12:11 11/09/18 12:11 Intake & Output 11/08/18 11/09/18 11/10/18 06:59 06:59 06:59 Intake Total 1410 1290 1100 Balance 1410 1290 1100 Weight 72.3 kg 73.2 kg General appearance: PRESENT: no acute distress Eye exam: PRESENT: PERRLA Respiratory exam: PRESENT: clear to auscultation [place] Cardiovascular exam: PRESENT: +S1, +S2 GI/Abdominal exam: PRESENT: soft Neurological exam: PRESENT: alert Results Laboratory Results: WBC 7.1 10^3/uL (4.0-10.5) 11/09/18 04:53 RBC 4.22 10^6/uL (3.72-5.28) 11/09/18 04:53 Hgb 12.1 g/dL (12.0-15.5) 11/09/18 04:53 Hct 36.6 % (36.0-47.0) 11/09/18 04:53 MCV 87 fl (80-97) 11/09/18 04:53 MCH 28.6 pg (27.0-33.4) 11/09/18 04:53 MCHC 32.9 g/dL (32.0-36.0) 11/09/18 04:53 RDW 15.9 % (11.5-14.0) H 11/09/18 04:53 Plt Count 247 10^3/uL (150-450) 11/09/18 04:53 Lymph % (Auto) 19.0 % (13-45) 11/09/18 04:53 [place] % (Auto) 8.1 % (3-13) 11/09/18 04:53 Eos % (Auto) 2.5 % (0-6) 11/09/18 04:53 Baso % (Auto) 1.2 % (0-2) 11/09/18 04:53 Absolute Neuts (auto) 4.9 10^3/uL (1.7-8.2) 11/09/18 04:53 Absolute Lymphs (auto) 1.4 10^3/uL (0.5-4.7) 11/09/18 04:53 Absolute Monos (auto) 0.6 10^3/uL (0.1-1.4) 11/09/18 04:53 Absolute Eos (auto) 0.2 10^3/uL (0.0-0.6) 11/09/18 04:53 Absolute Basos (auto) 0.1 10^3/uL (0.0-0.2) 11/09/18 04:53 Seg Neutrophils % 69.2 % (42-78) 11/09/18 04:53 PT 14.6 SEC (11.4-15.4) 11/06/18 23:59 INR 1.13 11/06/18 23:59 APTT 30.5 SEC (23.5-35.8) 11/06/18 23:59 VBG pH 7.33 (7.30-7.42) 11/06/18 19:23 VBG pCO2 58.9 mmHg (35-63) 11/06/18 19:23 VBG HCO3 30.1 mmol/L (20-32) 11/06/18 19:23 VBG Base Excess 2.7 mmol/L 11/06/18 19:23 Sodium 138.3 mmol/L (137-145) 11/06/18 23:59 Potassium 5.4 mmol/L (3.6-5.0) H 11/06/18 23:59 Chloride 109 mmol/L (98-107) H 11/06/18 23:59 Carbon Dioxide 21 mmol/L (22-30) L 11/06/18 23:59 Anion Gap 8 (5-19) 11/06/18 23:59 BUN 41 mg/dL (7-20) H 11/06/18 23:59 Creatinine 1.55 mg/dL (0.52-1.25) H 11/06/18 23:59 Est GFR ( Amer) 38 (>60) L 11/06/18 23:59 Est GFR (Non-Af Amer) Cancelled 11/06/18 19:23 Est GFR (MDRD) Non-Af 32 (>60) L 11/06/18 23:59 Glucose 97 mg/dL (75-110) 11/06/18 23:59 POC Glucose 90 mg/dL (70-110) 11/06/18 19:11 Hemoglobin A1c % 5.7 % (4.7-6.0) 11/07/18 06:11 Lactic Acid 1.3 mmol/L (0.7-2.1) 11/06/18 19:23 Calcium 9.1 mg/dL (8.4-10.2) 11/06/18 23:59 Phosphorus 3.9 mg/dL (2.5-4.5) 11/06/18 23:59 Magnesium 2.3 mg/dL (1.6-2.3) 11/06/18 23:59 Total Bilirubin 0.5 mg/dL (0.2-1.3) 11/09/18 04:53 Direct Bilirubin 0.1 mg/dL (0.0-0.4) 11/09/18 04:53 Neonat Total Bilirubin Not Reportable 11/09/18 04:53 Neonat Direct Bilirubin Not Reportable 11/09/18 04:53 Neonat Indirect Bili Not Reportable 11/09/18 04:53 AST 20 U/L (14-36) 11/09/18 04:53 ALT 11 U/L (<35) 11/09/18 04:53 Alkaline Phosphatase 94 U/L (38-126) 11/09/18 04:53 Ammonia < 8.7 umol/L (9-33) L 11/06/18 23:59 CK-MB (CK-2) 0.94 ng/mL (<4.55) 11/07/18 11:45 Troponin I < 0.012 ng/mL 11/07/18 11:45 Total Protein 6.6 g/dL (6.3-8.2) 11/09/18 04:53 Albumin 3.0 g/dL (3.5-5.0) L 11/09/18 04:53 Amylase 65 U/L (30-110) 11/06/18 23:59 EGFR Cancelled 11/06/18 19:23 TSH 3.11 uIU/mL (0.47-4.68) 11/06/18 23:59 Free T4 2.34 ng/dL (0.78-2.19) H 11/06/18 23:59 Urine Color YELLOW 11/06/18 20:05 Urine Appearance CLEAR 11/06/18 20:05 Urine pH 6.0 (5.0-9.0) 11/06/18 20:05 Ur Specific [place] 1.019 11/06/18 20:05 Urine Protein NEGATIVE mg/dL (NEGATIVE) 11/06/18 20:05 Urine Glucose (UA) NEGATIVE mg/dL (NEGATIVE) 11/06/18 20:05 Urine Ketones NEGATIVE mg/dL (NEGATIVE) 11/06/18 20:05 Urine Blood NEGATIVE (NEGATIVE) 11/06/18 20:05 Urine Nitrite NEGATIVE (NEGATIVE) 11/06/18 20:05 Urine Bilirubin NEGATIVE (NEGATIVE) 11/06/18 20:05 Urine Urobilinogen NEGATIVE mg/dL (<2.0) 11/06/18 20:05 Ur Leukocyte Esterase NEGATIVE (NEGATIVE) 11/06/18 20:05 Urine WBC (Auto) 2 /HPF 11/06/18 20:05 Urine RBC (Auto) 1 /HPF 11/06/18 20:05 U Hyaline Cast (Auto) 1 /LPF 11/06/18 20:05 Urine Bacteria (Auto) TRACE /HPF 11/06/18 20:05 Squamous Epi Cells Auto 1 /HPF 11/06/18 20:05 Urine Mucus (Auto) RARE /LPF 11/06/18 20:05 Urine Ascorbic Acid NEGATIVE (NEGATIVE) 11/06/18 20:05 11/06/18 11/06/18 11/06/18 19:23 20:21 23:59 CK-MB (CK-2) 0.30 Troponin I Cancelled < 0.012 < 0.012 11/07/18 11/07/18 06:11 11:45 CK-MB (CK-2) 0.66 0.94 Troponin I < 0.012 < 0.012 Impressions: Chest X-Ray 11/06/18 19:02 IMPRESSION: NO ACUTE RADIOGRAPHIC FINDING IN THE CHEST. Head CT 11/06/18 19:25 IMPRESSION: 1. No acute intracranial abnormalities. Nonspecific white matter change most likely small vessel ischemic disease, age indeterminate. 2. CT is insensitive for early evaluation of acute stroke. If there is clinical concern for acute ischemia, an MRI may be considered. TECHNICAL DOCUMENTATION: Quality ID # 436: Final reports with documentation of one or more dose reduction techniques (e.g., Automated exposure control, adjustment of the mA and/or kV according to patient size, use of iterative reconstruction technique) copyright 2011 [employer]- All Rights Reserved Head MRI 11/07/18 00:00 IMPRESSION: Very limited study. No MR evidence of acute large territory ischemic change. Mild chronic small vessel ischemic change in the bifrontal and biparietal and mid pontine regions. EVIDENCE OF ACUTE STROKE: NO. Stroke Is this a Stroke Patient?: No Stroke Pt being discharged on Anti-thrombolytic therapy?: No Reason(s) for not prescribing Anti-thrombolytic therapy:: Not indicated Stroke Pt being discharged on Anti-coagulation therapy?: No Reason(s) for not prescribing Anti-coagulation therapy:: Not indicated Stroke Pt being discharged on Statins?: No Reason(s) for not prescribing Statins therapy:: Not indicated Acute Heart Failure - Is this a Heart Failure Patient?: No c) Discharged on ARNI?: Yes
[2018-11-10] MEDS: RINGERS SOLUTION,LACTATED 1,000 ML IV PRN (03:07)
[2018-11-10] MEDS: METOPROLOL SUCCINATE 50 MG TAB.SR.24H PO SCH (09:29)
[2018-11-10] MEDS: ENOXAPARIN SODIUM INJ 30 MG/0.3 ML DISP.SYRIN SUBCUT SCH (09:32)
[2018-11-10 10:55] VITALS: BP 142/59
== END 2018-11-10 10:42 | disposition home or self-care (01) | DRG 56 ==
LOC: ER 18:56 → EH 21:37 → 3W 23:20
PROVIDERS: ADMIT Internal Medicine; ATTEND Internal Medicine
DX: G30.9 Alzheimer's disease, unspecified (principal); G92 Toxic encephalopathy; N17.9 Acute kidney failure, unspecified; F02.80 Dementia in other diseases classified elsewhere, unspecified severity, without behavioral disturbance, psychotic disturbance, mood disturbance, and anxiety; I10 Essential (primary) hypertension; J44.9 Chronic obstructive pulmonary disease, unspecified; K21.9 Gastro-esophageal reflux disease without esophagitis; M05.10 Rheumatoid lung disease with rheumatoid arthritis of unspecified site
CPT/HCPCS: 36415; 70450; 70551; 71045; 80053; 80076; 81001; 82140; 82150; 82553; 82803; 82962; 83036; 83605; 83735; 84100; 84439; 84443; 84484; 85025; 85610; 85730; 87040; 87086; 87088; 87186; 93005; 93010; 95819; 96361; 96365; 99285; J0696; J1630; J1650; J7030; J7120

== ENCOUNTER 2018-11-28 21:41 | Inpatient (IN) | payer MEDICARE, BC ==
[2018-11-28 22:19] LABS: ABSOLUTE LYMPHOCYTES (AUTO) 0.7 10^3/uL (0.5-4.7); ABSOLUTE MONOCYTES (AUTO) 0.4 10^3/uL (0.1-1.4); ABSOLUTE NEUT (AUTO) 10.4 10^3/uL (1.7-8.2); BASOPHILS % (AUTO) 0.3 % (0-2); EOSINOPHILS % (AUTO) 0.1 % (0-6); HEMATOCRIT 42.9 % (36.0-47.0); HEMOGLOBIN 13.7 g/dL (12.0-15.5); LYMPHOCYTES % (AUTO) 6.2 % (13-45); MEAN CORPUSCULAR HEMOGLOBIN 28.6 pg (27.0-33.4); MEAN CORPUSCULAR HGB CONC 31.8 g/dL (32.0-36.0); MEAN CORPUSCULAR VOLUME 90 fl (80-97); MONOCYTES % (AUTO) 3.4 % (3-13); PLATELET COUNT 307 10^3/uL (150-450); RED BLOOD COUNT 4.78 10^6/uL (3.72-5.28); TOTAL CELLS COUNTED % (AUTO) 100 %; WHITE BLOOD COUNT 11.6 10^3/uL (4.0-10.5)
[2018-11-28] MEDS ORDERED: NORMAL SALINE 1000 ML 1,000 ML IV ONE ×2 (22:21→22:41)
--- NOTE | 2018-11-28 22:21 | ER Document Report ---
ED General - General Stated Complaint: ALTERED MENTAL STATUS Time Seen by Provider: 11/28/18 21:57 Primary Care Provider: MALIK RAYMUNDO MD [Primary Care Provider] - Follow up as needed TRAVEL OUTSIDE OF THE [place] IN LAST 30 DAYS: No - HPI Notes: Patient is an 88-year-old female with a history of rheumatoid arthritis with rheumatoid lung nodules, tachycardia, advanced dementia, hypertension, previous pneumonias/UTIs, generally bedbound who presents with family with concern of being altered from her baseline over the past couple days. Daughter states that she has had decreased p.o. intake over the last few days, but grossly over the past month. She has had decreased urinary output today. Daughter states that they have also had to use suction on her couple times in the past day which they usually do not have to do. Daughter states that she has sounded a little raspy at times with an occasional cough, but is unable to adequately cough up any sputum. Daughter states that she has not been as responsive as normal. She has had a couple states recently here in the hospital. EMS reports that when the fire department got to their house, she had an oxygen saturation at 80%. Per daughter: Denies any fever, eye redness, nasal isidoro/discharge, excessive drooling, wheeze, syncope, abd pain, n/v/d/c, melena, hematochezia, malodorous urine, hematuria, urinary retention, or rash. - Related Data Allergies/Adverse Reactions: No Known Allergies Allergy (Verified 10/13/17 16:40) Past Medical History - Social History Smoking Status: Former Smoker Family History: None, Reviewed & Not Pertinent, CAD, COPD, CVA - Past Medical History Cardiac Medical History: Reports: Hx Hypertension Pulmonary Medical History: Reports: Hx COPD, Hx Pneumonia Renal/ Medical History: Denies: Hx Kidney Stones, Hx Peritoneal Dialysis GI Medical History: Reports: Hx Gastroesophageal Reflux Disease Musculoskeletal Medical History: Reports Hx Arthritis - Rheumatoid arthritis, Denies Hx Muscular Dystrophy Psychiatric Medical History: Reports: Hx Dementia Traumatic Medical History: Denies: Hx Fractures Past Surgical History: Reports: Hx Appendectomy, Hx Hysterectomy. Denies: Hx Bowel Surgery - Immunizations Hx Diphtheria, Pertussis, Tetanus Vaccination: Yes Hx Pneumococcal Vaccination: 02/08/06 Review of Systems - Review of Systems -: Yes ROS unobtainable due to patient's medical condition - per daughter Physical Exam - Vital signs Vitals: Resp Pulse Ox 12 99 11/28/18 21:56 11/28/18 21:56 - Notes Notes: PHYSICAL EXAMINATION: GENERAL: cachectic. Will turn her eyes towards you when trying to communicate with her, but is otherwise staring upward. No resp. distress noted at this time. Pt on non-rebreather and O2 is 100%. HR fluctuates from 95-125. RR 19 currently. HEAD: Atraumatic, normocephalic. EYES: Pupils equal round and reactive to light, extraocular movements intact, sclera anicteric, conjunctiva are normal. ENT: Nares patent and without discharge. oropharynx clear without exudates. No tonsilar hypertrophy or erythema. somewhat dry vs mildly moist mucous membranes. NECK: Normal range of motion, supple without lymphadenopathy LUNGS: diminished b/l. Pt not taking deep breaths to hear very well. HEART: Regular rate and rhythm ABDOMEN: Soft, nontender, nondistended abdomen. No guarding, no rebound. Normal bowel sounds present. Musculoskeletal: FROM to passive/active. Strength 4+/5 b/l. Extremities: No cyanosis, clubbing, or edema b/l. Peripheral pulses 2+. Capillary refill less than 3 seconds. NEUROLOGICAL: Cranial nerves grossly intact with limited exam otherwise due to condition. GCS 15. PSYCH: Flat affect. SKIN: Warm, Dry, normal turgor, no rashes or lesions noted. Course - Re-evaluation Re-evalutation: 11/28/18 22:21 We will perform an AMS work up to further evaluate along with partial septic work up at this time. Vitals are currently acceptable, pt on non-rebreather. Pt currently full code per family. 11/28/18 23:07 Dr. Salomon consulted due to abnormal VBG/labs. We will obtain an Arterial blood gas. Have bipap on standby until those results come back and we tuned down the nonrebreather. Fluids have been running. 11/29/18 00:07 Dr. Salomon agrees with admit/plan. I spoke with Dr. Raymundo who accepted patient for admit to [facility]. ABG acceptable. We will hold on BiPAP at this time. Troponin was reviewed with Dr. Raymundo as well. No acute ST-T changes on EKG. Patient does appear to have possible early UTI with encephalopathy versus advanc ing dementia. Vitals are currently acceptable. Patient has been receiving fluids as well as antibiotics IV. Family is in agreement with admission. - Vital Signs Vital signs: Temp Pulse Resp BP Pulse Ox 99.6 F 12 149/86 H 100 11/28/18 22:02 11/28/18 22:00 11/28/18 22:00 11/28/18 22:00 - Laboratory Result Diagrams: 11/28/18 22:00 11/28/18 22:00 Laboratory results interpreted by me: 11/28/18 11/28/18 11/28/18 22:00 22:00 22:00 WBC 11.6 H MCHC 31.8 L RDW 17.0 H Lymph % (Auto) 6.2 L Absolute Neuts (auto) 10.4 H Seg Neutrophils % 90.0 H Carbonic Acid ABG pH ABG pCO2 ABG pO2 ABG HCO3 ABG Total CO2 ABG O2 Saturation VBG pH VBG pCO2 Potassium 5.4 H BUN 40 H Creatinine 1.30 H Est GFR ( Amer) 47 L Est GFR (MDRD) Non-Af 39 L Glucose 115 H Lactic Acid 2.4 H Urine Blood Urine Urobilinogen Leukocyte Esterase Rfl 11/28/18 11/28/18 11/28/18 22:00 22:40 23:14 WBC MCHC RDW Lymph % (Auto) Absolute Neuts (auto) Seg Neutrophils % Carbonic Acid 1.52 H ABG pH 7.31 L ABG pCO2 50.4 H ABG pO2 164.3 H ABG HCO3 25.0 H ABG Total CO2 26.6 H ABG O2 Saturation 98.9 H VBG pH 7.19 L* VBG pCO2 85.1 H* Potassium BUN Creatinine Est GFR ( Amer) Est GFR (MDRD) Non-Af Glucose Lactic Acid Urine Blood SMALL H Urine Urobilinogen 2.0 H Leukocyte Esterase Rfl TRACE H Discharge - Discharge Clinical Impression: Encephalopathy, unspecified, Acute UTI (urinary tract infection) Alzheimer disease Qualifiers: Alzheimer's disease onset: unspecified onset Dementia behavioral disturbance: without behavioral disturbance Qualified Code(s): G30.9 - Alzheimer's disease, unspecified Condition: Fair Disposition: ADMITTED INPATIENT Admitting Provider: [facility] Unit Admitted: IMCU Referrals: MALIK RAYMUNDO MD [Primary Care Provider] - Follow up as needed
[2018-11-28 22:29] LABS: INTERNATIONAL RATION (INR) 1.06; PROTHROMBIN TIME 13.8 SEC (11.4-15.4)
[2018-11-28 22:38] LABS: ALBUMIN 3.7 g/dL (3.5-5.0); ALKALINE PHOSPHATASE 118 U/L (38-126); ANION GAP 12 (5-19); ASPARTATE AMINO TRANSFERASE 26 U/L (14-36); BILIRUBIN,DIRECT 0.3 mg/dL (0.0-0.4); BILIRUBIN,TOTAL 0.5 mg/dL (0.2-1.3); BLOOD UREA NITROGEN 40 mg/dL (7-20); CALCIUM 9.8 mg/dL (8.4-10.2); CARBON DIOXIDE 27 mmol/L (22-30); CHLORIDE 106 mmol/L (98-107); GLUCOSE 115 mg/dL (75-110); POTASSIUM 5.4 mmol/L (3.6-5.0); TOTAL PROTEIN 7.9 g/dL (6.3-8.2)
--- NOTE | 2018-11-28 22:39 | RADIOLOGY REPORT (SQ) ---
EXAM DESCRIPTION: [facility]: XR CHEST 1 VIEW CLINICAL HISTORY: 88 years Female, AMS/FEVER COMPARISON: 11/06/2018 FINDINGS: Lungs are clear, with no focal infiltrate, pneumothorax, or pleural effusion. Aortic calcifications are again noted. No mediastinal widening. Heart size is normal. Old right humeral fracture is partially visualized. Mild thoracic scoliosis is again noted. There has been kyphoplasty of at least 2 thoracic vertebrae, as on prior exam. No acute bone findings. IMPRESSION: 1. No acute pulmonary findings. 2. No significant change since 11/06/2018
[2018-11-28 22:42] LABS: VENOUS BLOOD HCO3 31.8 mmol/L (20-32)
[2018-11-28] MEDS ORDERED: VANCOMYCIN HCL INJ 1000 MG VIAL IV ONE (22:43)
[2018-11-28 22:53] LABS: VENOUS BLOOD PCO2 85.1 mmHg (35-63); VENOUS BLOOD PH 7.19 (7.30-7.42)
[2018-11-28] MEDS ORDERED: ACETAMINOPHEN 650 MG SUPP.RECT PR ONE (23:03)
[2018-11-28 23:06] LABS: APPEARANCE,URINE CLOUDY; BILIRUBIN,URINE NEGATIVE (NEGATIVE); COLOR,URINE YELLOW; GLUCOSE, URINE NEGATIVE (NEGATIVE); KETONES,URINE NEGATIVE (NEGATIVE); PROTEIN,URINE NEGATIVE (NEGATIVE); URINE SPECIFIC GRAVITY 1.018
[2018-11-28 23:33] LABS: ARTERIAL BLOOD BASE EXCESS -1.7 mmol/L; ARTERIAL BLOOD H2CO3 1.52 mmol/L (1.05-1.35); ARTERIAL BLOOD O2 SATURATION 98.9 % (94-98); ARTERIAL BLOOD PCO2 50.4 mmHg (35-45); ARTERIAL BLOOD PH 7.31 (7.35-7.45); ARTERIAL BLOOD PO2 164.3 mmHg (80-100); ARTERIAL BLOOD TOTAL CO2 26.6 mmol/L (21-25)
[2018-11-28 23:38] LABS: ARTERIAL BLOOD FIO2 100%
[2018-11-28] MEDS ORDERED: CEFTRIAXONE 1 GM/D5W RTU 1 GM/50 ML RTUPB IV ONE (23:59)
[2018-11-29] MEDS: DEXTROSE 5%-NORMAL SALINE 1,000 ML IV PRN ×2 (04:42→21:59)
--- NOTE | 2018-11-29 09:27 | EKG REPORT ---
SEVERITY:- ABNORMAL ECG - SINUS TACHYCARDIA LEFT VENTRICULAR HYPERTROPHY NONSPECIFIC T ABNORMALITIES, INFERIOR LEADS : Confirmed by: Tayla Beltran MD 29-Nov-2018 09:26:32
--- NOTE | 2018-11-29 19:55 | PDOC H&P ---
History of Present Illness Admission Date/PCP: 11/29/18 00:15 MALIK RAYMUNDO MD History of Present Illness: MARLYS TORRES is a 88 year old female,She has history of advanced dementia, 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 According to the ER record, patient's daughter stated that patient was altered from her baseline cognition over the past couple of days, she also stated that patient has had decreased p.o. intake, decreased urinary output. She also stated that they have also had to use suction on many occasions.Patient was evaluated in the emergency room, arterial blood gas was done, pH 7.31, PCO2 50.4, PO2 164.3, bicarbonate 25.0 on FiO2 100%. History could not be obtained from patient because she was very stuporous. Patient is well-known to me from previous many encounters, she has advanced dementia, progressive, the intake has diminished tremendously, family does not want a feeding tube which I am in total agreement with,Her condition has been progressively declining, patient is to be a full code, she was treated previously on medication for UTIs and pneumonia, the acute respiratory acidosis that she is presently experiencing is most likely from central etiology.Patient overall prognosis is very poor, I had a long discussion with the patient's family about prognosis, very strong family, they understood that patient condition is poor, patient spouse is also of advanced age, patient's daughter is an RN, they well understood the overall pro gnosis. Patient requires noninvasive positive pressure ventilation with BiPAP. Past Medical History Cardiac Medical History: Reports: Hypertension Pulmonary Medical History: Reports: Chronic Obstructive Pulmonary Disease (COPD), Pneumonia GI Medical History: Reports: Gastroesophageal Reflux Disease Musculoskeltal Medical History: Reports: Arthritis - Rheumatoid arthritis Psychiatric Medical History: Reports: Dementia Past Surgical History Past Surgical History: Reports: Appendectomy, Hysterectomy Social History Smoking Status: Former Smoker Frequency of Alcohol Use: None Hx Recreational Drug Use: No Drugs: None Hx Prescription Drug Abuse: No - Advance Directive Resuscitation Status: Full Code Family History Family History: None, Reviewed & Not Pertinent, CAD, COPD, CVA Parental Family History Reviewed: Yes Children Family History Reviewed: Yes Sibling(s) Family History Reviewed.: Yes Medication/Allergy Home Medications: Metoprolol Succinate [Toprol Xl 50 mg Tab.sr] 50 mg PO DAILY 11/29/18 Allergies/Adverse Reactions: No Known Allergies Allergy (Verified 10/13/17 16:40) Review of Systems ROS unobtainable: Other - Advanced dementia very stuporous Physical Exam Vital Signs: Temp Pulse Resp BP Pulse Ox 97.3 F 73 17 149/68 H 100 11/29/18 09:10 11/29/18 14:00 11/29/18 09:10 11/29/18 09:10 11/29/18 09:10 Intake & Output 11/28/18 11/29/18 11/30/18 06:59 06:59 06:59 Intake Total 2049 Balance 2049 Weight 73.7 kg General appearance: PRESENT: severe distress Head exam: PRESENT: atraumatic Eye exam: PRESENT: PERRLA Neck exam: PRESENT: full ROM Respiratory exam: PRESENT: clear to auscultation [place] Cardiovascular exam: PRESENT: RRR, +S1, +S2 GI/Abdominal exam: PRESENT: normal bowel sounds, soft Rectal exam: PRESENT: deferred Neurological exam: PRESENT: altered Psychiatric exam: PRESENT: appropriate affect, normal mood Skin exam: PRESENT: dry, intact, warm Results Laboratory Results: 11/28/18 22:00 11/28/18 22:00 11/28/18 11/28/18 11/28/18 22:00 22:00 22:00 WBC 11.6 H RBC 4.78 Hgb 13.7 Hct 42.9 MCV 90 MCH 28.6 MCHC 31.8 L RDW 17.0 H Plt Count 307 Seg Neutrophils % 90.0 H Carbonic Acid HCO3/H2CO3 Ratio ABG pH ABG pCO2 ABG pO2 ABG HCO3 ABG O2 Saturation ABG Base Excess VBG pH VBG pCO2 VBG HCO3 VBG Base Excess FiO2 Sodium 144.7 Potassium 5.4 H Chloride 106 Carbon Dioxide 27 Anion Gap 12 BUN 40 H Creatinine 1.30 H Est GFR ( Amer) 47 L Glucose 115 H Lactic Acid 2.4 H Calcium 9.8 Total Bilirubin 0.5 AST 26 Alkaline Phosphatase 118 Total Protein 7.9 Albumin 3.7 Urine Color Urine Appearance Urine pH Ur Specific [place] Urine Protein Urine Glucose (UA) Urine Ketones Urine Blood Urine RBC (Auto) 11/28/18 11/28/18 11/28/18 22:00 22:40 23:14 WBC RBC Hgb Hct MCV MCH MCHC RDW Plt Count Seg Neutrophils % Carbonic Acid 1.52 H HCO3/H2CO3 Ratio 16:1 ABG pH 7.31 L ABG pCO2 50.4 H ABG pO2 164.3 H ABG HCO3 25.0 H ABG O2 Saturation 98.9 H ABG Base Excess -1.7 VBG pH 7.19 L* VBG pCO2 85.1 H* VBG HCO3 31.8 VBG Base Excess 1.0 FiO2 100% Sodium Potassium Chloride Carbon Dioxide Anion Gap BUN Creatinine Est GFR ( Amer) Glucose Lactic Acid Calcium Total Bilirubin AST Alkaline Phosphatase Total Protein Albumin Urine Color YELLOW Urine Appearance CLOUDY Urine pH 5.0 Ur Specific [place] 1.018 Urine Protein NEGATIVE Urine Glucose (UA) NEGATIVE Urine Ketones NEGATIVE Urine Blood SMALL H Urine RBC (Auto) 2 11/28/18 22:00 Troponin I 0.106 Impressions: Chest X-Ray 11/28/18 21:46 IMPRESSION: 1. No acute pulmonary findings. 2. No significant change since 11/06/2018 Assessment & Plan - Diagnosis (1) Acute hypercapnic respiratory failure Is this a current diagnosis for this admission?: Yes Plan: She has acute hypercapnic respiratory failure,The etiology is multifactorial inc luding advanced dementia,COPD, the chest x-ray did not demonstrate any acute pathology there is no pneumonia (2) Advanced dementia Is this a current diagnosis for this admission?: Yes Plan: Supportive care
[2018-11-29] MEDS: NYSTATIN CREAM 15 GM TP SCH (22:01)
[2018-11-30] MEDS ORDERED: INFLUENZA QUAD (6MOS+) 2019-20 VAC 0.5 ML SYR IM ONE (08:00)
[2018-11-30] MEDS: NYSTATIN CREAM 15 GM TP SCH (10:00)
--- NOTE | 2018-11-30 18:18 | PDOC PROGRESS REPORT ---
Subjective Progress Note for:: 11/30/18 Subjective:: Patient seen by the bedside, she is more alert today, yesterday she required the noninvasive positive pressure ventilation, today she is not requiring it Reason For Visit: ALZHEIMER DISEASE, ENCEPHALOPATHY Physical Exam Vital Signs: Temp Pulse Resp BP Pulse Ox 97.5 F 80 16 152/61 H 99 11/30/18 04:03 11/30/18 14:00 11/30/18 08:09 11/30/18 08:09 11/30/18 08:09 Intake & Output 11/29/18 11/30/18 12/01/18 06:59 06:59 06:59 Intake Total 2049 1200 720 Balance 2049 1200 720 Weight 73.7 kg 76.2 kg 76.2 kg General appearance: PRESENT: no acute distress Eye exam: PRESENT: PERRLA Respiratory exam: PRESENT: clear to auscultation [place] Cardiovascular exam: PRESENT: +S1, +S2 GI/Abdominal exam: PRESENT: soft Neurological exam: PRESENT: alert Results Laboratory Results: 11/28/18 22:00 11/28/18 22:00 11/28/18 22:00 Troponin I 0.106 Impressions: Chest X-Ray 11/28/18 21:46 IMPRESSION: 1. No acute pulmonary findings. 2. No significant change since 11/06/2018 Assessment & Plan - Diagnosis (1) Acute hypercapnic respiratory failure Is this a current diagnosis for this admission?: Yes Plan: Continue noninvasive positive pressure ventilation as needed (2) Advanced dementia Is this a current diagnosis for this admission?: Yes Plan: Continue supportive care - Time Time Spent with patient: 25-34 minutes
[2018-11-30] MEDS: NYSTATIN TOPICAL POWDER 15 GM TP SCH (19:04)
[2018-12-01] MEDS: DEXTROSE 5%-NORMAL SALINE 1,000 ML IV PRN ×2 (02:38→17:33)
[2018-12-01] MEDS: NYSTATIN TOPICAL POWDER 15 GM TP SCH ×3 (10:01→17:26)
--- NOTE | 2018-12-01 13:10 | PDOC PROGRESS REPORT ---
Subjective Progress Note for:: 12/01/18 Subjective:: The urine culture was positive for MRSA, MRSA is not a typical uropathogen, MRSA in the urine is a reflection of distant source. The MRSA colony count is more than 100,000 suggesting significant count.There is no apparent source of infection, she will be treated with IV vancomycin for 7 to 10 days, the plan of care was explained to the family Reason For Visit: ALZHEIMER DISEASE, ENCEPHALOPATHY Physical Exam Vital Signs: Temp Pulse Resp BP Pulse Ox 97.5 F 66 20 186/78 H 97 12/01/18 04:12 12/01/18 07:00 12/01/18 04:12 12/01/18 04:12 12/01/18 04:12 Intake & Output 11/30/18 12/01/18 12/02/18 06:59 06:59 06:59 Intake Total 1200 1720 Balance 1200 1720 Weight 76.2 kg 79.4 kg General appearance: PRESENT: no acute distress Eye exam: PRESENT: PERRLA Respiratory exam: PRESENT: clear to auscultation [place] Cardiovascular exam: PRESENT: +S1, +S2 GI/Abdominal exam: PRESENT: soft Neurological exam: PRESENT: alert Results Laboratory Results: 11/28/18 22:00 11/28/18 22:00 11/28/18 22:40 Catheterized Urine Urine Culture - Final Mrsa (Meth Resis Staph Aureus) 11/28/18 22:00 Troponin I 0.106 Impressions: Chest X-Ray 11/28/18 21:46 IMPRESSION: 1. No acute pulmonary findings. 2. No significant change since 11/06/2018 Assessment & Plan - Diagnosis (1) Acute hypercapnic respiratory failure Is this a current diagnosis for this admission?: Yes Plan: Patient is back to full alertness, respond to treatment speech was clear today compared to previously when the speech is unintelligible (2) Advanced dementia Is this a current diagnosis for this admission?: Yes Plan: Progressive dementia (3) MRSA (methicillin resistant Staphylococcus aureus) infection Is this a current diagnosis for this admission?: Yes Plan: Start vancomycin, pharmacy to dose (4) Urinary tract infection Qualifiers: Urinary tract infection type: site unspecified Hematuria presence: without hematuria Qualified Code(s): N39.0 - Urinary tract infection, site not specified Is this a current diagnosis for this admission?: Yes Plan: MRSA is not a uropathogen, MRSA in the urine is a sign of a distant source but no source is apparent at this time, she will be treated with IV vancomycin for 7 to 10 days - Time Time Spent with patient: 35 or more minutes
[2018-12-01] MEDS ORDERED: VANCOMYCIN HCL 0 MG in DEXTROSE 5%-WATER 250 ML IV NR (13:15)
[2018-12-01] MEDS: VANCOMYCIN HCL 1,000 MG in DEXTROSE 5%-WATER 250 ML IV SCH (17:27)
[2018-12-02] MEDS: NYSTATIN TOPICAL POWDER 15 GM TP SCH ×3 (10:59→17:30)
[2018-12-02] MEDS: DEXTROSE 5%-NORMAL SALINE 1,000 ML IV PRN (11:01)
[2018-12-02] MEDS: METOPROLOL SUCCINATE 50 MG TAB.SR.24H PO SCH (15:58)
[2018-12-02] MEDS ORDERED: NORMAL SALINE 10 ML SDV (AFTER EACH USE) IV PRN (16:00)
--- NOTE | 2018-12-02 16:01 | RADIOLOGY REPORT (SQ) ---
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 FLUOROSCOPY TIME: 41 seconds 1 image saved to PACS. TECHNIQUE: The procedure, risks, benefits, and alternatives were discussed with the patient in the p reprocedural area, and all questions were answered. Informed consent was obtained verbally and in wri ting. The patient was then brought to the procedural suite, positioned supine on the fluoroscopy table, and a time-out was performed. At first the right upper extremity was evaluated with ultrasound and the brachial vein was found to b e patent and compressible. The right upper extremity was then prepped and draped with 2% chlorhexidin e utilizing standard sterile technique. After the skin over the brachial vein was anesthetized with 1 % lidocaine, ultrasound guidance was used to access the vessel with a 21-gauge needle - a sonographic image was stored for documentation. A 0.018 inch guidewire was then inserted through the needle and advanced under fluoroscopic guidance into the SVC. After that, the needle was exchanged over the guid ewire for a peel-away sheath. A 5 Chinese double -lumen PICC was then cut to the appropriate length of 40 cm, inserted through the sheath and advanced under fluoroscopic guidance into the SVC. After that , the peel-away sheath was removed and a fluoroscopic image of the chest was obtained to confirm prop er position of the catheter tip within SVC. The lumens of the PICC were then aspirated, flushed with sterile saline and heparinized. At the end of the procedure the PICC was secured in place and a sterile dressing applied over it. The patient tolerated the procedure well without immediate complication. At the end of the procedure the patient's condition was unchanged from the preprocedural baseline. No IV conscious sedation was administered. Physiologic monitoring was provided before, during, and after the procedure. Documentation of [id number] time performing proceduralist spent monitoring the patient: 15 minutes. LIMITATIONS: None. PROCEDURE: Placement of a 5 Chinese double-lumen PICC utilizing fluoroscopic and sonographic guidance . IMPRESSION: SUCCESSFUL PLACEMENT OF A 5 POLISH X 40 CM DOUBLE LUMEN PICC VIA THE RIGHT BRACHIAL VEIN UTILIZING SONOGRAPHIC AND FLUOROSCOPIC GUIDANCE. COMMENT: Patient medication list reviewed: Yes- Quality ID# 130:Eligible professional attests to doc umenting in the medical record they obtained, updated, or reviewed the patient's current medications. . Quality ID 145: Final reports for procedures using fluoroscopy that document radiation exposure beryl aj, or exposure time and number of fluorographic images (if radiation exposure indices are not avail able) Quality ID #76: The patient was prepped and draped using maximum sterile barrier technique including cap, mask, sterile gown, sterile gloves, a large sterile sheet, hand hygiene, and 2% Chlorhexidine fo r cutaneous antisepsis. When ultrasound is used, sterile ultrasound techniques are followed requiring sterile gel and sterile probes. TECHNICAL DOCUMENTATION: JOB ID: [id number] [employer]- All Rights Reserved Reading location - IP/workstation name: [email or web address]
--- NOTE | 2018-12-02 16:01 | RADIOLOGY REPORT (SQ) ---
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 FLUOROSCOPY TIME: 41 seconds 1 image saved to PACS. TECHNIQUE: The procedure, risks, benefits, and alternatives were discussed with the patient in the p reprocedural area, and all questions were answered. Informed consent was obtained verbally and in wri ting. The patient was then brought to the procedural suite, positioned supine on the fluoroscopy table, and a time-out was performed. At first the right upper extremity was evaluated with ultrasound and the brachial vein was found to b e patent and compressible. The right upper extremity was then prepped and draped with 2% chlorhexidin e utilizing standard sterile technique. After the skin over the brachial vein was anesthetized with 1 % lidocaine, ultrasound guidance was used to access the vessel with a 21-gauge needle - a sonographic image was stored for documentation. A 0.018 inch guidewire was then inserted through the needle and advanced under fluoroscopic guidance into the SVC. After that, the needle was exchanged over the guid ewire for a peel-away sheath. A 5 Italian double -lumen PICC was then cut to the appropriate length of 40 cm, inserted through the sheath and advanced under fluoroscopic guidance into the SVC. After that , the peel-away sheath was removed and a fluoroscopic image of the chest was obtained to confirm prop er position of the catheter tip within SVC. The lumens of the PICC were then aspirated, flushed with sterile saline and heparinized. At the end of the procedure the PICC was secured in place and a sterile dressing applied over it. The patient tolerated the procedure well without immediate complication. At the end of the procedure the patient's condition was unchanged from the preprocedural baseline. No IV conscious sedation was administered. Physiologic monitoring was provided before, during, and after the procedure. Documentation of [id number] time performing proceduralist spent monitoring the patient: 15 minutes. LIMITATIONS: None. PROCEDURE: Placement of a 5 Italian double-lumen PICC utilizing fluoroscopic and sonographic guidance . IMPRESSION: SUCCESSFUL PLACEMENT OF A 5 WOLOF X 40 CM DOUBLE LUMEN PICC VIA THE RIGHT BRACHIAL VEIN UTILIZING SONOGRAPHIC AND FLUOROSCOPIC GUIDANCE. COMMENT: Patient medication list reviewed: Yes- Quality ID# 130:Eligible professional attests to doc umenting in the medical record they obtained, updated, or reviewed the patient's current medications. . Quality ID 145: Final reports for procedures using fluoroscopy that document radiation exposure beryl aj, or exposure time and number of fluorographic images (if radiation exposure indices are not avail able) Quality ID #76: The patient was prepped and draped using maximum sterile barrier technique including cap, mask, sterile gown, sterile gloves, a large sterile sheet, hand hygiene, and 2% Chlorhexidine fo r cutaneous antisepsis. When ultrasound is used, sterile ultrasound techniques are followed requiring sterile gel and sterile probes. TECHNICAL DOCUMENTATION: JOB ID: [id number] [employer]- All Rights Reserved Reading location - IP/workstation name: [email or web address]
--- NOTE | 2018-12-02 16:01 | RADIOLOGY REPORT (SQ) ---
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 FLUOROSCOPY TIME: 41 seconds 1 image saved to PACS. TECHNIQUE: The procedure, risks, benefits, and alternatives were discussed with the patient in the p reprocedural area, and all questions were answered. Informed consent was obtained verbally and in wri ting. The patient was then brought to the procedural suite, positioned supine on the fluoroscopy table, and a time-out was performed. At first the right upper extremity was evaluated with ultrasound and the brachial vein was found to b e patent and compressible. The right upper extremity was then prepped and draped with 2% chlorhexidin e utilizing standard sterile technique. After the skin over the brachial vein was anesthetized with 1 % lidocaine, ultrasound guidance was used to access the vessel with a 21-gauge needle - a sonographic image was stored for documentation. A 0.018 inch guidewire was then inserted through the needle and advanced under fluoroscopic guidance into the SVC. After that, the needle was exchanged over the guid ewire for a peel-away sheath. A 5 Sami double -lumen PICC was then cut to the appropriate length of 40 cm, inserted through the sheath and advanced under fluoroscopic guidance into the SVC. After that , the peel-away sheath was removed and a fluoroscopic image of the chest was obtained to confirm prop er position of the catheter tip within SVC. The lumens of the PICC were then aspirated, flushed with sterile saline and heparinized. At the end of the procedure the PICC was secured in place and a sterile dressing applied over it. The patient tolerated the procedure well without immediate complication. At the end of the procedure the patient's condition was unchanged from the preprocedural baseline. No IV conscious sedation was administered. Physiologic monitoring was provided before, during, and after the procedure. Documentation of [id number] time performing proceduralist spent monitoring the patient: 15 minutes. LIMITATIONS: None. PROCEDURE: Placement of a 5 Sami double-lumen PICC utilizing fluoroscopic and sonographic guidance . IMPRESSION: SUCCESSFUL PLACEMENT OF A 5 [place] X 40 CM DOUBLE LUMEN PICC VIA THE RIGHT BRACHIAL VEIN UTILIZING SONOGRAPHIC AND FLUOROSCOPIC GUIDANCE. COMMENT: Patient medication list reviewed: Yes- Quality ID# [id number]:Eligible professional attests to doc umenting in the medical record they obtained, updated, or reviewed the patient's current medications. . Quality ID 145: Final reports for procedures using fluoroscopy that document radiation exposure beryl aj, or exposure time and number of fluorographic images (if radiation exposure indices are not avail able) Quality ID #76: The patient was prepped and draped using maximum sterile barrier technique including cap, mask, sterile gown, sterile gloves, a large sterile sheet, hand hygiene, and 2% Chlorhexidine fo r cutaneous antisepsis. When ultrasound is used, sterile ultrasound techniques are followed requiring sterile gel and sterile probes. TECHNICAL DOCUMENTATION: JOB ID: [id number] [employer]- All Rights Reserved Reading location - IP/workstation name: [email or web address]
--- NOTE | 2018-12-02 17:01 | Progress Note ---
Provider Note Provider Note: ID Consult Brief Note Asked by Pharmacy to comment on contact isolation in light of MRSA growth from catheterized urine specimen on 11/28. Whether isolated from the catheterized urine itself or the periurethral skin if there is contamination of the specimen or colonization of the tube, the isolation of MRSA from the patient's specimen indicates that she is at least colonized with the organism. Whether this finding necessitates contact isolation for the patient is a bit of a "renteria area." The Society for Healthcare Epidemiology of [place] [employer] (JACKSON) and the Infectious Diseases Society of [place] (IDSA) recommend contact precautions for MRSA-infected and colonized patients in acute care settings to control outbreaks, and educating the patients family about MRSA and recommended precautions may help to reduce their anxiety. However, in some facilites with excellent hand hygeine compliance and low rates of MRSA colonization/infection, there may not be a need for contact precautions. As such, I must defer to the hospital's infection control team and policies regarding this matter as it applies specifically to [facility]. The same is true for whether or not visitors are recommended to adhere to contact precautions. Kian Hathaway MD [facility] Infectious Diseases pager [phone]
[2018-12-02] MEDS: VANCOMYCIN HCL 1,000 MG in DEXTROSE 5%-WATER 250 ML IV SCH (17:30)
--- NOTE | 2018-12-02 19:57 | PDOC PROGRESS REPORT ---
Subjective Progress Note for:: 12/02/18 Subjective:: Patient seen by the bedside, she is alert more responsive Reason For Visit: ALZHEIMER DISEASE, ENCEPHALOPATHY Physical Exam Vital Signs: Temp Pulse Resp BP Pulse Ox 97.4 F 76 16 146/73 H 96 12/02/18 19:37 12/02/18 19:37 12/02/18 19:37 12/02/18 15:39 12/02/18 19:37 Intake & Output 12/01/18 12/02/18 12/03/18 06:59 06:59 06:59 Intake Total 1720 1610 1748 Balance 1720 1610 1748 Weight 79.4 kg 77 kg General appearance: PRESENT: no acute distress Eye exam: PRESENT: PERRLA Respiratory exam: PRESENT: clear to auscultation [place] Cardiovascular exam: PRESENT: +S1, +S2 GI/Abdominal exam: PRESENT: soft Neurological exam: PRESENT: alert Results Laboratory Results: 11/28/18 22:00 12/02/18 05:58 12/02/18 05:58 Creatinine 0.98 Est GFR ( Amer) > 60 11/28/18 22:00 Troponin I 0.106 Impressions: Chest X-Ray 11/28/18 21:46 IMPRESSION: 1. No acute pulmonary findings. 2. No significant change since 11/06/2018 Guidance Fluoroscopy 12/02/18 00:00 IMPRESSION: SUCCESSFUL PLACEMENT OF A 5 YEMENI X 40 CM DOUBLE LUMEN PICC VIA THE RIGHT BRACHIAL VEIN UTILIZING SONOGRAPHIC AND FLUOROSCOPIC GUIDANCE. Interventional Vascular Procedure 12/02/18 00:00 IMPRESSION: SUCCESSFUL PLACEMENT OF A 5 YEMENI X 40 CM DOUBLE LUMEN PICC VIA THE RIGHT BRACHIAL VEIN UTILIZING SONOGRAPHIC AND FLUOROSCOPIC GUIDANCE. PICC Line Insertion 12/02/18 06:00 IMPRESSION: SUCCESSFUL PLACEMENT OF A 5 YEMENI X 40 CM DOUBLE LUMEN PICC VIA THE RIGHT BRACHIAL VEIN UTILIZING SONOGRAPHIC AND FLUOROSCOPIC GUIDANCE. Assessment & Plan - Diagnosis (1) Acute hypercapnic respiratory failure Is this a current diagnosis for this admission?: Yes (2) Advanced dementia Is this a current diagnosis for this admission?: Yes (3) MRSA (methicillin resistant Staphylococcus aureus) infection Is this a current diagnosis for this admission?: Yes (4) Urinary tract infection Qualifiers: Urinary tract infection type: site unspecified Hematuria presence: without hematuria Qualified Code(s): N39.0 - Urinary tract infection, site not specified Is this a current diagnosis for this admission?: Yes Plan: Continue treatment - Time Time Spent with patient: 15-24 minutes
[2018-12-02] MEDS: NORMAL SALINE 10 ML SDV (SCHEDULED) IV SCH (21:09)
[2018-12-03] MEDS: DEXTROSE 5%-NORMAL SALINE 1,000 ML IV PRN ×2 (04:13→22:28)
[2018-12-03] MEDS: METOPROLOL SUCCINATE 50 MG TAB.SR.24H PO SCH (09:59)
[2018-12-03] MEDS: NYSTATIN TOPICAL POWDER 15 GM TP SCH ×3 (10:00→18:41)
[2018-12-03] MEDS: NORMAL SALINE 10 ML SDV (SCHEDULED) IV SCH ×2 (10:00→22:28)
--- NOTE | 2018-12-03 14:58 | PDOC PROGRESS REPORT ---
Subjective Progress Note for:: 12/03/18 Subjective:: Patient seen by the bedside, she is very stuporous today Reason For Visit: ALZHEIMER DISEASE, ENCEPHALOPATHY Physical Exam Vital Signs: Temp Pulse Resp BP Pulse Ox 97.8 F 60 17 151/73 H 97 12/03/18 11:56 12/03/18 11:56 12/03/18 11:56 12/03/18 11:56 12/03/18 11:56 Intake & Output 12/02/18 12/03/18 12/04/18 06:59 06:59 06:59 Intake Total 1610 2748 Balance 1610 2748 Weight 77 kg 79.9 kg General appearance: PRESENT: no acute distress Eye exam: PRESENT: PERRLA Respiratory exam: PRESENT: clear to auscultation [place] Cardiovascular exam: PRESENT: +S1, +S2 GI/Abdominal exam: PRESENT: soft Results Laboratory Results: 11/28/18 22:00 12/02/18 05:58 11/28/18 22:00 Troponin I 0.106 Impressions: Chest X-Ray 11/28/18 21:46 IMPRESSION: 1. No acute pulmonary findings. 2. No significant change since 11/06/2018 Guidance Fluoroscopy 12/02/18 00:00 IMPRESSION: SUCCESSFUL PLACEMENT OF A 5 [place] X 40 CM DOUBLE LUMEN PICC VIA THE RIGHT BRACHIAL VEIN UTILIZING SONOGRAPHIC AND FLUOROSCOPIC GUIDANCE. Interventional Vascular Procedure 12/02/18 00:00 IMPRESSION: SUCCESSFUL PLACEMENT OF A 5 [place] X 40 CM DOUBLE LUMEN PICC VIA THE RIGHT BRACHIAL VEIN UTILIZING SONOGRAPHIC AND FLUOROSCOPIC GUIDANCE. PICC Line Insertion 12/02/18 06:00 IMPRESSION: SUCCESSFUL PLACEMENT OF A 5 [place] X 40 CM DOUBLE LUMEN PICC VIA THE RIGHT BRACHIAL VEIN UTILIZING SONOGRAPHIC AND FLUOROSCOPIC GUIDANCE. Assessment & Plan - Diagnosis (1) Acute hypercapnic respiratory failure Is this a current diagnosis for this admission?: Yes (2) Advanced dementia Is this a current diagnosis for this admission?: Yes (3) MRSA (methicillin resistant Staphylococcus aureus) infection Is this a current diagnosis for this admission?: Yes (4) Urinary tract infection Qualifiers: Urinary tract infection type: site unspecified Hematuria presence: without hematuria Qualified Code(s): N39.0 - Urinary tract infection, site not specified Is this a current diagnosis for this admission?: Yes Plan: Continue IV vancomycin, follow labs - Time Time Spent with patient: 25-34 minutes
[2018-12-03] MEDS: VANCOMYCIN HCL 1,000 MG in DEXTROSE 5%-WATER 250 ML IV SCH (18:41)
[2018-12-03 20:10] LABS: ABSOLUTE EOSINOPHILS # (AUTO) 0.3 10^3/uL (0.0-0.6); ABSOLUTE MONOCYTES (AUTO) 0.5 10^3/uL (0.1-1.4); ABSOLUTE NEUT (AUTO) 5.8 10^3/uL (1.7-8.2); BASOPHILS % (AUTO) 0.6 % (0-2); EOSINOPHILS % (AUTO) 4.1 % (0-6); HEMATOCRIT 33.1 % (36.0-47.0); HEMOGLOBIN 10.8 g/dL (12.0-15.5); LYMPHOCYTES % (AUTO) 12.5 % (13-45); MEAN CORPUSCULAR HEMOGLOBIN 28.5 pg (27.0-33.4); MEAN CORPUSCULAR HGB CONC 32.7 g/dL (32.0-36.0); MEAN CORPUSCULAR VOLUME 87 fl (80-97); MONOCYTES % (AUTO) 6.7 % (3-13); PLATELET COUNT 226 10^3/uL (150-450); RED CELL DISTRIBUTION WIDTH 16.5 % (11.5-14.0); SEGMENTED NEUTROPHILS % (AUTO) 76.1 % (42-78); TOTAL CELLS COUNTED % (AUTO) 100 %; WHITE BLOOD COUNT 7.6 10^3/uL (4.0-10.5)
[2018-12-03 20:23] LABS: ALBUMIN 2.4 g/dL (3.5-5.0); ALKALINE PHOSPHATASE 96 U/L (38-126); ASPARTATE AMINO TRANSFERASE 17 U/L (14-36); BILIRUBIN,DIRECT 0.1 mg/dL (0.0-0.4); BILIRUBIN,TOTAL 0.2 mg/dL (0.2-1.3); BLOOD UREA NITROGEN 13 mg/dL (7-20); CALCIUM 8.2 mg/dL (8.4-10.2); GLUCOSE 127 mg/dL (75-110); TOTAL PROTEIN 5.7 g/dL (6.3-8.2)
[2018-12-03 20:28] LABS: CARBON DIOXIDE 30 mmol/L (22-30); CHLORIDE 106 mmol/L (98-107)
[2018-12-03 20:29] LABS: ANION GAP 4 (5-19)
[2018-12-04 05:51] LABS: ABSOLUTE BASOPHILS # (AUTO) 0.1 10^3/uL (0.0-0.2); ABSOLUTE EOSINOPHILS # (AUTO) 0.3 10^3/uL (0.0-0.6); ABSOLUTE LYMPHOCYTES (AUTO) 1.3 10^3/uL (0.5-4.7); ABSOLUTE MONOCYTES (AUTO) 0.6 10^3/uL (0.1-1.4); ABSOLUTE NEUT (AUTO) 6.1 10^3/uL (1.7-8.2); BASOPHILS % (AUTO) 1.2 % (0-2); EOSINOPHILS % (AUTO) 3.6 % (0-6); HEMATOCRIT 34.3 % (36.0-47.0); HEMOGLOBIN 11.3 g/dL (12.0-15.5); MEAN CORPUSCULAR HEMOGLOBIN 28.8 pg (27.0-33.4); MEAN CORPUSCULAR HGB CONC 32.9 g/dL (32.0-36.0); MEAN CORPUSCULAR VOLUME 87 fl (80-97); MONOCYTES % (AUTO) 7.6 % (3-13); PLATELET COUNT 218 10^3/uL (150-450); RED BLOOD COUNT 3.92 10^6/uL (3.72-5.28); RED CELL DISTRIBUTION WIDTH 17.2 % (11.5-14.0); SEGMENTED NEUTROPHILS % (AUTO) 72.6 % (42-78); TOTAL CELLS COUNTED % (AUTO) 100 %; WHITE BLOOD COUNT 8.4 10^3/uL (4.0-10.5)
[2018-12-04 06:12] LABS: ALBUMIN 2.5 g/dL (3.5-5.0); ALKALINE PHOSPHATASE 93 U/L (38-126); ASPARTATE AMINO TRANSFERASE 20 U/L (14-36); BILIRUBIN,DIRECT 0.1 mg/dL (0.0-0.4); BILIRUBIN,TOTAL 0.3 mg/dL (0.2-1.3); BLOOD UREA NITROGEN 12 mg/dL (7-20); CALCIUM 8.4 mg/dL (8.4-10.2); CARBON DIOXIDE 28 mmol/L (22-30); CHLORIDE 111 mmol/L (98-107); GLUCOSE 131 mg/dL (75-110); POTASSIUM 3.9 mmol/L (3.6-5.0); TOTAL PROTEIN 5.8 g/dL (6.3-8.2)
[2018-12-04 06:21] LABS: ANION GAP 4 (5-19)
[2018-12-04] MEDS: NORMAL SALINE 10 ML SDV (SCHEDULED) IV SCH ×2 (09:06→23:14)
[2018-12-04] MEDS: NYSTATIN TOPICAL POWDER 15 GM TP SCH ×3 (09:06→17:10)
[2018-12-04] MEDS: METOPROLOL SUCCINATE 50 MG TAB.SR.24H PO SCH (13:19)
--- NOTE | 2018-12-04 13:19 | PDOC PROGRESS REPORT ---
Subjective Progress Note for:: 12/04/18 Subjective:: Patient very sleepy in the last 2 days, in the room, discussed plan of care Reason For Visit: ALZHEIMER DISEASE, ENCEPHALOPATHY Physical Exam Vital Signs: Temp Pulse Resp BP Pulse Ox 97.5 F 65 16 152/68 H 99 12/04/18 10:53 12/04/18 10:53 12/04/18 10:53 12/04/18 10:53 12/04/18 10:53 Intake & Output 12/03/18 12/04/18 12/05/18 06:59 06:59 06:59 Intake Total 2748 1490 Balance 2748 1490 Weight 79.9 kg 78.2 kg General appearance: PRESENT: no acute distress Eye exam: PRESENT: PERRLA Respiratory exam: PRESENT: clear to auscultation [place] Cardiovascular exam: PRESENT: +S1, +S2 GI/Abdominal exam: PRESENT: soft Neurological exam: PRESENT: alert Results Laboratory Results: 12/04/18 05:30 12/04/18 05:30 12/03/18 12/03/18 12/04/18 19:30 19:30 05:30 WBC 7.6 8.4 RBC 3.80 3.92 Hgb 10.8 L 11.3 L Hct 33.1 L 34.3 L MCV 87 87 MCH 28.5 28.8 MCHC 32.7 32.9 RDW 16.5 H 17.2 H Plt Count 226 218 Seg Neutrophils % 76.1 72.6 Sodium 139.7 Potassium 4.0 Chloride 106 Carbon Dioxide 30 Anion Gap 4 L BUN 13 Creatinine 1.04 Est GFR ( Amer) > 60 Glucose 127 H Calcium 8.2 L Total Bilirubin 0.2 AST 17 Alkaline Phosphatase 96 Total Protein 5.7 L Albumin 2.4 L 12/04/18 05:30 WBC RBC Hgb Hct MCV MCH MCHC RDW Plt Count Seg Neutrophils % Sodium 142.6 Potassium 3.9 Chloride 111 H Carbon Dioxide 28 Anion Gap 4 L BUN 12 Creatinine 0.87 Est GFR ( Amer) > 60 Glucose 131 H Calcium 8.4 Total Bilirubin 0.3 AST 20 Alkaline Phosphatase 93 Total Protein 5.8 L Albumin 2.5 L 11/28/18 22:35 Blood Blood Culture - Final NO GROWTH IN 5 DAYS 11/28/18 22:00 Blood Blood Culture - Final NO GROWTH IN 5 DAYS 11/28/18 22:00 Troponin I 0.106 Impressions: Chest X-Ray 11/28/18 21:46 IMPRESSION: 1. No acute pulmonary findings. 2. No significant change since 11/06/2018 Guidance Fluoroscopy 12/02/18 00:00 IMPRESSION: SUCCESSFUL PLACEMENT OF A 5 THAI X 40 CM DOUBLE LUMEN PICC VIA THE RIGHT BRACHIAL VEIN UTILIZING SONOGRAPHIC AND FLUOROSCOPIC GUIDANCE. Interventional Vascular Procedure 12/02/18 00:00 IMPRESSION: SUCCESSFUL PLACEMENT OF A 5 THAI X 40 CM DOUBLE LUMEN PICC VIA THE RIGHT BRACHIAL VEIN UTILIZING SONOGRAPHIC AND FLUOROSCOPIC GUIDANCE. PICC Line Insertion 12/02/18 06:00 IMPRESSION: SUCCESSFUL PLACEMENT OF A 5 THAI X 40 CM DOUBLE LUMEN PICC VIA THE RIGHT BRACHIAL VEIN UTILIZING SONOGRAPHIC AND FLUOROSCOPIC GUIDANCE. Assessment & Plan - Diagnosis (1) Acute hypercapnic respiratory failure Is this a current diagnosis for this admission?: Yes (2) Advanced dementia Is this a current diagnosis for this admission?: Yes (3) MRSA (methicillin resistant Staphylococcus aureus) infection Is this a current diagnosis for this admission?: Yes (4) Urinary tract infection Qualifiers: Urinary tract infection type: site unspecified Hematuria presence: without hematuria Qualified Code(s): N39.0 - Urinary tract infection, site not spec ified Is this a current diagnosis for this admission?: Yes - Time Time Spent with patient: 25-34 minutes Level of Care: IMCU - Plan Summary Plan Summary: She will continue present IV antibiotic
[2018-12-04] MEDS: DEXTROSE 5%-NORMAL SALINE 1,000 ML IV PRN (13:24)
[2018-12-04] MEDS: VANCOMYCIN HCL 1,000 MG in DEXTROSE 5%-WATER 250 ML IV SCH (17:38)
[2018-12-04 18:08] LABS: VANCOMYCIN,TROUGH 17.9 ug/mL (5.0-20.0)
[2018-12-05] MEDS: DEXTROSE 5%-NORMAL SALINE 1,000 ML IV PRN ×2 (04:40→21:18)
[2018-12-05] MEDS: METOPROLOL SUCCINATE 50 MG TAB.SR.24H PO SCH (12:00)
[2018-12-05] MEDS: NORMAL SALINE 10 ML SDV (SCHEDULED) IV SCH ×2 (12:00→21:12)
[2018-12-05] MEDS: NYSTATIN TOPICAL POWDER 15 GM TP SCH ×3 (12:00→21:10)
[2018-12-05] MEDS: VANCOMYCIN HCL 750 MG in DEXTROSE 5%-WATER 250 ML IV SCH (17:26)
--- NOTE | 2018-12-05 20:43 | PDOC PROGRESS REPORT ---
Subjective Progress Note for:: 12/05/18 Subjective:: Patient seen by the bedside, spoke to family about patient's condition Reason For Visit: ALZHEIMER DISEASE, ENCEPHALOPATHY Physical Exam Vital Signs: Temp Pulse Resp BP Pulse Ox 97.5 F 66 16 160/82 H 98 12/05/18 15:39 12/05/18 19:00 12/05/18 15:39 12/05/18 15:39 12/05/18 15:39 Intake & Output 12/04/18 12/05/18 12/06/18 06:59 06:59 06:59 Intake Total 1490 2450 1570 Balance 1490 2450 1570 Weight 78.2 kg 79 kg 79 kg General appearance: PRESENT: no acute distress Eye exam: PRESENT: PERRLA Respiratory exam: PRESENT: crackles Cardiovascular exam: PRESENT: +S1, +S2 GI/Abdominal exam: PRESENT: soft Neurological exam: PRESENT: alert Results Laboratory Results: 12/04/18 05:30 12/04/18 05:30 11/28/18 22:00 Troponin I 0.106 Impressions: Chest X-Ray 11/28/18 21:46 IMPRESSION: 1. No acute pulmonary findings. 2. No significant change since 11/06/2018 Guidance Fluoroscopy 12/02/18 00:00 IMPRESSION: SUCCESSFUL PLACEMENT OF A 5 [place] X 40 CM DOUBLE LUMEN PICC VIA THE RIGHT BRACHIAL VEIN UTILIZING SONOGRAPHIC AND FLUOROSCOPIC GUIDANCE. Interventional Vascular Procedure 12/02/18 00:00 IMPRESSION: SUCCESSFUL PLACEMENT OF A 5 [place] X 40 CM DOUBLE LUMEN PICC VIA THE RIGHT BRACHIAL VEIN UTILIZING SONOGRAPHIC AND FLUOROSCOPIC GUIDANCE. PICC Line Insertion 12/02/18 06:00 IMPRESSION: SUCCESSFUL PLACEMENT OF A 5 [place] X 40 CM DOUBLE LUMEN PICC VIA THE RIGHT BRACHIAL VEIN UTILIZING SONOGRAPHIC AND FLUOROSCOPIC GUIDANCE. Assessment & Plan - Diagnosis (1) Acute hypercapnic respiratory failure Is this a current diagnosis for this admission?: Yes (2) Advanced dementia Is this a current diagnosis for this admission?: Yes (3) MRSA (methicillin resistant Staphylococcus aureus) infection Is this a current diagnosis for this admission?: Yes Plan: Start vancomycin, pharmacy to dose (4) Urinary tract infection Qualifiers: Urinary tract infection type: site unspecified Hematuria presence: without hematuria Qualified Code(s): N39.0 - Urinary tract infection, site not specified Is this a current diagnosis for this admission?: Yes - Time Time Spent with patient: 15-24 minutes
[2018-12-06] MEDS: METOPROLOL SUCCINATE 50 MG TAB.SR.24H PO SCH (09:35)
[2018-12-06] MEDS: NYSTATIN TOPICAL POWDER 15 GM TP SCH ×3 (09:41→17:07)
[2018-12-06] MEDS: NORMAL SALINE 10 ML SDV (SCHEDULED) IV SCH ×2 (09:41→21:51)
[2018-12-06] MEDS: DEXTROSE 5%-NORMAL SALINE 1,000 ML IV PRN (12:40)
[2018-12-06] MEDS: VANCOMYCIN HCL 750 MG in DEXTROSE 5%-WATER 250 ML IV SCH (17:06)
--- NOTE | 2018-12-06 20:48 | PDOC PROGRESS REPORT ---
Subjective Progress Note for:: 12/06/18 Subjective:: Patient still on intravenous vancomycin for MRSA, the plan is for patient to go home with IV fluid Reason For Visit: ALZHEIMER DISEASE, ENCEPHALOPATHY Physical Exam Vital Signs: Temp Pulse Resp BP Pulse Ox 97.2 F 75 20 151/63 H 95 12/06/18 14:56 12/06/18 14:56 12/06/18 14:56 12/06/18 14:56 12/06/18 14:56 Intake & Output 12/05/18 12/06/18 12/07/18 06:59 06:59 06:59 Intake Total 2450 1570 1000 Balance 2450 1570 1000 Weight 79 kg 79 kg 78.5 kg General appearance: PRESENT: no acute distress Respiratory exam: PRESENT: clear to auscultation [place] Cardiovascular exam: PRESENT: +S1, +S2 GI/Abdominal exam: PRESENT: soft Neurological exam: PRESENT: alert Results Laboratory Results: 12/04/18 05:30 12/04/18 05:30 12/01/18 13:22 Blood Blood Culture - Final NO GROWTH IN 5 DAYS 12/01/18 13:15 Blood Blood Culture - Final NO GROWTH IN 5 DAYS 11/28/18 22:00 Troponin I 0.106 Impressions: Chest X-Ray 11/28/18 21:46 IMPRESSION: 1. No acute pulmonary findings. 2. No significant change since 11/06/2018 Guidance Fluoroscopy 12/02/18 00:00 IMPRESSION: SUCCESSFUL PLACEMENT OF A 5 HA[place]IAN X 40 CM DOUBLE LUMEN PICC VIA THE RIGHT BRACHIAL VEIN UTILIZING SONOGRAPHIC AND FLUOROSCOPIC GUIDANCE. Interventional Vascular Procedure 12/02/18 00:00 IMPRESSION: SUCCESSFUL PLACEMENT OF A 5 [place] X 40 CM DOUBLE LUMEN PICC VIA THE RIGHT BRACHIAL VEIN UTILIZING SONOGRAPHIC AND FLUOROSCOPIC GUIDANCE. PICC Line Insertion 12/02/18 06:00 IMPRESSION: SUCCESSFUL PLACEMENT OF A 5 HA[place]IAN X 40 CM DOUBLE LUMEN PICC VIA THE RIGHT BRACHIAL VEIN UTILIZING SONOGRAPHIC AND FLUOROSCOPIC GUIDANCE. Assessment & Plan - Diagnosis (1) Acute hypercapnic respiratory failure Is this a current diagnosis for this admission?: Yes (2) Advanced dementia Is this a current diagnosis for this admission?: Yes (3) MRSA (methicillin resistant Staphylococcus aureus) infection Is this a current diagnosis for this admission?: Yes (4) Urinary tract infection Qualifiers: Urinary tract infection type: site unspecified Hematuria presence: without hematuria Qualified Code(s): N39.0 - Urinary tract infection, site not specified Is this a current diagnosis for this admission?: Yes - Time Time Spent with patient: 35 or more minutes Level of Care: IMCU
[2018-12-07] MEDS: DEXTROSE 5%-NORMAL SALINE 1,000 ML IV PRN ×2 (05:22→22:39)
[2018-12-07] MEDS: NORMAL SALINE 10 ML SDV (SCHEDULED) IV SCH ×2 (09:40→22:01)
[2018-12-07] MEDS: NYSTATIN TOPICAL POWDER 15 GM TP SCH ×2 (09:40→17:54)
[2018-12-07] MEDS: METOPROLOL SUCCINATE 50 MG TAB.SR.24H PO SCH (09:41)
[2018-12-07 16:01] LABS: APPEARANCE,URINE CLEAR; BILIRUBIN,URINE NEGATIVE (NEGATIVE); COLOR,URINE STRAW; GLUCOSE, URINE NEGATIVE (NEGATIVE); KETONES,URINE NEGATIVE (NEGATIVE); LEUKOCYTE ESTERASE,URINE NEGATIVE (NEGATIVE); NITRITE,URINE NEGATIVE (NEGATIVE); PROTEIN,URINE NEGATIVE (NEGATIVE); URINE SPECIFIC GRAVITY 1.008; UROBILINOGEN,URINE NEGATIVE mg/dL (<2.0)
[2018-12-07] MEDS: VANCOMYCIN HCL 750 MG in DEXTROSE 5%-WATER 250 ML IV SCH (17:54)
--- NOTE | 2018-12-07 21:13 | PDOC PROGRESS REPORT ---
Subjective Progress Note for:: 12/07/18 Subjective:: Patient seen by the bedside, she has baseline dementia, hopefully discharge home on IV fluid, she will be finishing the IV vancomycin tomorrow Reason For Visit: ALZHEIMER DISEASE, ENCEPHALOPATHY Physical Exam Vital Signs: Temp Pulse Resp BP Pulse Ox 97.5 F 80 18 150/71 H 100 12/07/18 14:01 12/07/18 19:00 12/07/18 14:01 12/07/18 14:01 12/07/18 14:01 Intake & Output 12/06/18 12/07/18 12/08/18 06:59 06:59 06:59 Intake Total 1570 2250 350 Balance 1570 2250 350 Weight 79 kg 78.5 kg General appearance: PRESENT: no acute distress Eye exam: PRESENT: PERRLA Respiratory exam: PRESENT: clear to auscultation [place] Cardiovascular exam: PRESENT: +S1, +S2 GI/Abdominal exam: PRESENT: soft Neurological exam: PRESENT: alert, CN II-XII grossly intact Results Laboratory Results: 12/04/18 05:30 12/04/18 05:30 12/07/18 15:45 Urine Color STRAW Urine Appearance CLEAR Urine pH 7.0 Ur Specific [place] 1.008 Urine Protein NEGATIVE Urine Glucose (UA) NEGATIVE Urine Ketones NEGATIVE Urine Blood NEGATIVE Urine Nitrite NEGATIVE Ur Leukocyte Esterase NEGATIVE Urine WBC (Auto) 0 Urine RBC (Auto) 1 11/28/18 22:00 Troponin I 0.106 Impressions: Chest X-Ray 11/28/18 21:46 IMPRESSION: 1. No acute pulmonary findings. 2. No significant change since 11/06/2018 Guidance Fluoroscopy 12/02/18 00:00 IMPRESSION: SUCCESSFUL PLACEMENT OF A 5 [place]IAN X 40 CM DOUBLE LUMEN PICC VIA THE RIGHT BRACHIAL VEIN UTILIZING SONOGRAPHIC AND FLUOROSCOPIC GUIDANCE. Interventional Vascular Procedure 12/02/18 00:00 IMPRESSION: SUCCESSFUL PLACEMENT OF A 5 IV[place] X 40 CM DOUBLE LUMEN PICC VIA THE RIGHT BRACHIAL VEIN UTILIZING SONOGRAPHIC AND FLUOROSCOPIC GUIDANCE. PICC Line Insertion 12/02/18 06:00 IMPRESSION: SUCCESSFUL PLACEMENT OF A 5 IVORIAN X 40 CM DOUBLE LUMEN PICC VIA TH E RIGHT BRACHIAL VEIN UTILIZING SONOGRAPHIC AND FLUOROSCOPIC GUIDANCE. Assessment & Plan - Diagnosis (1) Acute hypercapnic respiratory failure Is this a current diagnosis for this admission?: Yes (2) Advanced dementia Is this a current diagnosis for this admission?: Yes (3) MRSA (methicillin resistant Staphylococcus aureus) infection Is this a current diagnosis for this admission?: Yes (4) Urinary tract infection Qualifiers: Urinary tract infection type: site unspecified Hematuria presence: without hematuria Qualified Code(s): N39.0 - Urinary tract infection, site not specified Is this a current diagnosis for this admission?: Yes - Time Time Spent with patient: 15-24 minutes
[2018-12-08] MEDS: METOPROLOL SUCCINATE 50 MG TAB.SR.24H PO SCH (11:56)
[2018-12-08] MEDS: NORMAL SALINE 10 ML SDV (SCHEDULED) IV SCH ×2 (11:58→21:34)
[2018-12-08] MEDS: DEXTROSE 5%-NORMAL SALINE 1,000 ML IV PRN (13:36)
--- NOTE | 2018-12-08 21:43 | PDOC PROGRESS REPORT ---
Subjective Progress Note for:: 12/08/18 Subjective:: Patient finished the IV vancomycin today, she will be discharged on Wednesday or Wednesday morning Reason For Visit: ALZHEIMER DISEASE, ENCEPHALOPATHY Physical Exam Vital Signs: Temp Pulse Resp BP Pulse Ox 97.6 F 66 16 128/82 H 98 12/08/18 16:04 12/08/18 19:00 12/08/18 16:04 12/08/18 20:26 12/08/18 16:04 Intake & Output 12/07/18 12/08/18 12/09/18 06:59 06:59 06:59 Intake Total 2250 1350 1240 Balance 2250 1350 1240 Weight 78.5 kg 78.1 kg General appearance: PRESENT: no acute distress Eye exam: PRESENT: PERRLA Respiratory exam: PRESENT: clear to auscultation [place] Cardiovascular exam: PRESENT: +S1, +S2 GI/Abdominal exam: PRESENT: soft Neurological exam: PRESENT: alert Results Laboratory Results: 12/04/18 05:30 12/04/18 05:30 11/28/18 22:00 Troponin I 0.106 Impressions: Chest X-Ray 11/28/18 21:46 IMPRESSION: 1. No acute pulmonary findings. 2. No significant change since 11/06/2018 Guidance Fluoroscopy 12/02/18 00:00 IMPRESSION: SUCCESSFUL PLACEMENT OF A 5 [place] X 40 CM DOUBLE LUMEN PICC VIA THE RIGHT BRACHIAL VEIN UTILIZING SONOGRAPHIC AND FLUOROSCOPIC GUIDANCE. Interventional Vascular Procedure 12/02/18 00:00 IMPRESSION: SUCCESSFUL PLACEMENT OF A 5 [place] X 40 CM DOUBLE LUMEN PICC VIA THE RIGHT BRACHIAL VEIN UTILIZING SONOGRAPHIC AND FLUOROSCOPIC GUIDANCE. PICC Line Insertion 12/02/18 06:00 IMPRESSION: SUCCESSFUL PLACEMENT OF A 5 [place] X 40 CM DOUBLE LUMEN PICC VIA THE RIGHT BRACHIAL VEIN UTILIZING SONOGRAPHIC AND FLUOROSCOPIC GUIDANCE. Assessment & Plan - Diagnosis (1) Acute hypercapnic respiratory failure Is this a current diagnosis for this admission?: Yes (2) Advanced dementia Is this a current diagnosis for this admission?: Yes (3) MRSA (methicillin resistant Staphylococcus aureus) infection Is this a current diagnosis for this admission?: Yes (4) Urinary tract infection Qualifiers: Urinary tract infection type: site unspecified Hematuria presence: without hematuria Qualified Code(s): N39.0 - Urinary tract infection, site not specified Is this a current diagnosis for this admission?: Yes - Time Time Spent with patient: Less than 15 minutes Level of Care: IMCU
[2018-12-09] MEDS: DEXTROSE 5%-NORMAL SALINE 1,000 ML IV PRN ×2 (05:26→21:02)
[2018-12-09] MEDS: NORMAL SALINE 10 ML SDV (SCHEDULED) IV SCH ×2 (11:15→21:02)
[2018-12-09] MEDS: METOPROLOL SUCCINATE 50 MG TAB.SR.24H PO SCH (11:16)
--- NOTE | 2018-12-09 21:16 | PDOC DISCHARGE SUMMARY ---
Impression - Admit/DC Date/PCP Admission Date/Primary Care Provider: 11/29/18 00:15 MALIK RAYMUNDO MD Discharge Date: 12/10/18 - Discharge Diagnosis (1) Acute hypercapnic respiratory failure Is this a current diagnosis for this admission?: Yes (2) Advanced dementia Is this a current diagnosis for this admission?: Yes (3) MRSA (methicillin resistant Staphylococcus aureus) infection Is this a current diagnosis for this admission?: Yes (4) Urinary tract infection Is this a current diagnosis for this admission?: Yes - Additional Information Resuscitation Status: Full Code Discharge Diet: As Tolerated, Other (Comments) - IV fluid normal saline,@ 1000 ml per 24 hour Referrals: MALIK RAYMUNDO MD [Primary Care Provider] - Follow up as needed Home Medications: Metoprolol Succinate [Toprol Xl 50 mg Tab.sr] 50 mg PO DAILY 11/29/18 History of Present Illiness History of Present Illness: MARLYS TORRES is a 88 year old female,She has history of advanced dementia, 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 According to the ER record, patient's daughter stated that patient was altered from her baseline cognition over the past couple of days, she also stated that patient has had decreased p.o. intake, decreased urinary output. She also stated that they have also had to use suction on many occasions.Patient was evaluated in the emergency room, arterial blood gas was done, pH 7.31, PCO2 50.4, PO2 164.3, bicarbonate 25.0 on FiO2 100%. History could not be obtained from patient because she was very stuporous. Patient is well-known to me from previous many encounters, she has advanced dementia, progressive, the intake has diminished tremendously, family does not want a feeding tube which I am in total agreement with,Her condition has been progressively declining, patient is to be a full code, she was treated previously on medication for UTIs and pneumonia, the acute respiratory acidosis that she is presently experiencing is most likely from central etiology.Patient overall prognosis is very poor, I had a long discussion with the patient's family about prognosis, very strong family, they understood that patient condition is poor, patient spouse is also of advanced age, patient's daughter is an RN, they well understood the overall prognosis. Patient requires noninvasive positive pressure ventilation with BiPAP. Hospital Course Hospital Course: Patient with advanced dementia, she was admitted for the management of acute hypercapnic respiratory failure, MRSA UTI with unknown primary source. She was treated initially with noninvasive positive pressure ventilation, BiPAP she also receive intravenous vancomycin, IV fluid for 7 days the source of the MRSA was not identified, patient was treated with antibiotic for 7 days, she will be discharged home on IV fluid therapy, 1000 cc normal saline per day for hydration purposes Physical Exam Vital Signs: Temp Pulse Resp BP Pulse Ox 97.4 F 73 18 160/91 H 99 12/09/18 06:56 12/09/18 19:00 12/09/18 06:56 12/09/18 16:46 12/09/18 16:46 Intake & Output 12/08/18 12/09/18 12/10/18 06:59 06:59 06:59 Intake Total 1350 2240 1150 Balance 1350 2240 1150 Weight 78.1 kg 76.2 kg 76.2 kg General appearance: PRESENT: no acute distress Eye exam: PRESENT: PERRLA Respiratory exam: PRESENT: clear to auscultation [place] Cardiovascular exam: PRESENT: +S1, +S2 GI/Abdominal exam: PRESENT: soft Neurological exam: PRESENT: alert Results Laboratory Results: WBC 8.4 10^3/uL (4.0-10.5) 12/04/18 05:30 RBC 3.92 10^6/uL (3.72-5.28) 12/04/18 05:30 Hgb 11.3 g/dL (12.0-15.5) L 12/04/18 05:30 Hct 34.3 % (36.0-47.0) L 12/04/18 05:30 MCV 87 fl (80-97) 12/04/18 05:30 MCH 28.8 pg (27.0-33.4) 12/04/18 05:30 MCHC 32.9 g/dL (32.0-36.0) 12/04/18 05:30 RDW 17.2 % (11.5-14.0) H 12/04/18 05:30 Plt Count 218 10^3/uL (150-450) 12/04/18 05:30 Lymph % (Auto) 15.0 % (13-45) 12/04/18 05:30 [place] % (Auto) 7.6 % (3-13) 12/04/18 05:30 Eos % (Auto) 3.6 % (0-6) 12/04/18 05:30 Baso % (Auto) 1.2 % (0-2) 12/04/18 05:30 Absolute Neuts (auto) 6.1 10^3/uL (1.7-8.2) 12/04/18 05:30 Absolute Lymphs (auto) 1.3 10^3/uL (0.5-4.7) 12/04/18 05:30 Absolute Monos (auto) 0.6 10^3/uL (0.1-1.4) 12/04/18 05:30 Absolute Eos (auto) 0.3 10^3/uL (0.0-0.6) 12/04/18 05:30 Absolute Basos (auto) 0.1 10^3/uL (0.0-0.2) 12/04/18 05:30 Seg Neutrophils % 72.6 % (42-78) 12/04/18 05:30 PT 13.8 SEC (11.4-15.4) 11/28/18 22:00 INR 1.06 11/28/18 22:00 Carbonic Acid 1.52 mmol/L (1.05-1.35) H 11/28/18 23:14 HCO3/H2CO3 Ratio 16:1 11/28/18 23:14 ABG pH 7.31 (7.35-7.45) L 11/28/18 23:14 ABG pCO2 50.4 mmHg (35-45) H 11/28/18 23:14 ABG pO2 164.3 mmHg (80-100) H 11/28/18 23:14 ABG HCO3 25.0 mmol/L (20-24) H 11/28/18 23:14 ABG Total CO2 26.6 mmol/L (21-25) H 11/28/18 23:14 ABG O2 Saturation 98.9 % (94-98) H 11/28/18 23:14 ABG Base Excess -1.7 mmol/L 11/28/18 23:14 VBG pH 7.19 (7.30-7.42) L* 11/28/18 22:00 VBG pCO2 85.1 mmHg (35-63) H* 11/28/18 22:00 VBG HCO3 31.8 mmol/L (20-32) 11/28/18 22:00 VBG Base Excess 1.0 mmol/L 11/28/18 22:00 FiO2 100% 11/28/18 23:14 Sodium 142.6 mmol/L (137-145) 12/04/18 05:30 Potassium 3.9 mmol/L (3.6-5.0) 12/04/18 05:30 Chloride 111 mmol/L (98-107) H 12/04/18 05:30 Carbon Dioxide 28 mmol/L (22-30) 12/04/18 05:30 Anion Gap 4 (5-19) L 12/04/18 05:30 BUN 12 mg/dL (7-20) 12/04/18 05:30 Creatinine 0.87 mg/dL (0.52-1.25) 12/04/18 05:30 Est GFR ( Amer) > 60 (>60) 12/04/18 05:30 Est GFR (MDRD) Non-Af > 60 (>60) 12/04/18 05:30 Glucose 131 mg/dL (75-110) H 12/04/18 05:30 POC Glucose 103 mg/dL (70-110) 11/28/18 22:31 Lactic Acid 2.4 mmol/L (0.7-2.1) H 11/28/18 22:00 Calcium 8.4 mg/dL (8.4-10.2) 12/04/18 05:30 Total Bilirubin 0.3 mg/dL (0.2-1.3) 12/04/18 05:30 Direct Bilirubin 0.1 mg/dL (0.0-0.4) 12/04/18 05:30 Neonat Total Bilirubin Not Reportable 12/04/18 05:30 Neonat Direct Bilirubin Not Reportable 12/04/18 05:30 Neonat Indirect Bili Not Reportable 12/04/18 05:30 AST 20 U/L (14-36) 12/04/18 05:30 ALT 11 U/L (<35) 12/04/18 05:30 Alkaline Phosphatase 93 U/L (38-126) 12/04/18 05:30 Troponin I 0.106 ng/mL 11/28/18 22:00 Total Protein 5.8 g/dL (6.3-8.2) L 12/04/18 05:30 Albumin 2.5 g/dL (3.5-5.0) L 12/04/18 05:30 Urine Color STRAW 12/07/18 15:45 Urine Appearance CLEAR 12/07/18 15:45 Urine pH 7.0 (5.0-9.0) 12/07/18 15:45 Ur Specific [place] 1.008 12/07/18 15:45 Urine Protein NEGATIVE mg/dL (NEGATIVE) 12/07/18 15:45 Urine Glucose (UA) NEGATIVE mg/dL (NEGATIVE) 12/07/18 15:45 Urine Ketones NEGATIVE mg/dL (NEGATIVE) 12/07/18 15:45 Urine Blood NEGATIVE (NEGATIVE) 12/07/18 15:45 Urine Nitrite NEGATIVE (NEGATIVE) 12/07/18 15:45 Urine Nitrite (Reflex) NEGATIVE (NEGATIVE) 11/28/18 22:40 Urine Bilirubin NEGATIVE (NEGATIVE) 12/07/18 15:45 Urine Urobilinogen NEGATIVE mg/dL (<2.0) 12/07/18 15:45 Ur Leukocyte Esterase NEGATIVE (NEGATIVE) 12/07/18 15:45 Leukocyte Esterase Rfl TRACE (NEGATIVE) H 11/28/18 22:40 Urine WBC (Auto) 0 /HPF 12/07/18 15:45 Urine RBC (Auto) 1 /HPF 12/07/18 15:45 U Hyaline Cast (Auto) 1 /LPF 12/07/18 15:45 Urine Bacteria (Auto) TRACE /HPF 11/28/18 22:40 Urine WBC (Reflex) 10 /HPF 11/28/18 22:40 Squamous Epi Cells Auto 1 /HPF 11/28/18 22:40 Urine Mucus (Auto) RARE /LPF 12/07/18 15:45 Urine Ascorbic Acid NEGATIVE (NEGATIVE) 12/07/18 15:45 Time Trough Drawn 1715 12/04/18 17:15 Vancomycin Trough 17.9 ug/mL (5.0-20.0) 12/04/18 17:15 11/28/18 22:00 Troponin I 0.106 Impressions: Chest X-Ray 11/28/18 21:46 IMPRESSION: 1. No acute pulmonary findings. 2. No significant change since 11/06/2018 Guidance Fluoroscopy 12/02/18 00:00 IMPRESSION: SUCCESSFUL PLACEMENT OF A 5 SLOVENIAN X 40 CM DOUBLE LUMEN PICC VIA THE RIGHT BRACHIAL VEIN UTILIZING SONOGRAPHIC AND FLUOROSCOPIC GUIDANCE. Interventional Vascular Procedure 12/02/18 00:00 IMPRESSION: SUCCESSFUL PLACEMENT OF A 5 SLOVENIAN X 40 CM DOUBLE LUMEN PICC VIA THE RIGHT BRACHIAL VEIN UTILIZING SONOGRAPHIC AND FLUOROSCOPIC GUIDANCE. PICC Line Insertion 12/02/18 06:00 IMPRESSION: SUCCESSFUL PLACEMENT OF A 5 SLOVENIAN X 40 CM DOUBLE LUMEN PICC VIA THE RIGHT BRACHIAL VEIN UTILIZING SONOGRAPHIC AND FLUOROSCOPIC GUIDANCE. Plan Plan of Treatment: Patient to be discharged home with home health, she will receive normal saline, 1000 cc/day Stroke Is this a Stroke Patient?: No Acute Heart Failure - Is this a Heart Failure Patient?: No
[2018-12-10] MEDS: NORMAL SALINE 10 ML SDV (SCHEDULED) IV SCH (09:17)
[2018-12-10] MEDS: METOPROLOL SUCCINATE 50 MG TAB.SR.24H PO SCH (09:20)
[2018-12-10 11:55] VITALS: BP 128/82
== END 2018-12-10 12:30 | disposition home or self-care (01) | DRG 189 ==
LOC: ER 21:41 → EH 11-29 00:15 → 3S 11-29 03:23
PROVIDERS: ADMIT Internal Medicine; ATTEND Internal Medicine
PROC: 02HV33Z Insertion of Infusion Device into Superior Vena Cava, Percutaneous Approach (ICD-10-PCS; 2018-12-02)
PROC: 5A09357 Assistance with Respiratory Ventilation, Less than 24 Consecutive Hours, Continuous Positive Airway Pressure (ICD-10-PCS; principal; 2018-12-10)
DX: J96.02 Acute respiratory failure with hypercapnia (principal); N39.0 Urinary tract infection, site not specified; J44.9 Chronic obstructive pulmonary disease, unspecified; F03.90 Unspecified dementia, unspecified severity, without behavioral disturbance, psychotic disturbance, mood disturbance, and anxiety; B95.62 Methicillin resistant Staphylococcus aureus infection as the cause of diseases classified elsewhere; M06.9 Rheumatoid arthritis, unspecified; I10 Essential (primary) hypertension; K21.9 Gastro-esophageal reflux disease without esophagitis; R91.8 Other nonspecific abnormal finding of lung field; Z87.440 Personal history of urinary (tract) infections; Z87.891 Personal history of nicotine dependence; Z74.01 Bed confinement status
CPT/HCPCS: 36415; 36569; 36600; 51701; 71045; 76937; 77001; 80053; 80202; 81001; 82565; 82803; 82962; 83605; 84484; 85025; 85610; 87040; 87086; 87088; 87186; 90686; 93005; 93010; 94660; 96361; 96374; 96375; 99285; J0696; J1642; J3370; J3490; J7030; J7042; J7060